=== PATIENT | male | born 1940 | race Caucasian/White ===

== ENCOUNTER 2016-10-13 09:36 | Day surgery (SDC) | payer MEDICARE ==
[2016-10-12 10:11] VITALS: BMI 30.7
[~2016-10-13 09:36] MED LIST: LACTATED RINGERS 1,000 ML IV SCH
[2016-10-13 10:41] LABS: Glucose,Whole Blood 226 mg/dL (75-99)
[2016-10-13] MEDS ORDERED: LIDOCAINE 1% 20 ML VIAL (10MG/ML) FOR IV START INTRADERMA ONE (10:50)
[2016-10-13] MEDS ORDERED: PROPOFOL 10 MG/ML 20 ML VIAL IV ONE (10:55)
[2016-10-13] MEDS ORDERED: LIDOCAINE 1% INJ 10MG/ML (20 ML MDV) ONE (10:55)
[2016-10-13 10:56] VITALS: TEMP 97.1
--- NOTE | 2016-10-13 11:10 | P.PCN ---
Date of Procedure: 10/13/16 Procedure(s) Performed: BRIEF HISTORY: Patient is a 76-year-old, pleasant, white male, scheduled for an upper endoscopy as a part of evaluation of iron deficiency anemia. His last colonoscopy was in November [address] Jacobs which showed some diverticulosis. He does complain of intermittent dark colored stools. He recently received a blood transfusion and is scheduled to receive IV infusions next week.. PROCEDURE PERFORMED: Esophagogastroduodenoscopy with cautery. PREOPERATIVE DIAGNOSIS: Iron Deficiency anemia. IV sedation per anesthesia. PROCEDURE: After informed consent was obtained, the patient was brought into the endoscopy unit. IV conscious sedation was administered by Anesthesia under continuous monitoring. Initially the Olympus GIF-140 video endoscope was inserted into the mouth. Esophagus intubated without any difficulty. It was gradually advanced into the stomach and duodenum and carefully examined. The bulb and the second part of the duodenum appeared normal. A few scattered angiectasia noted in the second and third part of the duodenum which we cauterized using a gold probe. The scope at this time was withdrawn to the stomach, adequately insufflated with air, and upon careful examination, mucosa of the antrum, body, cardia and the fundus appeared normal. The scope was then withdrawn into the esophagus. Small hiatal hernia noted. The GE junction was located at 39 cm from the incisors. The esophagus appeared normal. There were no erosions or ulcerations seen and the patient tolerated the procedure well. IMPRESSION: 1. Scattered angiectasia in the second and third part of the duodenum with no active bleeding status post cautery as described above. 2. Small hiatal hernia. RECOMMENDATIONS: The findings of this examination were discussed with the patient as well as his family. He was advised to follow with as scheduled. If he has persistent iron deficiency anemia may be a candidate for a small bowel capsule endoscopy.
[2016-10-13 11:31] LABS: Glucose,Whole Blood 197 mg/dL (75-99)
[2016-10-13 11:38] VITALS: BP 141/80; PULSE 67; RESP 18
== END 2016-10-13 12:08 | disposition home or self-care (01) ==
LOC: ORWHC2ENDO 09:36
PROVIDERS: ATTEND Internal Medicine Gastroenterology
DX: I99.8 Other disorder of circulatory system (principal); K44.9 Diaphragmatic hernia without obstruction or gangrene; Z79.84 Long term (current) use of oral hypoglycemic drugs; I10 Essential (primary) hypertension; J44.9 Chronic obstructive pulmonary disease, unspecified; J45.909 Unspecified asthma, uncomplicated; K21.9 Gastro-esophageal reflux disease without esophagitis; E11.9 Type 2 diabetes mellitus without complications; Z79.4 Long term (current) use of insulin; Z79.82 Long term (current) use of aspirin; Z79.899 Other long term (current) drug therapy; Z88.5 Allergy status to narcotic agent; Z88.0 Allergy status to penicillin; Z88.8 Allergy status to other drugs, medicaments and biological substances
CPT/HCPCS: 43270; J2001; J2704

== ENCOUNTER → 2016-12-08 | Outpatient (CLI) | payer MEDICARE ==
[2016-12-08 14:50] LABS: Blood Urea Nitrogen 16 mg/dL (9-20); Non-African American GFR(MDRD) >60 (>60 ml/min/1.73 sqM)
--- NOTE | 2016-12-08 16:16 | CT ---
EXAMINATION TYPE: CT angio abd aorta wo/w con DATE OF EXAM: 12/08/2016 3:34 PM COMPARISON: NONE INDICATION: Patient complains of low RBC count and need for blood and Iron infusions. DLP: 1084.7 mGycm, Automated exposure control for dose reduction was used. CONTRAST: 100 mL of Omnipaque 350. Study performed without Oral Contrast TECHNIQUE: Axial images were obtained from above the diaphragm to the pubic rami in the axial plane a t 5 mm thick sections. Reconstructed images are reviewed on the computer in the coronal plane. FINDINGS: Limited CT sections are obtained the lung bases. The lung bases are clear. CT ABDOMEN: Liver: There is mild diminished density relation spleen compatible with mild fatty infiltration liver . Spleen: Normal Pancreas: Normal Adrenal glands: The adrenal glands are normal. Gallbladder: Not identified. Kidneys: No masses are evident. No hydronephrosis is present. There is a cyst at the superior pole of the right kidney measuring 4.9 cm and 5 Hounsfield units. There is a lateral superior pole left re nal cyst measuring 2.3 cm and 22 Hounsfield units. Delayed images were obtained through the kidneys, which remain unremarkable. Aorta: Vascular calcification is within the aorta. There is some prominence of the common iliac michelle al measuring 2.2 cm transverse on the right and 1.9 cm transverse on the left. Some fusiform promin ence of the distal abdominal aorta has a greatest AP dimension and 3.8 cm. Reconstructed images in th e coronal and sagittal plane are reviewed on the computer Three-D reconstructed images performed sepa rately by the technologist on the [employer] computer are presented. Inferior vena cava: Normal. Loops of bowel within the abdomen and visualized pelvis are normal. Appendix: Not identified IMPRESSIONS: 1. 3.8 cm AP dimension abdominal aortic aneurysm with extension into the common iliac arteries measu ring 2.2 cm on the right and 1.9 cm on the left. 2. Bilateral renal cysts.
== END | disposition home or self-care (01) ==
LOC: RADCTMAIN 13:59
PROVIDERS: ATTEND Internal Medicine Cardiovascular Disease
DX: I71.4 Abdominal aortic aneurysm, without rupture (principal); N28.1 Cyst of kidney, acquired
CPT/HCPCS: 82565; 84520; 75635; 36415; Q9967

== ENCOUNTER 2017-12-06 19:31 | Observation (INO) | payer MEDICARE ==
[2017-12-06] MEDS ORDERED: MORPHINE SULFATE 4 MG/ML SYRINGE IV STA (19:54)
[2017-12-06] MEDS ORDERED: ASPIRIN 81 MG PO STA (19:54)
[2017-12-06] MEDS ORDERED: NITROGLYCERIN OINT 1 INCH/GM PACKET TOPICAL STA (19:54)
[2017-12-06] MEDS ORDERED: ONDANSETRON 4 MG/2 ML VIAL IVP STA (19:54)
[2017-12-06 20:12] LABS: Basophils # (A) 0.1 k/uL (0-0.2); Basophils % (A) 1 %; Eosinophils # (A) 0.3 k/uL (0-0.7); Eosinophils % (A) 4 %; HCT 33.6 % (39.0-53.0); HGB 11.4 gm/dL (13.0-17.5); Lymphocytes # (A) 1.2 k/uL (1.0-4.8); Lymphocytes % (A) 14 %; MCH 34.4 pg (25.0-35.0); MCV 101.3 fL (80.0-100.0); Macrocytosis Slight; Mean Platelet Volume 7.8; Monocytes # (A) 0.6 k/uL (0-1.0); Monocytes % (A) 7 %; Neutrophils % (A) 72 %; Platelet Count 328 k/uL (150-450); RBC 3.32 m/uL (4.30-5.90); RDW 14.4 % (11.5-15.5); WBC 8.3 k/uL (3.8-10.6)
[2017-12-06 20:21] LABS: Partial Thromboplastin Time 22.3 sec (22.0-30.0); Prothrombin Time 9.5 sec (9.0-12.0)
[2017-12-06 20:28] LABS: ALT 21 U/L (21-72); AST 16 U/L (17-59); Albumin 3.8 g/dL (3.5-5.0); Alkaline Phosphatase 56 U/L (38-126); Anion Gap 11 mmol/L; Blood Urea Nitrogen 25 mg/dL (9-20); Calcium 9.7 mg/dL (8.4-10.2); Carbon Dioxide 22 mmol/L (22-30); Chloride 106 mmol/L (98-107); Glucose 90 mg/dL (74-99); Potassium 4.3 mmol/L (3.5-5.1); Sodium 139 mmol/L (137-145); Total Bilirubin 0.3 mg/dL (0.2-1.3); Total Protein 6.2 g/dL (6.3-8.2)
[2017-12-06 21:14] LABS: Creatine Kinase 68 U/L (55-170)
[2017-12-06 21:27] LABS: Creatine Kinase MB 1.2 ng/mL (0.0-2.4); Troponin I <0.012 ng/mL (0.000-0.034)
--- NOTE | 2017-12-06 21:30 | ED ---
Chest Pain HPI - General Chief Complaint: Chest Pain Stated Complaint: Chest pain/heaviness on chest Time Seen by Provider: 12/06/17 19:36 Source: patient Mode of arrival: ambulatory Limitations: no limitations - History of Present Illness Initial Comments: 27 years old gentleman presented with the chest pain ongoing more than 24 hours ago has a history of ischemic heart disease he has a dentist in place and was 2 years ago is also complaining about short-winded he denies any worsening of the chest pain with deep breaths chest pain right now is 2/10 he denies any headaches no neck stiffness does have a chest pain and he's short-winded no abdominal pain no frequency urgency dysuria no weakness of upper or lower extremities - Related Data Home Medications Medication Instructions Recorded Confirmed Aspirin 81 mg PO DAILY 04/02/15 12/06/17 Ferrous Sulfate [Feosol] 650 mg PO DAILY 04/02/15 12/06/17 Insulin Glargine,Hum.rec.anlog 32 unit SQ HS 04/02/15 12/06/17 [Lantus Solostar] Multivitamin [Men's Multi-Vitamin] 1 tab PO DAILY 04/02/15 12/06/17 Omeprazole [PriLOSEC] 20 mg PO AC-BRKFST 04/02/15 12/06/17 amLODIPine BESYLATE [Norvasc] 5 mg PO DAILY 04/02/15 12/06/17 metFORMIN HCL [Glucophage] 1,000 mg PO BID 04/02/15 12/06/17 glipiZIDE XL [Glucotrol XL] 10 mg PO DAILY 04/03/15 12/06/17 Albuterol Inhaler [Ventolin Hfa 2 puff INHALATION RT-Q4H PRN 10/12/16 12/06/17 Inhaler] Atorvastatin [Lipitor] 40 mg PO DAILY 12/06/17 12/06/17 Baclofen [Lioresal] 10 mg PO TID PRN 12/06/17 12/06/17 FLUoxetine HCL [PROzac] 20 mg PO DAILY 12/06/17 12/06/17 Pramipexole [Mirapex] 0.125 mg PO DAILY 12/06/17 12/06/17 traMADol HCL [Ultram] 50 mg PO DAILY PRN 03/01/18 03/01/18 Allergies Allergy/AdvReac Type Severity Reaction Status Date / Time benazepril HCl Allergy Cough Verified 12/06/17 20:07 [From Lotensin] gabapentin [From Neurontin] Allergy Unknown Verified 12/06/17 20:07 hydrocodone bitartrate Allergy Unknown Verified 12/06/17 20:07 [From Lortab] Penicillins Allergy Unknown Verified 12/06/17 20:07 prednisone Allergy UNABLE TO Verified 12/06/17 20:07 URINATE varenicline tartrate Allergy Nausea Verified 12/06/17 20:07 [From Chantix] Review of Systems ROS Statement: Those systems with pertinent positive or pertinent negative responses have been documented in the HPI. ROS Other: All systems not noted in ROS Statement are negative. EKG Findings - EKG Comments: EKG Findings:: EKG is normal sinus rhythm ventricular rate is 87 HI interval is 166 QRS duration is 92 QT/QTc is 382/459 review of this EKG reveal slight ST segment depression in lead V6 and some T-wave flattening in aVL no ST elevation noticed Past Medical History Past Medical History: Chest Pain / Angina, COPD, Diabetes Mellitus, GERD/Reflux , Hyperlipidemia, Hypertension, Osteoarthritis (OA) Additional Past Medical History / Comment(s): aortic aneurysm, anemia, diverticulitis, back pain, colon polyps, restless leg., STATES HE RECEIVED BLOOD TRANSFUSION AT [facility] YESTERDAY.(10/11/2016), STATES HE HAS BEEN FEELING VERY WEAK., STATES HX OF IRON AND BLOOD TRANSFUSION IN THE PAST ALSO. History of Any Multi-Drug Resistant Organisms: None Reported Past Surgical History: Heart Catheterization With Stent, Hernia Repair, Orthopedic Surgery Additional Past Surgical History / Comment(s): angioplasty, hemorroidectomy, bilateral cataracts, left ankle, breast tumors removed, right knee arthroscopy, bilateral shoulders, back surgery with cage implant ., right trigger finger. Past Anesthesia/Blood Transfusion Reactions: No Reported Reaction Additional Past Anesthesia/Blood Transfusion Reaction / Comment(s): PT STATES BLOOD TRANSFUSION 10/11/16 AT [facility], STATES DIARRHEA AFTERWARDS. Date of Last Stent Placement:: 04/03/2015 Past Psychological History: Anxiety, Depression Smoking Status: Current every day smoker Past Alcohol Use History: None Reported, Occasional Past Drug Use History: None Reported - Past Family History Mother Family Medical History: Cancer General Exam - General Exam Comments Initial Comments: General: The patient is awake and alert, looks pale and tired Skin: Skin is warm and dry and no rashes or lesions are noted. Eye: Pupils are equal, round and reactive to light, extra-ocular movements are intact; there is normal conjunctiva bilaterally. Ears, nose, mouth and throat: There are moist mucous membranes and no oral lesions. Neck: The neck is supple, there is no tenderness Cardiovascular: There is a regular rate and rhythm. No murmur, rub or gallop is appreciated. Respiratory: To auscultation bilateral, no wheezing no rhonchi no distress respiratory hudson noticed Gastrointestinal: Soft, non-distended, non-tender abdomen without masses or organomegaly noted. There is no rebound or guarding present. Bowel sounds are unremarkable. Back: There is no tenderness to palpation in the midline. There is no obvious deformity. Musculoskeletal: Normal ROM, no tenderness, There is no pedal edema. There is no calf tenderness or swelling. No cords were appreciated. Neurological: CN II-XII intact, Cranial nerves III through XII are intact. There are no obvious motor or sensory deficits. Coordination appears grossly intact. Speech is normal. Psychiatric: Cooperative, appropriate mood & affect, normal judgment. Limitations: no limitations Course Vital Signs 12/06/17 12/06/17 12/06/17 19:39 20:08 21:08 Temperature 98.6 F 98.3 F Pulse Rate 87 76 70 Respiratory 18 18 18 Rate Blood Pressure 188/87 142/91 139/67 O2 Sat by Pulse 99 99 98 Oximetry - Reevaluation(s) Reevaluation #1: Is reassessed at term at 10 PM, CBC, INR, compressive metabolic panel, troponin , chest x-ray are unremarkable, that patient added that pain has gone but he still has a chest pressure considering is a diabetic considering diabetes, physes symptoms I decided to put him in the hospital for observation with the 3 sets of cardiac markers and cardiology consult and admission to Dr. Conrad's service 12/06/17 22:05 Disposition Clinical Impression: Chest pain, Chest pressure Disposition: ADMITTED IP TO THIS HOSP Condition: Good Referrals: Marilia Randall DO [Primary Care Provider] - 1-2 days
--- NOTE | 2017-12-06 21:49 | XR ---
EXAMINATION TYPE: XR chest 2V DATE OF EXAM: 12/06/2017 COMPARISON: 04/02/2015 HISTORY: Chest pain TECHNIQUE: Frontal and lateral views of the chest are obtained. FINDINGS: There is no heart failure nor confluent pneumonic infiltrate. Thoracic aorta is atheromato us. There are chest leads. Costophrenic angles are clear. Bony thorax is intact. IMPRESSION: No active cardiopulmonary disease. There is improved aeration of the lung bases compared to old exam.
[2017-12-06] MEDS ORDERED: MORPHINE SULFATE 4 MG/ML SYRINGE IV PRN (22:06)
[2017-12-06] MEDS ORDERED: ACETAMINOPHEN TAB 325 MG TAB PO PRN (22:06)
[2017-12-06] MEDS ORDERED: HEPARIN SODIUM,PORCINE 5,000 UNIT/ML 1 ML VIAL IV ONE (22:06)
[2017-12-06] MEDS ORDERED: NITROGLYCERIN SL TABS 0.4 MG TAB SUBLINGUAL PRN (22:06)
[2017-12-06] MEDS ORDERED: ALBUTEROL NEBULIZED 2.5 MG/3 ML INHALATION PRN (22:12)
[2017-12-06] MEDS ORDERED: traMADol 50 MG TAB PO PRN (22:12)
[2017-12-06] MEDS ORDERED: BACLOFEN 10 MG TAB PO PRN (22:12)
[2017-12-06] MEDS ORDERED: HEPARIN SOD,PORK IN 0.45% NACL 25,000 UNIT in 0.45% NACL 1 500ML.BAG IV SCH (22:15)
[2017-12-06 23:12] VITALS: BMI 32.1
[2017-12-06] MEDS ORDERED: INSULIN DETEMIR 100 UNIT/ML 10 ML VIAL SQ SCH (23:38)
[2017-12-06 23:57] VITALS: RESP 18
[2017-12-07 02:09] LABS: Cholesterol 103 mg/dL (<200); HDL Cholesterol 35 mg/dL (40-60); LDL Cholesterol,Calculated 23 mg/dL (0-99); Triglycerides 225 mg/dL (<150)
[2017-12-07 02:12] LABS: Creatine Kinase 47 U/L (55-170)
[2017-12-07 02:26] LABS: Creatine Kinase MB 1.2 ng/mL (0.0-2.4); Troponin I <0.012 ng/mL (0.000-0.034)
[2017-12-07] MEDS ORDERED: INSULIN DETEMIR 100 UNIT/ML 10 ML VIAL SQ SCH ×2 (06:33→21:00)
[2017-12-07] MEDS ORDERED: PANTOPRAZOLE 40 MG TABLET PO SCH (07:30)
[2017-12-07] MEDS ORDERED: PRAMIPEXOLE 0.125 MG TAB PO SCH (09:00)
[2017-12-07] MEDS ORDERED: ASPIRIN 81 MG PO SCH (09:00)
[2017-12-07] MEDS ORDERED: MULTIVITAMINS, THERA 1 EACH TAB PO SCH (09:00)
[2017-12-07] MEDS ORDERED: amLODIPine 5 MG TAB PO SCH (09:00)
[2017-12-07] MEDS ORDERED: ATORVASTATIN 40 MG TAB PO SCH (09:00)
[2017-12-07] MEDS ORDERED: FERROUS SULFATE 325 MG TAB PO SCH (09:00)
[2017-12-07] MEDS ORDERED: FLUoxetine HCL 20 MG CAP PO SCH (09:00)
[2017-12-07] MEDS ORDERED: metFORMIN 500 MG TAB PO SCH (09:00)
[2017-12-07] MEDS ORDERED: glipiZIDE 10 MG TAB PO SCH (09:00)
[2017-12-07 09:38] LABS: Creatine Kinase 48 U/L (55-170)
[2017-12-07 09:52] LABS: Creatine Kinase MB 1.3 ng/mL (0.0-2.4); Troponin I <0.012 ng/mL (0.000-0.034)
[2017-12-07] MEDS ORDERED: DOBUTamine DRIP for NUC MED 250 MG in DEXTROSE/WATER 1 250ML.BAG IV ONE (10:00)
--- NOTE | 2017-12-07 11:49 | ECHOF ---
Referral Reason:chest pain MEASUREMENTS -------- HEIGHT: 182.9 cm WEIGHT: 103.9 kg BP: 145/79 RVIDd: 3.7 cm (< 3.3) IVSd: 1.4 cm (0.6 - 1.1) LVIDd: 4.6 cm (3.9 - 5.3) LVPWd: 1.6 cm (0.6 - 1.1) IVSs: 2.5 cm LVIDs: 2.1 cm LVPWs: 2.5 cm LAESV Index (A-L): 29.59 ml/m Ao Diam: 3.6 cm (2.0 - 3.7) AV Cusp: 1.9 cm (1.5 - 2.6) LA Diam: 3.8 cm (2.7 - 3.8) MV EXCURSION: 11.800 mm (> 18.000) MV EF SLOPE: 60 mm/s (70 - 150) EPSS: 0.9 cm MV E Abhijit: 0.58 m/s MV DecT: 365 ms MV A Abhijit: 0.94 m/s MV E/A Ratio: 0.61 RAP: 5.00 mmHg RVSP: 8.99 mmHg FINDINGS -------- Sinus rhythm. This was a technically difficult study with suboptimal views. The left ventricular size is normal. There is moderate concentric left ventricular hypertrophy. O verall left ventricular systolic function is mildly impaired with, an EF between 45 - 50 %. Basal i nferoseptal LV wall motion is hypokinetic. Mid inferoseptal LV wall motion is hypokinetic. The right ventricle is mildly enlarged. LA is midly dilated 29-33ml/m2. The right atrium is normal in size. 1.5mg of Definity was utilized for enhancement of images The aortic valve is trileaflet, and appears structurally normal. No aortic stenosis or regurgitation. The mitral valve leaflets are mildly thickened. There is trace mitral regurgitation. Mild tricuspid regurgitation present. The right ventricular systolic pressure, as measured by Doppl er, is 8.99mmHg. Pulmonic valve appears structurally normal. The aortic root size is normal. The pericardium is normal. CONCLUSIONS -------- 1. Sinus rhythm. 2. This was a technically difficult study with suboptimal views. 3. The left ventricular size is normal. 4. There is moderate concentric left ventricular hypertrophy. 5. Overall left ventricular systolic function is mildly impaired with, an EF between 45 - 50 %. 6. Basal inferoseptal LV wall motion is hypokinetic. 7. Mid inferoseptal LV wall motion is hypokinetic. 8. The right ventricle is mildly enlarged. 9. LA is midly dilated 29-33ml/m2. 10. The right atrium is normal in size. 11. Lumason used 12. The aortic valve is trileaflet, and appears structurally normal. No aortic stenosis or regurgitat ion. 13. The mitral valve leaflets are mildly thickened. 14. There is trace mitral regurgitation. 15. Mild tricuspid regurgitation present. 16. The right ventricular systolic pressure, as measured by Doppler, is 8.99mmHg. 17. Pulmonic valve appears structurally normal. 18. The aortic root size is normal. 19. The pericardium is normal. LOADING UNIT OPERATOR POWDER CHARGING: Alma Marrero RDCS
[2017-12-07 12:03] VITALS: BP 138/69; PULSE 87; TEMP 98.5
[2017-12-07 12:08] LABS: Glucose,Whole Blood 256 mg/dL (75-99)
--- NOTE | 2017-12-07 12:26 | ECHOS ---
STRESS ECHOCARDIOGRAM INDICATIONS: Chest pain. BASELINE HEART RATE: 73 BASELINE BLOOD PRESSURE: 153/53 MAXIMUM HEART RATE: 133 MAXIMUM BLOOD PRESSURE: 110/47 85% MPHR: 123 100% MPHR: 145 MAXIMUM STAGE REACHED: 3 TOTAL EXERCISE TIME: 8:00 CLINICAL INFORMATION: A dobutamine stress echocardiographic study was performed. Patient was given dobutamine infusion according to the standard protocol. Peak heart rate of 133 was achieved. Maximum blood pressure 110/47 mmHg was noted. Resting EKG shows normal sinus rhythm with normal NH interval and QRS duration and normal ST-T waves. No ST-segment depression suggestive of ischemia is noted. The baseline echocardiographic images reveal inferior basilar hypokinesia at the peak dose of dobutamine infusion. Normal increase in the wall thickness and contractility was noted. Inferobasal hypokinesia persists. FINAL IMPRESSION: 1. There is evidence of persistent inferior basal hypokinesis suggestive of prior myocardial infarction. The rest of the myocardial segments with normal increase in the wall thickness and contractility and there is no evidence of stress-induced ischemia. 2. EKG portion of the stress test is not suggestive of ischemia. MMODL / IJN: [id number] /
[2017-12-07] MEDS ORDERED: MORPHINE ORAL SOLN 10 MG/5 ML CUP PO PRN (14:35)
--- NOTE | 2017-12-07 14:45 | P.CRDCN ---
History of Present Illness Consult date: 12/07/17 Consult reason: chest pain, shortness of breath History of present illness: Mr. Fernández is a pleasant 77-year-old male past medical history significant for hypertension, COPD, dyslipidemia, diabetes, coronary artery disease, abdominal aortic aneurysm and anemia. He follows with Dr. Mack in the office. We have been asked to see him in consultation for complaints of chest pain. He states for the last 1-2 days he has had a tight sensation in the mid-sternal region associated with shortness of breath. The pain started at rest and remained localized to the chest, no radiation to the back, arm, neck or jaw. There are no specific alleviating factors but smoking a cigarette made it worse. The symptoms lasted approximately 4-5 minutes at a time and went away on their own. He denies associated palpitations, dizziness, nausea, vomiting or diaphroesis. He also denies PND, orthopnea, cough, fever or chills. EKG on arrival reveals sinus mechanism with no acute ST or T-wave abnormalities. Chest x-ray is negative for an acute cardiopulmonary process. Laboratory data reviewed, hemoglobin 11.4, platelets 328, d-dimer 0.53, potassium 4.3, magnesium 1.6, creatinine 0.95, cardiac enzymes negative 3, LDL 23, HDL 35, triglycerides 225, total cholesterol 103. Current cardiac medications include amlodipine 5 mg daily, atorvastatin 40 mg daily and aspirin 81 mg daily. Most recent echocardiogram was performed November 2016 reveals mildly decreased systolic function with ejection fraction 45%, hypokinesia of the inferior and septal wall at the base, mild mitral regurgitation, mild tricuspid regurgitation and normal PA pressure. Most recent Lexiscan stress test was performed November 2016 revealed fixed perfusion defect with mild reversibility noted in the basal portion of the lateral wall suggestive of prior myocardial infarction with ejection fraction 49 %. Most recent cardiac catheterization was performed in March 2015 with a right radial approach revealed patent stents in the RCA as well as the obtuse marginal , intermediate disease involving the first obtuse prior anginal branch left circumflex, severe disease involving the distal left circumflex coronary artery and severe disease involving the PLV branch of the RCA. Stent was placed in the distal portion of the circumflex artery. Review of Systems At the time of my exam: CONSTITUTIONAL: Denies fever. Denies chills. EYES: Denies blurred vision. Denies vision changes. Denies eye pain. EARS, NOSE, MOUTH & THROAT: Denies headache. Denies sore throat. Denies ear pain. CARDIOVASCULAR: Denies chest pain. Denies shortness of breath. Denies orthopnea. Denies PND. Denies palpitations. RESPIRATORY: Denies cough. GASTROINTESTINAL: Denies abdominal pain. Denies diarrhea. Denies constipation. Denies nausea. Denies vomiting. MUSCULOSKELETAL: Denies myalgias. INTEGUMENTARY: Denies pruitis. Denies rash. NEUROLOGIC: Denies numbness. Denies tingling. Denies weakness. PSYCHIATRIC: Denies anxiety. Denies depression. ENDOCRINE: Denies fatigue. Denies weight change. Denies polydipsia. Denies polyurina. GENITOURINARY: Denies burning, hematuria or urgency with micturation. HEMATOLOGIC: Denies history of anemia. Denies bleeding. Past Medical History Past Medical History: Chest Pain / Angina, COPD, Diabetes Mellitus, GERD/Reflux , Hyperlipidemia, Hypertension, Osteoarthritis (OA) Additional Past Medical History / Comment(s): aortic aneurysm, anemia, diverticulitis, back pain, colon polyps, restless leg., STATES HE RECEIVED BLOOD TRANSFUSION AT [facility] YESTERDAY.(10/11/2016), STATES HE HAS BEEN FEELING VERY WEAK., STATES HX OF IRON AND BLOOD TRANSFUSION IN THE PAST ALSO. History of Any Multi-Drug Resistant Organisms: None Reported Past Surgical History: Back Surgery, Heart Catheterization With Stent, Hernia Repair, Orthopedic Surgery Additional Past Surgical History / Comment(s): angioplasty, hemorroidectomy, bilateral cataracts, left ankle, breast tumors removed, right knee arthroscopy, bilateral shoulders, back surgery with cage implant ., right trigger finger. 2 stents and a balloon Past Anesthesia/Blood Transfusion Reactions: No Reported Reaction Additional Past Anesthesia/Blood Transfusion Reaction / Comment(s): PT STATES BLOOD TRANSFUSION 10/11/16 AT [facility], STATES DIARRHEA AFTERWARDS. Date of Last Stent Placement:: 04/03/2015 Smoking Status: Current every day smoker - Past Family History Mother Family Medical History: Cancer Father History Unknown: Yes Medications and Allergies Home Medications Medication Instructions Recorded Confirmed Type Aspirin 81 mg PO DAILY 04/02/15 12/06/17 History Ferrous Sulfate [Feosol] 650 mg PO DAILY 04/02/15 12/06/17 History Insulin Glargine,Hum.rec.anlog 32 unit SQ HS 04/02/15 12/06/17 History [Lantus Solostar] Multivitamin [Men's Multi-Vitamin] 1 tab PO DAILY 04/02/15 12/06/17 History Omeprazole [PriLOSEC] 20 mg PO AC-BRKFST 04/02/15 12/06/17 History amLODIPine BESYLATE [Norvasc] 5 mg PO DAILY 04/02/15 12/06/17 History metFORMIN HCL [Glucophage] 1,000 mg PO BID 04/02/15 12/06/17 History glipiZIDE XL [Glucotrol XL] 10 mg PO DAILY 04/03/15 12/06/17 History Albuterol Inhaler [Ventolin Hfa 2 puff INHALATION RT-Q4H PRN 10/12/16 12/06/17 History Inhaler] Atorvastatin [Lipitor] 40 mg PO DAILY 12/06/17 12/06/17 History Baclofen [Lioresal] 10 mg PO TID PRN 12/06/17 12/06/17 History FLUoxetine HCL [PROzac] 20 mg PO DAILY 12/06/17 12/06/17 History Pramipexole [Mirapex] 0.125 mg PO DAILY 12/06/17 12/06/17 History traMADol HCL [Ultram] 50 mg PO DAILY PRN 12/06/17 12/06/17 History Allergies Allergy/AdvReac Type Severity Reaction Status Date / Time benazepril HCl Allergy Cough Verified 12/06/17 22:50 [From Lotensin] gabapentin [From Neurontin] Allergy Unknown Verified 12/06/17 22:50 hydrocodone bitartrate Allergy Unknown Verified 12/06/17 22:50 [From Lortab] Penicillins Allergy Unknown Verified 12/06/17 22:50 prednisone Allergy UNABLE TO Verified 12/06/17 22:50 URINATE varenicline tartrate Allergy Nausea Verified 12/06/17 22:50 [From Chantix] Physical Exam Vitals: Vital Signs Temp Pulse Pulse Pulse Resp BP BP 12/07/17 08:00 97.2 F L 73 18 145/79 12/07/17 04:00 98 F 70 18 140/63 12/06/17 23:54 68 18 12/06/17 23:04 97.8 F 72 16 150/77 12/06/17 22:20 70 18 150/79 12/06/17 21:08 98.3 F 70 18 139/67 12/06/17 20:08 76 18 142/91 12/06/17 19:39 98.6 F 87 18 188/87 Pulse Ox 12/07/17 08:00 96 12/07/17 04:00 96 12/06/17 23:54 12/06/17 23:04 98 12/06/17 22:20 97 12/06/17 21:08 98 12/06/17 20:08 99 12/06/17 19:39 99 Intake and Output 12/06/17 12/07/17 12/07/17 22:59 06:59 14:59 Intake Total 460 Balance 460 Intake: Intake, IV Titration 160 Amount Heparin Sod,Pork in 0.45% 160 NaCl 25,000 unit In 0.45 % NaCl 1 500ml.bag @ 9. 586 UNITS/KG/HR 20 mls/hr IV .Q24H COUNTS INCLUDE 234 BEDS AT THE [facility] Rx#: [id number] Oral 300 Other: Voiding Method Toilet # Voids 2 Weight 104.326 kg 104.3 kg Blood pressure 145/79 heart rate 73 afebrile GENERAL: This is a 77-year-old male in no apparent distress at the time of my examination. HEENT: Head is atraumatic, normocephalic. Pupils are equal, round. Sclerae anicteric. Conjunctivae are clear. Mucous membranes of the mouth are moist. Neck is supple. There is no jugular venous distention. No carotid bruit is heard. LUNGS: Clear to auscultation no wheezes, rales or rhonchi. No chest wall tenderness is noted on palpation or with deep breathing. Diminished. HEART: Regular rate and rhythm without murmurs, rubs or gallops. S1 and S2 heard. ABDOMEN: Soft, nontender. Bowel sounds are heard. No organomegaly noted. EXTREMITIES: No evidence of peripheral edema and no calf tenderness noted. VASCULAR: Radial and dorsalis pedis pulses palpated, no evidence of clubbing. NEUROLOGIC: Patient is awake, alert and oriented x3. Results 12/06/17 19:55 12/06/17 19:55 Cardiac Enzymes 12/06/17 12/06/17 12/07/17 Range/Units 19:55 19:55 01:30 AST 16 L (17-59) U/L CK-MB (CK-2) 1.2 1.2 (0.0-2.4) ng/mL Troponin I <0.012 <0.012 (0.000-0.034) ng/mL Coagulation 12/06/17 Range/Units 19:55 PT 9.5 (9.0-12.0) sec APTT 22.3 (22.0-30.0) sec Lipids 12/07/17 Range/Units 01:30 Triglycerides 225 H (<150) mg/dL Cholesterol 103 (<200) mg/dL HDL Cholesterol 35 L (40-60) mg/dL CBC 12/06/17 Range/Units 19:55 WBC 8.3 (3.8-10.6) k/uL RBC 3.32 L (4.30-5.90) m/uL Hgb 11.4 L (13.0-17.5) gm/dL Hct 33.6 L (39.0-53.0) % Plt Count 328 (150-450) k/uL Comprehensive Metabolic Panel 12/06/17 Range/Units 19:55 Sodium 139 (137-145) mmol/L Potassium 4.3 (3.5-5.1) mmol/L Chloride 106 (98-107) mmol/L Carbon Dioxide 22 (22-30) mmol/L BUN 25 H (9-20) mg/dL Creatinine 0.95 (0.66-1.25) mg/dL Glucose 90 (74-99) mg/dL Calcium 9.7 (8.4-10.2) mg/dL AST 16 L (17-59) U/L ALT 21 (21-72) U/L Alkaline Phosphatase 56 (38-126) U/L Total Protein 6.2 L (6.3-8.2) g/dL Albumin 3.8 (3.5-5.0) g/dL Current Medications Generic Name Dose Route Start Last Admin Trade Name Freq PRN Reason Stop Dose Admin Acetaminophen 650 mg 12/06/17 22:06 Tylenol Tab PO Q4HR PRN Pain Albuterol Sulfate 2.5 mg 12/06/17 22:12 Ventolin Nebulized INHALATION RT-Q4H PRN Shortness Of Breath Amlodipine Besylate 5 mg 12/07/17 09:00 Norvasc PO DAILY COUNTS INCLUDE 234 BEDS AT THE [facility] Aspirin 81 mg 12/07/17 09:00 Aspirin PO DAILY COUNTS INCLUDE 234 BEDS AT THE [facility] Atorvastatin Calcium 40 mg 12/07/17 09:00 Lipitor PO DAILY COUNTS INCLUDE 234 BEDS AT THE [facility] Baclofen 10 mg 12/06/17 22:12 Lioresal PO TID PRN Muscle Pain Ferrous Sulfate 650 mg 12/07/17 09:00 Feosol PO DAILY COUNTS INCLUDE 234 BEDS AT THE [facility] Fluoxetine HCl 20 mg 12/07/17 09:00 Prozac PO DAILY COUNTS INCLUDE 234 BEDS AT THE [facility] Glipizide 10 mg 12/07/17 09:00 Glucotrol PO DAILY COUNTS INCLUDE 234 BEDS AT THE [facility] Heparin Sodium/Sodium Chloride 500 mls @ 20 mls/hr 12/06/17 22:15 12/06/17 22 :35 25,000 unit/ Sodium Chloride IV 9.586 units/kg/hr .Q24H CATE 20 mls/hr Protocol Administration 9.586 UNITS/KG/HR Insulin Detemir 32 unit 12/07/17 06:33 Levemir SQ HS COUNTS INCLUDE 234 BEDS AT THE [facility] Metformin HCl 1,000 mg 12/07/17 09:00 Glucophage PO BID COUNTS INCLUDE 234 BEDS AT THE [facility] Morphine Sulfate 4 mg 12/06/17 22:06 Morphine Sulfate (Inj) IV Q5M PRN Chest Pain Multivitamins 1 each 12/07/17 09:00 Theragran PO DAILY COUNTS INCLUDE 234 BEDS AT THE [facility] Nitroglycerin 0.4 mg 12/06/17 22:06 Nitrostat SUBLINGUAL Q5M PRN Chest Pain Pantoprazole Sodium 40 mg 12/07/17 07:30 Protonix PO AC-BRKFST COUNTS INCLUDE 234 BEDS AT THE [facility] Pramipexole Dihydrochloride 0.125 mg 12/07/17 09:00 Mirapex PO DAILY COUNTS INCLUDE 234 BEDS AT THE [facility] Tramadol HCl 50 mg 12/06/17 22:12 Ultram PO DAILY PRN Pain Intake and Output 12/06/17 12/07/17 12/07/17 22:59 06:59 14:59 Intake Total 460 Balance 460 Intake: Intake, IV Titration 160 Amount Heparin Sod,Pork in 0.45% 160 NaCl 25,000 unit In 0.45 % NaCl 1 500ml.bag @ 9. 586 UNITS/KG/HR 20 mls/hr IV .Q24H COUNTS INCLUDE 234 BEDS AT THE [facility] Rx#: [id number] Oral 300 Other: Voiding Method Toilet # Voids 2 Weight 104.326 kg 104.3 kg 12/06/17 19:55 03/01/18 19:55 Assessment and Plan Assessment: ASSESSMENT 1. Chest pain, atypical. Acute coronary event has been ruled out with no EKG evidence of ischemia and negative cardiac enzymes. 2. History of coronary artery disease 3. Hypertension 4. Dyslipidemia 5. Diabetes mellitus 6. COPD PLAN Obtain 2-D echocardiogram and Doppler study to assess cardiac structure and function. Perform dobutamine stress echo to evaluate for any evidence of stress induced cardiac ischemia. The above diagnostic testing is normal he is stable from a cardiac perspective. Follow up with Dr. Mack in 2-3 weeks. Thank you kindly for this consultation. Nurse Practitioner note has been reviewed, I agree with a documented findings and plan of care. Patient was seen and examined.
--- NOTE | 2017-12-07 15:05 | HP ---
HISTORY AND PHYSICAL DATE OF ADMISSION: December 06, 2017. PRESENTING COMPLAINT: Chest pain. HISTORY OF PRESENTING COMPLAINT: This is a pleasant 77-year-old patient of Dr. Marilia Randall. Chronic stable medical conditions include COPD, diabetes, GERD, hyperlipidemia, hypertension, osteoarthritis, chronic back pain, restless leg syndrome. The patient has known coronary artery disease with stent placed about 3 years ago. The patient has had some left precordial pain and feels like a knot on and off for about 2 days. Did on 1 time go up to his throat. There was no lightheadedness, no dizziness, felt a little perspiration or shortness of breath. Given history of coronary artery disease, patient decided to come in. REVIEW OF SYSTEMS: CONSTITUTIONAL: None. HEENT none. Respiratory none. Cardiovascular as above. Gastrointestinal none. Genitourinary: None. Musculoskeletal arthritic pain in the joints. Dermatological and hematologic, lymphatic none. Psychiatry none. Neurological none. PAST MEDICAL HISTORY: COPD, diabetes mellitus type 2, GERD, hypertension, hyperlipidemia, osteoarthritis, aortic aneurysm, anemia, back pain, restless legs syndrome, blood transfusion. PAST SURGICAL HISTORY: Coronary artery disease with stent about 3 years ago, hernia repair and hemorrhoidectomy, bilateral cataract, left ankle surgery, breast tumor removed, right knee arthroscopy, bilateral shoulder surgery, back surgery with cage implant, 2 stents with a balloon in March of 2015. SOCIAL HISTORY: The patient smoked about 2 packs a day for 58 years. Stopped in 2015. Lives with his daughter. Alcohol occasionally. FAMILY HISTORY: Of cancer type unknown. HOME MEDICATIONS: 1. Ultram 50 mg daily p.r.n. 2. Glucophage 1000 mg p.o. b.i.d. 3. Glucotrol XL 10 mg p.o. daily. 4. Norvasc 5 mg p.o. daily. 5. Mirapex 0.125 mg p.o. daily. 6. Prilosec 20 mg p.o. with breakfast. 7. Men's multivitamin 1 tab p.o. daily. 8. Insulin Lantus 32 units subcu q.h.s. 9. Iron 650 mg p.o. daily. 10.Prozac 20 mg p.o. daily. 11.Baclofen 10 mg p.o. daily p.r.n. 12.Lipitor 40 mg p.o. daily. 13.Aspirin 81 mg p.o. daily. 14.Ventolin 2 puffs q.4h p.r.n. ALLERGIES: TO LOTENSIN, GABAPENTIN, LORTAB, PENICILLIN, PREDNISONE, CHANTIX. PHYSICAL EXAMINATION: Vital signs on presentation: Temperature 98.6, pulse 87, respiratory 18, blood pressure 142/91, pulse ox 99% on 2 L. GENERAL APPEARANCE: Well built, BMI 32.1, sitting up not in distress. Eyes pupils equal. Conjunctivae normal. HEENT: External appearance of nose and ears normal. Oral cavity normal. Neck JVD not raised. Mass not palpable. Respiratory effort normal. Lungs slightly decreased breath sounds. Cardiovascular: 1st and second sounds normal. No edema. ABDOMEN: Soft, nontender. Liver and spleen not palpable. Lymphatics: No lymph nodes palpable in the neck and axilla. PSYCHIATRY: Alert and oriented x3. Mood and affect normal. Neurological: Pupils equal. Cranial nerves grossly intact. Power and sensation grossly intact. Musculoskeletal: Evidence of osteoarthritis especially in the hands. INVESTIGATIONS: White count 9.3, hemoglobin 11.4, potassium 4.3. Troponin negative. EKG normal sinus rhythm. ASSESSMENT: 1. Left anterior chest wall pain in a patient with known coronary artery disease, could be possible unstable angina. 2. Chronic obstructive pulmonary disease in an ex-smoker. 3. Diabetes mellitus type 2, chronically on insulin. 4. Gastroesophageal reflux disease. 5. Hyperlipidemia. 6. Essential hypertension. 7. Primary osteoarthritis multiple joints. 8. Restless legs syndrome. 9. Coronary artery prior history of stent in 2014. PLAN: Home medications are resumed. The patient is put on IV heparin. Cardiology was consulted who ordered a stress test. Serial cardiac enzymes were negative. Care was discussed the patient. Copy to Dr. Randall. MMODL / IJN: [id number] /
--- NOTE | 2017-12-07 15:25 | DS ---
DISCHARGE SUMMARY DATE OF ADMISSION: December 06, 2017. DATE OF DISCHARGE: December 07, 2017. FINAL DIAGNOSES: 1. Left anterior chest wall pain could be musculoskeletal. 2. Coronary artery disease, prior history of stent. 3. Chronic obstructive pulmonary disease in an ex-smoker. 4. Diabetes mellitus type 2, chronically on insulin. 5. Gastroesophageal reflux disease. 6. Hyperlipidemia. 7. Essential hypertension. 8. Primary osteoarthritis. 9. Restless legs syndrome. HOSPITAL COURSE: This patient presented with chest pain and known coronary artery disease. Troponins were negative. Dobutamine stress echocardiogram was negative for ischemia. Seen by Cardiology. Okay to be discharged. EXAM: Lungs are clear. Cardiovascular 1st and second sounds normal. CONSULTATION: [facility]. DISCHARGE MEDICATIONS: 1. Aspirin 81 mg a day. 2. Iron 650 mg p.o. daily. 3. Lantus 32 units subcu q.h.s. 4. Men's multivitamin 1 tab p.o. daily. 5. Prilosec 20 mg p.o. with breakfast. 6. Norvasc 5 mg p.o. daily. 7. Glucophage 1000 mg p.o. b.i.d. 8. Glucotrol XL 10 mg p.o. daily. 9. Ventolin HFA 2 puffs q.4h p.r.n. 10.Lipitor 40 mg p.o. daily. 11.Baclofen 10 mg p.o. t.i.d. p.r.n. 12.Prozac 20 mg p.o. daily. 13.Mirapex 0.125 mg p.o. daily. 14.Ultram is 850 mg p.o. daily p.r.n. 15.Nitrostat 0.4 sublingual q.5 p.r.n. FOLLOW UP: With Dr. Marilia Randall in 3 days. Follow up with her own dials inspector in a week EXAMINATION: Lungs are clear. Cardiovascular: 1st and second sounds normal. Copy to Dr. Randall. MMODL / IJN: [id number] /
== END 2017-12-07 14:38 | disposition home or self-care (01) ==
LOC: EC 19:31 → 3OBS 22:07
PROVIDERS: ADMIT Hospitalist; ATTEND Hospitalist
DX: R07.89 Other chest pain (principal); R07.2 Precordial pain; R06.02 Shortness of breath; I25.10 Atherosclerotic heart disease of native coronary artery without angina pectoris; Z95.5 Presence of coronary angioplasty implant and graft; J44.9 Chronic obstructive pulmonary disease, unspecified; E11.9 Type 2 diabetes mellitus without complications; Z79.4 Long term (current) use of insulin; K21.9 Gastro-esophageal reflux disease without esophagitis; E78.5 Hyperlipidemia, unspecified; I10 Essential (primary) hypertension; M19.91 Primary osteoarthritis, unspecified site; G25.81 Restless legs syndrome; D64.9 Anemia, unspecified; G89.29 Other chronic pain; M54.9 Dorsalgia, unspecified; F41.9 Anxiety disorder, unspecified; F32.9 Major depressive disorder, single episode, unspecified; Z87.891 Personal history of nicotine dependence; I71.4 Abdominal aortic aneurysm, without rupture; K57.92 Diverticulitis of intestine, part unspecified, without perforation or abscess without bleeding; Z79.82 Long term (current) use of aspirin; Z79.899 Other long term (current) drug therapy; Z79.84 Long term (current) use of oral hypoglycemic drugs; Z88.5 Allergy status to narcotic agent; Z88.0 Allergy status to penicillin; Z88.8 Allergy status to other drugs, medicaments and biological substances; Z86.010 Personal history of colon polyps; Z80.9 Family history of malignant neoplasm, unspecified
CPT/HCPCS: 99285; 96375 ×3; 96376 ×2; 96365 ×2; 96366 ×2; 36415; 93005; 93017; 93350; 85379; 80061; 80053; 82550 ×2; 82553 ×2; 83735; 84484 ×2; 85025; 85610; 85730 ×2; 71046; G0378 ×2; C8929; J2270; J1644 ×2; J2405; Q9950; J1250; 93306

== ENCOUNTER → 2018-04-30 | Outpatient (CLI) | payer MEDICARE ==
[2018-04-30 14:59] LABS: Blood Urea Nitrogen 21 mg/dL (9-20)
--- NOTE | 2018-04-30 16:29 | CT ---
EXAMINATION TYPE: CT abdomen pelvis w con DATE OF EXAM: 04/30/2018 COMPARISON: 12/08/2016 HISTORY: Abdominal pain with hematuria x2 months CT DLP: 1720.5 mGycm CONTRAST: CT scan of the abdomen and pelvis is performed with Oral Contrast and with IV Contrast, patient injec geneva with 100 mL of Isovue 300. FINDINGS: LUNG BASES-: No visible nodule. No infiltrate. LIVER/GB: No calcified gallstones. No space occupying hepatic lesion. Biliary tree is of normal ca liber. PANCREAS: No inflammation. No distinct mass. SPLEEN: No splenic enlargement. No lesion seen. ADRENALS: No nodule. No thickening. KIDNEYS/BLADDER: No hydronephrosis. No nephrolithiasis. Simple appearing cysts noted. Pole right ki dney simple cyst measures 5.6 cm in greatest dimension while the upper pole left kidney measuring 2.7 cm. Small exophytic simple cyst midpole left kidney measures 1.3 cm. Hounsfield units are all less t tineo 20. No solid renal lesions identified. No hydronephrosis or nephrolithiasis. Urinary bladder is p oorly distended. There may be mild right-sided wall thickening. Correlate clinically. BOWEL: Normal appendix. Normal bowel caliber. No inflammation. GENITAL ORGANS: No gross abnormality. LYMPH NODES: No greater than 1cm abdominal or pelvic lymph nodes are appreciated. AORTA: Infrarenal abdominal aortic aneurysm measuring 3.7 cm AP dimension. Right common iliac artery measures 2 cm while the left common iliac artery measures 1.8 cm. OSSEOUS STRUCTURES: No significant abnormality is seen. OTHER: No significant additional abnormality is seen. IMPRESSION: 1. Urinary bladder is poorly distended. There may be mild right-sided wall thickening. Correlate clin ically. 2. Simple renal cysts noted bilaterally. 3. Abdominal aortic aneurysm infrarenal in location measuring 3.7 cm AP dimension.
== END | disposition home or self-care (01) ==
LOC: RADCTMAIN 14:14
PROVIDERS: ATTEND Urology
DX: N28.1 Cyst of kidney, acquired (principal); N32.89 Other specified disorders of bladder; I71.4 Abdominal aortic aneurysm, without rupture; Z88.0 Allergy status to penicillin; Z88.8 Allergy status to other drugs, medicaments and biological substances
CPT/HCPCS: 82565; 84520; 74177; 36415; Q9967

== ENCOUNTER → 2018-06-20 | Outpatient (CLI) | payer MEDICARE ==
[2018-06-20 12:53] LABS: Basophils % (A) 1 %; Eosinophils # (A) 0.2 k/uL (0-0.7); Eosinophils % (A) 4 %; HCT 32.5 % (39.0-53.0); HGB 9.8 gm/dL (13.0-17.5); Hypochromasia Moderate; Lymphocytes # (A) 0.5 k/uL (1.0-4.8); Lymphocytes % (A) 10 %; MCH 32.4 pg (25.0-35.0); MCHC 30.3 g/dL (31.0-37.0); MCV 107.2 fL (80.0-100.0); Macrocytosis Moderate; Monocytes # (A) 0.4 k/uL (0-1.0); Monocytes % (A) 7 %; Neutrophils # (A) 4.2 k/uL (1.3-7.7); Neutrophils % (A) 76 %; Platelet Count 318 k/uL (150-450); RBC 3.03 m/uL (4.30-5.90); RDW 13.8 % (11.5-15.5); WBC 5.5 k/uL (3.8-10.6)
[2018-06-20 13:04] LABS: Calcium 9.2 mg/dL (8.4-10.2)
== END ==
LOC: LABPAT 12:05
PROVIDERS: ATTEND Urology
DX: Z01.812 Encounter for preprocedural laboratory examination (principal); D41.4 Neoplasm of uncertain behavior of bladder; R35.0 Frequency of micturition; R31.29 Other microscopic hematuria; E11.9 Type 2 diabetes mellitus without complications
CPT/HCPCS: 36415; 80048; 85025; 87086

== ENCOUNTER 2018-06-27 11:02 | Day surgery (SDC) | payer MEDICARE ==
[2018-06-19 16:28] VITALS: BMI 29.7
--- NOTE | 2018-06-24 10:45 | P.GSHP ---
History of Present Illness H&P Date: 06/24/18 Chief Complaint: Microhematuria The patient is a 78-year-old white male recently found to have microhematuria. A computed tomography scan showed renal cysts, as well as right bladder wall thickening. Cystoscopy showed a large right posterolateral bladder wall tumor, sessile in appearance. He now comes for resection. - Constitutional Constitutional: Reports fatigue, Reports weakness - Cardiovascular Cardiovascular: Denies chest pain - Gastrointestinal Gastrointestinal: Reports diarrhea - Genitourinary (Male) Genitourinary: Reports urinary frequency Past Medical History Past Medical History: Coronary Artery Disease (CAD), COPD, Diabetes Mellitus, GERD/Reflux, Hyperlipidemia, Hypertension, Osteoarthritis (OA) Additional Past Medical History / Comment(s): aortic aneurysm, anemia, diverticulitis, back pain, colon polyps, restless leg,HAS HAD 2 BLOOD TRANSFUSIONS AND 2 IRON TRANSFUSIONS, RECENT ORAL SX AWAITING DENTURES History of Any Multi-Drug Resistant Organisms: None Reported Past Surgical History: Back Surgery, Heart Catheterization With Stent, Hernia Repair, Orthopedic Surgery Additional Past Surgical History / Comment(s): angioplasty, hemorroidectomy, bilateral cataracts, left ankle, breast tumors removed, right knee arthroscopy, bilateral shoulders, back surgery with cage implant, right trigger finger. 2 stents and a balloon Past Anesthesia/Blood Transfusion Reactions: No Reported Reaction Additional Past Anesthesia/Blood Transfusion Reaction / Comment(s): 2 BLOOD TRANSFUSIONS, TOLERATED Date of Last Stent Placement:: 04/03/2015 Smoking Status: Former smoker - Past Family History Mother Family Medical History: Cancer Father History Unknown: Yes Medications and Allergies Home Medications Medication Instructions Recorded Confirmed Type Aspirin 81 mg PO DAILY 04/02/15 06/19/18 History Ferrous Sulfate [Feosol] 650 mg PO DAILY 04/02/15 06/19/18 History Insulin Glargine,Hum.rec.anlog 32 unit SQ HS 04/02/15 06/19/18 History [Lantus Solostar] Multivitamin [Men's Multi-Vitamin] 1 tab PO DAILY 04/02/15 06/19/18 History Omeprazole [PriLOSEC] 20 mg PO AC-BRKFST 04/02/15 06/19/18 History amLODIPine BESYLATE [Norvasc] 5 mg PO QAM 04/02/15 06/19/18 History metFORMIN HCL [Glucophage] 1,000 mg PO BID 04/02/15 06/19/18 History glipiZIDE XL [Glucotrol XL] 10 mg PO DAILY 04/03/15 06/19/18 History Albuterol Inhaler [Ventolin Hfa 2 puff INHALATION RT-Q4H PRN 10/12/16 06/19/18 History Inhaler] Atorvastatin [Lipitor] 40 mg PO DAILY 12/06/17 06/19/18 History Baclofen [Lioresal] 10 mg PO TID PRN 12/06/17 06/19/18 History FLUoxetine HCL [PROzac] 20 mg PO QAM 12/06/17 06/19/18 History Pramipexole [Mirapex] 0.125 mg PO DAILY 12/06/17 06/19/18 History Allergies Allergy/AdvReac Type Severity Reaction Status Date / Time benazepril HCl Allergy Cough Verified 06/19/18 16:18 [From Lotensin] gabapentin [From Neurontin] Allergy Unknown Verified 06/19/18 16:18 hydrocodone bitartrate Allergy CONSTIPATIO Verified 06/19/18 16:18 [From Lortab] N Penicillins Allergy Unknown Verified 06/19/18 16:18 Childhood prednisone Allergy UNABLE TO Verified 06/19/18 16:18 URINATE varenicline tartrate Allergy Nausea Verified 06/19/18 16:18 [From Chantix] Surgical - Exam - General well developed, well nourished, no distress - Neck no masses - Respiratory normal expansion, normal respiratory effort, clear to auscultation - Cardiovascular Rhythm: regular Abnormal Heart Sounds: no systolic murmur, no diastolic murmur, no rub, no S3 Gallop, no S4 Gallop, no click, no other - Abdomen Abdomen: soft, non tender, no guarding, no rigid, no rebound - Genitourinary normal penis with no external lesions, testicles non-tender - Psychiatric oriented to time, oriented to person, oriented to place, speech is normal, memory intact Results - Imaging CT scan - abdomen: report reviewed, image reviewed CT scan - pelvis: report reviewed, image reviewed Assessment and Plan (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 The procedure was reviewed in detail with the patient. The rationale for the procedure was discussed, as well as potential risks. These include anesthesia, bleeding, infection, and bladder perforation. He has been cleared by cardiology. The need for smoking cessation was also stressed.
[~2018-06-27 11:02] MED LIST changes: +DEXAMETHASONE SOD PHOSPHATE 10 MG/ML 1 ML VIAL IV ONE; +LEVOFLOXACIN 500MG-D5W PMX 500 MG in DEXTROSE/WATER 1 100ML.BAG IVPB ONE; +LIDOCAINE 1% 20 ML VIAL (10MG/ML) FOR IV START INTRADERMA PRN; +MIDAZOLAM 2 MG/2 ML VIAL IV PRN; +ONDANSETRON 4 MG/2 ML VIAL IVP ONE; +fentaNYL (PF) 50 MCG/ML 2 ML AMP IV PRN
[2018-06-27 12:05] VITALS: RESP 16
[2018-06-27] MEDS ORDERED: MIDAZOLAM 2 MG/2 ML VIAL ONE (12:23)
[2018-06-27] MEDS ORDERED: fentaNYL (PF) 50 MCG/ML 2 ML AMP ONE (12:23)
[2018-06-27] MEDS ORDERED: PROPOFOL 10 MG/ML 20 ML VIAL IV ONE (12:23)
[2018-06-27] MEDS ORDERED: SUCCINYLCHOLINE CHLORIDE 100 MG/5 ML SYR IV ONE (12:23)
[2018-06-27] MEDS ORDERED: ROCURONIUM BROMIDE 10 MG/ML 10 ML VIAL IV ONE (12:23)
[2018-06-27] MEDS ORDERED: LIDOCAINE 1% INJ 10MG/ML (20 ML MDV) ONE (12:23)
[2018-06-27 12:31] LABS: Glucose,Whole Blood 125 mg/dL (75-99)
[2018-06-27] MEDS ORDERED: LACTATED RINGERS 1,000 ML IV ONE (13:07)
--- NOTE | 2018-06-27 13:23 | P.OP ---
Date of Procedure: 06/27/18 Preoperative Diagnosis: Bladder Tumor Postoperative Diagnosis: Same Procedure(s) Performed: Cystoscopy, Transurethral Resection of Bladder Tumor (Large) Anesthesia: RORYA Surgeon: Elio Terrazas Estimated Blood Loss (ml): 10 IV fluids (ml): 600 Condition: stable Disposition: PACU Indications for Procedure: The patient is a 78-year-old white male recently found to have microhematuria. A computed tomography scan showed renal cysts, as well as right bladder wall thickening. Cystoscopy showed a large right posterolateral bladder wall tumor, sessile in appearance. He now comes for resection. Operative Findings: Sessile tumor involving the right trigone and right vesical neck. Description of Procedure: The patient was taken in the operating room and placed in the dorsal lithotomy position, with his legs supported in Yayo stirrups. The external genitalia was prepped and draped sterilely. The 25-Danish ACMI resectoscope sheath was introduced into the bladder. The bladder was inspected. Both ureteral orifices were of normal anatomic location and configuration, and clear urine effluxed from both. The entire bladder was examined, revealing a sessile tumor just distal to the right ureteral orifice, extending to the vesical neck.. The prostate was obstructed with a bilobar configuration. Using the cutting loop, the tumor was resected down to the muscle. The right ureteral orifice was resected, as tumor surrounded. Excellent hemostasis was attained. The resected tissue was saved and sent for pathologic examination. An 18-Danish Gamez catheter was inserted. The return was essentially clear. The patient tolerated the procedure well. He was taken to the recovery room in stable condition.
[2018-06-27 13:35] VITALS: TEMP 97.2
[2018-06-27 13:40] LABS: Glucose,Whole Blood 128 mg/dL (75-99)
[2018-06-27] MEDS: HYDROmorphone 1 MG/ML 1 ML SYRINGE IVP ONE ×4 (13:53→14:33)
[2018-06-27 14:56] VITALS: PULSE 65
[2018-06-27 15:28] VITALS: BP 146/75
== END 2018-06-27 16:05 | disposition home or self-care (01) ==
LOC: OR 11:02
PROVIDERS: ATTEND Urology
DX: C67.8 Malignant neoplasm of overlapping sites of bladder (principal); I25.10 Atherosclerotic heart disease of native coronary artery without angina pectoris; I10 Essential (primary) hypertension; Z87.891 Personal history of nicotine dependence; J44.9 Chronic obstructive pulmonary disease, unspecified; E11.9 Type 2 diabetes mellitus without complications; Z79.82 Long term (current) use of aspirin; Z79.4 Long term (current) use of insulin; Z79.899 Other long term (current) drug therapy; E78.5 Hyperlipidemia, unspecified; M19.90 Unspecified osteoarthritis, unspecified site; K21.9 Gastro-esophageal reflux disease without esophagitis; I71.4 Abdominal aortic aneurysm, without rupture; Z88.5 Allergy status to narcotic agent; Z88.0 Allergy status to penicillin; Z88.8 Allergy status to other drugs, medicaments and biological substances
CPT/HCPCS: 88305; 88342; 88307; 88341; 52240; J2250; J2405; J1956; J2001; J3010; J1170; J0330; J2704

== ENCOUNTER → 2018-07-03 | Outpatient (CLI) | payer MEDICARE ==
--- NOTE | 2018-07-03 09:14 | XR ---
EXAMINATION TYPE: XR chest 2V DATE OF EXAM: 07/03/2018 COMPARISON: Prior chest x-ray 12/06/2017 HISTORY: Follow-up staging bladder carcinoma TECHNIQUE: Frontal and lateral views of the chest are obtained. FINDINGS: There is no focal air space opacity, pleural effusion, or pneumothorax seen. The cardiac silhouette size is within normal limits. Thoracic spondylosis noted. The osseous structures are inta ct. IMPRESSION: No acute cardiopulmonary process.
== END ==
LOC: RADXRMAIN 08:40
PROVIDERS: ATTEND Urology
DX: D49.4 Neoplasm of unspecified behavior of bladder (principal)
CPT/HCPCS: 71046

== ENCOUNTER 2020-09-24 15:51 | Inpatient (IN) | payer MEDICARE ==
--- NOTE | 2020-09-24 16:44 | ED ---
General Adult HPI - General Chief complaint: Shortness of Breath Stated complaint: nephrology Time Seen by Provider: 09/24/20 15:56 Source: patient Mode of arrival: EMS Limitations: no limitations - History of Present Illness Initial comments: Dictation was produced using [employer] dictation software. please excuse any grammatical, word or spelling errors. This patient was cared for during a federal and state declared state of emergency secondary to Covid 19 Chief Complaint: 80-year-old male transferred from [facility] for dif ficulty in breathing, coronavirus and acute kidney injury. History of Present Illness: 80-year-old male transferred from [facility] for shortness of breath, coronavirus and acute kidney injury. Patient tested positive for coronavirus 1 week ago. Patient currently is a resident at a assisted living facility in [place]. He was evaluated there and was found to have mild hypoxia, acute kidney injury. He's been having symptoms of coronavirus according constitutional symptoms, abdominal pain and diarrhea. He does feel short of breath. Patient states he also fell last night. He did have a laceration on his left elbow that wasn't repaired at [facility]. The ROS documented in this emergency department record has been reviewed and confirmed by me. Those systems with pertinent positive or negative responses have been documented in the HPI. All other systems are other negative and/or noncontributory. PHYSICAL EXAM: General Impression: Alert and oriented x3, not in acute distress HEENT: Normocephalic atraumatic, extra-ocular movements intact, pupils equal and reactive to light bilaterally, mucous membranes moist. Cardiovascular: Heart regular rate and rhythm Chest: Able to complete full sentences, no retractions, no tachypnea Abdomen: abdomen soft, non-tender, non-distended, no organomegaly Musculoskeletal: Pulses present and equal in all extremities, no peripheral edema Motor: no focal deficits noted Neurological: CN II-XII grossly intact, no focal motor or sensory deficits noted Skin: Laceration noted to the left elbow measuring 4 cm with a flap Psych: Normal affect and mood ED course: 80-year-old male presents via transfer from [facility]. Reason for transfer was acute kidney injury, hypoxic respiratory failure, coronavirus vital signs upon arrival shows respiratory 28, SpO2 of 90, rest of vital signs within acceptable limits. Chest her documentation was reviewed. She noted a BNP of 4130 troponin of 0.086, d-dimer of 0.88, phosphorus of 6.3.. CBC was within acceptable limits. Creatinine is 5.0. BUN 66, sodium 135. Pro calcitonin is 0.28. Patient physical examination benign. Discussed patient that laceration would provide the best cosmesis for his laceration to his left elbow. Patient refused. He however does agree to bandage. EKG interpretation: Ventricular rate 60, paced rhythm, TN interval 1:30, QRS 146, QTC 502. No TN prolongation, no QTC prolongation, no ST or T-wave changes noted. Overall, this EKG is unremarkable - Related Data Home Medications Medication Instructions Recorded Confirmed Aspirin 81 mg PO DAILY 04/02/15 10/25/18 Ferrous Sulfate [Feosol] 650 mg PO DAILY 04/02/15 10/25/18 Insulin Glargine,Hum.rec.anlog 30 unit SQ HS 04/02/15 10/25/18 [Lantus Solostar] Multivitamin [Men's Multi-Vitamin] 1 tab PO DAILY 04/02/15 10/25/18 Omeprazole [PriLOSEC] 20 mg PO AC-BRKFST 04/02/15 10/25/18 amLODIPine BESYLATE [Norvasc] 5 mg PO QAM 04/02/15 10/25/18 metFORMIN HCL [Glucophage] 1,000 mg PO BID 04/02/15 10/25/18 glipiZIDE XL [Glucotrol XL] 10 mg PO DAILY 04/03/15 10/25/18 Albuterol Inhaler (Mhu) [Ventolin 2 puff INHALATION RT-Q4H PRN 10/12/16 10/25/18 Hfa Inhaler (Mhu)] Atorvastatin [Lipitor] 40 mg PO DAILY 12/06/17 10/25/18 Baclofen [Lioresal] 10 mg PO TID PRN 12/06/17 10/25/18 FLUoxetine HCL [PROzac] 20 mg PO QAM 12/06/17 10/25/18 Pramipexole [Mirapex] 0.125 mg PO DAILY 12/06/17 10/25/18 Allergies Allergy/AdvReac Type Severity Reaction Status Date / Time benazepril HCl Allergy Cough Verified 09/24/20 16:09 [From Lotensin] gabapentin [From Neurontin] Allergy Unknown Verified 09/24/20 16:09 hydrocodone bitartrate Allergy CONSTIPATIO Verified 09/24/20 16:09 [From Lortab] N Penicillins Allergy Unknown Verified 09/24/20 16:09 Childhood prednisone Allergy UNABLE TO Verified 09/24/20 16:09 URINATE varenicline tartrate Allergy Nausea Verified 09/24/20 16:09 [From Chantix] Review of Systems ROS Statement: Those systems with pertinent positive or pertinent negative responses have been documented in the HPI. ROS Other: All systems not noted in ROS Statement are negative. Past Medical History Past Medical History: Blood Disorder, Coronary Artery Disease (CAD), Cancer, COPD, Diabetes Mellitus, GERD/Reflux, Hyperlipidemia, Hypertension, Osteoarthritis (OA), Renal Disease Additional Past Medical History / Comment(s): aortic aneurysm, anemia, diverticulitis, back pain, colon polyps, restless.BLOOD TRANSFUSIONS. BLADDER CANCER. BLOOD INFECTION- E.COLI. History of Any Multi-Drug Resistant Organisms: None Reported Past Surgical History: Back Surgery, Bladder Surgery, Heart Catheterization With Stent, Hernia Repair, Orthopedic Surgery Additional Past Surgical History / Comment(s): angioplasty, hemorroidectomy, bilateral cataracts, left ankle, breast tumors removed, right knee arthroscopy, bilateral shoulders, back surgery with cage implant, right trigger finger. 2 stents and a balloon. BLADDER REMOVED- ILEOSTOMY. Past Anesthesia/Blood Transfusion Reactions: No Reported Reaction Additional Past Anesthesia/Blood Transfusion Reaction / Comment(s): 2 BLOOD TRANSFUSIONS, TOLERATED Date of Last Stent Placement:: 04/03/2015 Past Psychological History: Anxiety, Depression Smoking Status: Former smoker Past Alcohol Use History: Rare Past Drug Use History: None Reported - Past Family History Mother Family Medical History: Cancer Father History Unknown: Yes General Exam Limitations: no limitations Course Vital Signs 09/24/20 16:04 Temperature 98.4 F Pulse Rate 63 Respiratory 28 H Rate Blood Pressure 110/50 O2 Sat by Pulse 90 L Oximetry Medical Decision Making - Medical Decision Making Urinalysis was obtained showing positive nitrites, 18 white blood cells. Clinical presentation consistent with gram-negative urinary tract infection. Patient given ceftriaxone. Pending urine cultures. Patient will be admitted and case was discussed with Dr. Saunders who is willing to accept patients care. Nephrology and pulmonology will be consulted. - Lab Data Lab Results 12/18/20 Range/Units 16:34 Urine Color Yellow Urine Appearance Clear (Clear) Urine pH 6.0 (5.0-8.0) Ur Specific [place] 1.010 (1.001-1.035) Urine Protein 1+ H (Negative) Urine Glucose (UA) Negative (Negative) Urine Ketones Negative (Negative) Urine Blood Small H (Negative) Urine Nitrite Positive (Negative) Urine Bilirubin Negative (Negative) Urine Urobilinogen <2.0 (<2.0) mg/dL Ur Leukocyte Esterase Large H (Negative) Urine RBC 4 (0-5) /hpf Urine WBC 18 H (0-5) /hpf Urine Bacteria Moderate H (None) /hpf Hyaline Casts 4 H (0-2) /lpf Urine Mucus Rare H (None) /hpf Urine Yeast (Budding) Few H (None) /hpf Disposition Clinical Impression: COVID-19, Kidney failure Disposition: ADMITTED IP TO THIS [facility] Condition: Fair Referrals: None,Stated [Primary Care Provider] - 1-2 days Decision Time: 17:08
[2020-09-24 16:51] LABS: Appearance,Urine Clear (Clear); Bacteria,Urine Moderate /hpf; Bilirubin,Urine Negative (Negative); Blood,Urine Small (Negative); Budding Yeast,Urine Few /hpf; Color,Urine Yellow; Glucose,Urine (UA) Negative (Negative); Hyaline Casts,Urine 4 /lpf (0-2); Ketones,Urine Negative (Negative); Leukocyte Esterase,Urine Large (Negative); Mucus,Urine Rare /hpf; Nitrite,Urine Positive (Negative); Protein,Urine 1+ (Negative); RBC,Urine 4 /hpf (0-5); Urobilinogen,Urine <2.0 mg/dL (<2.0); WBC,Urine 18 /hpf (0-5)
[2020-09-24] MEDS ORDERED: NALOXONE 0.4 MG/ML 1 ML VIAL IV PRN (17:09)
[2020-09-24] MEDS ORDERED: cefTRIAXone IN SWFI 1,000 MG/10 ML SYRINGE IVP SCH (17:15)
[2020-09-24] MEDS ORDERED: cefTRIAXone IN SWFI 1,000 MG/10 ML SYRINGE IVP ONE (17:15)
[2020-09-24] MEDS: SODIUM CHLORIDE 0.9% 1,000 ML IV SCH (17:29)
[2020-09-24] MEDS ORDERED: NON FORMULARY DRUG (Zinc Gluconate 50 MG Tab) PO SCH (21:00)
[2020-09-24] MEDS ORDERED: guaiFENesin-DM 100-10MG/5ML 10 ML CUP PO PRN (22:14)
[2020-09-24] MEDS ORDERED: MAG HYDROX/AL HYDROX/SIMETH 30 ML CUP PO PRN (22:14)
[2020-09-24] MEDS ORDERED: bisacodyL 10 MG SUPP RECTAL PRN (22:14)
[2020-09-24] MEDS ORDERED: ACETAMINOPHEN TAB 500 MG TAB PO PRN (22:14)
[2020-09-24] MEDS ORDERED: LOPERAMIDE 2 MG CAP PO PRN (22:14)
[2020-09-24] MEDS ORDERED: MAGNESIUM HYDROXIDE 2,400 MG/10 ML CUP PO PRN (22:14)
[2020-09-24] MEDS ORDERED: MICONAZOLE NITRATE 71 GM TOPICAL PRN (22:14)
[2020-09-24] MEDS ORDERED: NON FORMULARY DRUG (Menthol [Biofreeze] 89 ML Gel..Ml.) TOPICAL PRN (22:14)
[2020-09-24] MEDS ORDERED: polyethylene glycoL 3350 17 GM POWD.PACK PO PRN (22:14)
[2020-09-24] MEDS ORDERED: CALCIUM CARBONATE 500 MG CHEWABLE PO PRN (22:14)
[2020-09-24] MEDS ORDERED: HYDROcodone/APAP 5-325MG 1 EACH TAB PO PRN (22:14)
[2020-09-24] MEDS ORDERED: ONDANSETRON 4 MG TAB PO PRN (22:14)
[2020-09-24 23:31] LABS: Basophils % (A) 1 %; Eosinophils % (A) 1 %; HCT 32.4 % (39.0-53.0); Lymphocytes # (A) 0.2 k/uL (1.0-4.8); Lymphocytes % (A) 5 %; MCH 34.2 pg (25.0-35.0); MCHC 34.1 g/dL (31.0-37.0); MCV 100.5 fL (80.0-100.0); Macrocytosis Slight; Mean Platelet Volume 8.1; Monocytes # (A) 0.2 k/uL (0-1.0); Monocytes % (A) 4 %; Neutrophils % (A) 88 %; Platelet Count 140 k/uL (150-450); RBC 3.22 m/uL (4.30-5.90); RDW 14.1 % (11.5-15.5); WBC 4.6 k/uL (3.8-10.6)
[2020-09-25 00:07] LABS: ALT 57 U/L (4-49); AST 68 U/L (17-59); African American GFR (CKD) 12 (>60 ml/min/1.73 sqM); Albumin 3.4 g/dL (3.5-5.0); Albumin/Globulin Ratio 1.2; Alkaline Phosphatase 58 U/L (38-126); Anion Gap 9 mmol/L; Blood Urea Nitrogen 71 mg/dL (9-20); Calcium 7.8 mg/dL (8.4-10.2); Carbon Dioxide 16 mmol/L (22-30); Chloride 110 mmol/L (98-107); Globulin 2.8 g/dL; Glucose 104 mg/dL (74-99); Non-African American GFR(CKD) 10 (>60 ml/min/1.73 sqM); Sodium 135 mmol/L (137-145); Total Bilirubin 0.3 mg/dL (0.2-1.3); Total Protein 6.2 g/dL (6.3-8.2)
[2020-09-25 00:10] LABS: Glucose,Whole Blood 103 mg/dL (75-99)
[2020-09-25] MEDS: MELATONIN 5 MG TABLET PO SCH ×2 (00:46→21:06)
[2020-09-25] MEDS: PRAMIPEXOLE 0.125 MG TAB PO SCH ×2 (00:46→21:07)
[2020-09-25] MEDS: hydrALAZINE HCL 25 MG TAB PO SCH ×3 (00:46→14:19)
[2020-09-25] MEDS: ASCORBIC ACID 500 MG TAB PO SCH ×3 (00:46→17:13)
[2020-09-25] MEDS: INSULIN DETEMIR (LEVEMIR) 100 UNIT/ML SYR SQ SCH ×2 (00:48→21:06)
[2020-09-25] MEDS: ENOXAPARIN 40 MG/0.4 ML SYRINGE SQ SCH ×2 (00:48→09:33)
[2020-09-25] MEDS: carvediloL 12.5 MG TAB PO SCH ×2 (00:49→07:59)
[2020-09-25] MEDS: LORATADINE 10 MG TAB PO SCH ×2 (01:26→22:34)
[2020-09-25] MEDS: traMADol 50 MG TAB PO SCH ×3 (01:27→22:35)
[2020-09-25] MEDS: SODIUM CHLORIDE 0.9% 1,000 ML IV SCH ×2 (05:25→17:07)
[2020-09-25 07:26] LABS: Glucose,Whole Blood 68 mg/dL (75-99)
[2020-09-25] MEDS: INSULIN ASPART (NovoLOG) 100 UNIT/ML VIAL SQ SCH ×4 (07:29→21:05)
[2020-09-25 07:55] LABS: Glucose,Whole Blood 97 mg/dL (75-99)
[2020-09-25] MEDS: PANTOPRAZOLE 40 MG TABLET PO SCH (07:59)
[2020-09-25] MEDS ORDERED: FLUTICASONE INHALATION SCH (08:00)
[2020-09-25] MEDS ORDERED: SALMETEROL INHALATION SCH (08:00)
--- NOTE | 2020-09-25 08:34 | XR ---
EXAMINATION TYPE: XR chest 1V portable DATE OF EXAM: 09/25/2020 COMPARISON: 09/24/2020 HISTORY: Cough TECHNIQUE: Single frontal view of the chest is obtained. FINDINGS: Heart size is prominent Cardiac device and postoperative change. Hyperinflation suggests COPD. Subsegmental changes at both b ases. IMPRESSION: 1. COPD, cardiomegaly and basilar atelectasis favored over early infiltrate.
[2020-09-25] MEDS ORDERED: TORSEMIDE 20 MG TAB PO SCH (09:00)
[2020-09-25] MEDS ORDERED: ISOSORBIDE MONONITRATE ER 30 MG TAB.ER.24H PO SCH (09:00)
[2020-09-25] MEDS: ASPIRIN 81 MG PO SCH (09:31)
[2020-09-25] MEDS: buPROPion XL 150 MG TAB.ER.24H PO SCH (09:31)
[2020-09-25] MEDS: AMIODARONE 200 MG TAB PO SCH (09:31)
[2020-09-25] MEDS: CHOLECALCIFEROL 1,000 UNIT TAB PO SCH (09:32)
[2020-09-25] MEDS: dexAMETHasone 2 MG TAB PO SCH (09:32)
[2020-09-25] MEDS: MULTIVITAMINS, THERA 1 EACH TAB PO SCH (09:33)
[2020-09-25] MEDS: MICATIN TOPICAL SCH ×2 (10:57→22:34)
[2020-09-25] MEDS ORDERED: REMDESIVIR 200 MG in SODIUM CHLORIDE 0.9% 250 ML IVPB ONE (11:27)
[2020-09-25 11:39] LABS: Glucose,Whole Blood 100 mg/dL (75-99)
[2020-09-25] MEDS: ALBUTEROL HFA INHALER INHALATION PRN (12:20)
--- NOTE | 2020-09-25 12:42 | P.CNPUL ---
History of Present Illness Consult date: 09/25/20 Requesting physician: Jerad Saunders Reason for consult: dyspnea Chief complaint: Shortness of breath, cough, congestion History of present illness: This is a pleasant 80-year-old gentleman who resides in a assisted living facility. He has a history of coronary artery disease with previous stent placement, chronic obstructive pulmonary disease, former smoker, diabetes mellitus type 2, gastroesophageal reflux disease, hyperlipidemia, hypertension, osteoarthritis, bladder cancer status post ileostomy. He presented to [facility] with complaints of increasing shortness of breath, cough congestion, low back pain, diarrhea, weakness. He had also fallen and sustained injury to his left elbow. He is found to be in acute renal failure and hypoxemic and transferred here yesterday for further treatment. His randolph virus test was 8 days ago. Chest x-ray shows evidence of COPD, cardiomegaly and basilar atelectasis. White count 4.6. Hemoglobin 11.0. Platelet count 140,000. So dium 135. Potassium 4.0. Creatinine 4.94. Urinalysis with moderate bacteria, large leukocyte esterase. He is seen today in consultation on the regular medical floor. He is currently sitting up in bed. Awake and alert in no acute distress. 18 and O2 saturations in the 90s on 4 L/m per nasal cannula. He's been afebrile. Hemodynamically stable. Initiated on ceftriaxone. Review of Systems REVIEW OF SYSTEMS: CONSTITUTIONAL: Fatigue, weakness. Denies any recent significant weight loss or weight gain. EYES: Denies change in vision. EARS, NOSE, MOUTH, THROAT: Denies headaches, denies sore throat. CARDIOVASCULAR: Denies chest pain, palpitations or syncopal episodes. RESPIRATORY: Positive for shortness of breath, cough, congestion no hemoptysis. GASTROINTESTINAL: Positive for diarrhea GENITOURINARY: Denies hematuria, denies infections. MUSKULOSKELETAL: Denies pain, denies swelling. INTEGUMENTARY: Wound to the left elbow status post fall. Denies rash, denies eczema. NEUROLOGICAL: Denies recent memory loss, no recent seizure activity. PSYCHIATRIC: Denies anxiety, denies depression. HEMATOLOGIC/LYMPHATIC: Denies anemia, denies enlarged lymph nodes. Past Medical History Past Medical History: Blood Disorder, Coronary Artery Disease (CAD), Cancer, COPD, Diabetes Mellitus, GERD/Reflux, Hyperlipidemia, Hypertension, Osteoarthritis (OA), Renal Disease Additional Past Medical History / Comment(s): aortic aneurysm, anemia, diverticulitis, back pain, colon polyps, restless.BLOOD TRANSFUSIONS. BLADDER CANCER. BLOOD INFECTION- E.COLI. History of Any Multi-Drug Resistant Organisms: None Reported Past Surgical History: Back Surgery, Bladder Surgery, Heart Catheterization With Stent, Hernia Repair, Orthopedic Surgery Additional Past Surgical History / Comment(s): angioplasty, hemorroidectomy, bilateral cataracts, left ankle, breast tumors removed, right knee arthroscopy, bilateral shoulders, back surgery with cage implant, right trigger finger. 2 stents and a balloon. BLADDER REMOVED- ILEOSTOMY. Past Anesthesia/Blood Transfusion Reactions: No Reported Reaction Additional Past Anesthesia/Blood Transfusion Reaction / Comment(s): 2 BLOOD TRANSFUSIONS, TOLERATED Date of Last Stent Placement:: 04/03/2015 Past Psychological History: Anxiety, Depression Smoking Status: Never smoker Past Alcohol Use History: Rare Additional Past Alcohol Use History / Comment(s): Quit smoking APRIL 2018, SMOKED 2PPD FROM AGE 16 Past Drug Use History: None Reported - Past Family History Mother Family Medical History: Cancer Father History Unknown: Yes Medications and Allergies Home Medications Medication Instructions Recorded Confirmed Type Ferrous Sulfate [Feosol] 325 mg PO HS@1800 04/02/15 09/24/20 History Insulin Glargine,Hum.rec.anlog 50 unit SQ HS 04/02/15 09/24/20 History [Lantus Solostar] Multivitamin [Men's Multi-Vitamin] 1 tab PO DAILY 04/02/15 09/24/20 History Omeprazole [PriLOSEC] 20 mg PO DAILY 04/02/15 09/24/20 History Baclofen [Lioresal] 10 mg PO TID PRN 12/06/17 09/24/20 History Pramipexole [Mirapex] 0.125 mg PO HS 12/06/17 09/24/20 History Acetaminophen Suppository [Tylenol 650 mg RECTAL Q4H PRN 09/24/20 09/24/20 History Suppository] Acetaminophen Tab [Tylenol Tab] 1,000 mg PO Q4H PRN 09/24/20 09/24/20 History Acetaminophen Tab [Tylenol] 650 mg PO Q4H PRN 09/24/20 09/24/20 History Acetaminophen [Tylenol Arthritis] 1,300 mg PO Q12H 09/24/20 09/24/20 History Albuterol Sulfate [Ventolin HFA] 2 puff INHALATION RT-Q4H PRN 09/24/20 09/24/20 History Amiodarone [Cordarone] 200 mg PO DAILY 09/24/20 09/24/20 History Ascorbic Acid [Vitamin C] 250 mg PO BID@0800,1700 09/24/20 09/24/20 History Aspirin EC [Ecotrin Low Dose] 81 mg PO DAILY 09/24/20 09/24/20 History Calazime Skin Protectant Paste 1 applic TOPICAL BID 09/24/20 09/24/20 History Calazime Skin Protectant Paste 1 applic TOPICAL DAILY PRN 09/24/20 09/24/20 History Calcium Carbonate [Tums] 1,000 mg PO Q2H PRN 09/24/20 09/24/20 History Carvedilol [Coreg] 12.5 mg PO BID@0800,1800 09/24/20 09/24/20 History Cetirizine HCl 10 mg PO HS 09/24/20 09/24/20 History Cholecalciferol [Vitamin D3 (25 2,000 unit PO DAILY 09/24/20 09/24/20 History Mcg = 1000 Iu)] Cranberry Fruit Extract [Cranberry] 500 mg PO DAILY 09/24/20 09/24/20 History Darbepoetin Gurdeep [Aranesp] 200 mcg SQ FR 09/24/20 09/24/20 History Fluticasone/Salmeterol [Airduo 1 puff INHALATION RT-BID 09/24/20 09/24/20 History Respiclick 232-14 Mcg] HYDROcodone/APAP 5-325MG [[place] 5] 1 tab PO Q8H PRN 09/24/20 09/24/20 History Insta Glucose Gel 77.4% 15 gm PO DAILY PRN 09/24/20 09/24/20 History Insulin Regular [humuLIN R] See Protocol SQ AC-TID 09/24/20 09/24/20 History Isosorbide Mononitrate ER [Imdur] 30 mg PO DAILY 09/24/20 09/24/20 History Loperamide HCl [Imodium A-D] 2 - 4 mg PO QID PRN 09/24/20 09/24/20 History Mag Hydrox/Al Hydrox/Simeth 15 ml PO Q2H PRN 09/24/20 09/24/20 History [Maalox] Magnesium Hydroxide [Milk of 2,400 mg PO DAILY PRN 09/24/20 09/24/20 History Magnesia] Meagher Liquis Skin Protectant 1 applic TOPICAL DIRECTED PRN 09/24/20 09/24/20 History Melatonin 10 mg PO HS 09/24/20 09/24/20 History Menthol [Biofreeze] 1 applic TOPICAL TID PRN 09/24/20 09/24/20 History Micatin Cream 1 applic TOPICAL BID 09/24/20 09/24/20 History Micatin Cream 1 applic TOPICAL DAILY PRN 09/24/20 09/24/20 History Miconazole Nitrate [Zeasorb AF] 1 applic TOPICAL BID PRN 09/24/20 09/24/20 History Na Phos,M-B/Na Phos,Di-Ba [Fleet 133 ml RECTAL DAILY PRN 09/24/20 09/24/20 History Adult] Ondansetron HCl [Zofran] 4 mg PO Q8H PRN 09/24/20 09/24/20 History Torsemide [Demadex] 40 mg PO DAILY 09/24/20 09/24/20 History Ubidecarenone [Co Q-10] 100 mg PO AC-SUPPER 09/24/20 09/24/20 History Zinc Gluconate [Zinc] 50 mg PO HS 09/24/20 09/24/20 History bisacodyL [Bisacodyl] 10 mg RECTAL DAILY PRN 09/24/20 09/24/20 History buPROPion XL [Wellbutrin Xl] 150 mg PO DAILY 09/24/20 09/24/20 History guaiFENesin-DM 100-10MG/5ML 5 ml PO Q4H PRN 09/24/20 09/24/20 History [Robitussin DM] hydrALAZINE HCL [Apresoline] 25 mg PO TID@0800,1400,2000 09/24/20 09/24/20 History polyethylene glycoL 3350 [Miralax] 17 gm PO DAILY PRN 09/24/20 09/24/20 History traMADol HCL 50 mg PO BID 09/24/20 09/24/20 History Allergies Allergy/AdvReac Type Severity Reaction Status Date / Time benazepril HCl Allergy Cough Verified 09/24/20 19:00 [From Lotensin] gabapentin [From Neurontin] Allergy Unknown Verified 09/24/20 19:00 hydrocodone bitartrate Allergy CONSTIPATIO Verified 09/24/20 19:00 [From Lortab] N Penicillins Allergy Unknown Verified 09/24/20 19:00 Childhood prednisone Allergy UNABLE TO Verified 09/24/20 19:00 URINATE varenicline tartrate Allergy Nausea Verified 09/24/20 19:00 [From Chantix] Physical Exam Vitals: Vital Signs Temp Pulse Pulse Resp BP BP Pulse Ox 09/25/20 04:58 97.5 F L 65 18 143/68 94 L 09/24/20 21:40 99.4 F 72 20 136/68 92 L 09/24/20 20:00 72 09/24/20 18:41 98.0 F 69 22 160/70 92 L 09/24/20 18:00 97.8 F 87 18 136/68 98 09/24/20 17:00 65 25 H 113/52 95 09/24/20 16:04 98.4 F 63 28 H 110/50 90 L 09/24/20 16:03 65 25 H 94 L Intake and Output 09/24/20 09/25/20 09/25/20 22:59 06:59 14:59 Intake Total 275 750 Output Total 350 800 Balance -75 -50 Intake: IV 550 Sodium Chloride 0.9% 1, 550 000 ml @ 110 mls/hr IV . Q9H6M [facility] Rx#:[id number] Oral 275 200 Output: Urine 350 800 Other: Voiding Method Ileal Conduit (Right) Ileal Conduit (Right) # Bowel Movements 1 Weight 108.862 kg GENERAL EXAM: Alert, pleasant 72-year-old gentleman, on 4 L nasal cannula,, comfortable in no apparent distress. HEAD: Normocephalic. EYES: Normal reaction of pupils, equal size. NOSE: Clear with pink turbinates. THROAT: No erythema or exudates. NECK: No masses, no JVD. CHEST: No chest wall deformity. LUNGS: Equal air entry with bilateral scattered rhonchi, crackles in posterior bases. CVS: S1 and S2 normal with no audible murmur, regular rhythm. ABDOMEN: No hepatosplenomegaly, normal bowel sounds, no guarding or rigidity. SPINE: No scoliosis or deformity SKIN: Wound to the left elbow, dressing intact CENTRAL NERVOUS SYSTEM: No focal deficits, tone is normal in all 4 extremities. EXTREMITIES: There is no peripheral edema. No clubbing, no cyanosis. Peripheral pulses are intact. Results - Laboratory Findings CBC and BMP: 09/24/20 23:11 09/24/20 23:11 Abnormal lab findings: Abnormal Labs 09/24/20 09/24/20 09/24/20 16:34 23:11 23:11 RBC 3.22 L Hgb 11.0 L Hct 32.4 L MCV 100.5 H Plt Count 140 L Lymphocytes # 0.2 L Sodium 135 L Chloride 110 H Carbon Dioxide 16 L BUN 71 H Creatinine 4.94 H Glucose 104 H POC Glucose (mg/dL) Calcium 7.8 L AST 68 H ALT 57 H Total Protein 6.2 L Albumin 3.4 L Urine Protein 1+ H Urine Blood Small H Ur Leukocyte Esterase Large H Urine WBC 18 H Urine Bacteria Moderate H Hyaline Casts 4 H Urine Mucus Rare H Urine Yeast (Budding) Few H 09/25/20 09/25/20 09/25/20 00:01 07:25 11:38 RBC Hgb Hct MCV Plt Count Lymphocytes # Sodium Chloride Carbon Dioxide BUN Creatinine Glucose POC Glucose (mg/dL) 103 H 68 L 100 H Calcium AST ALT Total Protein Albumin Urine Protein Urine Blood Ur Leukocyte Esterase Urine WBC Urine Bacteria Hyaline Casts Urine Mucus Urine Yeast (Budding) - Diagnostic Findings Chest x-ray: image reviewed Assessment and Plan Assessment: 1 Acute hypoxic respiratory failure secondary to acute CoVID 19 pneumonitis. Outside the window for Remdesivir, GFR 10 2 Acute renal failure of unclear etiology. Possible dehydration. Current creatinine 4.94. GFR 10. Creatinine in October 2018 1.4. 3 History of bladder cancer status post ileostomy 4 Diarrhea secondary to CoVID 19 infection 5 Diabetes mellitus, type II 6 Coronary disease with previous stent placement 7 Hypertension 8 Hyperlipidemia 9 Gastroesophageal reflux disease 10 Former smoker Plan: The patient was seen and evaluated by Dr. Aponte Chest x-ray labs reviewed Outside the window for Remdesivir, low GFR Give convalescent plasma Initiate Lovenox, Decadron, vitamin supplements Symbicort, albuterol Titrate the FiO2 as tolerated We will continue to follow and make further recommendations based on his clinica l status I, the cosigning physician, performed a history & physical examination of the patient. Lungs sounds bilateral scattered rhonchi, crackles in the posterior bases Maintaining good O2 saturations in the 90s on 4 L/m per nasal cannula. I discussed the assessment and plan of care with my nurse practitioner, Maria Luz Daniels. I attest to the above infiltration as dictated by her. Time with Patient: Greater than 30
[2020-09-25 13:09] VITALS: BMI 33.5
--- NOTE | 2020-09-25 15:02 | P.NPCON ---
History of Present Illness - Reason for Consult Consult date: 09/25/20 acute renal failure - Chief Complaint Shortness of breath. - History of Present Illness Coming to the hospital with shortness of breath. Recently diagnosed with Covid 19. 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 He was due to start dialysis early next year. No permanent access yet. She has bladder scans of status post cystectomy currently has a urostomy bag. Admits making good amount of urine. He has no nausea but he had diarrhea. Low normal blood pressures. No recent NSAID use or contrast studies. Chest x-ray bilateral infiltrates the bases. Urine analysis active with pyuria. He does have history of recurrent urinary tract infections. Review of Systems Constitutional: Reports as per HPI Past Medical History Past Medical History: Blood Disorder, Coronary Artery Disease (CAD), Cancer, COPD, Diabetes Mellitus, GERD/Reflux, Hyperlipidemia, Hypertension, Osteoarthritis (OA), Renal Disease Additional Past Medical History / Comment(s): aortic aneurysm, anemia, diverticulitis, back pain, colon polyps, restless.BLOOD TRANSFUSIONS. BLADDER CANCER. BLOOD INFECTION- E.COLI. History of Any Multi-Drug Resistant Organisms: None Reported Past Surgical History: Back Surgery, Bladder Surgery, Heart Catheterization With Stent, Hernia Repair, Orthopedic Surgery Additional Past Surgical History / Comment(s): angioplasty, hemorroidectomy, bilateral cataracts, left ankle, breast tumors removed, right knee arthroscopy, bilateral shoulders, back surgery with cage implant, right trigger finger. 2 stents and a balloon. BLADDER REMOVED- ILEOSTOMY. Past Anesthesia/Blood Transfusion Reactions: No Reported Reaction Additional Past Anesthesia/Blood Transfusion Reaction / Comment(s): 2 BLOOD TRANSFUSIONS, TOLERATED Date of Last Stent Placement:: 04/03/2015 Past Psychological History: Anxiety, Depression Smoking Status: Never smoker Past Alcohol Use History: Rare Additional Past Alcohol Use History / Comment(s): Quit smoking APRIL 2018, SMOKED 2PPD FROM AGE 16 Past Drug Use History: None Reported - Past Family History Mother Family Medical History: Cancer Father History Unknown: Yes Medications and Allergies Home Medications Medication Instructions Recorded Confirmed Type Ferrous Sulfate [Feosol] 325 mg PO HS@1800 04/02/15 09/24/20 History Insulin Glargine,Hum.rec.anlog 50 unit SQ HS 04/02/15 09/24/20 History [Lantus Solostar] Multivitamin [Men's Multi-Vitamin] 1 tab PO DAILY 04/02/15 09/24/20 History Omeprazole [PriLOSEC] 20 mg PO DAILY 04/02/15 09/24/20 History Baclofen [Lioresal] 10 mg PO TID PRN 12/06/17 09/24/20 History Pramipexole [Mirapex] 0.125 mg PO HS 12/06/17 09/24/20 History Acetaminophen Suppository [Tylenol 650 mg RECTAL Q4H PRN 09/24/20 09/24/20 History Suppository] Acetaminophen Tab [Tylenol Tab] 1,000 mg PO Q4H PRN 09/24/20 09/24/20 History Acetaminophen Tab [Tylenol] 650 mg PO Q4H PRN 09/24/20 09/24/20 History Acetaminophen [Tylenol Arthritis] 1,300 mg PO Q12H 09/24/20 09/24/20 History Albuterol Sulfate [Ventolin HFA] 2 puff INHALATION RT-Q4H PRN 09/24/20 09/24/20 History Amiodarone [Cordarone] 200 mg PO DAILY 09/24/20 09/24/20 History Ascorbic Acid [Vitamin C] 250 mg PO BID@0800,1700 09/24/20 09/24/20 History Aspirin EC [Ecotrin Low Dose] 81 mg PO DAILY 09/24/20 09/24/20 History Calazime Skin Protectant Paste 1 applic TOPICAL BID 09/24/20 09/24/20 History Calazime Skin Protectant Paste 1 applic TOPICAL DAILY PRN 09/24/20 09/24/20 History Calcium Carbonate [Tums] 1,000 mg PO Q2H PRN 09/24/20 09/24/20 History Carvedilol [Coreg] 12.5 mg PO BID@0800,1800 09/24/20 09/24/20 History Cetirizine HCl 10 mg PO HS 09/24/20 09/24/20 History Cholecalciferol [Vitamin D3 (25 2,000 unit PO DAILY 09/24/20 09/24/20 History Mcg = 1000 Iu)] Cranberry Fruit Extract [Cranberry] 500 mg PO DAILY 09/24/20 09/24/20 History Darbepoetin Gurdeep [Aranesp] 200 mcg SQ FR 09/24/20 09/24/20 History Fluticasone/Salmeterol [Airduo 1 puff INHALATION RT-BID 09/24/20 09/24/20 History Respiclick 232-14 Mcg] HYDROcodone/APAP 5-325MG [[place] 5] 1 tab PO Q8H PRN 09/24/20 09/24/20 History Insta Glucose Gel 77.4% 15 gm PO DAILY PRN 09/24/20 09/24/20 History Insulin Regular [humuLIN R] See Protocol SQ AC-TID 09/24/20 09/24/20 History Isosorbide Mononitrate ER [Imdur] 30 mg PO DAILY 09/24/20 09/24/20 History Loperamide HCl [Imodium A-D] 2 - 4 mg PO QID PRN 09/24/20 09/24/20 History Mag Hydrox/Al Hydrox/Simeth 15 ml PO Q2H PRN 09/24/20 09/24/20 History [Maalox] Magnesium Hydroxide [Milk of 2,400 mg PO DAILY PRN 09/24/20 09/24/20 History Magnesia] [place] [employer] Skin Protectant 1 applic TOPICAL DIRECTED PRN 09/24/20 09/24/20 History Melatonin 10 mg PO HS 09/24/20 09/24/20 History Menthol [Biofreeze] 1 applic TOPICAL TID PRN 09/24/20 09/24/20 History Micatin Cream 1 applic TOPICAL BID 09/24/20 09/24/20 History Micatin Cream 1 applic TOPICAL DAILY PRN 09/24/20 09/24/20 History Miconazole Nitrate [Zeasorb AF] 1 applic TOPICAL BID PRN 09/24/20 09/24/20 History Na Phos,M-B/Na Phos,Di-Ba [Fleet 133 ml RECTAL DAILY PRN 09/24/20 09/24/20 History Adult] Ondansetron HCl [Zofran] 4 mg PO Q8H PRN 09/24/20 09/24/20 History Torsemide [Demadex] 40 mg PO DAILY 09/24/20 09/24/20 History Ubidecarenone [Co Q-10] 100 mg PO AC-SUPPER 09/24/20 09/24/20 History Zinc Gluconate [Zinc] 50 mg PO HS 09/24/20 09/24/20 History bisacodyL [Bisacodyl] 10 mg RECTAL DAILY PRN 09/24/20 09/24/20 History buPROPion XL [Wellbutrin Xl] 150 mg PO DAILY 09/24/20 09/24/20 History guaiFENesin-DM 100-10MG/5ML 5 ml PO Q4H PRN 09/24/20 09/24/20 History [Robitussin DM] hydrALAZINE HCL [Apresoline] 25 mg PO TID@0800,1400,2000 09/24/20 09/24/20 History polyethylene glycoL 3350 [Miralax] 17 gm PO DAILY PRN 09/24/20 09/24/20 History traMADol HCL 50 mg PO BID 09/24/20 09/24/20 History Allergies Allergy/AdvReac Type Severity Reaction Status Date / Time benazepril HCl Allergy Cough Verified 09/24/20 19:00 [From Lotensin] gabapentin [From Neurontin] Allergy Unknown Verified 09/24/20 19:00 hydrocodone bitartrate Allergy CONSTIPATIO Verified 09/24/20 19:00 [From Lortab] N Penicillins Allergy Unknown Verified 09/24/20 19:00 Childhood prednisone Allergy UNABLE TO Verified 09/24/20 19:00 URINATE varenicline tartrate Allergy Nausea Verified 09/24/20 19:00 [From Chantix] Physical Exam Vitals: Vital Signs Temp Pulse Pulse Pulse Resp BP BP 09/25/20 14:00 116/58 09/25/20 11:00 97.7 F 60 20 89/54 09/25/20 04:58 97.5 F L 65 18 09/24/20 21:40 99.4 F 72 20 09/24/20 20:00 72 09/24/20 18:41 98.0 F 69 22 09/24/20 18:00 97.8 F 87 18 136/68 09/24/20 17:00 65 25 H 113/52 09/24/20 16:04 98.4 F 63 28 H 110/50 09/24/20 16:03 65 25 H BP Pulse Ox 09/25/20 14:00 09/25/20 11:00 94 L 09/25/20 04:58 143/68 94 L 09/24/20 21:40 136/68 92 L 09/24/20 20:00 09/24/20 18:41 160/70 92 L 09/24/20 18:00 98 09/24/20 17:00 95 09/24/20 16:04 90 L 09/24/20 16:03 94 L Intake and Output 09/24/20 09/25/20 09/25/20 22:59 06:59 14:59 Intake Total 275 750 Output Total 350 800 Balance -75 -50 Intake: IV 550 Sodium Chloride 0.9% 1, 550 000 ml @ 110 mls/hr IV . Q9H6M [facility] Rx#:[id number] Oral 275 200 Output: Urine 350 800 Other: Voiding Method Ileal Conduit (Right) Ileal Conduit (Right) # Bowel Movements 1 Weight 108.862 kg 108.862 kg Referred to primary team exam. Results - Lab Results Most recent lab results Calcium 7.8 mg/dL (8.4-10.2) L 09/24/20 23:11 09/24/20 23:11 09/24/20 23:11 Assessment and Plan Assessment: #1 acute kidney injury/progressive chronic kidney disease. Suspect septic ATN from UTI #2 bladder/prostate cancer status post cystectomy with a urostomy. #3 Covid 19 #4 metabolic acidosis secondary to acute kidney injury #5 anemia with chronic kidney disease. #6 low normal blood pressures. Plan: #1 stop IV fluids. #2 add Lasix 40 mg IV twice a day. #3 check renal ultrasound for size, rule out obstruction #4 adjust antihypertensive medications for blood pressure. #5 avoid nephrotoxic agents and hypotensive episodes.
--- NOTE | 2020-09-25 15:42 | P.HPIM ---
History of Present Illness patient is a pleasant pleasant 82-year-old male came in with complains of shortness of breath does have history of COPD patient was diagnosed with Covid 19 6 days ago. Patient is comparing of shortness of breath cough congestion floyd rrhea for couple days. Patient is found to have renal failure, actually patient appears to have chronic kidney disease I do not know his baseline creatinine baseline creatinine around the about any year ago was 1.4 but apparently patient is supposed to be started on hemodialysis. Patient denied any UTI symptoms with the patient urine is abnormal, nephrology believes her UTI is responsible for ac [place] renal failure and acute tubular necrosis in the recommending antibiotics and patient was started on Rocephin which is being continued at this time. Nephrology is recommending Lasix and discontinue IV fluids. Review of Systems REVIEW OF SYSTEMS: CONSTITUTIONAL: No fever, no malaise, no fatigue. HEENT: No recent visual problems or hearing problems. Denied any sore throat. CARDIOVASCULAR: No chest pain, orthopnea, PND, no palpitations, no syncope. PULMONARY: No shortness of breath, no cough, no hemoptysis. GASTROINTESTINAL: No diarrhea, no nausea, no vomiting, no abdominal pain. NEUROLOGICAL: No headaches, no weakness, no numbness. HEMATOLOGICAL: Denies any bleeding or petechiae. GENITOURINARY: Denies any burning micturition, frequency, or urgency. MUSCULOSKELETAL/RHEUMATOLOGICAL: Denies any joint pain, swelling, or any muscle pain. ENDOCRINE: Denies any polyuria or polydipsia. The rest of the 14-point review of systems is negative. Past Medical History Past Medical History: Blood Disorder, Coronary Artery Disease (CAD), Cancer, COPD, Diabetes Mellitus, GERD/Reflux, Hyperlipidemia, Hypertension, O steoarthritis (OA), Renal Disease Additional Past Medical History / Comment(s): aortic aneurysm, anemia, diverticulitis, back pain, colon polyps, restless.BLOOD TRANSFUSIONS. BLADDER CANCER. BLOOD INFECTION- E.COLI. History of Any Multi-Drug Resistant Organisms: None Reported Past Surgical History: Back Surgery, Bladder Surgery, Heart Catheterization With Stent, Hernia Repair, Orthopedic Surgery Additional Past Surgical History / Comment(s): angioplasty, hemorroidectomy, bilateral cataracts, left ankle, breast tumors removed, right knee arthroscopy, bilateral shoulders, back surgery with cage implant, right trigger finger. 2 stents and a balloon. BLADDER REMOVED- ILEOSTOMY. Past Anesthesia/Blood Transfusion Reactions: No Reported Reaction Additional Past Anesthesia/Blood Transfusion Reaction / Comment(s): 2 BLOOD TRANSFUSIONS, TOLERATED Date of Last Stent Placement:: 04/03/2015 Past Psychological History: Anxiety, Depression Smoking Status: Never smoker Past Alcohol Use History: Rare Additional Past Alcohol Use History / Comment(s): Quit smoking APRIL 2018, SMOKED 2PPD FROM AGE 16 Past Drug Use History: None Reported - Past Family History Mother Family Medical History: Cancer Father History Unknown: Yes Medications and Allergies Home Medications Medication Instructions Recorded Confirmed Type Ferrous Sulfate [Feosol] 325 mg PO HS@1800 04/02/15 09/24/20 History Insulin Glargine,Hum.rec.anlog 50 unit SQ HS 04/02/15 09/24/20 History [Lantus Solostar] Multivitamin [Men's Multi-Vitamin] 1 tab PO DAILY 04/02/15 09/24/20 History Omeprazole [PriLOSEC] 20 mg PO DAILY 04/02/15 09/24/20 History Baclofen [Lioresal] 10 mg PO TID PRN 12/06/17 09/24/20 History Pramipexole [Mirapex] 0.125 mg PO HS 12/06/17 09/24/20 History Acetaminophen Suppository [Tylenol 650 mg RECTAL Q4H PRN 09/24/20 09/24/20 History Suppository] Acetaminophen Tab [Tylenol Tab] 1,000 mg PO Q4H PRN 09/24/20 09/24/20 History Acetaminophen Tab [Tylenol] 650 mg PO Q4H PRN 09/24/20 09/24/20 History Acetaminophen [Tylenol Arthritis] 1,300 mg PO Q12H 09/24/20 09/24/20 History Albuterol Sulfate [Ventolin HFA] 2 puff INHALATION RT-Q4H PRN 09/24/20 09/24/20 History Amiodarone [Cordarone] 200 mg PO DAILY 09/24/20 09/24/20 History Ascorbic Acid [Vitamin C] 250 mg PO BID@0800,1700 09/24/20 09/24/20 History Aspirin EC [Ecotrin Low Dose] 81 mg PO DAILY 09/24/20 09/24/20 History Calazime Skin Protectant Paste 1 applic TOPICAL BID 09/24/20 09/24/20 History Calazime Skin Protectant Paste 1 applic TOPICAL DAILY PRN 09/24/20 09/24/20 History Calcium Carbonate [Tums] 1,000 mg PO Q2H PRN 09/24/20 09/24/20 History Carvedilol [Coreg] 12.5 mg PO BID@0800,1800 09/24/20 09/24/20 History Cetirizine HCl 10 mg PO HS 09/24/20 09/24/20 History Cholecalciferol [Vitamin D3 (25 2,000 unit PO DAILY 09/24/20 09/24/20 History Mcg = 1000 Iu)] Cranberry Fruit Extract [Cranberry] 500 mg PO DAILY 09/24/20 09/24/20 History Darbepoetin Gurdeep [Aranesp] 200 mcg SQ FR 09/24/20 09/24/20 History Fluticasone/Salmeterol [Airduo 1 puff INHALATION RT-BID 09/24/20 09/24/20 History Respiclick 232-14 Mcg] HYDROcodone/APAP 5-325MG [[place] 5] 1 tab PO Q8H PRN 09/24/20 09/24/20 History Insta Glucose Gel 77.4% 15 gm PO DAILY PRN 09/24/20 09/24/20 History Insulin Regular [humuLIN R] See Protocol SQ AC-TID 09/24/20 09/24/20 History Isosorbide Mononitrate ER [Imdur] 30 mg PO DAILY 09/24/20 09/24/20 History Loperamide HCl [Imodium A-D] 2 - 4 mg PO QID PRN 09/24/20 09/24/20 History Mag Hydrox/Al Hydrox/Simeth 15 ml PO Q2H PRN 09/24/20 09/24/20 History [Maalox] Magnesium Hydroxide [Milk of 2,400 mg PO DAILY PRN 09/24/20 09/24/20 History Magnesia] [place] Liquis Skin Protectant 1 applic TOPICAL DIRECTED PRN 09/24/20 09/24/20 History Melatonin 10 mg PO HS 09/24/20 09/24/20 History Menthol [Biofreeze] 1 applic TOPICAL TID PRN 09/24/20 09/24/20 History Micatin Cream 1 applic TOPICAL BID 09/24/20 09/24/20 History Micatin Cream 1 applic TOPICAL DAILY PRN 09/24/20 09/24/20 History Miconazole Nitrate [Zeasorb AF] 1 applic TOPICAL BID PRN 09/24/20 09/24/20 History Na Phos,M-B/Na Phos,Di-Ba [Fleet 133 ml RECTAL DAILY PRN 09/24/20 09/24/20 History Adult] Ondansetron HCl [Zofran] 4 mg PO Q8H PRN 09/24/20 09/24/20 History Torsemide [Demadex] 40 mg PO DAILY 09/24/20 09/24/20 History Ubidecarenone [Co Q-10] 100 mg PO AC-SUPPER 09/24/20 09/24/20 History Zinc Gluconate [Zinc] 50 mg PO HS 09/24/20 09/24/20 History bisacodyL [Bisacodyl] 10 mg RECTAL DAILY PRN 09/24/20 09/24/20 History buPROPion XL [Wellbutrin Xl] 150 mg PO DAILY 09/24/20 09/24/20 History guaiFENesin-DM 100-10MG/5ML 5 ml PO Q4H PRN 09/24/20 09/24/20 History [Robitussin DM] hydrALAZINE HCL [Apresoline] 25 mg PO TID@0800,1400,2000 09/24/20 09/24/20 History polyethylene glycoL 3350 [Miralax] 17 gm PO DAILY PRN 09/24/20 09/24/20 History traMADol HCL 50 mg PO BID 09/24/20 09/24/20 History Allergies Allergy/AdvReac Type Severity Reaction Status Date / Time benazepril HCl Allergy Cough Verified 09/24/20 19:00 [From Lotensin] gabapentin [From Neurontin] Allergy Unknown Verified 09/24/20 19:00 hydrocodone bitartrate Allergy CONSTIPATIO Verified 09/24/20 19:00 [From Lortab] N Penicillins Allergy Unknown Verified 09/24/20 19:00 Childhood prednisone Allergy UNABLE TO Verified 09/24/20 19:00 URINATE varenicline tartrate Allergy Nausea Verified 09/24/20 19:00 [From Chantix] Physical Exam Vitals: Vital Signs Temp Pulse Pulse Pulse Resp BP BP 09/25/20 15:16 97.5 F L 62 20 129/72 09/25/20 15:06 98.1 F 79 20 133/40 09/25/20 14:00 116/58 09/25/20 11:00 97.7 F 60 20 89/54 09/25/20 04:58 97.5 F L 65 18 09/24/20 21:40 99.4 F 72 20 09/24/20 20:00 72 09/24/20 18:41 98.0 F 69 22 09/24/20 18:00 97.8 F 87 18 136/68 09/24/20 17:00 65 25 H 113/52 09/24/20 16:04 98.4 F 63 28 H 110/50 09/24/20 16:03 65 25 H BP Pulse Ox 09/25/20 15:16 94 L 09/25/20 15:06 95 09/25/20 14:00 09/25/20 11:00 94 L 09/25/20 04:58 143/68 94 L 09/24/20 21:40 136/68 92 L 09/24/20 20:00 09/24/20 18:41 160/70 92 L 09/24/20 18:00 98 09/24/20 17:00 95 09/24/20 16:04 90 L 09/24/20 16:03 94 L Intake and Output 09/25/20 09/25/20 09/25/20 06:59 14:59 22:59 Intake Total 750 0 Output Total 800 300 Balance -50 -300 Intake: IV 550 Sodium Chloride 0.9% 1, 550 000 ml @ 110 mls/hr IV . Q9H6M [facility] Rx#:[id number] Oral 200 Blood Product 0 Ffp Pher Conval Covid19 0 Acda 1 Unit [id number] Output: Urine 800 300 Other: Voiding Method Ileal Conduit (Right) # Bowel Movements 1 Weight 108.862 kg PHYSICAL EXAMINATION: GENERAL: The patient is alert and oriented x3, not in any acute distress. Well developed, well nourished. HEENT: Pupils are round and equally reacting to light. EOMI. No scleral icterus. No conjunctival pallor. Normocephalic, atraumatic. No pharyngeal erythema. No thyromegaly. CARDIOVASCULAR: S1 and S2 present. No murmurs, rubs, or gallops. PULMONARY: Chest is clear to auscultation, no wheezing or crackles. ABDOMEN: Soft, nontender, nondistended, normoactive bowel sounds. No palpable organomegaly. MUSCULOSKELETAL: No joint swelling or deformity. EXTREMITIES: No cyanosis, clubbing, or pedal edema. NEUROLOGICAL: Gross neurological examination did not reveal any focal deficits. SKIN: No rashes. Note: Because of COVID 19 isolation, some of the history and physical exam findings are indirect and obtained from nursing staff, and other physician exami nations to avoid unnecessary contact with the patient. Results CBC & Chem 7: 09/24/20 23:11 09/24/20 23:11 Labs: Abnormal Lab Results - Last 24 Hours (Table) 09/24/20 09/24/20 09/24/20 Range/Units 16:34 23:11 23:11 RBC 3.22 L (4.30-5.90) m/uL Hgb 11.0 L (13.0-17.5) gm/dL Hct 32.4 L (39.0-53.0) % MCV 100.5 H (80.0-100.0) fL Plt Count 140 L (150-450) k/uL Lymphocytes # 0.2 L (1.0-4.8) k/uL D-Dimer (<0.60) mg/L FEU Sodium 135 L (137-145) mmol/L Chloride 110 H (98-107) mmol/L Carbon Dioxide 16 L (22-30) mmol/L BUN 71 H (9-20) mg/dL Creatinine 4.94 H (0.66-1.25) mg/dL Glucose 104 H (74-99) mg/dL POC Glucose (mg/dL) (75-99) mg/dL Calcium 7.8 L (8.4-10.2) mg/dL AST 68 H (17-59) U/L ALT 57 H (4-49) U/L Total Protein 6.2 L (6.3-8.2) g/dL Albumin 3.4 L (3.5-5.0) g/dL Urine Protein 1+ H (Negative) Urine Blood Small H (Negative) Ur Leukocyte Esterase Large H (Negative) Urine WBC 18 H (0-5) /hpf Urine Bacteria Moderate H (None) /hpf Hyaline Casts 4 H (0-2) /lpf Urine Mucus Rare H (None) /hpf Urine Yeast (Budding) Few H (None) /hpf 09/25/20 09/25/20 09/25/20 Range/Units 00:01 07:25 11:38 RBC (4.30-5.90) m/uL Hgb (13.0-17.5) gm/dL Hct (39.0-53.0) % MCV (80.0-100.0) fL Plt Count (150-450) k/uL Lymphocytes # (1.0-4.8) k/uL D-Dimer (<0.60) mg/L FEU Sodium (137-145) mmol/L Chloride (98-107) mmol/L Carbon Dioxide (22-30) mmol/L BUN (9-20) mg/dL Creatinine (0.66-1.25) mg/dL Glucose (74-99) mg/dL POC Glucose (mg/dL) 103 H 68 L 100 H (75-99) mg/dL Calcium (8.4-10.2) mg/dL AST (17-59) U/L ALT (4-49) U/L Total Protein (6.3-8.2) g/dL Albumin (3.5-5.0) g/dL Urine Protein (Negative) Urine Blood (Negative) Ur Leukocyte Esterase (Negative) Urine WBC (0-5) /hpf Urine Bacteria (None) /hpf Hyaline Casts (0-2) /lpf Urine Mucus (None) /hpf Urine Yeast (Budding) (None) /hpf 09/25/20 Range/Units 11:46 RBC (4.30-5.90) m/uL Hgb (13.0-17.5) gm/dL Hct (39.0-53.0) % MCV (80.0-100.0) fL Plt Count (150-450) k/uL Lymphocytes # (1.0-4.8) k/uL D-Dimer 0.65 H (<0.60) mg/L FEU Sodium (137-145) mmol/L Chloride (98-107) mmol/L Carbon Dioxide (22-30) mmol/L BUN (9-20) mg/dL Creatinine (0.66-1.25) mg/dL Glucose (74-99) mg/dL POC Glucose (mg/dL) (75-99) mg/dL Calcium (8.4-10.2) mg/dL AST (17-59) U/L ALT (4-49) U/L Total Protein (6.3-8.2) g/dL Albumin (3.5-5.0) g/dL Urine Protein (Negative) Urine Blood (Negative) Ur Leukocyte Esterase (Negative) Urine WBC (0-5) /hpf Urine Bacteria (None) /hpf Hyaline Casts (0-2) /lpf Urine Mucus (None) /hpf Urine Yeast (Budding) (None) /hpf Thrombosis Risk Factor Assmnt - Choose All That Apply Any of the Below Risk Factors Present?: Yes Each Factor Represents 1 point: Obesity (BMI >25) Other Risk Factors: Yes Each Risk Factor Represents 2 Points: Patient confined to bed Each Risk Factor Represents 3 Points: Age 75 years or older Thrombosis Risk Factor Assessment Total Risk Factor Score: 6 Thrombosis Risk Factor Assessment Level: High Risk Assessment and Plan Plan: -Acute hypoxic respiratory failure secondary to acute CoVID 19 pneumonitis. Outside the window for Remdesivir, GFR 10. Patient is a presently on Decadron and the vitamin supplementation. Because of renal dysfunction will discontinue Lovenox will start him on heparin for DVT prophylaxis -Chronic kidney disease stage V supposed to be initiated on hemodialysis. Patient may have some acute tubular necrosis from hypotension leading to acute renal failure nephrology is following the patient further management as per the [place]-history of bladder cancer with ileostomy -Diarrhea secondary to Covid 19 -Type 2 diabetes mellitus -Coronary artery disease with previous stents Hypertension Hyperlipidemia -Gastroesophageal reflux disease -COPD without any significant exacerbation.
--- NOTE | 2020-09-25 16:21 | US ---
EXAMINATION TYPE: US kidneys/renal and bladder DATE OF EXAM: 09/25/2020 COMPARISON: CT 2018 CLINICAL HISTORY: hydronephrosis. History of bladder cancer. EXAM MEASUREMENTS: Right Kidney: 11.1 x 4.9 x 4.6 cm Left Kidney: 11.3 x 5.7 x 5.7 cm Kidneys are difficult to visualize with thinned cortex. Right Kidney: Upper pole cyst measures 5.4 x 4.2 x 3.9 cm. moderate hydronephrosis. Left Kidney: Exophytic cyst measures 1.9 x 1.9 x 1.9 cm. Bladder: surgically absent. IMPRESSION: There is right and left renal atrophy. Atrophy more noticeable on the right side. No evidence of a so lid renal mass. There is right-sided hydronephrosis. Hydronephrosis appears new compared to the CT sc an of 04/30/2018. Right renal atrophy is a change compared to old exam.
[2020-09-25] MEDS: HEPARIN SODIUM,PORCINE 5,000 UNIT/ML 1 ML VIAL SQ SCH (17:13)
[2020-09-25] MEDS: FUROSEMIDE 10 MG/ML 4 ML VIAL IV SCH (17:13)
[2020-09-25] MEDS ORDERED: NON FORMULARY DRUG (Ubidecarenone [Co Q-10] 100 MG Capsule) PO SCH (17:30)
[2020-09-25 17:45] LABS: Glucose,Whole Blood 370 mg/dL (75-99)
[2020-09-25] MEDS: FERROUS SULFATE 325 MG TAB PO SCH (18:12)
[2020-09-25] MEDS: carvediloL 3.125 MG TAB PO SCH (18:13)
[2020-09-25 20:30] LABS: Glucose,Whole Blood 361 mg/dL (75-99)
[2020-09-25] MEDS: SYMBICORT 160-4.5 MCG INHALER INHALATION SCH (20:36)
[2020-09-26] MEDS: HEPARIN SODIUM,PORCINE 5,000 UNIT/ML 1 ML VIAL SQ SCH ×4 (01:41→21:36)
[2020-09-26] MEDS: FUROSEMIDE 10 MG/ML 4 ML VIAL IV SCH ×2 (05:40→18:06)
[2020-09-26] MEDS: ALBUTEROL HFA INHALER INHALATION PRN ×4 (06:02→20:30)
[2020-09-26] MEDS: SYMBICORT 160-4.5 MCG INHALER INHALATION SCH ×2 (06:03→20:30)
[2020-09-26 07:11] LABS: Glucose,Whole Blood 113 mg/dL (75-99)
[2020-09-26] MEDS: INSULIN ASPART (NovoLOG) 100 UNIT/ML VIAL SQ SCH ×4 (07:14→21:35)
[2020-09-26] MEDS: PANTOPRAZOLE 40 MG TABLET PO SCH (09:07)
[2020-09-26] MEDS: ASCORBIC ACID 500 MG TAB PO SCH ×2 (09:07→15:53)
[2020-09-26] MEDS: buPROPion XL 150 MG TAB.ER.24H PO SCH (09:09)
[2020-09-26] MEDS: MULTIVITAMINS, THERA 1 EACH TAB PO SCH (09:09)
[2020-09-26] MEDS: ASPIRIN 81 MG PO SCH (09:09)
[2020-09-26] MEDS: dexAMETHasone 2 MG TAB PO SCH (09:09)
[2020-09-26] MEDS: AMIODARONE 200 MG TAB PO SCH (09:09)
[2020-09-26] MEDS: carvediloL 3.125 MG TAB PO SCH ×2 (09:10→18:06)
[2020-09-26] MEDS: CHOLECALCIFEROL 1,000 UNIT TAB PO SCH (09:10)
[2020-09-26] MEDS: traMADol 50 MG TAB PO SCH ×2 (09:11→21:36)
[2020-09-26 09:18] LABS: HCT 33.2 % (39.0-53.0); MCHC 33.1 g/dL (31.0-37.0); MCV 99.8 fL (80.0-100.0); Macrocytosis Slight; Mean Platelet Volume 8.2; Platelet Count 174 k/uL (150-450); RBC 3.33 m/uL (4.30-5.90); RDW 14.5 % (11.5-15.5); WBC 5.1 k/uL (3.8-10.6)
[2020-09-26] MEDS: MICATIN TOPICAL SCH (09:24)
[2020-09-26 11:11] LABS: Glucose,Whole Blood 130 mg/dL (75-99)
[2020-09-26] MEDS ORDERED: REMDESIVIR 100 MG in SODIUM CHLORIDE 0.9% 250 ML IVPB SCH (11:27)
[2020-09-26 12:15] LABS: African American GFR (CKD) 13.1 (60.0-200.0); Anion Gap 15.3 mmol/L (4.00-12.00); BUN/Creat Ratio 17.17 Ratio (12.00-20.00); Calcium 8.2 mg/dL (8.7-10.3); Carbon Dioxide 16.7 mmol/L (21.6-31.8); Non-African American GFR(CKD) 11.3 (60.0-200.0); Potassium 3.6 mmol/L (3.5-5.5)
--- NOTE | 2020-09-26 12:19 | P.PN ---
Subjective patient is a pleasant pleasant 82-year-old male came in with complains of shortness of breath does have history of COPD patient was diagnosed with Covid 19 6 days ago. Patient is comparing of shortness of breath cough congestion diarrhea for couple days. Patient is found to have renal failure, actually patient appears to have chronic kidney disease I do not know his baseline creatinine baseline creatinine around the about any year ago was 1.4 but apparently patient is supposed to be started on hemodialysis. Patient denied any UTI symptoms with the patient urine is abnormal, nephrology believes her UTI is responsible for acute renal failure and acute tubular necrosis in the recommending antibiotics and patient was started on Rocephin which is being continued at this time. Nephrology is recommending Lasix and discontinue IV fluids. 10/04/2020 Patient was pretty status is bit worse today patient is according 7 L patient is not feeling well. Patient creatinine although marginally improved patient is presently on Lasix.patient is having fairly good urine output. Patient may need a repeat chest x-ray leave the decision to cardiology. Constitutional: as mentioned in HPI Cardio vascular: denied any chest pain, palpitations Gastrointestinal denied any nausea vomiting Pulmonary: as mentioned in HPI Neurologic denied any new focal deficits All inpatient medications were reviewed and appropriate changes in these medications as dictated in the interval history and assessment and plan. Objective - Vital Signs Vital signs: Vital Signs Temp 97.7 F 09/26/20 11:00 Pulse 46 L 09/26/20 11:00 Resp 17 09/26/20 11:00 BP 112/56 09/26/20 11:00 Pulse Ox 90 L 09/26/20 11:00 Intake & Output 09/25/20 09/26/20 09/26/20 18:59 06:59 18:59 Intake Total 207 425 Output Total 650 400 Balance -443 25 Weight 108.862 kg Intake: IV 100 Sodium Chloride 0.9% 1, 100 000 ml @ 110 mls/hr IV . Q9H6M [facility] Rx#:[id number] Oral 325 Blood Product 207 Ffp Pher Conval Covid19 207 Acda 1 Unit [id number] Output: Urine 650 400 Other: Voiding Method Ileal Conduit (Right) Ileal Conduit (Right) Ileal Conduit (Right) # Bowel Movements 1 1 - Exam PHYSICAL EXAMINATION: GENERAL: The patient is alert and oriented x3, not in any acute distress. Well developed, well nourished. HEENT: Pupils are round and equally reacting to light. EOMI. No scleral icterus. No conjunctival pallor. Normocephalic, atraumatic. No pharyngeal erythema. No thyromegaly. CARDIOVASCULAR: S1 and S2 present. No murmurs, rubs, or gallops. PULMONARY: Chest is clear to auscultation, no wheezing or crackles. ABDOMEN: Soft, nontender, nondistended, normoactive bowel sounds. No palpable organomegaly. MUSCULOSKELETAL: No joint swelling or deformity. EXTREMITIES: No cyanosis, clubbing, or pedal edema. NEUROLOGICAL: Gross neurological examination did not reveal any focal deficits. SKIN: No rashes. Note: Because of [facility] 19 isolation, some of the history and physical exam findings are indirect and obtained from nursing staff, and other physician examinations to avoid unnecessary contact with the patient. - Labs CBC & Chem 7: 09/26/20 08:37 09/26/20 08:37 Labs: Abnormal Lab Results - Last 24 Hours (Table) 09/24/20 09/25/20 09/25/20 Range/Units 23:11 11:46 11:46 RBC (4.30-5.90) m/uL Hgb (13.0-17.5) gm/dL Hct (39.0-53.0) % D-Dimer 0.65 H (<0.60) mg/L FEU Carbon Dioxide (21.6-31.8) mmol/L Anion Gap (4.00-12.00) mmol/L BUN (9.0-27.0) mg/dL Creatinine (0.6-1.5) mg/dL Est GFR (CKD-EPI)AfAm (60.0-200.0) Est GFR (CKD-EPI)NonAf (60.0-200.0) POC Glucose (mg/dL) (75-99) mg/dL Hemoglobin A1c 7.0 H (4.0-6.0) % Calcium (8.7-10.3) mg/dL Procalcitonin 0.26 H (0.02-0.09) ng/mL 09/25/20 09/25/20 09/26/20 Range/Units 17:44 20:28 07:10 RBC (4.30-5.90) m/uL Hgb (13.0-17.5) gm/dL Hct (39.0-53.0) % D-Dimer (<0.60) mg/L FEU Carbon Dioxide (21.6-31.8) mmol/L Anion Gap (4.00-12.00) mmol/L BUN (9.0-27.0) mg/dL Creatinine (0.6-1.5) mg/dL Est GFR (CKD-EPI)AfAm (60.0-200.0) Est GFR (CKD-EPI)NonAf (60.0-200.0) POC Glucose (mg/dL) 370 H 361 H 113 H (75-99) mg/dL Hemoglobin A1c (4.0-6.0) % Calcium (8.7-10.3) mg/dL Procalcitonin (0.02-0.09) ng/mL 09/26/20 09/26/20 09/26/20 Range/Units 08:37 08:37 11:10 RBC 3.33 L (4.30-5.90) m/uL Hgb 11.0 L (13.0-17.5) gm/dL Hct 33.2 L (39.0-53.0) % D-Dimer (<0.60) mg/L FEU Carbon Dioxide 16.7 L (21.6-31.8) mmol/L Anion Gap 15.30 H (4.00-12.00) mmol/L BUN 79.0 H (9.0-27.0) mg/dL Creatinine 4.6 H (0.6-1.5) mg/dL Est GFR (CKD-EPI)AfAm 13.1 L (60.0-200.0) Est GFR (CKD-EPI)NonAf 11.3 L (60.0-200.0) POC Glucose (mg/dL) 130 H (75-99) mg/dL Hemoglobin A1c (4.0-6.0) % Calcium 8.2 L (8.7-10.3) mg/dL Procalcitonin (0.02-0.09) ng/mL Assessment and Plan Plan: -Acute hypoxic respiratory failure secondary to acute CoVID 19 pneumonitis. Outside the window for Remdesivir, GFR 10. Patient is a presently on Decadron and the vitamin supplementation. Because of renal dysfunction will discontinue Lovenox and patient is onheparin for DVT prophylaxis -Chronic kidney disease stage V supposed to be initiated on hemodialysis. Patient may have some acute tubular necrosis from hypotension leading to acute renal failure nephrology is following the patient further management as per the -history of bladder cancer with ileostomy -Diarrhea secondary to Covid 19 -Type 2 diabetes mellitus -Coronary artery disease with previous stents Hypertension Hyperlipidemia -Gastroesophageal reflux disease -COPD without any significant exacerbation.
--- NOTE | 2020-09-26 14:14 | P.PN ---
Subjective Progress Note Date: 09/26/20 Principal diagnosis: Acute CoVID 19 pneumonitis This is a pleasant 80-year-old gentleman who resides in a assisted living facility. He has a history of coronary artery disease with previous stent placement, chronic obstructive pulmonary disease, former smoker, diabetes mellitus type 2, gastroesophageal reflux disease, hyperlipidemia, hypertension, osteoarthritis, bladder cancer status post ileostomy. He presented to [facility] with complaints of increasing shortness of breath, cough congestion, low back pain, diarrhea, weakness. He had also fallen and sustained injury to his left elbow. He is found to be in acute renal failure and hypoxemic and transferred here yesterday for further treatment. His randolph virus test was 8 days ago. Chest x-ray shows evidence of COPD, cardiomegaly and basilar atelectasis. White count 4.6. Hemoglobin 11.0. Platelet count 140,000. Sodium 135. Potassium 4.0. Creatinine 4.94. Urinalysis with moderate bacteria, large leukocyte esterase. He is seen today in consultation on the regular medical floor. He is currently sitting up in bed. Awake and alert in no acute distress. 18 and O2 saturations in the 90s on 4 L/m per nasal cannula. He's been afebrile. Hemodynamically stable. Initiated on ceftriaxone. The patient is seen today 09/26/2020 in follow-up on the regular medical floor. He is resting comfortably in bed. Awake and alert in no acute distress. Breathing a bit easier today compared to yesterday. Maintaining O2 saturation in the low 90s on 7 L high flow nasal cannula. He's been afebrile. Hem odynamically stable. White count 5.1. Hemoglobin 11.0. Sodium 138. Potassium 3.6. Creatinine 4.6. Objective - Vital Signs Vital signs: Vital Signs Temp 97.7 F 09/26/20 11:00 Pulse 46 L 09/26/20 11:00 Resp 17 09/26/20 11:00 BP 112/56 09/26/20 11:00 Pulse Ox 90 L 09/26/20 11:00 Intake & Output 09/25/20 09/26/20 09/26/20 18:59 06:59 18:59 Intake Total 207 425 Output Total 650 400 Balance -443 25 Weight 108.862 kg Intake: IV 100 Sodium Chloride 0.9% 1, 100 000 ml @ 110 mls/hr IV . Q9H6M [facility] Rx#:[id number] Oral 325 Blood Product 207 Ffp Pher Conval Covid19 207 Acda 1 Unit [id number] Output: Urine 650 400 Other: Voiding Method Ileal Conduit (Right) Ileal Conduit (Right) Ileal Conduit (Right) # Bowel Movements 1 1 - Exam GENERAL EXAM: Alert, pleasant 72-year-old gentleman, on 7 L nasal cannula,, comfortable in no apparent distress. HEAD: Normocephalic. EYES: Normal reaction of pupils, equal size. NOSE: Clear with pink turbinates. THROAT: No erythema or exudates. NECK: No masses, no JVD. CHEST: No chest wall deformity. LUNGS: Equal air entry with bilateral scattered rhonchi, crackles in posterior bases. CVS: S1 and S2 normal with no audible murmur, regular rhythm. ABDOMEN: No hepatosplenomegaly, normal bowel sounds, no guarding or rigidity. SPINE: No scoliosis or deformity SKIN: Wound to the left elbow, dressing intact CENTRAL NERVOUS SYSTEM: No focal deficits, tone is normal in all 4 extremities. EXTREMITIES: There is no peripheral edema. No clubbing, no cyanosis. Peripheral pulses are intact. - Labs CBC & Chem 7: 09/26/20 08:37 09/26/20 08:37 Labs: Abnormal Lab Results - Last 24 Hours (Table) 09/24/20 09/25/20 09/25/20 Range/Units 23:11 11:46 17:44 RBC (4.30-5.90) m/uL Hgb (13.0-17.5) gm/dL Hct (39.0-53.0) % Carbon Dioxide (21.6-31.8) mmol/L Anion Gap (4.00-12.00) mmol/L BUN (9.0-27.0) mg/dL Creatinine (0.6-1.5) mg/dL Est GFR (CKD-EPI)AfAm (60.0-200.0) Est GFR (CKD-EPI)NonAf (60.0-200.0) POC Glucose (mg/dL) 370 H (75-99) mg/dL Hemoglobin A1c 7.0 H (4.0-6.0) % Calcium (8.7-10.3) mg/dL Procalcitonin 0.26 H (0.02-0.09) ng/mL 09/25/20 09/26/20 09/26/20 Range/Units 20:28 07:10 08:37 RBC 3.33 L (4.30-5.90) m/uL Hgb 11.0 L (13.0-17.5) gm/dL Hct 33.2 L (39.0-53.0) % Carbon Dioxide (21.6-31.8) mmol/L Anion Gap (4.00-12.00) mmol/L BUN (9.0-27.0) mg/dL Creatinine (0.6-1.5) mg/dL Est GFR (CKD-EPI)AfAm (60.0-200.0) Est GFR (CKD-EPI)NonAf (60.0-200.0) POC Glucose (mg/dL) 361 H 113 H (75-99) mg/dL Hemoglobin A1c (4.0-6.0) % Calcium (8.7-10.3) mg/dL Procalcitonin (0.02-0.09) ng/mL 09/26/20 09/26/20 Range/Units 08:37 11:10 RBC (4.30-5.90) m/uL Hgb (13.0-17.5) gm/dL Hct (39.0-53.0) % Carbon Dioxide 16.7 L (21.6-31.8) mmol/L Anion Gap 15.30 H (4.00-12.00) mmol/L BUN 79.0 H (9.0-27.0) mg/dL Creatinine 4.6 H (0.6-1.5) mg/dL Est GFR (CKD-EPI)AfAm 13.1 L (60.0-200.0) Est GFR (CKD-EPI)NonAf 11.3 L (60.0-200.0) POC Glucose (mg/dL) 130 H (75-99) mg/dL Hemoglobin A1c (4.0-6.0) % Calcium 8.2 L (8.7-10.3) mg/dL Procalcitonin (0.02-0.09) ng/mL Assessment and Plan Assessment: 1 Acute hypoxic respiratory failure secondary to acute CoVID 19 pneumonitis. Outside the window for Remdesivir, GFR 10 2 Acute renal failure of unclear etiology. Possible dehydration. Current creatinine 4.6. GFR 11.3. Creatinine in October 2018 1.4. Renal ultrasound reveals atrophy of the bilateral kidneys right greater than left right-sided hydronephrosis 3 History of bladder cancer status post ileostomy 4 Diarrhea secondary to CoVID 19 infection 5 Diabetes mellitus, type II 6 Coronary disease with previous stent placement 7 Hypertension 8 Hyperlipidemia 9 Gastroesophageal reflux disease 10 Former smoker Plan: The patient was seen and evaluated by Dr. Aponte Labs reviewed Continue subcu heparin, Decadron, vitamin supplements Symbicort, albuterol Titrate the FiO2 as tolerated Repeat chest x-ray, inflammatory markers in a.m. We will continue to follow I, the cosigning physician, performed a history & physical examination of the patient. Lungs sounds bilateral scattered rhonchi, crackles in the posterior bases Maintaining good O2 saturations in the 90s on 7 L/m per nasal cannula. I discussed the assessment and plan of care with my nurse practitioner, Maria Luz Daniels. I attest to the above note as dictated by her.
--- NOTE | 2020-09-26 14:22 | P.PN ---
Subjective Progress Note Date: 09/26/20 Follow-up for acute kidney injury. Objective - Vital Signs Vital signs: Vital Signs Temp 97.7 F 09/26/20 11:00 Pulse 46 L 09/26/20 11:00 Resp 17 09/26/20 11:00 BP 112/56 09/26/20 11:00 Pulse Ox 90 L 09/26/20 11:00 Intake & Output 09/25/20 09/26/20 09/26/20 18:59 06:59 18:59 Intake Total 207 425 Output Total 650 400 Balance -443 25 Weight 108.862 kg Intake: IV 100 Sodium Chloride 0.9% 1, 100 000 ml @ 110 mls/hr IV . Q9H6M [facility] Rx#:[id number] Oral 325 Blood Product 207 Ffp Pher Conval Covid19 207 Acda 1 Unit [id number] Output: Urine 650 400 Other: Voiding Method Ileal Conduit (Right) Ileal Conduit (Right) Ileal Conduit (Right) # Bowel Movements 1 1 - Exam Report to primary team exam - Labs CBC & Chem 7: 09/26/20 08:37 09/26/20 08:37 Labs: Abnormal Lab Results - Last 24 Hours (Table) 09/24/20 09/25/20 09/25/20 Range/Units 23:11 11:46 17:44 RBC (4.30-5.90) m/uL Hgb (13.0-17.5) gm/dL Hct (39.0-53.0) % Carbon Dioxide (21.6-31.8) mmol/L Anion Gap (4.00-12.00) mmol/L BUN (9.0-27.0) mg/dL Creatinine (0.6-1.5) mg/dL Est GFR (CKD-EPI)AfAm (60.0-200.0) Est GFR (CKD-EPI)NonAf (60.0-200.0) POC Glucose (mg/dL) 370 H (75-99) mg/dL Hemoglobin A1c 7.0 H (4.0-6.0) % Calcium (8.7-10.3) mg/dL Procalcitonin 0.26 H (0.02-0.09) ng/mL 09/25/20 09/26/20 09/26/20 Range/Units 20:28 07:10 08:37 RBC 3.33 L (4.30-5.90) m/uL Hgb 11.0 L (13.0-17.5) gm/dL Hct 33.2 L (39.0-53.0) % Carbon Dioxide (21.6-31.8) mmol/L Anion Gap (4.00-12.00) mmol/L BUN (9.0-27.0) mg/dL Creatinine (0.6-1.5) mg/dL Est GFR (CKD-EPI)AfAm (60.0-200.0) Est GFR (CKD-EPI)NonAf (60.0-200.0) POC Glucose (mg/dL) 361 H 113 H (75-99) mg/dL Hemoglobin A1c (4.0-6.0) % Calcium (8.7-10.3) mg/dL Procalcitonin (0.02-0.09) ng/mL 09/26/20 09/26/20 Range/Units 08:37 11:10 RBC (4.30-5.90) m/uL Hgb (13.0-17.5) gm/dL Hct (39.0-53.0) % Carbon Dioxide 16.7 L (21.6-31.8) mmol/L Anion Gap 15.30 H (4.00-12.00) mmol/L BUN 79.0 H (9.0-27.0) mg/dL Creatinine 4.6 H (0.6-1.5) mg/dL Est GFR (CKD-EPI)AfAm 13.1 L (60.0-200.0) Est GFR (CKD-EPI)NonAf 11.3 L (60.0-200.0) POC Glucose (mg/dL) 130 H (75-99) mg/dL Hemoglobin A1c (4.0-6.0) % Calcium 8.2 L (8.7-10.3) mg/dL Procalcitonin (0.02-0.09) ng/mL Assessment and Plan Assessment: #1 acute kidney injury/progressive chronic kidney disease. Suspect septic ATN from UTI. Baseline creatinine 1.4 MG per DL in October 2018 #2 bladder/prostate cancer status post cystectomy with a urostomy. #3 Covid 19 #4 metabolic acidosis secondary to acute kidney injury #5 anemia with chronic kidney disease. #6 low normal blood pressures. Plan: #1 continue with Lasix 40 mg IV twice a day. #2 renal ultrasound consistent with right hydronephrosis. Urology evaluation. #3 avoid nephrotoxic agents and hypotensive episodes.
[2020-09-26 17:09] LABS: Glucose,Whole Blood 219 mg/dL (75-99)
[2020-09-26] MEDS: FERROUS SULFATE 325 MG TAB PO SCH (18:06)
[2020-09-26 20:28] LABS: Glucose,Whole Blood 311 mg/dL (75-99)
[2020-09-26] MEDS: INSULIN DETEMIR (LEVEMIR) 100 UNIT/ML SYR SQ SCH (21:36)
[2020-09-26] MEDS: MELATONIN 5 MG TABLET PO SCH (21:36)
[2020-09-26] MEDS: LORATADINE 10 MG TAB PO SCH (21:36)
[2020-09-27] MEDS: PRAMIPEXOLE 0.125 MG TAB PO SCH ×2 (00:33→21:38)
[2020-09-27] MEDS: MICATIN TOPICAL SCH ×3 (00:33→21:40)
[2020-09-27] MEDS: FUROSEMIDE 10 MG/ML 4 ML VIAL IV SCH (05:28)
[2020-09-27 07:09] LABS: Glucose,Whole Blood 122 mg/dL (75-99)
[2020-09-27] MEDS: INSULIN ASPART (NovoLOG) 100 UNIT/ML VIAL SQ SCH ×4 (07:24→21:38)
[2020-09-27] MEDS: PANTOPRAZOLE 40 MG TABLET PO SCH (07:54)
[2020-09-27] MEDS: carvediloL 3.125 MG TAB PO SCH ×2 (07:55→17:51)
[2020-09-27] MEDS: traMADol 50 MG TAB PO SCH ×2 (07:55→21:40)
[2020-09-27] MEDS: MULTIVITAMINS, THERA 1 EACH TAB PO SCH (07:55)
[2020-09-27] MEDS: ASCORBIC ACID 500 MG TAB PO SCH ×2 (07:55→17:51)
[2020-09-27] MEDS: ASPIRIN 81 MG PO SCH (07:55)
[2020-09-27] MEDS: AMIODARONE 200 MG TAB PO SCH (07:56)
[2020-09-27] MEDS: CHOLECALCIFEROL 1,000 UNIT TAB PO SCH (07:56)
[2020-09-27] MEDS: dexAMETHasone 2 MG TAB PO SCH (07:56)
[2020-09-27] MEDS: HEPARIN SODIUM,PORCINE 5,000 UNIT/ML 1 ML VIAL SQ SCH ×3 (07:56→23:16)
[2020-09-27] MEDS: buPROPion XL 150 MG TAB.ER.24H PO SCH (07:57)
--- NOTE | 2020-09-27 08:45 | XR ---
EXAMINATION TYPE: XR chest 1V DATE OF EXAM: 09/27/2020 COMPARISON: Prior chest x-ray 09/25/2020 HISTORY: Covid pneumonitis TECHNIQUE: frontal view of the chest is obtained on 2 images. FINDINGS: Patient is post median sternotomy. There is a generator in the left pectoral region, leads in the right atrium and ventricle, coronary sinus level. No evident pneumothorax or pleural effusion . Patchy basilar density present on the left as on prior exam. Heart size is stable. IMPRESSION: Possible scarring or basilar atelectasis, correlate for pneumonia
[2020-09-27] MEDS: SYMBICORT 160-4.5 MCG INHALER INHALATION SCH ×2 (09:18→20:27)
[2020-09-27] MEDS: ALBUTEROL HFA INHALER INHALATION PRN ×4 (09:18→20:27)
--- NOTE | 2020-09-27 10:37 | P.PN ---
Subjective Patient is seen in follow-up for acute kidney injury. Maintain on IV Lasix. States edema has improved. Nonoliguric. Urine output 1.3 L in the last 24 hours. Denies chest pain or shortness of breath. Oral intake good. Blood pressure stable. Vital signs are stable. General: The patient appeared well nourished and normally developed. HEENT: Head exam is unremarkable. Neck is without jugular venous distension. LUNGS: Breath sounds decreased. HEART: Rate and Rhythm are regular. ABDOMEN: Soft, nontender. EXTREMITITES: Trace edema. Objective - Vital Signs Vital signs: Vital Signs Temp 98.2 F 09/27/20 05:00 Pulse 67 09/27/20 05:00 Resp 28 H 09/27/20 05:00 BP 144/72 09/27/20 05:00 Pulse Ox 91 L 09/27/20 05:00 Intake & Output 09/26/20 09/27/20 09/27/20 18:59 06:59 18:59 Intake Total 150 Output Total 1300 600 Balance 150 -1300 -600 Intake: Oral 150 Output: Urine 1300 600 Other: Voiding Method Ileal Conduit (Right) Ileal Conduit (Right) Ileal Conduit (Right) - Labs CBC & Chem 7: 09/26/20 08:37 09/26/20 08:37 Labs: Abnormal Lab Results - Last 24 Hours (Table) 09/26/20 09/26/20 09/26/20 Range/Units 08:37 11:10 17:03 D-Dimer (<0.60) mg/L FEU Carbon Dioxide 16.7 L (21.6-31.8) mmol/L Anion Gap 15.30 H (4.00-12.00) mmol/L BUN 79.0 H (9.0-27.0) mg/dL Creatinine 4.6 H (0.6-1.5) mg/dL Est GFR (CKD-EPI)AfAm 13.1 L (60.0-200.0) Est GFR (CKD-EPI)NonAf 11.3 L (60.0-200.0) POC Glucose (mg/dL) 130 H 219 H (75-99) mg/dL Calcium 8.2 L (8.7-10.3) mg/dL 09/26/20 09/27/20 09/27/20 Range/Units 20:26 06:04 07:00 D-Dimer 0.63 H (<0.60) mg/L FEU Carbon Dioxide (21.6-31.8) mmol/L Anion Gap (4.00-12.00) mmol/L BUN (9.0-27.0) mg/dL Creatinine (0.6-1.5) mg/dL Est GFR (CKD-EPI)AfAm (60.0-200.0) Est GFR (CKD-EPI)NonAf (60.0-200.0) POC Glucose (mg/dL) 311 H 122 H (75-99) mg/dL Calcium (8.7-10.3) mg/dL Assessment and Plan Plan: Assessment: 1. Acute kidney injury secondary to ATN secondary to infection. Also concern for obstructive uropathy. Creatinine 4.9 on admission was 4.6 as of yesterday. 2. Chronic kidney disease stage III with baseline creatinine near 1.3-1.4. Etiology is diabetic kidney disease. 3. Right-sided hydronephrosis. Urology consulted. 4. Volume overload. Improved with diuresis. 5. Metabolic acidosis secondary to acute kidney injury. 6. Covid-19 pneumonia. Maintained on steroids. s/p remdesivir. 7. Anemia of chronic kidney disease. Maintained on Aranesp. 8. Diabetes mellitus. Plan: I will change Lasix to 40 mg orally twice daily. Avoid nephrotoxins. Follow-up morning labs. Urology recommendations pending. Continue to monitor renal function and urine output.
[2020-09-27 11:06] LABS: African American GFR (CKD) 13.9 (60.0-200.0); BUN/Creat Ratio 19.77 Ratio (12.00-20.00); C Reactive Protein 3.6 mg/dL (0.0-0.8); Calcium 8.2 mg/dL (8.7-10.3); Potassium 4.4 mmol/L (3.5-5.5)
--- NOTE | 2020-09-27 11:09 | P.PN ---
Subjective patient is a pleasant pleasant 82-year-old male came in with complains of shortness of breath does have history of COPD patient was diagnosed with Covid 19 6 days ago. Patient is comparing of shortness of breath cough congestion diarrhea for couple days. Patient is found to have renal failure, actually patient appears to have chronic kidney disease I do not know his baseline creatinine baseline creatinine around the about any year ago was 1.4 but apparently patient is supposed to be started on hemodialysis. Patient denied any UTI symptoms with the patient urine is abnormal, nephrology believes her UTI is responsible for acute renal failure and acute tubular necrosis in the recommending antibiotics and patient was started on Rocephin which is being continued at this time. Nephrology is recommending Lasix and discontinue IV fluids. 10/04/2020 Patient was pretty status is bit worse today patient is according 7 L patient is not feeling well. Patient creatinine although marginally improved patient is presently on Lasix.patient is having fairly good urine output. Patient may need a repeat chest x-ray leave the decision to cardiology. 09/26/2020 Patient is presently on 15 L of oxygen although feeling well. Patient also requirements keep on going up and I do not have any basic metabolic profile available from today. Patient does have a right-sided hydronephrosis because of which neurology was consulted. Patient is presently on oral Lasix 40 mg twice a day patient is being treated for volume overload because of poor renal function Constitutional: as mentioned in HPI Cardio vascular: denied any chest pain, palpitations Gastrointestinal denied any nausea vomiting Pulmonary: as mentioned in HPI Neurologic denied any new focal deficits All inpatient medications were reviewed and appropriate changes in these medications as dictated in the interval history and assessment and plan. Objective - Vital Signs Vital signs: Vital Signs Temp 97.7 F 09/27/20 10:22 Pulse 62 09/27/20 10:22 Resp 24 09/27/20 10:22 BP 126/63 09/27/20 10:22 Pulse Ox 91 L 09/27/20 10:22 Intake & Output 09/26/20 09/27/20 09/27/20 18:59 06:59 18:59 Intake Total 150 Output Total 1300 600 Balance 150 -1300 -600 Intake: Oral 150 Output: Urine 1300 600 Other: Voiding Method Ileal Conduit (Right) Ileal Conduit (Right) Ileal Conduit (Right) - Exam PHYSICAL EXAMINATION: GENERAL: The patient is alert and oriented x3, not in any acute distress. Well developed, well nourished. HEENT: Pupils are round and equally reacting to light. EOMI. No scleral icterus. No conjunctival pallor. Normocephalic, atraumatic. No pharyngeal erythema. No thyromegaly. CARDIOVASCULAR: S1 and S2 present. No murmurs, rubs, or gallops. PULMONARY: Chest is clear to auscultation, no wheezing or crackles. ABDOMEN: Soft, nontender, nondistended, normoactive bowel sounds. No palpable organomegaly. MUSCULOSKELETAL: No joint swelling or deformity. EXTREMITIES: No cyanosis, clubbing, or pedal edema. NEUROLOGICAL: Gross neurological examination did not reveal any focal deficits. SKIN: No rashes. Note: Because of COVID 19 isolation, some of the history and physical exam findings are indirect and obtained from nursing staff, and other physician examinations to avoid unnecessary contact with the patient. - Labs CBC & Chem 7: 09/26/20 08:37 09/26/20 08:37 Labs: Abnormal Lab Results - Last 24 Hours (Table) 09/26/20 09/26/20 09/26/20 Range/Units 08:37 11:10 17:03 D-Dimer (<0.60) mg/L FEU Carbon Dioxide 16.7 L (21.6-31.8) mmol/L Anion Gap 15.30 H (4.00-12.00) mmol/L BUN 79.0 H (9.0-27.0) mg/dL Creatinine 4.6 H (0.6-1.5) mg/dL Est GFR (CKD-EPI)AfAm 13.1 L (60.0-200.0) Est GFR (CKD-EPI)NonAf 11.3 L (60.0-200.0) POC Glucose (mg/dL) 130 H 219 H (75-99) mg/dL Calcium 8.2 L (8.7-10.3) mg/dL 09/26/20 09/27/20 09/27/20 Range/Units 20:26 06:04 07:00 D-Dimer 0.63 H (<0.60) mg/L FEU Carbon Dioxide (21.6-31.8) mmol/L Anion Gap (4.00-12.00) mmol/L BUN (9.0-27.0) mg/dL Creatinine (0.6-1.5) mg/dL Est GFR (CKD-EPI)AfAm (60.0-200.0) Est GFR (CKD-EPI)NonAf (60.0-200.0) POC Glucose (mg/dL) 311 H 122 H (75-99) mg/dL Calcium (8.7-10.3) mg/dL Assessment and Plan Plan: -Acute hypoxic respiratory failure secondary to acute CoVID 19 pneumonitis. Outside the window for Remdesivir, GFR 10. Patient is a presently on Decadron and the vitamin supplementation. Because of renal dysfunction shouldn't is not a candidate for Lovenox but we'll continue with heparin for DVT prophylaxis. Patient remains on antibiotics for possible secondary bacterial pneumonia I'll leave the decision of antibiotics to pulmonary. -Chronic kidney disease stage V supposed to be initiated on hemodialysis. Patient may have some acute tubular necrosis from hypotension leading to acute renal failure nephrology is following the patient, patient is also found to have hydronephrosis on the right side for because of which neurology was consulted. -Volume overload secondary to renal failure and patient is on Lasix is being continued. -history of bladder cancer with ileostomy -Diarrhea secondary to Covid 19 resolved at this time -Type 2 diabetes mellitus -Coronary artery disease with previous stents Hypertension Hyperlipidemia -Gastroesophageal reflux disease -COPD without any significant exacerbation.
[2020-09-27 11:35] LABS: Glucose,Whole Blood 207 mg/dL (75-99)
[2020-09-27] MEDS: BENZOCAINE/MENTHOL LOZENG 1 EACH LOZENGE MUCOUS MEM PRN (12:12)
[2020-09-27] MEDS: SODIUM BICARBONATE TAB 650 MG TAB PO SCH ×3 (12:59→22:32)
--- NOTE | 2020-09-27 12:59 | P.GSCN ---
History of Present Illness Consult date: 09/27/20 Reason for Consult: Right hydronephrosis History of present illness: Mr Fernández is a 80 yo male admitted to the hospital with shortness of breath since, of note he was recently diagnosed with Covid 19 6 days ago. He has history of muscle invasive bladder cancer, he underwent a cystoprostatectomy and ileal conduit back in 2018 for muscle invasive bladder cancer. On admission, Patient is found to have renal failure, baseline creatinine in 2019 was around1.4. but apparently patient is supposed to be started on hemodialysis yearly next year for CKD. On presentation he underwent a renal bladder ultrasound demonstrated right-sided hydronephrosis, with bilateral renal atrophy. having adequate UO, denies any flank pain Review of Systems - Constitutional Denies chills, Denies fever - EENT Ears, nose, mouth and throat: Denies dysphagia - Cardiovascular Denies chest pain, Denies shortness of breath - Respiratory Reports dyspnea - Gastrointestinal Reports diarrhea - Genitourinary Denies dysuria, Denies hematuria - Neurological Denies headaches, Denies syncope - Hematologic/Lymphatic Denies easy bleeding, Denies easy bruising Past Medical History Past Medical History: Blood Disorder, Coronary Artery Disease (CAD), Cancer, COPD, Diabetes Mellitus, GERD/Reflux, Hyperlipidemia, Hypertension, Osteoarthritis (OA), Renal Disease Additional Past Medical History / Comment(s): aortic aneurysm, anemia, diverticulitis, back pain, colon polyps, restless.BLOOD TRANSFUSIONS. BLADDER CANCER. BLOOD INFECTION- E.COLI. History of Any Multi-Drug Resistant Organisms: None Reported Past Surgical History: Back Surgery, Bladder Surgery, Heart Catheterization With Stent, Hernia Repair, Orthopedic Surgery Additional Past Surgical History / Comment(s): angioplasty, hemorroidectomy, bilateral cataracts, left ankle, breast tumors removed, right knee arthroscopy, bilateral shoulders, back surgery with cage implant, right trigger finger. 2 stents and a balloon. BLADDER REMOVED- ILEOSTOMY. Past Anesthesia/Blood Transfusion Reactions: No Reported Reaction Additional Past Anesthesia/Blood Transfusion Reaction / Comm: 2 BLOOD TRANSFUSIONS, TOLERATED Date of Last Stent Placement:: 04/03/2015 Past Psychological History: Anxiety, Depression Smoking Status: Never smoker Past Alcohol Use History: Rare Additional Past Alcohol Use History / Comment(s): Quit smoking APRIL 2018, SMOKED 2PPD FROM AGE 16 Past Drug Use History: None Reported - Past Family History Mother Family Medical History: Cancer Father History Unknown: Yes Medications and Allergies Home Medications Medication Instructions Recorded Confirmed Type Ferrous Sulfate [Feosol] 325 mg PO HS@1800 04/02/15 09/24/20 History Insulin Glargine,Hum.rec.anlog 50 unit SQ HS 04/02/15 09/24/20 History [Lantus Solostar] Multivitamin [Men's Multi-Vitamin] 1 tab PO DAILY 04/02/15 09/24/20 History Omeprazole [PriLOSEC] 20 mg PO DAILY 04/02/15 09/24/20 History Baclofen [Lioresal] 10 mg PO TID PRN 12/06/17 09/24/20 History Pramipexole [Mirapex] 0.125 mg PO HS 12/06/17 09/24/20 History Acetaminophen Suppository [Tylenol 650 mg RECTAL Q4H PRN 09/24/20 09/24/20 History Suppository] Acetaminophen Tab [Tylenol Tab] 1,000 mg PO Q4H PRN 09/24/20 09/24/20 History Acetaminophen Tab [Tylenol] 650 mg PO Q4H PRN 09/24/20 09/24/20 History Acetaminophen [Tylenol Arthritis] 1,300 mg PO Q12H 09/24/20 09/24/20 History Albuterol Sulfate [Ventolin HFA] 2 puff INHALATION RT-Q4H PRN 09/24/20 09/24/20 History Amiodarone [Cordarone] 200 mg PO DAILY 09/24/20 09/24/20 History Ascorbic Acid [Vitamin C] 250 mg PO BID@0800,1700 09/24/20 09/24/20 History Aspirin EC [Ecotrin Low Dose] 81 mg PO DAILY 09/24/20 09/24/20 History Calazime Skin Protectant Paste 1 applic TOPICAL BID 09/24/20 09/24/20 History Calazime Skin Protectant Paste 1 applic TOPICAL DAILY PRN 09/24/20 09/24/20 History Calcium Carbonate [Tums] 1,000 mg PO Q2H PRN 09/24/20 09/24/20 History Carvedilol [Coreg] 12.5 mg PO BID@0800,1800 09/24/20 09/24/20 History Cetirizine HCl 10 mg PO HS 09/24/20 09/24/20 History Cholecalciferol [Vitamin D3 (25 2,000 unit PO DAILY 09/24/20 09/24/20 History Mcg = 1000 Iu)] Cranberry Fruit Extract [Cranberry] 500 mg PO DAILY 09/24/20 09/24/20 History Darbepoetin Gurdeep [Aranesp] 200 mcg SQ FR 09/24/20 09/24/20 History Fluticasone/Salmeterol [Airduo 1 puff INHALATION RT-BID 09/24/20 09/24/20 History Respiclick 232-14 Mcg] HYDROcodone/APAP 5-325MG [[place] 5] 1 tab PO Q8H PRN 09/24/20 09/24/20 History Insta Glucose Gel 77.4% 15 gm PO DAILY PRN 09/24/20 09/24/20 History Insulin Regular [humuLIN R] See Protocol SQ AC-TID 09/24/20 09/24/20 History Isosorbide Mononitrate ER [Imdur] 30 mg PO DAILY 09/24/20 09/24/20 History Loperamide HCl [Imodium A-D] 2 - 4 mg PO QID PRN 09/24/20 09/24/20 History Mag Hydrox/Al Hydrox/Simeth 15 ml PO Q2H PRN 09/24/20 09/24/20 History [Maalox] Magnesium Hydroxide [Milk of 2,400 mg PO DAILY PRN 09/24/20 09/24/20 History Magnesia] Sunflower Liquis Skin Protectant 1 applic TOPICAL DIRECTED PRN 09/24/20 09/24/20 History Melatonin 10 mg PO HS 09/24/20 09/24/20 History Menthol [Biofreeze] 1 applic TOPICAL TID PRN 09/24/20 09/24/20 History Micatin Cream 1 applic TOPICAL BID 09/24/20 09/24/20 History Micatin Cream 1 applic TOPICAL DAILY PRN 09/24/20 09/24/20 History Miconazole Nitrate [Zeasorb AF] 1 applic TOPICAL BID PRN 09/24/20 09/24/20 Hist ory Na Phos,M-B/Na Phos,Di-Ba [Fleet 133 ml RECTAL DAILY PRN 09/24/20 09/24/20 History Adult] Ondansetron HCl [Zofran] 4 mg PO Q8H PRN 09/24/20 09/24/20 History Torsemide [Demadex] 40 mg PO DAILY 09/24/20 09/24/20 History Ubidecarenone [Co Q-10] 100 mg PO AC-SUPPER 09/24/20 09/24/20 History Zinc Gluconate [Zinc] 50 mg PO HS 09/24/20 09/24/20 History bisacodyL [Bisacodyl] 10 mg RECTAL DAILY PRN 09/24/20 09/24/20 History buPROPion XL [Wellbutrin Xl] 150 mg PO DAILY 09/24/20 09/24/20 History guaiFENesin-DM 100-10MG/5ML 5 ml PO Q4H PRN 09/24/20 09/24/20 History [Robitussin DM] hydrALAZINE HCL [Apresoline] 25 mg PO TID@0800,1400,2000 09/24/20 09/24/20 History polyethylene glycoL 3350 [Miralax] 17 gm PO DAILY PRN 09/24/20 09/24/20 History traMADol HCL 50 mg PO BID 09/24/20 09/24/20 History Allergies Allergy/AdvReac Type Severity Reaction Status Date / Time benazepril HCl Allergy Cough Verified 09/24/20 19:00 [From Lotensin] gabapentin [From Neurontin] Allergy Unknown Verified 09/24/20 19:00 hydrocodone bitartrate Allergy CONSTIPATIO Verified 09/24/20 19:00 [From Lortab] N Penicillins Allergy Unknown Verified 09/24/20 19:00 Childhood prednisone Allergy UNABLE TO Verified 09/24/20 19:00 URINATE varenicline tartrate Allergy Nausea Verified 09/24/20 19:00 [From Chantix] Surgical - Exam Vital Signs Pulse Resp Pulse Ox 65 25 H 94 L 09/24/20 16:03 09/24/20 16:03 09/24/20 16:03 - General well developed, well nourished, no distress, no pain - Eyes PERRL, normal ocular movement - ENT normal nares, normal mucosa - Respiratory normal expansion, normal respiratory effort - Abdomen Abdomen: soft, non tender - Psychiatric oriented to time, oriented to person, oriented to place Results - Labs 09/26/20 08:37 09/27/20 06:04 Abnormal Lab Results - Last 24 Hours (Table) 09/26/20 09/26/20 09/26/20 Range/Units 08:37 11:10 17:03 D-Dimer (<0.60) mg/L FEU Carbon Dioxide 16.7 L (21.6-31.8) mmol/L Anion Gap 15.30 H (4.00-12.00) mmol/L BUN 79.0 H (9.0-27.0) mg/dL Creatinine 4.6 H (0.6-1.5) mg/dL Est GFR (CKD-EPI)AfAm 13.1 L (60.0-200.0) Est GFR (CKD-EPI)NonAf 11.3 L (60.0-200.0) POC Glucose (mg/dL) 130 H 219 H (75-99) mg/dL Calcium 8.2 L (8.7-10.3) mg/dL 09/26/20 09/27/20 09/27/20 Range/Units 20:26 06:04 07:00 D-Dimer 0.63 H (<0.60) mg/L FEU Carbon Dioxide (21.6-31.8) mmol/L Anion Gap (4.00-12.00) mmol/L BUN (9.0-27.0) mg/dL Creatinine (0.6-1.5) mg/dL Est GFR (CKD-EPI)AfAm (60.0-200.0) Est GFR (CKD-EPI)NonAf (60.0-200.0) POC Glucose (mg/dL) 311 H 122 H (75-99) mg/dL Calcium (8.7-10.3) mg/dL Diabetes panel 09/26/20 Range/Units 08:37 Sodium 138 (135-145) mmol/L Potassium 3.6 (3.5-5.5) mmol/L Chloride 106 (96-109) mmol/L Carbon Dioxide 16.7 L (21.6-31.8) mmol/L BUN 79.0 H (9.0-27.0) mg/dL Creatinine 4.6 H (0.6-1.5) mg/dL Glucose 91 (70-110) mg/dL Calcium 8.2 L (8.7-10.3) mg/dL Calcium panel 09/26/20 Range/Units 08:37 Calcium 8.2 L (8.7-10.3) mg/dL Pituitary panel 09/26/20 Range/Units 08:37 Sodium 138 (135-145) mmol/L Potassium 3.6 (3.5-5.5) mmol/L Chloride 106 (96-109) mmol/L Carbon Dioxide 16.7 L (21.6-31.8) mmol/L BUN 79.0 H (9.0-27.0) mg/dL Creatinine 4.6 H (0.6-1.5) mg/dL Glucose 91 (70-110) mg/dL Calcium 8.2 L (8.7-10.3) mg/dL Adrenal panel 09/26/20 Range/Units 08:37 Sodium 138 (135-145) mmol/L Potassium 3.6 (3.5-5.5) mmol/L Chloride 106 (96-109) mmol/L Carbon Dioxide 16.7 L (21.6-31.8) mmol/L BUN 79.0 H (9.0-27.0) mg/dL Creatinine 4.6 H (0.6-1.5) mg/dL Glucose 91 (70-110) mg/dL Calcium 8.2 L (8.7-10.3) mg/dL Assessment and Plan Assessment: 80-year-old male with history of muscle invasive bladder cancer. Status post cystoprostatectomy and ileal conduit in 2018. Patient is admitted for shortness of breath, of note he was diagnosed with colon approximately 6 days ago. On presentation his creatinine is elevated at 4.9, creat was 1.4 in 10/2018. Of note he follows up with a gate watchman in [place], the plan was to start hemodialysis next year. Renal bladder ultrasound on presentation demonstrated right-sided hydronephrosis, with bilateral renal atrophy. Plan: - We'll obtain a CT abdomen and pelvis to better assess the [place], his hydrone phrosis could be secondary to obstruction, or possibly secondary to reflux given his history of ileal conduit -Continue to trend creatinine
--- NOTE | 2020-09-27 13:48 | P.PN ---
Subjective Progress Note Date: 09/27/20 Principal diagnosis: Acute hypoxic respiratory failure secondary to covid 19 pneumonitis. This is a pleasant 80-year-old gentleman who resides in a assisted living facility. He has a history of coronary artery disease with previous stent placement, chronic obstructive pulmonary disease, former smoker, diabetes mellitus type 2, gastroesophageal reflux disease, hyperlipidemia, hypertension, osteoarthritis, bladder cancer status post ileostomy. He presented to [facility] with complaints of increasing shortness of breath, cough congestion, low back pain, diarrhea, weakness. He had also fallen and sustained injury to his left elbow. He is found to be in acute renal failure and hypoxemic and transferred here yesterday for further treatment. His randolph virus test was 8 days ago. Chest x-ray shows evidence of COPD, cardiomegaly and basilar atelectasis. White count 4.6. Hemoglobin 11.0. Platelet count 140,000. Sodium 135. Potassium 4.0. Creatinine 4.94. Urinalysis with moderate bacteria, large leukocyte esterase. He is seen today in consultation on the regular medical floor. He is currently sitting up in bed. Awake and alert in no acute distress. 18 and O2 saturations in the 90s on 4 L/m per nasal cannula. He's been afebrile. Hemodynamically stable. Initiated on ceftriaxone. The patient is seen today 09/26/2020 in follow-up on the regular medical floor. He is resting comfortably in bed. Awake and alert in no acute distress. Breathing a bit easier today compared to yesterday. Maintaining O2 saturation in the low 90s on 7 L high flow nasal cannula. He's been afebrile. Hemodynamically stable. White count 5.1. Hemoglobin 11.0. Sodium 138. Potassium 3.6. Creatinine 4.6. Patient was reevaluated today on 09/27/20, surprisingly the patient is feeling better, breathing a lot easier, becoming more and more active in the room. Patient was seen for his hydronephrosis by nephrology and urology, patient is scheduled for CT of abdomen and pelvis to better assess his hydronephrosis, and the urologist is concern about the possibility of obstruction or possibly reflux given his history of the conduit. In the meantime the patient is being followed by nephrology and addressing his acute on chronic kidney injury. Pulmonary-wi se, the patient is feeling better, remains on 15 L high flow nasal cannula, and his O2 saturation is 91%. CBC today is relatively normal. Basic metabolic profile is normal. However his bicarb is low at 14, BUN is 87 creatinine is 4.4. Objective - Vital Signs Vital signs: Vital Signs Temp 97.7 F 09/27/20 10:22 Pulse 62 09/27/20 10:22 Resp 24 09/27/20 10:22 BP 126/63 09/27/20 10:22 Pulse Ox 91 L 09/27/20 10:22 Intake & Output 09/26/20 09/27/20 09/27/20 18:59 06:59 18:59 Intake Total 150 Output Total 1300 600 Balance 150 -1300 -600 Intake: Oral 150 Output: Urine 1300 600 Other: Voiding Method Ileal Conduit (Right) Ileal Conduit (Right) Ileal Conduit (Right) - Exam GENERAL EXAM: Alert, pleasant 72-year-old gentleman, on 15 L nasal cannula. HEAD: Normocephalic. Atraumatic. ENT: PERRLA, EOMI, neck to his, neck masses, no JVD, no stridor. CHEST: No chest wall deformity. LUNGS: Symmetrical expansion, crackles at the bases bilaterally noted. CVS: S1 and S2 normal with no audible murmur, regular rhythm. ABDOMEN: No hepatosplenomegaly, normal bowel sounds, no guarding or rigidity. SPINE: No scoliosis or deformity SKIN: Wound to the left elbow, dressing intact CENTRAL NERVOUS SYSTEM: No focal deficits, tone is normal in all 4 extremities. EXTREMITIES: There is no peripheral edema. No clubbing, no cyanosis. Periph eral pulses are intact. - Labs CBC & Chem 7: 09/26/20 08:37 09/27/20 06:04 Labs: Abnormal Lab Results - Last 24 Hours (Table) 09/26/20 09/26/20 09/27/20 Range/Units 17:03 20:26 06:04 D-Dimer (<0.60) mg/L FEU Carbon Dioxide 16.0 L (21.6-31.8) mmol/L Anion Gap 14.00 H (4.00-12.00) mmol/L BUN 87.0 H (9.0-27.0) mg/dL Creatinine 4.4 H (0.6-1.5) mg/dL Est GFR (CKD-EPI)AfAm 13.9 L (60.0-200.0) Est GFR (CKD-EPI)NonAf 12.0 L (60.0-200.0) Glucose 114 H (70-110) mg/dL POC Glucose (mg/dL) 219 H 311 H (75-99) mg/dL Calcium 8.2 L (8.7-10.3) mg/dL Lactate Dehydrogenase 540 H (120-246) U/L C-Reactive Protein 3.6 H (0.0-0.8) mg/dL 09/27/20 09/27/20 09/27/20 Range/Units 06:04 07:00 11:22 D-Dimer 0.63 H (<0.60) mg/L FEU Carbon Dioxide (21.6-31.8) mmol/L Anion Gap (4.00-12.00) mmol/L BUN (9.0-27.0) mg/dL Creatinine (0.6-1.5) mg/dL Est GFR (CKD-EPI)AfAm (60.0-200.0) Est GFR (CKD-EPI)NonAf (60.0-200.0) Glucose (70-110) mg/dL POC Glucose (mg/dL) 122 H 207 H (75-99) mg/dL Calcium (8.7-10.3) mg/dL Lactate Dehydrogenase (120-246) U/L C-Reactive Protein (0.0-0.8) mg/dL Assessment and Plan Assessment: Impression: Acute hypoxic restriction failure secondary to Covid 19 pneumonitis. Patient did not receive remdesivir, out of window, and GFR is 10. Chronic kidney disease, possible obstructive uropathy, that is being addressed by nephrology and urology on the case. History of bladder cancer and history of ileal conduit. Gastroenteritis secondary to Covid 19 infection History of coronary artery disease and previous stents. Benign essential hypertension. Dyslipidemia. History of COPD relatively inactive at this point. History of GERD without esophagitis. Former smoker. Type 2 diabetes. Recommendation: Continue the Covid 19 cocktail. Continue bronchodilators. Titrate FiO2 down as tolerated and maintain O2 saturation above 90%. Not quite ready for discharge planning. Patient did not receive remdesivir, but he received 1 unit of convalescent plasma. We'll continue to follow. Prognosis remains relatively guarded, patient is not ready for discharge planning at Time with Patient: Less than 30
--- NOTE | 2020-09-27 15:01 | CT ---
EXAMINATION TYPE: CT abdomen pelvis wo con DATE OF EXAM: 09/27/2020 COMPARISON: 04/30/2018 and ultrasound 09/25/2020 HISTORY: 80-year-old male Right hydronephrosis. CT DLP: 1253.4 mGycm. Automated exposure control for dose reduction was used. TECHNIQUE: Contiguous axial scanning of the abdomen and pelvis without IV contrast. Coronal and sagit domenica reconstructions performed. FINDINGS: Median sternotomy wires. Pacer leads. Heart upper limits of normal in size without pericardial effusi on. Mosaic attenuation in the visualized lower lungs. Moderate atherosclerotic calcifications throughout the abdominal aorta and iliac arteries. Infrarenal AAA measures 4.4 cm versus 4.0 cm on 04/30/2018. Noncontrast appearance of the liver, right adrenal gland, spleen, and pancreas show no gross abnormal ity. Nodular thickening of the left adrenal gland is unchanged measuring up to 1.2 cm. 5.4 cm cyst upper pole right kidney and a couple vertical cysts in the left kidney redemonstrated tomasa suring up to 2.0 cm. There is mild to moderate right-sided hydronephrosis with some renal atrophy as compared to 04/30/2018 . Mild right-sided hydroureter as well. There has been interval placement of a urostomy with ileal conduit. No dilated small bowel, free fluid, or free air. No mesenteric or retroperitoneal lymphadenopathy. Mild stool burden. Generalized colonic diverticulosis. No pericolic inflammatory change. Interval bladder resection. No abnormal fluid collection in the pelvis or pelvic lymphadenopathy. Bones: Moderate degenerative change of both hips. Osteopenia. Bony defect along the lateral cortex of the posterior left iliac bone likely postsurgical given the patient's previous L2-S1 posterior fusio n. Moderate degenerative change throughout the lumbar spine. IMPRESSION: 1. As compared to 2018, there has been interval urostomy with a right mid abdominal ileal conduit. 2. Mild to moderate right hydronephrosis. There has been some right renal atrophy as compared to 201 8 as well. Given mild hydroureter, consider the possibility of an anastomotic stricture. 3. Moderate atherosclerotic calcifications throughout with infrarenal AAA measuring 4.4 cm versus 4 .0 cm in 2018. 4. Interval bladder resection.
[2020-09-27] MEDS: FUROSEMIDE 40 MG TAB PO SCH (15:13)
[2020-09-27 17:08] LABS: Glucose,Whole Blood 312 mg/dL (75-99)
[2020-09-27] MEDS: FERROUS SULFATE 325 MG TAB PO SCH (17:51)
[2020-09-27 20:09] LABS: Glucose,Whole Blood 312 mg/dL (75-99)
[2020-09-27] MEDS: MELATONIN 5 MG TABLET PO SCH (21:37)
[2020-09-27] MEDS: INSULIN DETEMIR (LEVEMIR) 100 UNIT/ML SYR SQ SCH (21:38)
[2020-09-27] MEDS: LORATADINE 10 MG TAB PO SCH (21:38)
[2020-09-28 04:29] LABS: Glucose,Whole Blood 211 mg/dL (75-99)
[2020-09-28] MEDS: MICATIN TOPICAL SCH ×2 (06:33→21:36)
[2020-09-28 07:05] LABS: Glucose,Whole Blood 266 mg/dL (75-99)
[2020-09-28] MEDS: ASPIRIN 81 MG PO SCH (07:41)
[2020-09-28] MEDS: AMIODARONE 200 MG TAB PO SCH (07:41)
[2020-09-28] MEDS: FUROSEMIDE 40 MG TAB PO SCH (07:42)
[2020-09-28] MEDS: traMADol 50 MG TAB PO SCH ×2 (07:42→21:30)
[2020-09-28] MEDS: HEPARIN SODIUM,PORCINE 5,000 UNIT/ML 1 ML VIAL SQ SCH ×2 (07:42→17:10)
[2020-09-28] MEDS: CHOLECALCIFEROL 1,000 UNIT TAB PO SCH (07:42)
[2020-09-28] MEDS: MULTIVITAMINS, THERA 1 EACH TAB PO SCH (07:42)
[2020-09-28] MEDS: carvediloL 3.125 MG TAB PO SCH ×2 (07:42→17:10)
[2020-09-28] MEDS: SODIUM BICARBONATE TAB 650 MG TAB PO SCH ×4 (07:42→21:29)
[2020-09-28] MEDS: PANTOPRAZOLE 40 MG TABLET PO SCH (07:42)
[2020-09-28] MEDS: dexAMETHasone 2 MG TAB PO SCH (07:42)
[2020-09-28] MEDS: buPROPion XL 150 MG TAB.ER.24H PO SCH (07:43)
[2020-09-28] MEDS: INSULIN ASPART (NovoLOG) 100 UNIT/ML VIAL SQ SCH ×4 (07:43→21:31)
[2020-09-28] MEDS: ASCORBIC ACID 500 MG TAB PO SCH ×2 (07:43→17:10)
[2020-09-28] MEDS: SYMBICORT 160-4.5 MCG INHALER INHALATION SCH ×2 (08:54→21:04)
[2020-09-28] MEDS: ALBUTEROL HFA INHALER INHALATION PRN ×4 (08:54→21:04)
[2020-09-28 10:22] LABS: African American GFR (CKD) 15.6 (60.0-200.0); Anion Gap 17.8 mmol/L (4.00-12.00); BUN/Creat Ratio 24.25 Ratio (12.00-20.00); Calcium 8.4 mg/dL (8.7-10.3); Carbon Dioxide 16.2 mmol/L (21.6-31.8); Non-African American GFR(CKD) 13.4 (60.0-200.0); Phosphorus 5.7 mg/dL (2.4-5.1); Potassium 4.4 mmol/L (3.5-5.5)
[2020-09-28] MEDS ORDERED: SODIUM BICARB 8.4% 50 ML SYR (1 MEQ/ML) IV STA (11:11)
--- NOTE | 2020-09-28 11:13 | P.PN ---
Subjective Patient is seen in follow-up for acute kidney injury. Maintain on oral Lasix. Nonoliguric. Still requiring quite a bit oxygen. He is on 15 L high flow as well as nonrebreather. Awake and alert. Vital signs are stable. General: The patient appeared well nourished and normally developed. HEENT: Head exam is unremarkable. Neck is without jugular venous distension. LUNGS: Breath sounds decreased. HEART: Rate and Rhythm are regular. ABDOMEN: Soft, nontender. EXTREMITITES: Trace edema. Objective - Vital Signs Vital signs: Vital Signs Temp 97.5 F L 09/28/20 10:41 Pulse 60 09/28/20 10:41 Resp 20 09/28/20 10:41 BP 131/70 09/28/20 10:41 Pulse Ox 99 09/28/20 10:41 Intake & Output 09/27/20 09/28/20 09/28/20 18:59 06:59 18:59 Intake Total 50 Output Total 1000 500 Balance -950 -500 Intake: Intake, IV Titration 50 Amount cefTRIAXone 1 gm In 50 Sodium Chloride 0.9% 50 ml @ 100 mls/hr IVPB Q24HR [facility] Rx#:[id number] Output: Urine 1000 500 Other: Voiding Method Ileal Conduit (Right) Ileal Conduit (Right) Ileal Conduit (Right) - Labs CBC & Chem 7: 09/26/20 08:37 09/28/20 06:37 Labs: Abnormal Lab Results - Last 24 Hours (Table) 09/27/20 09/27/20 09/27/20 Range/Units 06:04 11:22 16:54 Carbon Dioxide 16.0 L (21.6-31.8) mmol/L Anion Gap 14.00 H (4.00-12.00) mmol/L BUN 87.0 H (9.0-27.0) mg/dL Creatinine 4.4 H (0.6-1.5) mg/dL Est GFR (CKD-EPI)AfAm 13.9 L (60.0-200.0) Est GFR (CKD-EPI)NonAf 12.0 L (60.0-200.0) BUN/Creatinine Ratio (12.00-20.00) Ratio Glucose 114 H (70-110) mg/dL POC Glucose (mg/dL) 207 H 312 H (75-99) mg/dL Calcium 8.2 L (8.7-10.3) mg/dL Phosphorus (2.4-5.1) mg/dL Lactate Dehydrogenase 540 H (120-246) U/L C-Reactive Protein 3.6 H (0.0-0.8) mg/dL 09/27/20 09/28/20 09/28/20 Range/Units 20:01 04:28 06:37 Carbon Dioxide 16.2 L (21.6-31.8) mmol/L Anion Gap 17.80 H (4.00-12.00) mmol/L BUN 97.0 H (9.0-27.0) mg/dL Creatinine 4.0 H (0.6-1.5) mg/dL Est GFR (CKD-EPI)AfAm 15.6 L (60.0-200.0) Est GFR (CKD-EPI)NonAf 13.4 L (60.0-200.0) BUN/Creatinine Ratio 24.25 H (12.00-20.00) Ratio Glucose 229 H (70-110) mg/dL POC Glucose (mg/dL) 312 H 211 H (75-99) mg/dL Calcium 8.4 L (8.7-10.3) mg/dL Phosphorus 5.7 H (2.4-5.1) mg/dL Lactate Dehydrogenase (120-246) U/L C-Reactive Protein (0.0-0.8) mg/dL 09/28/20 Range/Units 06:59 Carbon Dioxide (21.6-31.8) mmol/L Anion Gap (4.00-12.00) mmol/L BUN (9.0-27.0) mg/dL Creatinine (0.6-1.5) mg/dL Est GFR (CKD-EPI)AfAm (60.0-200.0) Est GFR (CKD-EPI)NonAf (60.0-200.0) BUN/Creatinine Ratio (12.00-20.00) Ratio Glucose (70-110) mg/dL POC Glucose (mg/dL) 266 H (75-99) mg/dL Calcium (8.7-10.3) mg/dL Phosphorus (2.4-5.1) mg/dL Lactate Dehydrogenase (120-246) U/L C-Reactive Protein (0.0-0.8) mg/dL Assessment and Plan Plan: Assessment: 1. Acute kidney injury secondary to ATN secondary to infection. Also concern for obstructive uropathy. Creatinine 4.9 on admission - 4.0 today. 2. Chronic kidney disease stage III with baseline creatinine near 1.3-1.4. Etiology is diabetic kidney disease. 3. Right-sided hydronephrosis. Urology following. 4. Volume overload. Improved with diuresis. 5. Metabolic acidosis secondary to acute kidney injury. Maintained on oral bicarb. 6. Covid-19 pneumonia. Maintained on steroids. s/p remdesivir. 7. Anemia of chronic kidney disease. Maintained on Aranesp. 8. Diabetes mellitus. Plan: Decrease Lasix to 40 mg orally once daily. Avoid nephrotoxins. Continue to monitor renal function and urine output. 2 A of sodium bicarb IV push today. Wean FiO2.
[2020-09-28 11:14] LABS: Glucose,Whole Blood 244 mg/dL (75-99)
--- NOTE | 2020-09-28 12:22 | P.PN ---
Subjective Progress Note Date: 09/28/20 patient is a pleasant pleasant 82-year-old male came in with complains of shortness of breath does have history of COPD patient was diagnosed with Covid 19 6 days ago. Patient is comparing of shortness of breath cough congestion diarrhea for couple days. Patient is found to have renal failure, actually patient appears to have chronic kidney disease I do not know his baseline creatinine baseline creatinine around the about any year ago was 1.4 but apparently patient is supposed to be started on hemodialysis. Patient denied any UTI symptoms with the patient urine is abnormal, nephrology believes her UTI is responsible for acute renal failure and acute tubular necrosis in the recommending antibiotics and patient was started on Rocephin which is being continued at this time. Nephrology is recommending Lasix and discontinue IV fluids. 09/26/2020 Patient was pretty status is bit worse today patient is according 7 L patient is not feeling well. Patient creatinine although marginally improved patient is presently on Lasix.patient is having fairly good urine output. Patient may need a repeat chest x-ray leave the decision to cardiology. 09/27/2020 Patient is presently on 15 L of oxygen although feeling well. Patient also requirements keep on going up and I do not have any basic metabolic profile available from today. Patient does have a right-sided hydronephrosis because of which urology was consulted. Patient is presently on oral Lasix 40 mg twice a day patient is being treated for volume overload because of poor renal function 09/28/2020 Patient is seen and evaluated and follow-up currently remains on 15 L of oxygen via nasal cannula as well as nonrebreather high flow. Urology and nephrology following. Patient's creatinine slightly improved today and is 4.0. Patient is also maintained on Lasix oral which was transitioned to daily and will continue at this time. Patient underwent CT abdomen and pelvis showing mild to moderate right hydronephrosis with some right renal atrophy as compared to previous in 2018 with the possibility of Ware moderate stricture. Patient is maintained on IV ceftriaxone and will continue this time. What sugars remain elevated and will adjust long-acting to 65 units at night and will continue sliding scale. Constitutional: No reports of fatigue, fevers, or chills Cardio vascular: denied any chest pain, palpitations Gastrointestinal denied any nausea vomiting Pulmonary: Reports shortness of breath Neurologic denied any new focal deficits All inpatient medications were reviewed and appropriate changes in these medications as dictated in the interval history and assessment and plan. Objective - Vital Signs Vital signs: Vital Signs Temp 97.5 F L 09/28/20 10:41 Pulse 60 09/28/20 10:41 Resp 20 09/28/20 10:41 BP 131/70 09/28/20 10:41 Pulse Ox 99 09/28/20 10:41 Intake & Output 09/27/20 09/28/20 09/28/20 18:59 06:59 18:59 Intake Total 50 Output Total 1000 500 Balance -950 -500 Intake: Intake, IV Titration 50 Amount cefTRIAXone 1 gm In 50 Sodium Chloride 0.9% 50 ml @ 100 mls/hr IVPB Q24HR [facility] Rx#:[id number] Output: Urine 1000 500 Other: Voiding Method Ileal Conduit (Right) Ileal Conduit (Right) Ileal Conduit (Right) - Exam GENERAL: The patient is alert and oriented x3, not in any acute distress. Well developed, well nourished. HEENT: Pupils are round and equally reacting to light. EOMI. No scleral icterus. No conjunctival pallor. Normocephalic, atraumatic. No pharyngeal erythema. No thyromegaly. Non-rebreather mask and nasal cannula noted CARDIOVASCULAR: S1 and S2 present. No murmurs, rubs, or gallops. PULMONARY: Chest is clear to auscultation, no wheezing or crackles. ABDOMEN: Soft, nontender, nondistended, normoactive bowel sounds. No palpable organomegaly. MUSCULOSKELETAL: No joint swelling or deformity. EXTREMITIES: No cyanosis, clubbing, or pedal edema. NEUROLOGICAL: Gross neurological examination did not reveal any focal deficits. SKIN: No rashes. Note: Because of COVID 19 isolation, some of the history and physical exam findings are indirect and obtained from nursing staff, and other physician examinations to avoid unnecessary contact with the patient. - Labs CBC & Chem 7: 09/26/20 08:37 09/28/20 06:37 Labs: Abnormal Lab Results - Last 24 Hours (Table) 09/27/20 09/27/20 09/27/20 Range/Units 06:04 11:22 16:54 Carbon Dioxide 16.0 L (21.6-31.8) mmol/L Anion Gap 14.00 H (4.00-12.00) mmol/L BUN 87.0 H (9.0-27.0) mg/dL Creatinine 4.4 H (0.6-1.5) mg/dL Est GFR (CKD-EPI)AfAm 13.9 L (60.0-200.0) Est GFR (CKD-EPI)NonAf 12.0 L (60.0-200.0) BUN/Creatinine Ratio (12.00-20.00) Ratio Glucose 114 H (70-110) mg/dL POC Glucose (mg/dL) 207 H 312 H (75-99) mg/dL Calcium 8.2 L (8.7-10.3) mg/dL Phosphorus (2.4-5.1) mg/dL Lactate Dehydrogenase 540 H (120-246) U/L C-Reactive Protein 3.6 H (0.0-0.8) mg/dL 09/27/20 09/28/20 09/28/20 Range/Units 20:01 04:28 06:37 Carbon Dioxide 16.2 L (21.6-31.8) mmol/L Anion Gap 17.80 H (4.00-12.00) mmol/L BUN 97.0 H (9.0-27.0) mg/dL Creatinine 4.0 H (0.6-1.5) mg/dL Est GFR (CKD-EPI)AfAm 15.6 L (60.0-200.0) Est GFR (CKD-EPI)NonAf 13.4 L (60.0-200.0) BUN/Creatinine Ratio 24.25 H (12.00-20.00) Ratio Glucose 229 H (70-110) mg/dL POC Glucose (mg/dL) 312 H 211 H (75-99) mg/dL Calcium 8.4 L (8.7-10.3) mg/dL Phosphorus 5.7 H (2.4-5.1) mg/dL Lactate Dehydrogenase (120-246) U/L C-Reactive Protein (0.0-0.8) mg/dL 09/28/20 Range/Units 06:59 Carbon Dioxide (21.6-31.8) mmol/L Anion Gap (4.00-12.00) mmol/L BUN (9.0-27.0) mg/dL Creatinine (0.6-1.5) mg/dL Est GFR (CKD-EPI)AfAm (60.0-200.0) Est GFR (CKD-EPI)NonAf (60.0-200.0) BUN/Creatinine Ratio (12.00-20.00) Ratio Glucose (70-110) mg/dL POC Glucose (mg/dL) 266 H (75-99) mg/dL Calcium (8.7-10.3) mg/dL Phosphorus (2.4-5.1) mg/dL Lactate Dehydrogenase (120-246) U/L C-Reactive Protein (0.0-0.8) mg/dL Assessment and Plan Assessment: -Acute hypoxic respiratory failure secondary to acute CoVID 19 pneumonitis. Outside the window for Remdesivir, GFR 10. Patient is a presently on Decadron and the vitamin supplementation. Because of renal dysfunction patient is not a candidate for Lovenox but we'll continue with heparin for DVT prophylaxis. Patient remains on antibiotics for possible secondary bacterial pneumonia in the form of ceftriaxone and will continue this time. Pulmonary following. -Chronic kidney disease stage V supposed to be initiated on hemodialysis. Patient may have some acute tubular necrosis from hypotension leading to acute renal failure nephrology is following the patient, patient is also found to have hydronephrosis on the right side and urology following. CT abdomen and pelvis was also done as mentioned previously. Patient is also maintained on sodium bicarb tablets and nephrology following. -Volume overload secondary to renal failure and patient is on oral Lasix and will continue with 40 mg daily -history of bladder cancer with ileostomy -Diarrhea secondary to Covid 19 resolved at this time -Type 2 diabetes mellitus, uncontrolled with hyperglycemia most likely related to dexamethasone. Increase the long-acting to 65 units at bed and will continue sliding scale. -Coronary artery disease with previous stents -Hypertension -Hyperlipidemia -Gastroesophageal reflux disease -COPD without any significant exacerbation.
--- NOTE | 2020-09-28 14:02 | P.PN ---
Subjective Progress Note Date: 09/28/20 Principal diagnosis: Acute hypoxic respiratory failure secondary to covid 19 pneumonitis. This is a pleasant 80-year-old gentleman who resides in a assisted living facility. He has a history of coronary artery disease with previous stent placement, chronic obstructive pulmonary disease, former smoker, diabetes mellitus type 2, gastroesophageal reflux disease, hyperlipidemia, hypertension, osteoarthritis, bladder cancer status post ileostomy. He presented to [facility] with complaints of increasing shortness of breath, cough congestion, low back pain, diarrhea, weakness. He had also fallen and sustained injury to his left elbow. He is found to be in acute renal failure and hypoxemic and transferred here yesterday for further treatment. His randolph virus test was 8 days ago. Chest x-ray shows evidence of COPD, cardiomegaly and basilar atelectasis. White count 4.6. Hemoglobin 11.0. Platelet count 140,000. Sodium 135. Potassium 4.0. Creatinine 4.94. Urinalysis with moderate bacteria, large leukocyte esterase. He is seen today in consultation on the regular medical floor. He is currently sitting up in bed. Awake and alert in no acute distress. 18 and O2 saturations in the 90s on 4 L/m per nasal cannula. He's been afebrile. Hemodynamically stable. Initiated on ceftriaxone. The patient is seen today 09/26/2020 in follow-up on the regular medical floor. He is resting comfortably in bed. Awake and alert in no acute distress. Breathing a bit easier today compared to yesterday. Maintaining O2 saturation in the low 90s on 7 L high flow nasal cannula. He's been afebrile. Hemodynamically stable. White count 5.1. Hemoglobin 11.0. Sodium 138. Potassium 3.6. Creatinine 4.6. Patient was reevaluated today on 09/27/20, surprisingly the patient is feeling better, breathing a lot easier, becoming more and more active in the room. Patient was seen for his hydronephrosis by nephrology and urology, patient is scheduled for CT of abdomen and pelvis to better assess his hydronephrosis, and the urologist is concern about the possibility of obstruction or possibly reflux given his history of the conduit. In the meantime the patient is being followed by nephrology and addressing his acute on chronic kidney injury. Pulmonary-wi se, the patient is feeling better, remains on 15 L high flow nasal cannula, and his O2 saturation is 91%. CBC today is relatively normal. Basic metabolic profile is normal. However his bicarb is low at 14, BUN is 87 creatinine is 4.4. Reevaluated today on 09/28/20, patient is still requiring high flow FiO2, he is now on 15 L/m, clinically he is feeling better, breathing easier, sitting in bed eating, in no distress. Patient is being followed by nephrology and urology regarding his hydronephrosis, pulmonary-hudson basically he is about the same. Objective - Vital Signs Vital signs: Vital Signs Temp 97.5 F L 09/28/20 10:41 Pulse 60 09/28/20 10:41 Resp 20 09/28/20 10:41 BP 131/70 09/28/20 10:41 Pulse Ox 99 09/28/20 10:41 Intake & Output 09/27/20 09/28/20 09/28/20 18:59 06:59 18:59 Intake Total 50 Output Total 1000 500 Balance -950 -500 Intake: Intake, IV Titration 50 Amount cefTRIAXone 1 gm In 50 Sodium Chloride 0.9% 50 ml @ 100 mls/hr IVPB Q24HR [facility] Rx#:[id number] Output: Urine 1000 500 Other: Voiding Method Ileal Conduit (Right) Ileal Conduit (Right) Ileal Conduit (Right) - Exam GENERAL EXAM: Alert, pleasant 72-year-old gentleman, on 15 L nasal cannula. HEAD: Normocephalic. Atraumatic. ENT: PERRLA, EOMI, neck to his, neck masses, no JVD, no stridor. CHEST: No chest wall deformity. LUNGS: Symmetrical expansion, crackles at the bases bilaterally noted. CVS: S1 and S2 normal with no audible murmur, regular rhythm. ABDOMEN: No hepatosplenomegaly, normal bowel sounds, no guarding or rigidity. SPINE: No scoliosis or deformity SKIN: Wound to the left elbow, dressing intact CENTRAL NERVOUS SYSTEM: No focal deficits, tone is normal in all 4 extremities. EXTREMITIES: There is no peripheral edema. No clubbing, no cyanosis. Peripheral pulses are intact. - Labs CBC & Chem 7: 09/26/20 08:37 09/28/20 06:37 Labs: Abnormal Lab Results - Last 24 Hours (Table) 09/27/20 09/27/2009/28/20 Range/Units 16:54 20:01 04:28 Carbon Dioxide (21.6-31.8) mmol/L Anion Gap (4.00-12.00) mmol/L BUN (9.0-27.0) mg/dL Creatinine (0.6-1.5) mg/dL Est GFR (CKD-EPI)AfAm (60.0-200.0) Est GFR (CKD-EPI)NonAf (60.0-200.0) BUN/Creatinine Ratio (12.00-20.00) Ratio Glucose (70-110) mg/dL POC Glucose (mg/dL) 312 H 312 H 211 H (75-99) mg/dL Calcium (8.7-10.3) mg/dL Phosphorus (2.4-5.1) mg/dL Coronavirus (PCR) (Not Detectd) 09/28/20 09/28/20 09/28/20 Range/Units 06:37 06:59 10:15 Carbon Dioxide 16.2 L (21.6-31.8) mmol/L Anion Gap 17.80 H (4.00-12.00) mmol/L BUN 97.0 H (9.0-27.0) mg/dL Creatinine 4.0 H (0.6-1.5) mg/dL Est GFR (CKD-EPI)AfAm 15.6 L (60.0-200.0) Est GFR (CKD-EPI)NonAf 13.4 L (60.0-200.0) BUN/Creatinine Ratio 24.25 H (12.00-20.00) Ratio Glucose 229 H (70-110) mg/dL POC Glucose (mg/dL) 266 H (75-99) mg/dL Calcium 8.4 L (8.7-10.3) mg/dL Phosphorus 5.7 H (2.4-5.1) mg/dL Coronavirus (PCR) Detected A (Not Detectd) 09/28/20 Range/Units 11:08 Carbon Dioxide (21.6-31.8) mmol/L Anion Gap (4.00-12.00) mmol/L BUN (9.0-27.0) mg/dL Creatinine (0.6-1.5) mg/dL Est GFR (CKD-EPI)AfAm (60.0-200.0) Est GFR (CKD-EPI)NonAf (60.0-200.0) BUN/Creatinine Ratio (12.00-20.00) Ratio Glucose (70-110) mg/dL POC Glucose (mg/dL) 244 H (75-99) mg/dL Calcium (8.7-10.3) mg/dL Phosphorus (2.4-5.1) mg/dL Coronavirus (PCR) (Not Detectd) Assessment and Plan Assessment: Impression: Acute hypoxic restriction failure secondary to Covid 19 pneumonitis. Chronic kidney disease, possible obstructive uropathy, that is being addressed by nephrology and urology on the case. History of bladder cancer and history of ileal conduit. Gastroenteritis secondary to Covid 19 infection History of coronary artery disease and previous stents. Benign essential hypertension. Dyslipidemia. History of COPD relatively inactive at this point. History of GERD without esophagitis. Former smoker. Type 2 diabetes. Recommendation: Continue the Covid 19 cocktail. Patient did not qualify for remdwsivir Continue bronchodilators. Titrate FiO2 down as tolerated and maintain O2 saturation above 90%. Not quite ready for discharge planning. Patient did not receive remdesivir, but he received 1 unit of convalescent plasma. We'll continue to follow. Prognosis remains relatively guarded, patient is not ready for discharge Time with Patient: Less than 30
[2020-09-28 16:58] LABS: Glucose,Whole Blood 284 mg/dL (75-99)
[2020-09-28] MEDS: FERROUS SULFATE 325 MG TAB PO SCH (17:10)
[2020-09-28 20:19] LABS: Glucose,Whole Blood 280 mg/dL (75-99)
--- NOTE | 2020-09-28 21:22 | P.PN ---
Subjective Progress Note Date: 09/28/20 Patient is having worsening shortness of breath this am, denies any flank pain. CT from yesterday showed right sided hydronephrosis, but there is evidence of renal atrophy on the right. Objective - Vital Signs Vital signs: Vital Signs Temp 97.6 F 09/28/20 16:03 Pulse 65 09/28/20 19:35 Resp 20 09/28/20 19:35 BP 131/76 09/28/20 16:03 Pulse Ox 98 09/28/20 21:04 Intake & Output 09/28/20 09/28/20 09/29/20 06:59 18:59 06:59 Intake Total 50 Output Total 800 300 Balance -750 -300 Intake: Intake, IV Titration 50 Amount cefTRIAXone 1 gm In 50 Sodium Chloride 0.9% 50 ml @ 100 mls/hr IVPB Q24HR [facility] Rx#:[id number] Output: Urine 800 300 Other: Voiding Method Ileal Conduit (Right) Ileal Conduit (Right) Ileal Conduit (Right) - Constitutional General appearance: Present: mild distress - Respiratory Details: labored breathin - Psychiatric Psychiatric: Present: A&O x's 3 - Labs CBC & Chem 7: 09/26/20 08:37 09/28/20 06:37 Labs: Abnormal Lab Results - Last 24 Hours (Table) 09/28/20 09/28/20 09/28/20 Range/Units 04:28 06:37 06:59 Carbon Dioxide 16.2 L (21.6-31.8) mmol/L Anion Gap 17.80 H (4.00-12.00) mmol/L BUN 97.0 H (9.0-27.0) mg/dL Creatinine 4.0 H (0.6-1.5) mg/dL Est GFR (CKD-EPI)AfAm 15.6 L (60.0-200.0) Est GFR (CKD-EPI)NonAf 13.4 L (60.0-200.0) BUN/Creatinine Ratio 24.25 H (12.00-20.00) Ratio Glucose 229 H (70-110) mg/dL POC Glucose (mg/dL) 211 H 266 H (75-99) mg/dL Calcium 8.4 L (8.7-10.3) mg/dL Phosphorus 5.7 H (2.4-5.1) mg/dL Coronavirus (PCR) (Not Detectd) 09/28/20 09/28/20 09/28/20 Range/Units 10:15 11:08 16:52 Carbon Dioxide (21.6-31.8) mmol/L Anion Gap (4.00-12.00) mmol/L BUN (9.0-27.0) mg/dL Creatinine (0.6-1.5) mg/dL Est GFR (CKD-EPI)AfAm (60.0-200.0) Est GFR (CKD-EPI)NonAf (60.0-200.0) BUN/Creatinine Ratio (12.00-20.00) Ratio Glucose (70-110) mg/dL POC Glucose (mg/dL) 244 H 284 H (75-99) mg/dL Calcium (8.7-10.3) mg/dL Phosphorus (2.4-5.1) mg/dL Coronavirus (PCR) Detected A (Not Detectd) 09/28/20 Range/Units 20:18 Carbon Dioxide (21.6-31.8) mmol/L Anion Gap (4.00-12.00) mmol/L BUN (9.0-27.0) mg/dL Creatinine (0.6-1.5) mg/dL Est GFR (CKD-EPI)AfAm (60.0-200.0) Est GFR (CKD-EPI)NonAf (60.0-200.0) BUN/Creatinine Ratio (12.00-20.00) Ratio Glucose (70-110) mg/dL POC Glucose (mg/dL) 280 H (75-99) mg/dL Calcium (8.7-10.3) mg/dL Phosphorus (2.4-5.1) mg/dL Coronavirus (PCR) (Not Detectd) Assessment and Plan Assessment: 80-year-old male with history of muscle invasive bladder cancer. Status post cystoprostatectomy and ileal conduit in 2018. Patient is admitted for shortness of breath, of note he was diagnosed with colon approximately 6 days ago. On presentation his creatinine is elevated at 4.9, creat was 1.4 in 10/2018. Of note he follows up with a script writer in [place], the plan was to start hemodialysis next year. Renal bladder ultrasound on presentation demonstrated right-sided hydronephrosis, with bilateral renal atrophy. CT demonstrated mild hydronephrosis, on right but evidence of renal atrophy worse on the right. Creat down to 4.0 this am. Plan: - I had prolonged discussion with the patient this am discussed with him that we can consider right nephrostomy tube, but he is unlikely to have significant renal recovery from the PCN given the degree of renal atrophy. Discussed with him risk and benefit in details for PCN placement. He is hesitant about proceeding with PCN, and he is most likely will gain minimal benefit from nephrostomy tube. Additionally given his oxygen requirement and shortness breath he unlikely to tolerate prone position for nephrostomy tube placement. At this time will hold off on right nephrostomy tube placement and continue to trend his creat and UO.
[2020-09-28] MEDS: PRAMIPEXOLE 0.125 MG TAB PO SCH (21:30)
[2020-09-28] MEDS: MELATONIN 5 MG TABLET PO SCH (21:30)
[2020-09-28] MEDS: INSULIN DETEMIR (LEVEMIR) 100 UNIT/ML SYR SQ SCH (21:31)
[2020-09-28] MEDS: LORATADINE 10 MG TAB PO SCH (21:41)
[2020-09-29] MEDS: HEPARIN SODIUM,PORCINE 5,000 UNIT/ML 1 ML VIAL SQ SCH ×3 (00:42→16:46)
[2020-09-29 07:12] LABS: Glucose,Whole Blood 98 mg/dL (75-99)
[2020-09-29] MEDS: INSULIN ASPART (NovoLOG) 100 UNIT/ML VIAL SQ SCH ×4 (07:14→20:53)
[2020-09-29] MEDS: ASCORBIC ACID 500 MG TAB PO SCH ×2 (07:53→16:46)
[2020-09-29] MEDS: PANTOPRAZOLE 40 MG TABLET PO SCH (07:53)
[2020-09-29] MEDS: carvediloL 3.125 MG TAB PO SCH ×2 (07:53→16:51)
[2020-09-29] MEDS: AMIODARONE 200 MG TAB PO SCH (09:07)
[2020-09-29] MEDS: MULTIVITAMINS, THERA 1 EACH TAB PO SCH (09:07)
[2020-09-29] MEDS: CHOLECALCIFEROL 1,000 UNIT TAB PO SCH (09:07)
[2020-09-29] MEDS: ASPIRIN 81 MG PO SCH (09:07)
[2020-09-29] MEDS: FUROSEMIDE 40 MG TAB PO SCH (09:07)
[2020-09-29] MEDS: buPROPion XL 150 MG TAB.ER.24H PO SCH (09:08)
[2020-09-29] MEDS: dexAMETHasone 2 MG TAB PO SCH (09:08)
[2020-09-29] MEDS: SODIUM BICARBONATE TAB 650 MG TAB PO SCH ×4 (09:08→20:56)
[2020-09-29] MEDS: traMADol 50 MG TAB PO SCH ×2 (09:09→20:53)
[2020-09-29] MEDS: SYMBICORT 160-4.5 MCG INHALER INHALATION SCH ×2 (09:26→20:42)
[2020-09-29] MEDS: ALBUTEROL HFA INHALER INHALATION PRN ×3 (09:26→20:42)
[2020-09-29 10:28] LABS: African American GFR (CKD) 18.3 (60.0-200.0); Anion Gap 15.6 mmol/L (4.00-12.00); BUN/Creat Ratio 28.57 Ratio (12.00-20.00); Calcium 8.3 mg/dL (8.7-10.3); Carbon Dioxide 21.4 mmol/L (21.6-31.8); Magnesium 2.1 mg/dL (1.5-2.4); Non-African American GFR(CKD) 15.8 (60.0-200.0); Potassium 3.8 mmol/L (3.5-5.5)
[2020-09-29 11:01] LABS: Glucose,Whole Blood 173 mg/dL (75-99)
--- NOTE | 2020-09-29 11:05 | P.PN ---
Subjective Patient is seen in follow-up for acute kidney injury. Maintained on oral Lasix. Nonoliguric. Still requiring quite a bit oxygen. He is on 15 L high flow as well as nonrebreather. Awake and alert. No changes overnight. Vital signs are stable. General: The patient appeared well nourished and normally developed. HEENT: Head exam is unremarkable. Neck is without jugular venous distension. LUNGS: Breath sounds decreased. HEART: Rate and Rhythm are regular. ABDOMEN: Soft, nontender. EXTREMITITES: Trace edema. Objective - Vital Signs Vital signs: Vital Signs Temp 98.0 F 09/29/20 05:00 Pulse 66 09/29/20 05:00 Resp 20 09/29/20 05:00 BP 157/71 09/29/20 05:00 Pulse Ox 93 L 09/29/20 05:00 Intake & Output 09/28/20 09/29/20 09/29/20 18:59 06:59 18:59 Intake Total 50 590 Output Total 800 800 Balance -750 -210 Intake: Intake, IV Titration 50 Amount cefTRIAXone 1 gm In 50 Sodium Chloride 0.9% 50 ml @ 100 mls/hr IVPB Q24HR [facility] Rx#:[id number] Oral 590 Output: Urine 800 800 Other: Voiding Method Ileal Conduit (Right) Ileal Conduit (Right) Ileal Conduit (Right) - Labs CBC & Chem 7: 09/26/20 08:37 09/29/20 05:38 Labs: Abnormal Lab Results - Last 24 Hours (Table) 09/28/20 09/28/20 09/28/20 Range/Units 10:15 11:08 16:52 Carbon Dioxide (21.6-31.8) mmol/L Anion Gap (4.00-12.00) mmol/L BUN (9.0-27.0) mg/dL Creatinine (0.6-1.5) mg/dL Est GFR (CKD-EPI)AfAm (60.0-200.0) Est GFR (CKD-EPI)NonAf (60.0-200.0) BUN/Creatinine Ratio (12.00-20.00) Ratio POC Glucose (mg/dL) 244 H 284 H (75-99) mg/dL Calcium (8.7-10.3) mg/dL Coronavirus (PCR) Detected A (Not Detectd) 12/09/29/20 09/29/20 Range/Units 20:18 05:38 11:00 Carbon Dioxide 21.4 L (21.6-31.8) mmol/L Anion Gap 15.60 H (4.00-12.00) mmol/L BUN 100.0 H (9.0-27.0) mg/dL Creatinine 3.5 H (0.6-1.5) mg/dL Est GFR (CKD-EPI)AfAm 18.3 L (60.0-200.0) Est GFR (CKD-EPI)NonAf 15.8 L (60.0-200.0) BUN/Creatinine Ratio 28.57 H (12.00-20.00) Ratio POC Glucose (mg/dL) 280 H 173 H (75-99) mg/dL Calcium 8.3 L (8.7-10.3) mg/dL Coronavirus (PCR) (Not Detectd) Assessment and Plan Plan: Assessment: 1. Acute kidney injury secondary to ATN secondary to infection. Also concern for obstructive uropathy. Creatinine 4.9 on admission - 3.5 today. 2. Chronic kidney disease stage III with baseline creatinine near 1.3-1.4. Etiology is diabetic kidney disease. 3. Right-sided hydronephrosis. Urology following. 4. Volume overload. Improved with diuresis. 5. Metabolic acidosis secondary to acute kidney injury. Maintained on oral bicarb. Better. 6. Covid-19 pneumonia. Maintained on steroids. s/p remdesivir. 7. Anemia of chronic kidney disease. Maintained on Aranesp. 8. Diabetes mellitus. Plan: Maintain Lasix 40 mg orally once daily. Avoid nephrotoxins. Continue to monitor renal function and urine output. Wean FiO2.
[2020-09-29] MEDS: MICATIN TOPICAL SCH ×2 (11:12→19:39)
--- NOTE | 2020-09-29 14:09 | P.PN ---
Subjective Progress Note Date: 09/29/20 Principal diagnosis: Acute hypoxic respiratory failure secondary to covid 19 pneumonitis. This is a pleasant 80-year-old gentleman who resides in a assisted living facility. He has a history of coronary artery disease with previous stent placement, chronic obstructive pulmonary disease, former smoker, diabetes mellitus type 2, gastroesophageal reflux disease, hyperlipidemia, hypertension, osteoarthritis, bladder cancer status post ileostomy. He presented to [facility] with complaints of increasing shortness of breath, cough congestion, low back pain, diarrhea, weakness. He had also fallen and sustained injury to his left elbow. He is found to be in acute renal failure and hypoxemic and transferred here yesterday for further treatment. His randolph virus test was 8 days ago. Chest x-ray shows evidence of COPD, cardiomegaly and basilar atelectasis. White count 4.6. Hemoglobin 11.0. Platelet count 140,000. Sodium 135. Potassium 4.0. Creatinine 4.94. Urinalysis with moderate bacteria, large leukocyte esterase. He is seen today in consultation on the regular medical floor. He is currently sitting up in bed. Awake and alert in no acute distress. 18 and O2 saturations in the 90s on 4 L/m per nasal cannula. He's been afebrile. Hemodynamically stable. Initiated on ceftriaxone. The patient is seen today 09/26/2020 in follow-up on the regular medical floor. He is resting comfortably in bed. Awake and alert in no acute distress. Breathing a bit easier today compared to yesterday. Maintaining O2 saturation in the low 90s on 7 L high flow nasal cannula. He's been afebrile. Hemodynamically stable. White count 5.1. Hemoglobin 11.0. Sodium 138. Potassium 3.6. Creatinine 4.6. Patient was reevaluated today on 09/27/20, surprisingly the patient is feeling better, breathing a lot easier, becoming more and more active in the room. Patient was seen for his hydronephrosis by nephrology and urology, patient is scheduled for CT of abdomen and pelvis to better assess his hydronephrosis, and the urologist is concern about the possibility of obstruction or possibly reflux given his history of the conduit. In the meantime the patient is being followed by nephrology and addressing his acute on chronic kidney injury. Pulmonary-wi se, the patient is feeling better, remains on 15 L high flow nasal cannula, and his O2 saturation is 91%. CBC today is relatively normal. Basic metabolic profile is normal. However his bicarb is low at 14, BUN is 87 creatinine is 4.4. Reevaluated today on 09/28/20, patient is still requiring high flow FiO2, he is now on 15 L/m, clinically he is feeling better, breathing easier, sitting in bed eating, in no distress. Patient is being followed by nephrology and urology regarding his hydronephrosis, pulmonary-hudson basically he is about the same. Reevaluated today on 09/29/20, patient remains on the regular medical floor, however he is requiring significant amount of FiO2, he is now on airvo FiO2 is 90%, and 60 L flow. O2 saturation is marginal. Clinically the patient is feeling better, breathing easier. Maintained on oral Lasix, patient is nonoliguric. Objective - Vital Signs Vital signs: Vital Signs Temp 97.8 F 09/29/20 11:00 Pulse 60 09/29/20 11:00 Resp 19 09/29/20 11:00 BP 141/78 09/29/20 11:00 Pulse Ox 85 L 09/29/20 11:00 Intake & Output 09/28/20 09/29/20 09/29/20 18:59 06:59 18:59 Intake Total 50 590 Output Total 800 800 Balance -750 -210 Weight 108.862 kg Intake: Intake, IV Titration 50 Amount cefTRIAXone 1 gm In 50 Sodium Chloride 0.9% 50 ml @ 100 mls/hr IVPB Q24HR [facility] Rx#:[id number] Oral 590 Output: Urine 800 800 Other: Voiding Method Ileal Conduit (Right) Ileal Conduit (Right) Ileal Conduit (Right) - Exam GENERAL EXAM: Alert, pleasant 72-year-old gentleman, on high FiO2 via airvo HEAD: Normocephalic. Atraumatic. ENT: PERRLA, EOMI, neck to his, neck masses, no JVD, no stridor. CHEST: No chest wall deformity. LUNGS: Symmetrical expansion, crackles at the bases bilaterally noted. CVS: S1 and S2 normal with no audible murmur, regular rhythm. ABDOMEN: No hepatosplenomegaly, normal bowel sounds, no guarding or rigidity. SPINE: No scoliosis or deformity SKIN: Wound to the left elbow, dressing intact CENTRAL NERVOUS SYSTEM: No focal deficits, tone is normal in all 4 extremities. EXTREMITIES: There is no peripheral edema. No clubbing, no cyanosis. Peripheral pulses are intact. - Labs CBC & Chem 7: 09/26/20 08:37 09/29/20 05:38 Labs: Abnormal Lab Results - Last 24 Hours (Table) 09/28/20 09/28/20 09/29/20 Range/Units 16:52 20:18 05:38 Carbon Dioxide 21.4 L (21.6-31.8) mmol/L Anion Gap 15.60 H (4.00-12.00) mmol/L BUN 100.0 H (9.0-27.0) mg/dL Creatinine 3.5 H (0.6-1.5) mg/dL Est GFR (CKD-EPI)AfAm 18.3 L (60.0-200.0) Est GFR (CKD-EPI)NonAf 15.8 L (60.0-200.0) BUN/Creatinine Ratio 28.57 H (12.00-20.00) Ratio POC Glucose (mg/dL) 284 H 280 H (75-99) mg/dL Calcium 8.3 L (8.7-10.3) mg/dL 09/29/20 Range/Units 11:00 Carbon Dioxide (21.6-31.8) mmol/L Anion Gap (4.00-12.00) mmol/L BUN (9.0-27.0) mg/dL Creatinine (0.6-1.5) mg/dL Est GFR (CKD-EPI)AfAm (60.0-200.0) Est GFR (CKD-EPI)NonAf (60.0-200.0) BUN/Creatinine Ratio (12.00-20.00) Ratio POC Glucose (mg/dL) 173 H (75-99) mg/dL Calcium (8.7-10.3) mg/dL Assessment and Plan Assessment: Impression: Acute hypoxic restriction failure secondary to Covid 19 pneumonitis. Chronic kidney disease, possible obstructive uropathy, that is being addressed by nephrology and urology on the case. History of bladder cancer and history of ileal conduit. Gastroenteritis secondary to Covid 19 infection History of coronary artery disease and previous stents. Benign essential hypertension. Dyslipidemia. History of COPD relatively inactive at this point. History of GERD without esophagitis. Former smoker. Type 2 diabetes. Recommendation: Continue the Covid 19 cocktail. Patient did not qualify for remdwsivir Continue to titrate FiO2 as tolerated. Maintain O2 saturation above 90%. Continue bronchodilators. Not quite ready for discharge planning. Patient did not receive remdesivir, but he received 1 unit of convalescent plasma. We'll continue to follow. Prognosis remains relatively guarded, patient is not ready for discharge Time with Patient: Less than 30
--- NOTE | 2020-09-29 15:09 | P.PN ---
Subjective Progress Note Date: 09/29/20 patient is a pleasant pleasant 82-year-old male came in with complains of shortness of breath does have history of COPD patient was diagnosed with Covid 19 6 days ago. Patient is comparing of shortness of breath cough congestion diarrhea for couple days. Patient is found to have renal failure, actually patient appears to have chronic kidney disease I do not know his baseline creatinine baseline creatinine around the about any year ago was 1.4 but apparently patient is supposed to be started on hemodialysis. Patient denied any UTI symptoms with the patient urine is abnormal, nephrology believes her UTI is responsible for acute renal failure and acute tubular necrosis in the recommending antibiotics and patient was started on Rocephin which is being continued at this time. Nephrology is recommending Lasix and discontinue IV fluids. 09/26/2020 Patient was pretty status is bit worse today patient is according 7 L patient is not feeling well. Patient creatinine although marginally improved patient is presently on Lasix.patient is having fairly good urine output. Patient may need a repeat chest x-ray leave the decision to cardiology. 09/27/2020 Patient is presently on 15 L of oxygen although feeling well. Patient also requirements keep on going up and I do not have any basic metabolic profile available from today. Patient does have a right-sided hydronephrosis because of which urology was consulted. Patient is presently on oral Lasix 40 mg twice a day patient is being treated for volume overload because of poor renal function 09/28/2020 Patient is seen and evaluated and follow-up currently remains on 15 L of oxygen via nasal cannula as well as nonrebreather high flow. Urology and nephrology following. Patient's creatinine slightly improved today and is 4.0. Patient is also maintained on Lasix oral which was transitioned to daily and will continue at this time. Patient underwent CT abdomen and pelvis showing mild to moderate right hydronephrosis with some right renal atrophy as compared to previous in 2018 with the possibility of [place] moderate stricture. Patient is maintained on IV ceftriaxone and will continue this time. Blood sugars remain elevated and will adjust long-acting to 65 units at night and will continue sliding scale. 09/29/2020 Patient is seen today and continues to be severely dyspneic and is currently being placed on Airvo as he was maxed out on nasal cannula and nonrebreather. Pulmonary along with nephrology and urology following. Possibility of nephrostomy tube may be required per urology although given current respiratory status patient may be unable to tolerate the procedure. Patient is hesitant on receiving a nephrostomy tube at this time and will continue with conservative treatment and management. Current creatinine slightly trending down at 3.5 and nephrology is following. Will monitor closely and repeat labs. Constitutional: No reports of fatigue, fevers, or chills Cardio vascular: denied any chest pain, palpitations Gastrointestinal denied any nausea vomiting Pulmonary: Reports increased shortness of breath on nonrebreather and nasal cannula Neurologic denied any new focal deficits All inpatient medications were reviewed and appropriate changes in these medications as dictated in the interval history and assessment and plan. Objective - Vital Signs Vital signs: Vital Signs Temp 98.0 F 09/29/20 05:00 Pulse 66 09/29/20 05:00 Resp 20 09/29/20 05:00 BP 157/71 09/29/20 05:00 Pulse Ox 93 L 09/29/20 05:00 Intake & Output 09/28/20 09/29/20 09/29/20 18:59 06:59 18:59 Intake Total 50 590 Output Total 800 800 Balance -750 -210 Intake: Intake, IV Titration 50 Amount cefTRIAXone 1 gm In 50 Sodium Chloride 0.9% 50 ml @ 100 mls/hr IVPB Q24HR [facility] Rx#:[id number] Oral 590 Output: Urine 800 800 Other: Voiding Method Ileal Conduit (Right) Ileal Conduit (Right) - Exam GENERAL: The patient is alert and oriented x3, not in any acute distress. Well developed, well nourished. HEENT: Pupils are round and equally reacting to light. EOMI. No scleral icterus. No conjunctival pallor. Normocephalic, atraumatic. No pharyngeal erythema. No thyromegaly. Non-rebreather mask and nasal cannula noted CARDIOVASCULAR: S1 and S2 present. No murmurs, rubs, or gallops. PULMONARY: Chest is clear to auscultation, no wheezing or crackles. ABDOMEN: Soft, nontender, nondistended, normoactive bowel sounds. No palpable organomegaly. MUSCULOSKELETAL: No joint swelling or deformity. EXTREMITIES: No cyanosis, clubbing, or pedal edema. NEUROLOGICAL: Gross neurological examination did not reveal any focal deficits. SKIN: No rashes. Note: Because of COVID 19 isolation, some of the history and physical exam findings are indirect and obtained from nursing staff, and other physician examinations to avoid unnecessary contact with the patient. - Labs CBC & Chem 7: 09/26/20 08:37 09/29/20 05:38 Labs: Abnormal Lab Results - Last 24 Hours (Table) 09/28/20 09/28/20 09/28/20 Range/Units 06:37 10:15 11:08 Carbon Dioxide 16.2 L (21.6-31.8) mmol/L Anion Gap 17.80 H (4.00-12.00) mmol/L BUN 97.0 H (9.0-27.0) mg/dL Creatinine 4.0 H (0.6-1.5) mg/dL Est GFR (CKD-EPI)AfAm 15.6 L (60.0-200.0) Est GFR (CKD-EPI)NonAf 13.4 L (60.0-200.0) BUN/Creatinine Ratio 24.25 H (12.00-20.00) Ratio Glucose 229 H (70-110) mg/dL POC Glucose (mg/dL) 244 H (75-99) mg/dL Calcium 8.4 L (8.7-10.3) mg/dL Phosphorus 5.7 H (2.4-5.1) mg/dL Coronavirus (PCR) Detected A (Not Detectd) 09/28/20 09/28/20 Range/Units 16:52 20:18 Carbon Dioxide (21.6-31.8) mmol/L Anion Gap (4.00-12.00) mmol/L BUN (9.0-27.0) mg/dL Creatinine (0.6-1.5) mg/dL Est GFR (CKD-EPI)AfAm (60.0-200.0) Est GFR (CKD-EPI)NonAf (60.0-200.0) BUN/Creatinine Ratio (12.00-20.00) Ratio Glucose (70-110) mg/dL POC Glucose (mg/dL) 284 H 280 H (75-99) mg/dL Calcium (8.7-10.3) mg/dL Phosphorus (2.4-5.1) mg/dL Coronavirus (PCR) (Not Detectd) Assessment and Plan Assessment: -Acute hypoxic respiratory failure secondary to acute CoVID 19 pneumonitis. Outside the window for Remdesivir, GFR 10. Patient is a presently on Decadron and the vitamin supplementation. Because of renal dysfunction patient is not a candidate for Lovenox but we'll continue with heparin for DVT prophylaxis. Patient remains on antibiotics for possible secondary bacterial pneumonia in the form of ceftriaxone and will continue this time. Pulmonary following. A shunt currently being placed on Airvo as he is requiring more oxygen and maxed out on high flow nasal cannula and nonrebreather. -Chronic kidney disease stage V supposed to be initiated on hemodialysis. Patient may have some acute tubular necrosis from hypotension leading to acute renal failure nephrology is following the patient, patient is also found to have hydronephrosis on the right side and urology following. Urology recommending possible nephrostomy tube placement although patient is hesitant may not be able to tolerate procedure given current respiratory status and urology will continue to follow. Patient is also maintained on sodium bicarb tablets and nephrology following. -Volume overload secondary to renal failure and patient is on oral Lasix and will continue with 40 mg daily -history of bladder cancer with ileostomy -Diarrhea secondary to Covid 19 resolved at this time -Type 2 diabetes mellitus, uncontrolled with hyperglycemia most likely related to dexamethasone. Continue with long-acting and sliding scale and monitor closely his blood sugars have been on the lower side today. -Coronary artery disease with previous stents -Hypertension -Hyperlipidemia -Gastroesophageal reflux disease -COPD without any significant exacerbation.
[2020-09-29] MEDS: FERROUS SULFATE 325 MG TAB PO SCH (16:51)
[2020-09-29 16:53] LABS: Glucose,Whole Blood 288 mg/dL (75-99)
[2020-09-29] MEDS: ALPRAZolam 0.25 MG TAB PO PRN (19:27)
[2020-09-29 19:48] LABS: Glucose,Whole Blood 385 mg/dL (75-99)
[2020-09-29] MEDS: MELATONIN 5 MG TABLET PO SCH (20:52)
[2020-09-29] MEDS: LORATADINE 10 MG TAB PO SCH (20:53)
[2020-09-29] MEDS: INSULIN DETEMIR (LEVEMIR) 100 UNIT/ML SYR SQ SCH (20:53)
[2020-09-29] MEDS: PRAMIPEXOLE 0.125 MG TAB PO SCH (20:53)
[2020-09-30] MEDS: HEPARIN SODIUM,PORCINE 5,000 UNIT/ML 1 ML VIAL SQ SCH ×4 (00:08→23:12)
[2020-09-30] MEDS: BENZOCAINE/MENTHOL LOZENG 1 EACH LOZENGE MUCOUS MEM PRN (02:04)
[2020-09-30] MEDS: ASCORBIC ACID 500 MG TAB PO SCH ×2 (07:54→15:18)
[2020-09-30] MEDS: ASPIRIN 81 MG PO SCH (07:55)
[2020-09-30] MEDS: traMADol 50 MG TAB PO SCH ×2 (07:55→21:36)
[2020-09-30] MEDS: CHOLECALCIFEROL 1,000 UNIT TAB PO SCH (07:55)
[2020-09-30] MEDS: PANTOPRAZOLE 40 MG TABLET PO SCH (07:55)
[2020-09-30] MEDS: dexAMETHasone 2 MG TAB PO SCH (07:55)
[2020-09-30] MEDS: AMIODARONE 200 MG TAB PO SCH (07:55)
[2020-09-30] MEDS: MULTIVITAMINS, THERA 1 EACH TAB PO SCH (07:55)
[2020-09-30] MEDS: ALPRAZolam 0.25 MG TAB PO PRN ×2 (07:56→21:36)
[2020-09-30] MEDS: carvediloL 3.125 MG TAB PO SCH ×2 (07:56→17:14)
[2020-09-30] MEDS: FUROSEMIDE 40 MG TAB PO SCH (07:56)
[2020-09-30] MEDS: INSULIN ASPART (NovoLOG) 100 UNIT/ML VIAL SQ SCH ×5 (07:58→21:36)
[2020-09-30] MEDS: SYMBICORT 160-4.5 MCG INHALER INHALATION SCH ×2 (08:35→20:35)
[2020-09-30] MEDS: ALBUTEROL HFA INHALER INHALATION PRN ×3 (08:35→20:35)
[2020-09-30] MEDS: SODIUM BICARBONATE TAB 650 MG TAB PO SCH ×4 (09:24→21:36)
[2020-09-30] MEDS: buPROPion XL 150 MG TAB.ER.24H PO SCH (09:24)
[2020-09-30] MEDS: MICATIN TOPICAL SCH ×2 (09:24→22:02)
[2020-09-30 11:32] LABS: African American GFR (CKD) 20.4 (60.0-200.0); Albumin 3.9 g/dL (3.80-4.90); Albumin/Globulin Ratio 1.77 (1.60-3.17); Anion Gap 15.3 mmol/L (4.00-12.00); BUN/Creat Ratio 31.25 Ratio (12.00-20.00); Calcium 8.4 mg/dL (8.7-10.3); Carbon Dioxide 17.7 mmol/L (21.6-31.8); Globulin 2.2 g/dL (1.6-3.3); Non-African American GFR(CKD) 17.6 (60.0-200.0); Potassium 4.2 mmol/L (3.5-5.5); Total Bilirubin 0.2 mg/dL (0.3-1.2); Total Protein 6.1 g/dL (6.2-8.2)
--- NOTE | 2020-09-30 11:41 | P.PN ---
Subjective Progress Note Date: 09/30/20 Principal diagnosis: Acute hypoxic respiratory failure secondary to COVID 19 pneumonitis This is a pleasant 80-year-old gentleman who resides in a assisted living facility. He has a history of coronary artery disease with previous stent placement, chronic obstructive pulmonary disease, former smoker, diabetes mellitus type 2, gastroesophageal reflux disease, hyperlipidemia, hypertension, osteoarthritis, bladder cancer status post ileostomy. He presented to [facility] with complaints of increasing shortness of breath, cough congestion, low back pain, diarrhea, weakness. He had also fallen and sustained injury to his left elbow. He is found to be in acute renal failure and hypoxemic and transferred here yesterday for further treatment. His randolph virus test was 8 days ago. Chest x-ray shows evidence of COPD, cardiomegaly and basilar atelectasis. White count 4.6. Hemoglobin 11.0. Platelet count 140,000. Sodium 135. Potassium 4.0. Creatinine 4.94. Urinalysis with moderate bacteria, large leukocyte esterase. He is seen today in consultation on the regular medical floor. He is currently sitting up in bed. Awake and alert in no acute distress. 18 and O2 saturations in the 90s on 4 L/m per nasal cannula. He's been afebrile. Hemodynamically stable. Initiated on ceftriaxone. The patient is seen today 09/26/2020 in follow-up on the regular medical floor. He is resting comfortably in bed. Awake and alert in no acute distress. Breathing a bit easier today compared to yesterday. Maintaining O2 saturation in the low 90s on 7 L high flow nasal cannula. He's been afebrile. Hemodynamically stable. White count 5.1. Hemoglobin 11.0. Sodium 138. Potassium 3.6. Creatinine 4.6. Patient was reevaluated today on 09/27/20, surprisingly the patient is feeling better, breathing a lot easier, becoming more and more active in the room. Patient was seen for his hydronephrosis by nephrology and urology, patient is scheduled for CT of abdomen and pelvis to better assess his hydronephrosis, and the urologist is concern about the possibility of obstruction or possibly reflux given his history of the conduit. In the meantime the patient is being followed by nephrology and addressing his acute on chronic kidney injury. Pulmonary-wis e, the patient is feeling better, remains on 15 L high flow nasal cannula, and his O2 saturation is 91%. CBC today is relatively normal. Basic metabolic profile is normal. However his bicarb is low at 14, BUN is 87 creatinine is 4.4. Reevaluated today on 09/28/20, patient is still requiring high flow FiO2, he is now on 15 L/m, clinically he is feeling better, breathing easier, sitting in bed eating, in no distress. Patient is being followed by nephrology and urology regarding his hydronephrosis, pulmonary-hudson basically he is about the same. Reevaluated today on 09/29/20, patient remains on the regular medical floor, however he is requiring significant amount of FiO2, he is now on airvo FiO2 is 90%, and 60 L flow. O2 saturation is marginal. Clinically the patient is feeling better, breathing easier. Maintained on oral Lasix, patient is nonoliguric. On 09/30/2020 patient seen in follow-up on general medical oncology floor. He is on high flow oxygen, per Airvo at 60 L and FiO2 of 89-90%, and he is satting about 97%. Does not appear to be in any acute distress, however patient is generally weak, requires extensive assistance to get up to the bedside commode, overall she is feeling somewhat better, he is breathing easier, patient was outside the window for Remdesivir, he did receive 1 unit of convalescent plasma. He is currently on vitamin C, dexamethasone, daily dose of Lasix. He is in - 2.5 L over the last 24 hours. Patient is awake and alert, still has some trace lower extremity edema. No new labs today. He is on subcu heparin for DVT prophylaxis, his last d-dimer was 0.63. Objective - Vital Signs Vital signs: Vital Signs Temp 97.5 F L 09/30/20 10:15 Pulse 60 09/30/20 10:15 Resp 20 09/30/20 10:15 BP 148/71 09/30/20 10:15 Pulse Ox 90 L 09/30/20 10:15 Intake & Output 09/29/20 09/30/20 09/30/20 18:59 06:59 18:59 Output Total 1400 1100 250 Balance -1400 -1100 -250 Weight 108.862 kg Output: Urine 1400 1100 250 Other: Voiding Method Ileal Conduit (Right) Ileal Conduit (Right) Ileal Conduit (Right) - Exam GENERAL EXAM: Alert, weak, 80-year-old white male, currently onAirvo at 60 L, and FiO2 of 90%, satting 97% , comfortable in no apparent distress. HEAD: Normocephalic/atraumatic. EYES: Normal reaction of pupils, equal size. Conjunctiva pink, sclera white. NOSE: Clear with pink turbinates. THROAT: No erythema or exudates. NECK: No masses, no JVD, no thyroid enlargement, no adenopathy. CHEST: No chest wall deformity. Symmetrical expansion. LUNGS: Equal air entry with no crackles, wheeze, rhonchi or dullness. CVS: Regular rate and rhythm, normal S1 and S2, no gallops, no murmurs, no rubs ABDOMEN: Soft, nontender. No hepatosplenomegaly, normal bowel sounds, no guarding or rigidity. EXTREMITIES: No clubbing, trace lower extremity edema no cyanosis, 2+ pulses and upper and lower extremities. MUSCULOSKELETAL: Muscle strength and tone normal. SPINE: No scoliosis or deformity SKIN: No rashes CENTRAL NERVOUS SYSTEM: Alert and oriented -3. No focal deficits, tone is normal in all 4 extremities. PSYCHIATRIC: Alert and oriented -3. Appropriate affect. Intact judgment and insight. - Labs CBC & Chem 7: 09/26/20 08:37 09/29/20 05:38 Labs: Abnormal Lab Results - Last 24 Hours (Table) 09/29/20 09/29/20 Range/Units 16:52 19:44 POC Glucose (mg/dL) 288 H 385 H (75-99) mg/dL Assessment and Plan Plan: Assessment: #1. Acute hypoxic respiratory failure, severe, related to COVID 19 pneumonitis, and patient continues to require high flow oxygen per Airvo is 60 L and FiO2 of 90% #2. Chronic kidney disease, with possible obstructive uropathy, nephrology and urology are on the case #3. History of bladder cancer and history of ileal conduit #4. Gastroenteritis secondary to quit 19 infection #5. Benign essential hypertension #6. Dyslipidemia #7. History of COPD #8. History of GERD without esophagitis #9. Former smoker #10. Type 2 diabetes mellitus #11. Steroid-induced hyperglycemia Plan: We will obtain follow-up blood work, including inflammatory markers, obtain follow-up d-dimer. Continue with steroids, continue vitamins, continue with Lasix per nephrology recommendation, we'll obtain follow-up chest x-ray, she is status post transfusion 1 unit of convalescent plasma, he did not qualify for Remdesivir, we'll continue supportive medical treatment. I performed a history & physical examination of the patient and discussed their management with my nurse practitioner, Kasey Reeves. I reviewed the nurse practitioner's note and agree with the documented findings and plan of care. Lung sounds are positive for crackles. The findings and the impression was discussed with the patient. I attest to the documentation by the nurse practitioner. Time with Patient: Less than 30
--- NOTE | 2020-09-30 13:39 | P.PN ---
Subjective Progress Note Date: 09/30/20 Principal diagnosis: Is a 80-year-old male seen in consultation because of acute kidney injury secondary to combination of prerenal as well as possible right hydronephrosis from a remote cystectomy and ileal conduit he. His creatinine is getting better He has been diagnosed to have Covid positive state therefore was not examined I talked to the patient's nurse and I'm told that he is doing better. I talked to the patient from the door he is less short of breath he is on oxygen via an air oh, and is eating well no diarrhea. Mild cough. No fever chills. - History of Present Illness Coming to the hospital with shortness of breath. Recently diagnosed with Covid 19. 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 He was due to start dialysis early next year. No permanent access yet. She has bladder scans of status post cystectomy currently has a urostomy bag. Admits making good amount of urine. He has no nausea but he had diarrhea. Low normal blood pressures. No recent NSAID use or contrast studies. Chest x-ray bilateral infiltrates the bases. Urine analysis active with pyuria. He does have history of recurrent urinary tract infections. Objective - Vital Signs Vital signs: Vital Signs Temp 97.5 F L 09/30/20 10:15 Pulse 60 09/30/20 10:15 Resp 20 09/30/20 10:15 BP 148/71 09/30/20 10:15 Pulse Ox 90 L 09/30/20 10:15 Intake & Output 09/29/20 09/30/20 09/30/20 18:59 06:59 18:59 Output Total 1400 1100 800 Balance -1400 -1100 -800 Weight 108.862 kg Output: Urine 1400 1100 800 Other: Voiding Method Ileal Conduit (Right) Ileal Conduit (Right) Ileal Conduit (Right) Patient was not examined by me but was seen from the doorway and I talked to the nursing staff Lungs is supposedly have slightly diminished air entry No edema was noted Patient is awake alert oriented and responds to my questions - Labs CBC & Chem 7: 09/26/20 08:37 09/30/20 05:44 Labs: Abnormal Lab Results - Last 24 Hours (Table) 09/29/20 09/29/20 09/30/20 Range/Units 16:52 19:44 05:44 Carbon Dioxide 17.7 L (21.6-31.8) mmol/L Anion Gap 15.30 H (4.00-12.00) mmol/L BUN 100.0 H (9.0-27.0) mg/dL Creatinine 3.2 H (0.6-1.5) mg/dL Est GFR (CKD-EPI)AfAm 20.4 L (60.0-200.0) Est GFR (CKD-EPI)NonAf 17.6 L (60.0-200.0) BUN/Creatinine Ratio 31.25 H (12.00-20.00) Ratio Glucose 156 H (70-110) mg/dL POC Glucose (mg/dL) 288 H 385 H (75-99) mg/dL Calcium 8.4 L (8.7-10.3) mg/dL Total Bilirubin 0.2 L (0.3-1.2) mg/dL Total Protein 6.1 L (6.2-8.2) g/dL Assessment and Plan Assessment: Impression 1. Acute kidney injury from prerenal from possible Covid related. Improving. 2. History of cystectomy with an ileal conduit , right hydronephrosis noted. Urology is following 3. Gap and Non-gap acidosis secondary to IV ileal conduit and chronic kidney disease, bicarb is down from 21-17, on sodium bicarb 650 4 times a day 4. On Lasix for volume overload improving 5. Chronic kidney disease stage 3-4 6. Diabetes mellitus 7. Anemia of chronic kidney disease Recommendation Maintain current Lasix dose Monitor labs including renal and hemoglobin. Monitor bicarb as he is going down in spite of large doses of oral bicarb
--- NOTE | 2020-09-30 14:52 | P.PN ---
Subjective patient is a pleasant pleasant 82-year-old male came in with complains of shortness of breath does have history of COPD patient was diagnosed with Covid 19 6 days ago. Patient is comparing of shortness of breath cough congestion diarrhea for couple days. Patient is found to have renal failure, actually patient appears to have chronic kidney disease I do not know his baseline creatinine baseline creatinine around the about any year ago was 1.4 but apparently patient is supposed to be started on hemodialysis. Patient denied any UTI symptoms with the patient urine is abnormal, nephrology believes her UTI is responsible for acute renal failure and acute tubular necrosis in the recommending antibiotics and patient was started on Rocephin which is being continued at this time. Nephrology is recommending Lasix and discontinue IV fluids. 10/04/2020 Patient was pretty status is bit worse today patient is according 7 L patient is not feeling well. Patient creatinine although marginally improved patient is presently on Lasix.patient is having fairly good urine output. Patient may need a repeat chest x-ray leave the decision to cardiology. 09/26/2020 Patient is presently on 15 L of oxygen although feeling well. Patient also requirements keep on going up and I do not have any basic metabolic profile available from today. Patient does have a right-sided hydronephrosis because of which neurology was consulted. Patient is presently on oral Lasix 40 mg twice a day patient is being treated for volume overload because of poor renal function 09/30/2020 Patient remains on Airvo 60 L. Patient the creatinine did improve to 3.2 pat ient will need a nephrostomy but considering his respiratory status there is no plan for any emergency nephrostomy at this time. Constitutional: as mentioned in HPI Cardio vascular: denied any chest pain, palpitations Gastrointestinal denied any nausea vomiting Pulmonary: as mentioned in HPI Neurologic denied any new focal deficits All inpatient medications were reviewed and appropriate changes in these medications as dictated in the interval history and assessment and plan.patient received the 1 unit of convalescent plasma. Objective - Vital Signs Vital signs: Vital Signs Temp 97.5 F L 09/30/20 10:15 Pulse 60 09/30/20 10:15 Resp 20 09/30/20 10:15 BP 148/71 09/30/20 10:15 Pulse Ox 90 L 09/30/20 10:15 Intake & Output 09/29/20 09/30/20 09/30/20 18:59 06:59 18:59 Output Total 1400 1100 800 Balance -1400 -1100 -800 Weight 108.862 kg Output: Urine 1400 1100 800 Other: Voiding Method Ileal Conduit (Right) Ileal Conduit (Right) Ileal Conduit (Right) # Bowel Movements 1 - Exam PHYSICAL EXAMINATION: GENERAL: The patient is alert and oriented x3, not in any acute distress. Well developed, well nourished. HEENT: Pupils are round and equally reacting to light. EOMI. No scleral icterus. No conjunctival pallor. Normocephalic, atraumatic. No pharyngeal erythema. No thyromegaly. CARDIOVASCULAR: S1 and S2 present. No murmurs, rubs, or gallops. PULMONARY: Chest is clear to auscultation, no wheezing or crackles. ABDOMEN: Soft, nontender, nondistended, normoactive bowel sounds. No palpable organomegaly. MUSCULOSKELETAL: No joint swelling or deformity. EXTREMITIES: No cyanosis, clubbing, or pedal edema. NEUROLOGICAL: Gross neurological examination did not reveal any focal deficits. SKIN: No rashes. Note: Because of [place] [id number] isolation, some of the history and physical exam findings are indirect and obtained from nursing staff, and other physician examinations to avoid unnecessary contact with the patient. - Labs CBC & Chem 7: 09/26/20 08:37 09/30/20 05:44 Labs: Abnormal Lab Results - Last 24 Hours (Table) 09/29/20 09/29/20 09/30/20 Range/Units 16:52 19:44 05:44 Carbon Dioxide 17.7 L (21.6-31.8) mmol/L Anion Gap 15.30 H (4.00-12.00) mmol/L BUN 100.0 H (9.0-27.0) mg/dL Creatinine 3.2 H (0.6-1.5) mg/dL Est GFR (CKD-EPI)AfAm 20.4 L (60.0-200.0) Est GFR (CKD-EPI)NonAf 17.6 L (60.0-200.0) BUN/Creatinine Ratio 31.25 H (12.00-20.00) Ratio Glucose 156 H (70-110) mg/dL POC Glucose (mg/dL) 288 H 385 H (75-99) mg/dL Calcium 8.4 L (8.7-10.3) mg/dL Total Bilirubin 0.2 L (0.3-1.2) mg/dL Total Protein 6.1 L (6.2-8.2) g/dL Assessment and Plan Plan: -Acute hypoxic respiratory failure secondary to acute CoVID 19 pneumonitis. Outside the window for Remdesivir, GFR 10. Patient is a presently on Decadron and the vitamin supplementation. Because of renal dysfunction patient is not a candidate for Lovenox but we'll continue with heparin for DVT prophylaxis. Patient remains on antibiotics for possible secondary bacterial pneumonia in the form of ceftriaxone and will continue this time. Pulmonary following. A shunt currently being placed on Airvo as he is requiring more oxygen. -Chronic kidney disease stage V supposed to be initiated on hemodialysis. -acute respiratory renal failure probably secondary to obstructive uropathy patient has right-sided hydronephrosispatient presently has a Gamez catheter will need a nephrostomy tube unfortunately unable to perform this procedure because of his respiratory status urology and nephrology are following the patient -Volume overload secondary to renal failure and patient is on oral Lasix and will continue with 40 mg daily -history of bladder cancer with ileostomy -Diarrhea secondary to Covid 19 resolved at this time -Type 2 diabetes mellitus, uncontrolled with hyperglycemia most likely related to dexamethasone. Continue with long-acting andadded pre-meal insulin 10 units with each meal sliding scale and monitor closely his blood sugars have been on the lower side today. -Coronary artery disease with previous stents -Hypertension -Hyperlipidemia -Gastroesophageal reflux disease -COPD without any significant exacerbation.
[2020-09-30] MEDS: FERROUS SULFATE 325 MG TAB PO SCH (17:14)
[2020-09-30] MEDS: INSULIN DETEMIR (LEVEMIR) 100 UNIT/ML SYR SQ SCH (21:36)
[2020-09-30] MEDS: LORATADINE 10 MG TAB PO SCH (21:36)
[2020-09-30] MEDS: MELATONIN 5 MG TABLET PO SCH (21:36)
[2020-09-30] MEDS: PRAMIPEXOLE 0.125 MG TAB PO SCH (21:39)
--- NOTE | 2020-10-01 06:51 | XR ---
EXAM: XR Chest, 1 View CLINICAL HISTORY: ITS.REASON XR Reason: COVID 19 TECHNIQUE: Frontal view of the chest. COMPARISON: 09/27/2020 IMPRESSION: Heterogeneous opacity in the bilateral lower lobes. Correlate with infectious process versus atelectasis. Unchanged heart size. No effusion.
[2020-10-01] MEDS: ALBUTEROL HFA INHALER INHALATION PRN ×2 (08:56→22:13)
[2020-10-01] MEDS: SYMBICORT 160-4.5 MCG INHALER INHALATION SCH ×2 (08:56→22:13)
[2020-10-01] MEDS ORDERED: DARBEPOETIN ALFA 200 MCG/0.4 ML SYRINGE SQ SCH (09:00)
[2020-10-01] MEDS: dexAMETHasone 2 MG TAB PO SCH (09:04)
[2020-10-01] MEDS: ALPRAZolam 0.25 MG TAB PO PRN (09:04)
[2020-10-01] MEDS: ASPIRIN 81 MG PO SCH (09:04)
[2020-10-01] MEDS: traMADol 50 MG TAB PO SCH ×2 (09:05→21:08)
[2020-10-01] MEDS: PANTOPRAZOLE 40 MG TABLET PO SCH (09:05)
[2020-10-01] MEDS: ASCORBIC ACID 500 MG TAB PO SCH ×2 (09:05→17:33)
[2020-10-01] MEDS: SODIUM BICARBONATE TAB 650 MG TAB PO SCH ×4 (09:05→21:08)
[2020-10-01] MEDS: HEPARIN SODIUM,PORCINE 5,000 UNIT/ML 1 ML VIAL SQ SCH (09:06)
[2020-10-01] MEDS: MULTIVITAMINS, THERA 1 EACH TAB PO SCH (09:06)
[2020-10-01] MEDS: carvediloL 3.125 MG TAB PO SCH ×2 (09:06→17:33)
[2020-10-01] MEDS: CHOLECALCIFEROL 1,000 UNIT TAB PO SCH (09:06)
[2020-10-01] MEDS: INSULIN ASPART (NovoLOG) 100 UNIT/ML VIAL SQ SCH ×7 (09:06→21:08)
[2020-10-01] MEDS: FUROSEMIDE 40 MG TAB PO SCH (09:06)
[2020-10-01] MEDS: AMIODARONE 200 MG TAB PO SCH (09:06)
[2020-10-01] MEDS: buPROPion XL 150 MG TAB.ER.24H PO SCH (09:07)
[2020-10-01] MEDS: MICATIN TOPICAL SCH ×2 (09:40→21:13)
[2020-10-01 11:00] LABS: C Reactive Protein 1.1 mg/dL (0.0-0.8)
--- NOTE | 2020-10-01 12:02 | P.PN ---
Subjective Progress Note Date: 10/01/20 Principal diagnosis: Acute CoVID 19 pneumonitis This is a pleasant 80-year-old gentleman who resides in a assisted living facility. He has a history of coronary artery disease with previous stent placement, chronic obstructive pulmonary disease, former smoker, diabetes mellitus type 2, gastroesophageal reflux disease, hyperlipidemia, hypertension, osteoarthritis, bladder cancer status post ileostomy. He presented to [facility] with complaints of increasing shortness of breath, cough congestion, low back pain, diarrhea, weakness. He had also fallen and sustained injury to his left elbow. He is found to be in acute renal failure and hypoxemic and transferred here yesterday for further treatment. His randolph virus test was 8 days ago. Chest x-ray shows evidence of COPD, cardiomegaly and basilar atelectasis. White count 4.6. Hemoglobin 11.0. Platelet count 140,000. Sodium 135. Potassium 4.0. Creatinine 4.94. Urinalysis with moderate bacteria, large leukocyte esterase. He is seen today in consultation on the regular medical floor. He is currently sitting up in bed. Awake and alert in no acute distress. 18 and O2 saturations in the 90s on 4 L/m per nasal cannula. He's been afebrile. Hemodynamically stable. Initiated on ceftriaxone. The patient is seen today 09/26/2020 in follow-up on the regular medical floor. He is resting comfortably in bed. Awake and alert in no acute distress. Breathing a bit easier today compared to yesterday. Maintaining O2 saturation in the low 90s on 7 L high flow nasal cannula. He's been afebrile. Hem odynamically stable. White count 5.1. Hemoglobin 11.0. Sodium 138. Potassium 3.6. Creatinine 4.6. The patient is seen today 10/01/2020 in follow-up on the regular medical floor. He is currently resting fairly comfortably in bed. Awake and alert in no acute distress. Still requiring airflow high flow oxygen at 60 L and 93% FiO2 to maintain O2 saturations in the 90s. He is quite dyspneic with minimal exertion. Chest x-ray continues to show opacities in the bilateral lower lobes. D-dimer 2.0. LDH 503. C-reactive protein 1.1. He remains on dexamethasone, bronchodilators, ceftriaxone, heparin for DVT prophylaxis. Objective - Vital Signs Vital signs: Vital Signs Temp 97.6 F 10/01/20 11:00 Pulse 61 10/01/20 11:00 Resp 24 10/01/20 11:00 BP 125/65 10/01/20 11:00 Pulse Ox 97 10/01/20 11:00 Intake & Output 09/30/20 10/01/20 10/01/20 18:59 06:59 18:59 Intake Total 240 Output Total 1200 850 Balance -1200 -610 Intake: Oral 240 Output: Urine 1200 850 Other: Voiding Method Ileal Conduit (Right) Ileal Conduit (Right) Ileal Conduit (Right) # Bowel Movements 1 - Exam GENERAL EXAM: Alert, pleasant 72-year-old gentleman, on AirVo high flow oxygen at 60 L and 93% FiO2,, comfortable in no apparent distress. HEAD: Normocephalic. EYES: Normal reaction of pupils, equal size. NOSE: Clear with pink turbinates. THROAT: No erythema or exudates. NECK: No masses, no JVD. CHEST: No chest wall deformity. LUNGS: Equal air entry with bilateral scattered rhonchi, crackles in posterior bases. CVS: S1 and S2 normal with no audible murmur, regular rhythm. ABDOMEN: No hepatosplenomegaly, normal bowel sounds, no guarding or rigidity. SPINE: No scoliosis or deformity SKIN: Wound to the left elbow, dressing intact CENTRAL NERVOUS SYSTEM: No focal deficits, tone is normal in all 4 extremities. EXTREMITIES: There is no peripheral edema. No clubbing, no cyanosis. Peripheral pulses are intact. - Labs CBC & Chem 7: 09/26/20 08:37 09/30/20 05:44 Labs: Abnormal Lab Results - Last 24 Hours (Table) 10/01/20 10/01/20 Range/Units 05:53 05:53 D-Dimer 2.00 H (<0.60) mg/L FEU Lactate Dehydrogenase 503 H (120-246) U/L C-Reactive Protein 1.1 H (0.0-0.8) mg/dL Assessment and Plan Assessment: 1 Acute hypoxic respiratory failure secondary to acute CoVID 19 pneumonitis. Outside the window for Remdesivir, GFR 10 2 Acute renal failure of unclear etiology. Possible dehydration. Current creatinine 3.2. GFR 17.6. Creatinine in October 2018 1.4. Renal ultrasound reveals atrophy of the bilateral kidneys right greater than left right-sided hydronephrosis 3 History of bladder cancer status post ileostomy 4 Diarrhea secondary to CoVID 19 infection 5 Diabetes mellitus, type II 6 Coronary disease with previous stent placement 7 Hypertension 8 Hyperlipidemia 9 Gastroesophageal reflux disease 10 Former smoker Plan: The patient was seen and evaluated by Dr. Jones Labs reviewed D-dimer 2.0, DC subcu heparin, add Lovenox 30 mg subcu daily Continue Decadron, vitamin supplements Symbicort, albuterol Titrate the FiO2 as tolerated We will continue to follow I, the cosigning physician, performed a history & physical examination of the patient. Lungs sounds bilateral scattered rhonchi, crackles in the posterior bases. Maintaining good O2 saturations in the 90s on AirVo high flow oxygen at 60 L and 93% FiO2. I discussed the assessment and plan of care with my nurse practitioner, Maria Luz Daniels. I attest to the above note as dictated by her.
--- NOTE | 2020-10-01 12:27 | P.PN ---
Subjective patient is a pleasant pleasant 82-year-old male came in with complains of shortness of breath does have history of COPD patient was diagnosed with Covid 19 6 days ago. Patient is comparing of shortness of breath cough congestion diarrhea for couple days. Patient is found to have renal failure, actually patient appears to have chronic kidney disease I do not know his baseline creatinine baseline creatinine around the about any year ago was 1.4 but apparently patient is supposed to be started on hemodialysis. Patient denied any UTI symptoms with the patient urine is abnormal, nephrology believes her UTI is responsible for acute renal failure and acute tubular necrosis in the recommending antibiotics and patient was started on Rocephin which is being continued at this time. Nephrology is recommending Lasix and discontinue IV fluids. 10/04/2020 Patient was pretty status is bit worse today patient is according 7 L patient is not feeling well. Patient creatinine although marginally improved patient is presently on Lasix.patient is having fairly good urine output. Patient may need a repeat chest x-ray leave the decision to cardiology. 09/26/2020 Patient is presently on 15 L of oxygen although feeling well. Patient also requirements keep on going up and I do not have any basic metabolic profile available from today. Patient does have a right-sided hydronephrosis because of which neurology was consulted. Patient is presently on oral Lasix 40 mg twice a day patient is being treated for volume overload because of poor renal function 09/30/2020 Patient remains on Airvo 60 L. Patient the creatinine did improve to 3.2 pat ient will need a nephrostomy but considering his respiratory status there is no plan for any emergency nephrostomy at this time. 10/01/2020 I do not have any basic metabolic profile available today d-dimer although is elevated to 2 patient is on subcutaneous heparin for DVT prophylaxis LDH is mildly elevated to 503. Patient to is still on 6 L of oxygen although saturations are bit better compared to yesterday Constitutional: as mentioned in HPI Cardio vascular: denied any chest pain, palpitations Gastrointestinal denied any nausea vomiting Pulmonary: as mentioned in HPI Neurologic denied any new focal deficits All inpatient medications were reviewed and appropriate changes in these medic ations as dictated in the interval history and assessment and plan.patient received the 1 unit of convalescent plasma. Objective - Vital Signs Vital signs: Vital Signs Temp 97.6 F 10/01/20 11:00 Pulse 61 10/01/20 11:00 Resp 24 10/01/20 11:00 BP 125/65 10/01/20 11:00 Pulse Ox 97 10/01/20 11:00 Intake & Output 09/30/20 10/01/20 10/01/20 18:59 06:59 18:59 Intake Total 240 Output Total 1200 850 Balance -1200 -610 Intake: Oral 240 Output: Urine 1200 850 Other: Voiding Method Ileal Conduit (Right) Ileal Conduit (Right) Ileal Conduit (Right) # Bowel Movements 1 - Exam PHYSICAL EXAMINATION: GENERAL: The patient is alert and oriented x3, not in any acute distress. Well developed, well nourished. HEENT: Pupils are round and equally reacting to light. EOMI. No scleral icterus. No conjunctival pallor. Normocephalic, atraumatic. No pharyngeal erythema. No thyromegaly. CARDIOVASCULAR: S1 and S2 present. No murmurs, rubs, or gallops. PULMONARY: Chest is clear to auscultation, no wheezing or crackles. ABDOMEN: Soft, nontender, nondistended, normoactive bowel sounds. No palpable organomegaly. MUSCULOSKELETAL: No joint swelling or deformity. EXTREMITIES: No cyanosis, clubbing, or pedal edema. NEUROLOGICAL: Gross neurological examination did not reveal any focal deficits. SKIN: No rashes. Note: Because of COVID 19 isolation, some of the history and physical exam findings are indirect and obtained from nursing staff, and other physician examinations to avoid unnecessary contact with the patient. - Labs CBC & Chem 7: 09/26/20 08:37 09/30/20 05:44 Labs: Abnormal Lab Results - Last 24 Hours (Table) 10/01/20 10/01/20 Range/Units 05:53 05:53 D-Dimer 2.00 H (<0.60) mg/L FEU Lactate Dehydrogenase 503 H (120-246) U/L C-Reactive Protein 1.1 H (0.0-0.8) mg/dL Assessment and Plan Plan: -Acute hypoxic respiratory failure secondary to acute CoVID 19 pneumonitis. Outs carmen the window for Remdesivir, GFR 10. Patient is a presently on Decadron and the vitamin supplementation. Because of renal dysfunction patient is not a candidate for Lovenox but we'll continue with heparin for DVT prophylaxis. Patient remains on antibiotics for possible secondary bacterial pneumonia in the form of ceftriaxone and will continue this time. Pulmonary following. A shunt currently being placed on Airvo as he is requiring more oxygen. -Chronic kidney disease stage V supposed to be initiated on hemodialysis. -acute respiratory renal failure probably secondary to obstructive uropathy patient has right-sided hydronephrosispatient presently has a Gamez catheter will need a nephrostomy tube unfortunately unable to perform this procedure because of his respiratory status urology and nephrology are following the patient -Volume overload secondary to renal failure and patient is on oral Lasix and will continue with 40 mg daily -history of bladder cancer with ileostomy -Diarrhea secondary to Covid 19 resolved at this time -Type 2 diabetes mellitus, uncontrolled with hyperglycemia most likely related to dexamethasone. Continue with long-acting andadded pre-meal insulin 10 units with each meal sliding scale and monitor closely his blood sugars have been on the lower side today. -Coronary artery disease with previous stents -Hypertension -Hyperlipidemia -Gastroesophageal reflux disease -COPD without any significant exacerbation.
--- NOTE | 2020-10-01 12:27 | P.PN ---
Subjective Progress Note Date: 10/01/20 Principal diagnosis: Is a 80-year-old male seen in consultation because of acute kidney injury secondary to combination of prerenal as well as possible right hydronephrosis from a remote cystectomy and ileal conduit. He was admitted with Covid pneumonia He continues to have some cough. Supposedly he is on oxygen at home but may not have been using it. Here he is on nasal cannula. He is eating very well no nausea vomiting no loose stools and abdominal pain No fever chills. His creatinine slowly improving from 4.94-3.2 as of yesterday, labs today are pending - History of Present Illness Coming to the hospital with shortness of breath. Recently diagnosed with Covid 19. 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 He was due to start dialysis early next year. No permanent access yet. She has bladder scans of status post cystectomy currently has a urostomy bag. Admits making good amount of urine. He has no nausea but he had diarrhea. Low normal blood pressures. No recent NSAID use or contrast studies. Chest x-ray bilateral infiltrates the bases. Urine analysis active with pyuria. He does have history of recurrent urinary tract infections. Objective - Vital Signs Vital signs: Vital Signs Temp 97.6 F 10/01/20 11:00 Pulse 61 10/01/20 11:00 Resp 24 10/01/20 11:00 BP 125/65 10/01/20 11:00 Pulse Ox 97 10/01/20 11:00 Intake & Output 09/30/20 10/01/20 10/01/20 18:59 06:59 18:59 Intake Total 240 Output Total 1200 850 Balance -1200 -610 Intake: Oral 240 Output: Urine 1200 850 Other: Voiding Method Ileal Conduit (Right) Ileal Conduit (Right) Ileal Conduit (Right) # Bowel Movements 1 On examination he is on O2. Awake alert oriented HEENT exam no JVP neck is supple no facial asymmetry Lungs are clear to auscultation fair air entry bilaterally. Her sounds are unremarkable for any murmur rub gallop Abdomen soft nontender Extremity exam was no edema Neurologically awake alert oriented - Labs CBC & Chem 7: 09/26/20 08:37 09/30/20 05:44 Labs: Abnormal Lab Results - Last 24 Hours (Table) 10/01/20 10/01/20 Range/Units 05:53 05:53 D-Dimer 2.00 H (<0.60) mg/L FEU Lactate Dehydrogenase 503 H (120-246) U/L C-Reactive Protein 1.1 H (0.0-0.8) mg/dL Assessment and Plan Assessment: Impression 1. Acute kidney injury from prerenal from possible Covid related. Improving. Creatinine down from 4.94-3.2 as of yesterday last today are not available 2. History of cystectomy with an ileal conduit , right hydronephrosis noted. Urology is following 3. Gap and Non-gap acidosis secondary to IV ileal conduit and chronic kidney disease, bicarb is down from 21-17, on sodium bicarb 650 4 times a day 4. On Lasix for volume overload improving 5. Chronic kidney disease stage 3-4 6. Diabetes mellitus 7. Anemia of chronic kidney disease Recommendation Maintain current Lasix dose, 40 mg by mouth daily Monitor labs including renal and hemoglobin. Monitor bicarb as he is going down in spite of large doses of oral bicarb
[2020-10-01] MEDS: BENZOCAINE/MENTHOL LOZENG 1 EACH LOZENGE MUCOUS MEM PRN (13:36)
[2020-10-01] MEDS: FERROUS SULFATE 325 MG TAB PO SCH (17:33)
[2020-10-01] MEDS: LORATADINE 10 MG TAB PO SCH (21:08)
[2020-10-01] MEDS: INSULIN DETEMIR (LEVEMIR) 100 UNIT/ML SYR SQ SCH (21:08)
[2020-10-01] MEDS: MELATONIN 5 MG TABLET PO SCH (21:08)
[2020-10-01] MEDS: PRAMIPEXOLE 0.125 MG TAB PO SCH (21:08)
[2020-10-02] MEDS: ALBUTEROL HFA INHALER INHALATION PRN ×4 (07:59→19:15)
[2020-10-02] MEDS: SYMBICORT 160-4.5 MCG INHALER INHALATION SCH ×2 (07:59→19:15)
[2020-10-02] MEDS: INSULIN ASPART (NovoLOG) 100 UNIT/ML VIAL SQ SCH ×7 (09:52→21:26)
[2020-10-02 10:04] LABS: Anion Gap 14.7 mmol/L (4.00-12.00); BUN/Creat Ratio 33.93 Ratio (12.00-20.00); Calcium 8.3 mg/dL (8.7-10.3); Carbon Dioxide 19.3 mmol/L (21.6-31.8); Non-African American GFR(CKD) 20.7 (60.0-200.0); Potassium 4.3 mmol/L (3.5-5.5)
[2020-10-02] MEDS: FUROSEMIDE 40 MG TAB PO SCH (10:07)
[2020-10-02] MEDS: dexAMETHasone 2 MG TAB PO SCH (10:07)
[2020-10-02] MEDS: buPROPion XL 150 MG TAB.ER.24H PO SCH (10:08)
[2020-10-02] MEDS: ASCORBIC ACID 500 MG TAB PO SCH ×2 (10:08→18:26)
[2020-10-02] MEDS: carvediloL 3.125 MG TAB PO SCH ×2 (10:08→18:26)
[2020-10-02] MEDS: SODIUM BICARBONATE TAB 650 MG TAB PO SCH ×4 (10:08→21:26)
[2020-10-02] MEDS: CHOLECALCIFEROL 1,000 UNIT TAB PO SCH (10:08)
[2020-10-02] MEDS: MULTIVITAMINS, THERA 1 EACH TAB PO SCH (10:08)
[2020-10-02] MEDS: ASPIRIN 81 MG PO SCH (10:08)
[2020-10-02] MEDS: PANTOPRAZOLE 40 MG TABLET PO SCH (10:09)
[2020-10-02] MEDS: AMIODARONE 200 MG TAB PO SCH (10:09)
[2020-10-02] MEDS: BENZOCAINE/MENTHOL LOZENG 1 EACH LOZENGE MUCOUS MEM PRN (10:09)
[2020-10-02] MEDS: traMADol 50 MG TAB PO SCH ×2 (10:10→21:27)
[2020-10-02] MEDS: ENOXAPARIN 30 MG/0.3 ML SYRINGE SQ SCH (10:21)
[2020-10-02] MEDS: MICATIN TOPICAL SCH ×2 (10:58→21:30)
--- NOTE | 2020-10-02 11:33 | P.PN ---
Subjective Patient is seen in follow-up for acute kidney injury. Maintained on oral Lasix. Nonoliguric. Still requiring quite a bit oxygen - currently on 60 L high flow cannula. Awake and alert. renal function improving. Vital signs are stable. General: The patient appeared well nourished and normally developed. HEENT: Head exam is unremarkable. Neck is without jugular venous distension. LUNGS: Breath sounds decreased. HEART: Rate and Rhythm are regular. ABDOMEN: Soft, nontender. EXTREMITITES: No edema. Objective - Vital Signs Vital signs: Vital Signs Temp 98.0 F 10/02/20 05:00 Pulse 76 10/02/20 05:00 Resp 20 10/02/20 05:00 BP 147/61 10/02/20 05:00 Pulse Ox 89 L 10/02/20 05:00 Intake & Output 10/01/20 10/02/20 10/02/20 18:59 06:59 18:59 Intake Total 650 660 Output Total 1200 1500 1500 Balance -550 -840 -1500 Intake: IV 160 ns@20 160 Intake, IV Titration 50 Amount cefTRIAXone 1 gm In 50 Sodium Chloride 0.9% 50 ml @ 100 mls/hr IVPB Q24HR [facility] Rx#:[id number] Oral 600 500 Output: Urine 1200 1500 1500 Other: Voiding Method Ileal Conduit (Right) Ileal Conduit (Right) - Labs CBC & Chem 7: 09/26/20 08:37 10/02/20 06:24 Labs: Abnormal Lab Results - Last 24 Hours (Table) 10/02/20 10/02/20 Range/Units 06:24 06:24 D-Dimer 1.31 H (<0.60) mg/L FEU Carbon Dioxide 19.3 L (21.6-31.8) mmol/L Anion Gap 14.70 H (4.00-12.00) mmol/L BUN 95.0 H (9.0-27.0) mg/dL Creatinine 2.8 H (0.6-1.5) mg/dL Est GFR (CKD-EPI)AfAm 24.0 L (60.0-200.0) Est GFR (CKD-EPI)NonAf 20.7 L (60.0-200.0) BUN/Creatinine Ratio 33.93 H (12.00-20.00) Ratio Glucose 185 H (70-110) mg/dL Calcium 8.3 L (8.7-10.3) mg/dL Lactate Dehydrogenase 441 H (120-246) U/L Assessment and Plan Plan: Assessment: 1. Acute kidney injury secondary to ATN secondary to infection. Creatinine 4.9 on admission - 2.8 today. 2. Chronic kidney disease stage III with baseline creatinine near 1.3-1.4. Etiology is diabetic kidney disease. 3. Right-sided hydronephrosis. Urology following. 4. Volume overload. Improved with diuresis. 5. Metabolic acidosis secondary to acute kidney injury and RTA. Maintained on oral bicarb. Better. 6. Covid-19 pneumonia. Maintained on steroids. s/p remdesivir. 7. Anemia of chronic kidney disease. Maintained on Aranesp. 8. Diabetes mellitus. Plan: Maintain Lasix 40 mg orally once daily. Avoid nephrotoxins. Continue to monitor renal function and urine output. Wean FiO2.
--- NOTE | 2020-10-02 11:59 | P.PN ---
Subjective Progress Note Date: 10/02/20 Principal diagnosis: Acute CoVID 19 pneumonitis This is a pleasant 80-year-old gentleman who resides in a assisted living facility. He has a history of coronary artery disease with previous stent placement, chronic obstructive pulmonary disease, former smoker, diabetes mellitus type 2, gastroesophageal reflux disease, hyperlipidemia, hypertension, osteoarthritis, bladder cancer status post ileostomy. He presented to [facility] with complaints of increasing shortness of breath, cough congestion, low back pain, diarrhea, weakness. He had also fallen and sustained injury to his left elbow. He is found to be in acute renal failure and hypoxemic and transferred here yesterday for further treatment. His randolph virus test was 8 days ago. Chest x-ray shows evidence of COPD, cardiomegaly and basilar atelectasis. White count 4.6. Hemoglobin 11.0. Platelet count 140,000. Sodium 135. Potassium 4.0. Creatinine 4.94. Urinalysis with moderate bacteria, large leukocyte esterase. He is seen today in consultation on the regular medical floor. He is currently sitting up in bed. Awake and alert in no acute distress. 18 and O2 saturations in the 90s on 4 L/m per nasal cannula. He's been afebrile. Hemodynamically stable. Initiated on ceftriaxone. The patient is seen today 09/26/2020 in follow-up on the regular medical floor. He is resting comfortably in bed. Awake and alert in no acute distress. Breathing a bit easier today compared to yesterday. Maintaining O2 saturation in the low 90s on 7 L high flow nasal cannula. He's been afebrile. Hem odynamically stable. White count 5.1. Hemoglobin 11.0. Sodium 138. Potassium 3.6. Creatinine 4.6. The patient is seen today 10/01/2020 in follow-up on the regular medical floor. He is currently resting fairly comfortably in bed. Awake and alert in no acute distress. Still requiring airflow high flow oxygen at 60 L and 93% FiO2 to maintain O2 saturations in the 90s. He is quite dyspneic with minimal exertion. Chest x-ray continues to show opacities in the bilateral lower lobes. D-dimer 2.0. LDH 503. C-reactive protein 1.1. He remains on dexamethasone, bronchodilators, ceftriaxone, heparin for DVT prophylaxis. The patient is seen today 10/02/2020 in follow-up on the regular medical floor. He is currently resting in bed. Awake and alert in no acute distress. Still requiring AirVo high flow oxygen at 60 L and 90% FiO2. D-dimer 1.31. Sodium 138. Potassium 4.3. Creatinine 2.8. LDH 441. Continued on bronchodilators, dexamethasone, Lovenox, diuretics. Vitamin supplements. Objective - Vital Signs Vital signs: Vital Signs Temp 98.0 F 10/02/20 05:00 Pulse 76 10/02/20 05:00 Resp 20 10/02/20 05:00 BP 147/61 10/02/20 05:00 Pulse Ox 90 L 10/02/20 11:37 Intake & Output 10/01/20 10/02/20 10/02/20 18:59 06:59 18:59 Intake Total 650 660 Output Total 1200 1500 1500 Balance -550 840 -1500 Intake: IV 160 ns@20 160 Intake, IV Titration 50 Amount cefTRIAXone 1 gm In 50 Sodium Chloride 0.9% 50 ml @ 100 mls/hr IVPB Q24HR [facility] Rx#:[id number] Oral 600 500 Output: Urine 1200 1500 1500 Other: Voiding Method Ileal Conduit (Right) Ileal Conduit (Right) - Exam GENERAL EXAM: Alert, pleasant 72-year-old gentleman, on AirVo high flow oxygen at 60 L and 90% FiO2, comfortable in no apparent distress. HEAD: Normocephalic. EYES: Normal reaction of pupils, equal size. NOSE: Clear with pink turbinates. THROAT: No erythema or exudates. NECK: No masses, no JVD. CHEST: No chest wall deformity. LUNGS: Equal air entry with bilateral scattered rhonchi, crackles in posterior bases. CVS: S1 and S2 normal with no audible murmur, regular rhythm. ABDOMEN: No hepatosplenomegaly, normal bowel sounds, no guarding or rigidity. SPINE: No scoliosis or deformity SKIN: Wound to the left elbow, dressing intact CENTRAL NERVOUS SYSTEM: No focal deficits, tone is normal in all 4 extremities. EXTREMITIES: There is no peripheral edema. No clubbing, no cyanosis. Peripher al pulses are intact. - Labs CBC & Chem 7: 09/26/20 08:37 10/02/20 06:24 Labs: Abnormal Lab Results - Last 24 Hours (Table) 10/02/20 10/02/20 Range/Units 06:24 06:24 D-Dimer 1.31 H (<0.60) mg/L FEU Carbon Dioxide 19.3 L (21.6-31.8) mmol/L Anion Gap 14.70 H (4.00-12.00) mmol/L BUN 95.0 H (9.0-27.0) mg/dL Creatinine 2.8 H (0.6-1.5) mg/dL Est GFR (CKD-EPI)AfAm 24.0 L (60.0-200.0) Est GFR (CKD-EPI)NonAf 20.7 L (60.0-200.0) BUN/Creatinine Ratio 33.93 H (12.00-20.00) Ratio Glucose 185 H (70-110) mg/dL Calcium 8.3 L (8.7-10.3) mg/dL Lactate Dehydrogenase 441 H (120-246) U/L Assessment and Plan Assessment: 1 Acute hypoxic respiratory failure secondary to acute CoVID 19 pneumonitis. Outside the window for Remdesivir, GFR 10. Did receive 1 convalescent plasma, we'll order a second 2 Acute renal failure of unclear etiology. Possible dehydration. Current creatinine 3.2. GFR 17.6. Creatinine in October 2018 1.4. Renal ultrasound reveals atrophy of the bilateral kidneys right greater than left right-sided hydronephrosis 3 History of bladder cancer status post ileostomy 4 Diarrhea secondary to CoVID 19 infection 5 Diabetes mellitus, type II 6 Coronary disease with previous stent placement 7 Hypertension 8 Hyperlipidemia 9 Gastroesophageal reflux disease 10 Former smoker Plan: The patient was seen and evaluated by Dr. Jones He has been slow to progress Remains on AirVo high flow 60 L and 90% We will give a second unit of convalescent plasma Discontinue dexamethasone and add high-dose Solu-Medrol Titrate down the FiO2 as tolerated Prognosis is guarded We will continue to follow I, the cosigning physician, performed a history & physical examination of the pa fei. Lungs sounds bilateral scattered rhonchi, crackles in the posterior bases. Maintaining O2 saturations in the 90s on AirVo high flow oxygen at 60 L and 90% FiO2. I discussed the assessment and plan of care with my nurse practitioner, Maria Luz Daniels. I attest to the above note as dictated by her.
[2020-10-02 12:20] LABS: C Reactive Protein 1.6 mg/dL (0.0-0.8)
--- NOTE | 2020-10-02 12:48 | P.PN ---
Subjective patient is a pleasant pleasant 82-year-old male came in with complains of shortness of breath does have history of COPD patient was diagnosed with Covid 19 6 days ago. Patient is comparing of shortness of breath cough congestion diarrhea for couple days. Patient is found to have renal failure, actually patient appears to have chronic kidney disease I do not know his baseline creatinine baseline creatinine around the about any year ago was 1.4 but apparently patient is supposed to be started on hemodialysis. Patient denied any UTI symptoms with the patient urine is abnormal, nephrology believes her UTI is responsible for acute renal failure and acute tubular necrosis in the recommending antibiotics and patient was started on Rocephin which is being continued at this time. Nephrology is recommending Lasix and discontinue IV fluids. 10/04/2020 Patient was pretty status is bit worse today patient is according 7 L patient is not feeling well. Patient creatinine although marginally improved patient is presently on Lasix.patient is having fairly good urine output. Patient may need a repeat chest x-ray leave the decision to cardiology. 09/26/2020 Patient is presently on 15 L of oxygen although feeling well. Patient also requirements keep on going up and I do not have any basic metabolic profile available from today. Patient does have a right-sided hydronephrosis because of which neurology was consulted. Patient is presently on oral Lasix 40 mg twice a day patient is being treated for volume overload because of poor renal function 09/30/2020 Patient remains on Airvo 60 L. Patient the creatinine did improve to 3.2 pat ient will need a nephrostomy but considering his respiratory status there is no plan for any emergency nephrostomy at this time. 10/01/2020 I do not have any basic metabolic profile available today d-dimer although is elevated to 2 patient is on subcutaneous heparin for DVT prophylaxis LDH is mildly elevated to 503. Patient to is still on 60 L of oxygen although saturations are bit better compared to yesterday 10/02/2020 Patient's creatinine continued to improve although his respiratory status is still not cleared still a bit short of breath and presently on the 60 L of oxygen. Constitutional: as mentioned in HPI Cardio vascular: denied any chest pain, palpitations Gastrointestinal denied any nausea vomiting Pulmonary: as mentioned in HPI Neurologic denied any new focal deficits All inpatient medications were reviewed and appropriate changes in these medications as dictated in the interval history and assessment and plan.patient received the 1 unit of convalescent plasma. Objective - Vital Signs Vital signs: Vital Signs Temp 98.1 F 10/02/20 11:00 Pulse 72 10/02/20 11:00 Resp 24 10/02/20 11:00 BP 126/76 10/02/20 11:00 Pulse Ox 90 L 10/02/20 11:37 Intake & Output 10/01/20 10/02/20 10/02/20 18:59 06:59 18:59 Intake Total 650 660 Output Total 1200 1500 2150 Balance -550 -840 -2150 Intake: IV 160 ns@20 160 Intake, IV Titration 50 Amount cefTRIAXone 1 gm In 50 Sodium Chloride 0.9% 50 ml @ 100 mls/hr IVPB Q24HR [facility] Rx#:[id number] Oral 600 500 Output: Urine 1200 1500 2150 Other: Voiding Method Ileal Conduit (Right) Ileal Conduit (Right) - Exam PHYSICAL EXAMINATION: GENERAL: The patient is alert and oriented x3, not in any acute distress. Well developed, well nourished. HEENT: Pupils are round and equally reacting to light. EOMI. No scleral icterus. No conjunctival pallor. Normocephalic, atraumatic. No pharyngeal erythema. No thyromegaly. CARDIOVASCULAR: S1 and S2 present. No murmurs, rubs, or gallops. PULMONARY: Chest is clear to auscultation, no wheezing or crackles. ABDOMEN: Soft, nontender, nondistended, normoactive bowel sounds. No palpable organomegaly. MUSCULOSKELETAL: No joint swelling or deformity. EXTREMITIES: No cyanosis, clubbing, or pedal edema. NEUROLOGICAL: Gross neurological examination did not reveal any focal deficits. SKIN: No rashes. Note: Because of COVID 19 isolation, some of the history and physical exam findings are indirect and obtained from nursing staff, and other physician examinations to avoid unnecessary contact with the patient. - Labs CBC & Chem 7: 09/26/20 08:37 10/02/20 06:24 Labs: Abnormal Lab Results - Last 24 Hours (Table) 10/02/20 10/02/20 Range/Units 06:24 06:24 D-Dimer 1.31 H (<0.60) mg/L FEU Carbon Dioxide 19.3 L (21.6-31.8) mmol/L Anion Gap 14.70 H (4.00-12.00) mmol/L BUN 95.0 H (9.0-27.0) mg/dL Creatinine 2.8 H (0.6-1.5) mg/dL Est GFR (CKD-EPI)AfAm 24.0 L (60.0-200.0) Est GFR (CKD-EPI)NonAf 20.7 L (60.0-200.0) BUN/Creatinine Ratio 33.93 H (12.00-20.00) Ratio Glucose 185 H (70-110) mg/dL Calcium 8.3 L (8.7-10.3) mg/dL Lactate Dehydrogenase 441 H (120-246) U/L C-Reactive Protein 1.6 H (0.0-0.8) mg/dL Assessment and Plan Plan: -Acute hypoxic respiratory failure secondary to acute CoVID 19 pneumonitis. Outside the window for Remdesivir, GFR 10. Patient is a presently on Decadron and the vitamin supplementation. Because of renal dysfunction patient is not a candidate for Lovenox but we'll continue with heparin for DVT prophylaxis. Patient remains on antibiotics for possible secondary bacterial pneumonia in the form of ceftriaxone and will continue this time. Pulmonary following. A shunt currently being placed on Airvo as he is requiring more oxygen. -Chronic kidney disease stage V supposed to be initiated on hemodialysis. -acute respiratory renal failure probably secondary to obstructive uropathy patient has right-sided hydronephrosispatient presently has a Gamez catheter will need a nephrostomy tube unfortunately unable to perform this procedure be cause of his respiratory status urology and nephrology are following the patient -Volume overload secondary to renal failure and patient is on oral Lasix and will continue with 40 mg daily -history of bladder cancer with ileostomy -Diarrhea secondary to Covid 19 resolved at this time -Type 2 diabetes mellitus, uncontrolled with hyperglycemia most likely related to dexamethasone. Continue with long-acting andadded pre-meal insulin 10 units with each meal sliding scale and monitor closely his blood sugars have been on the lower side today. -Coronary artery disease with previous stents -Hypertension -Hyperlipidemia -Gastroesophageal reflux disease -COPD without any significant exacerbation.
[2020-10-02] MEDS: methylPREDNISolone SOD SUCCI 125 MG/2 ML VIAL IV SCH ×3 (14:29→23:45)
[2020-10-02] MEDS: CLOTRIMAZOLE TROCHE 10 MG TROCHE MUCOUS MEM SCH ×4 (14:30→23:45)
[2020-10-02] MEDS: ALPRAZolam 0.25 MG TAB PO PRN (14:42)
[2020-10-02] MEDS: FERROUS SULFATE 325 MG TAB PO SCH (18:26)
[2020-10-02] MEDS: INSULIN DETEMIR (LEVEMIR) 100 UNIT/ML SYR SQ SCH (21:26)
[2020-10-02] MEDS: MELATONIN 5 MG TABLET PO SCH (21:26)
[2020-10-02] MEDS: PRAMIPEXOLE 0.125 MG TAB PO SCH (21:27)
[2020-10-02] MEDS: LORATADINE 10 MG TAB PO SCH (21:27)
[2020-10-03] MEDS: ALPRAZolam 0.25 MG TAB PO PRN ×3 (04:36→20:16)
[2020-10-03] MEDS: methylPREDNISolone SOD SUCCI 125 MG/2 ML VIAL IV SCH ×3 (06:03→17:49)
[2020-10-03] MEDS: CLOTRIMAZOLE TROCHE 10 MG TROCHE MUCOUS MEM SCH ×4 (06:04→20:16)
[2020-10-03] MEDS: ENOXAPARIN 30 MG/0.3 ML SYRINGE SQ SCH (09:19)
[2020-10-03] MEDS: INSULIN ASPART (NovoLOG) 100 UNIT/ML VIAL SQ SCH ×7 (09:19→20:18)
[2020-10-03] MEDS: PANTOPRAZOLE 40 MG TABLET PO SCH (09:20)
[2020-10-03] MEDS: ASCORBIC ACID 500 MG TAB PO SCH ×2 (09:21→16:31)
[2020-10-03] MEDS: carvediloL 3.125 MG TAB PO SCH ×2 (09:21→16:32)
[2020-10-03] MEDS: SYMBICORT 160-4.5 MCG INHALER INHALATION SCH ×2 (09:21→20:50)
[2020-10-03] MEDS: AMIODARONE 200 MG TAB PO SCH (09:21)
[2020-10-03] MEDS: ALBUTEROL HFA INHALER INHALATION PRN ×4 (09:21→20:50)
[2020-10-03] MEDS: ASPIRIN 81 MG PO SCH (09:21)
[2020-10-03] MEDS: SODIUM BICARBONATE TAB 650 MG TAB PO SCH ×3 (09:22→16:31)
[2020-10-03] MEDS: FUROSEMIDE 40 MG TAB PO SCH (09:22)
[2020-10-03] MEDS: buPROPion XL 150 MG TAB.ER.24H PO SCH (09:22)
[2020-10-03] MEDS: CHOLECALCIFEROL 1,000 UNIT TAB PO SCH (09:22)
[2020-10-03] MEDS: MULTIVITAMINS, THERA 1 EACH TAB PO SCH (09:22)
[2020-10-03] MEDS: traMADol 50 MG TAB PO SCH ×2 (09:23→20:15)
[2020-10-03 09:32] LABS: Glucose,Whole Blood 59 mg/dL (75-99)
[2020-10-03 09:33] LABS: Glucose,Whole Blood 146 mg/dL (75-99)
[2020-10-03 09:33] LABS: Glucose,Whole Blood 281 mg/dL (75-99)
[2020-10-03 09:33] LABS: Glucose,Whole Blood 74 mg/dL (75-99)
[2020-10-03 09:34] LABS: Glucose,Whole Blood 175 mg/dL (75-99)
[2020-10-03 09:34] LABS: Glucose,Whole Blood 153 mg/dL (75-99)
[2020-10-03 09:35] LABS: Glucose,Whole Blood 145 mg/dL (75-99)
[2020-10-03 09:35] LABS: Glucose,Whole Blood 308 mg/dL (75-99)
[2020-10-03 09:37] LABS: Glucose,Whole Blood 149 mg/dL (75-99)
[2020-10-03 09:37] LABS: Glucose,Whole Blood 288 mg/dL (75-99)
[2020-10-03 09:38] LABS: Glucose,Whole Blood 348 mg/dL (75-99)
[2020-10-03 09:39] LABS: Glucose,Whole Blood 178 mg/dL (75-99)
[2020-10-03 09:39] LABS: Glucose,Whole Blood 349 mg/dL (75-99)
[2020-10-03 09:41] LABS: Glucose,Whole Blood 205 mg/dL (75-99)
[2020-10-03 09:56] LABS: Anion Gap 11.6 mmol/L (4.00-12.00); BUN/Creat Ratio 36.3 Ratio (12.00-20.00); C Reactive Protein 3.9 mg/dL (0.0-0.8); Calcium 8.5 mg/dL (8.7-10.3); Carbon Dioxide 20.4 mmol/L (21.6-31.8); Non-African American GFR(CKD) 21.6 (60.0-200.0); Potassium 4.5 mmol/L (3.5-5.5)
--- NOTE | 2020-10-03 11:33 | P.PN ---
Subjective patient is a pleasant pleasant 82-year-old male came in with complains of shortness of breath does have history of COPD patient was diagnosed with Covid 19 6 days ago. Patient is comparing of shortness of breath cough congestion diarrhea for couple days. Patient is found to have renal failure, actually patient appears to have chronic kidney disease I do not know his baseline creatinine baseline creatinine around the about any year ago was 1.4 but apparently patient is supposed to be started on hemodialysis. Patient denied any UTI symptoms with the patient urine is abnormal, nephrology believes her UTI is responsible for acute renal failure and acute tubular necrosis in the recommending antibiotics and patient was started on Rocephin which is being continued at this time. Nephrology is recommending Lasix and discontinue IV fluids. 10/04/2020 Patient was pretty status is bit worse today patient is according 7 L patient is not feeling well. Patient creatinine although marginally improved patient is presently on Lasix.patient is having fairly good urine output. Patient may need a repeat chest x-ray leave the decision to cardiology. 09/26/2020 Patient is presently on 15 L of oxygen although feeling well. Patient also requirements keep on going up and I do not have any basic metabolic profile available from today. Patient does have a right-sided hydronephrosis because of which neurology was consulted. Patient is presently on oral Lasix 40 mg twice a day patient is being treated for volume overload because of poor renal function 09/30/2020 Patient remains on Airvo 60 L. Patient the creatinine did improve to 3.2 pat ient will need a nephrostomy but considering his respiratory status there is no plan for any emergency nephrostomy at this time. 10/01/2020 I do not have any basic metabolic profile available today d-dimer although is elevated to 2 patient is on subcutaneous heparin for DVT prophylaxis LDH is mildly elevated to 503. Patient to is still on 60 L of oxygen although saturations are bit better compared to yesterday 10/02/2020 Patient's creatinine continued to improve although his respiratory status is still not cleared still a bit short of breath and presently on the 60 L of oxygen. 10/03/2020 Patient LDH is 439 d-dimer is 135 patient is still on 60 L of oxygen via airvo as well as Ventimask. Patient although feels better. Constitutional: as mentioned in HPI Cardio vascular: denied any chest pain, palpitations Gastrointestinal denied any nausea vomiting Pulmonary: as mentioned in HPI Neurologic denied any new focal deficits All inpatient medications were reviewed and appropriate changes in these medications as dictated in the interval history and assessment and plan.patient received the 1 unit of convalescent plasma. Objective - Vital Signs Vital signs: Vital Signs Temp 97.7 F 10/03/20 04:33 Pulse 65 10/03/20 08:15 Resp 22 10/03/20 08:15 BP 167/79 10/03/20 04:33 Pulse Ox 92 L 10/03/20 04:33 Intake & Output 10/02/20 10/03/20 10/03/20 18:59 06:59 18:59 Intake Total 720 Output Total 3500 700 Balance -2780 -700 Intake: Oral 720 Blood Product 0 Ffp Pher Conval Covid19 0 Acda 2 Unit [id number] Output: Urine 3500 700 Other: Voiding Method Ileal Conduit (Right) Ileal Conduit (Right) Ileal Conduit (Righ t) - Exam PHYSICAL EXAMINATION: GENERAL: The patient is alert and oriented x3, not in any acute distress. Well developed, well nourished. HEENT: Pupils are round and equally reacting to light. EOMI. No scleral icterus. No conjunctival pallor. Normocephalic, atraumatic. No pharyngeal erythema. No thyromegaly. CARDIOVASCULAR: S1 and S2 present. No murmurs, rubs, or gallops. PULMONARY: Chest is clear to auscultation, no wheezing or crackles. ABDOMEN: Soft, nontender, nondistended, normoactive bowel sounds. No palpable organomegaly. MUSCULOSKELETAL: No joint swelling or deformity. EXTREMITIES: No cyanosis, clubbing, or pedal edema. NEUROLOGICAL: Gross neurological examination did not reveal any focal deficits. SKIN: No rashes. Note: Because of COVID 19 isolation, some of the history and physical exam findings are indirect and obtained from nursing staff, and other physician examinations to avoid unnecessary contact with the patient. - Labs CBC & Chem 7: 09/26/20 08:37 10/03/20 05:14 Labs: Abnormal Lab Results - Last 24 Hours (Table) 09/30/20 09/30/20 09/30/20 Range/Units 07:07 11:15 16:35 D-Dimer (<0.60) mg/L FEU Carbon Dioxide (21.6-31.8) mmol/L BUN (9.0-27.0) mg/dL Creatinine (0.6-1.5) mg/dL Est GFR (CKD-EPI)AfAm (60.0-200.0) Est GFR (CKD-EPI)NonAf (60.0-200.0) BUN/Creatinine Ratio (12.00-20.00) Ratio Glucose (70-110) mg/dL POC Glucose (mg/dL) 149 H 288 H 348 H (75-99) mg/dL Calcium (8.7-10.3) mg/dL Lactate Dehydrogenase (120-246) U/L C-Reactive Protein (0.0-0.8) mg/dL 09/30/20 10/01/20 10/01/20 Range/Units 20:08 07:26 07:55 D-Dimer (<0.60) mg/L FEU Carbon Dioxide (21.6-31.8) mmol/L BUN (9.0-27.0) mg/dL Creatinine (0.6-1.5) mg/dL Est GFR (CKD-EPI)AfAm (60.0-200.0) Est GFR (CKD-EPI)NonAf (60.0-200.0) BUN/Creatinine Ratio (.00-.00) Ratio Glucose (70-110) mg/dL POC Glucose (mg/dL) 349 H 59 L 74 L (75-99) mg/dL Calcium (8.7-10.3) mg/dL Lactate Dehydrogenase (120-246) U/L C-Reactive Protein (0.0-0.8) mg/dL 10/01/20 10/01/20 10/01/20 Range/Units 11:06 16:56 20:44 D-Dimer (<0.60) mg/L FEU Carbon Dioxide (21.6-31.8) mmol/L BUN (9.0-27.0) mg/dL Creatinine (0.6-1.5) mg/dL Est GFR (CKD-EPI)AfAm (60.0-200.0) Est GFR (CKD-EPI)NonAf (60.0-200.0) BUN/Creatinine Ratio (12.00-20.00) Ratio Glucose (70-110) mg/dL POC Glucose (mg/dL) 146 H 178 H 281 H (75-99) mg/dL Calcium (8.7-10.3) mg/dL Lactate Dehydrogenase (120-246) U/L C-Reactive Protein (0.0-0.8) mg/dL 10/02/20 10/02/20 10/02/20 Range/Units 06:24 07:18 11:42 D-Dimer (<0.60) mg/L FEU Carbon Dioxide (21.6-31.8) mmol/L BUN (9.0-27.0) mg/dL Creatinine (0.6-1.5) mg/dL Est GFR (CKD-EPI)AfAm (60.0-200.0) Est GFR (CKD-EPI)NonAf (60.0-200.0) BUN/Creatinine Ratio (.00-.00) Ratio Glucose (70-110) mg/dL POC Glucose (mg/dL) 175 H 153 H (75-99) mg/dL Calcium (8.7-10.3) mg/dL Lactate Dehydrogenase (120-246) U/L C-Reactive Protein 1.6 H (0.0-0.8) mg/dL 10/02/20 10/02/20 10/03/20 Range/Units 17:17 20:09 05:14 D-Dimer 1.35 H (<0.60) mg/L FEU Carbon Dioxide (21.6-31.8) mmol/L BUN (9.0-27.0) mg/dL Creatinine (0.6-1.5) mg/dL Est GFR (CKD-EPI)AfAm (60.0-200.0) Est GFR (CKD-EPI)NonAf (60.0-200.0) BUN/Creatinine Ratio (.00-.00) Ratio Glucose (70-110) mg/dL POC Glucose (mg/dL) 145 H 308 H (75-99) mg/dL Calcium (8.7-10.3) mg/dL Lactate Dehydrogenase (120-246) U/L C-Reactive Protein (0.0-0.8) mg/dL 10/03/20 10/03/20 Range/Units 05:14 07:37 D-Dimer (<0.60) mg/L FEU Carbon Dioxide 20.4 L (21.6-31.8) mmol/L BUN 98.0 H (9.0-27.0) mg/dL Creatinine 2.7 H (0.6-1.5) mg/dL Est GFR (CKD-EPI)AfAm 25.0 L (60.0-200.0) Est GFR (CKD-EPI)NonAf 21.6 L (60.0-200.0) BUN/Creatinine Ratio 36.30 H (12.00-20.00) Ratio Glucose 170 H (70-110) mg/dL POC Glucose (mg/dL) 205 H (75-99) mg/dL Calcium 8.5 L (8.7-10.3) mg/dL Lactate Dehydrogenase 439 H (120-246) U/L C-Reactive Protein 3.9 H (0.0-0.8) mg/dL Assessment and Plan Plan: -Acute hypoxic respiratory failure secondary to acute CoVID 19 pneumonitis. Outside the window for Remdesivir, GFR 10. Patient is a presently on Decadron and the vitamin supplementation. Because of renal dysfunction patient is not a candidate for Lovenox but we'll continue with heparin for DVT prophylaxis. Patient remains on antibiotics for possible secondary bacterial pneumonia in the form of ceftriaxone and will continue this time. Pulmonary following. A shunt currently being placed on Airvo as he is requiring more oxygen. -Chronic kidney disease stage V supposed to be initiated on hemodialysis. -acute respiratory renal failure probably secondary to obstructive uropathy patient has right-sided hydronephrosispatient presently has a Gamez catheter will need a nephrostomy tube unfortunately unable to perform this procedure because of his respiratory status urology and nephrology are following the patient -Volume overload secondary to renal failure and patient is on oral Lasix and will continue with 40 mg daily -history of bladder cancer with ileostomy -Diarrhea secondary to Covid 19 resolved at this time -Type 2 diabetes mellitus, uncontrolled with hyperglycemia most likely related to dexamethasone. Continue with long-acting andadded pre-meal insulin 10 units with each meal sliding scale and monitor closely his blood sugars have been on the lower side today. -Coronary artery disease with previous stents -Hypertension -Hyperlipidemia -Gastroesophageal reflux disease -COPD without any significant exacerbation.
--- NOTE | 2020-10-03 11:48 | P.PN ---
Subjective Patient is seen in follow-up for acute kidney injury. Maintained on oral Lasix. Nonoliguric - urine output documented is 4.2 L in the last 24 hours. Still requiring quite a bit oxygen - currently on 60 L high flow cannula. Awake and alert. Renal function continues to improve. Creatinine 2.7 today. Oral intake fair. Vital signs are stable. General: The patient appeared well nourished and normally developed. HEENT: Head exam is unremarkable. Neck is without jugular venous distension. LUNGS: Breath sounds decreased. HEART: Rate and Rhythm are regular. ABDOMEN: Soft, nontender. EXTREMITITES: No edema. Objective - Vital Signs Vital signs: Vital Signs Temp 97.7 F 10/03/20 04:33 Pulse 65 10/03/20 08:15 Resp 22 10/03/20 08:15 BP 167/79 10/03/20 04:33 Pulse Ox 92 L 10/03/20 04:33 Intake & Output 10/02/20 10/03/20 10/03/20 18:59 06:59 18:59 Intake Total 720 Output Total 3500 700 Balance -2780 -700 Intake: Oral 720 Blood Product 0 Ffp Pher Conval Covid19 0 Acda 2 Unit [id number] Output: Urine 3500 700 Other: Voiding Method Ileal Conduit (Right) Ileal Conduit (Right) Ileal Conduit (Right) - Labs CBC & Chem 7: 09/26/20 08:37 10/03/20 05:14 Labs: Abnormal Lab Results - Last 24 Hours (Table) 09/30/20 09/30/20 09/30/20 Range/Units 07:07 11:15 16:35 D-Dimer (<0.60) mg/L FEU Carbon Dioxide (21.6-31.8) mmol/L BUN (9.0-27.0) mg/dL Creatinine (0.6-1.5) mg/dL Est GFR (CKD-EPI)AfAm (60.0-200.0) Est GFR (CKD-EPI)NonAf (60.0-200.0) BUN/Creatinine Ratio (12.00-20.00) Ratio Glucose (70-110) mg/dL POC Glucose (mg/dL) 149 H 288 H 348 H (75-99) mg/dL Calcium (8.7-10.3) mg/dL Lactate Dehydrogenase (120-246) U/L C-Reactive Protein (0.0-0.8) mg/dL 09/30/20 10/01/20 10/01/20 Range/Units 20:08 07:26 07:55 D-Dimer (<0.60) mg/L FEU Carbon Dioxide (21.6-31.8) mmol/L BUN (9.0-27.0) mg/dL Creatinine (0.6-1.5) mg/dL Est GFR (CKD-EPI)AfAm (60.0-200.0) Est GFR (CKD-EPI)NonAf (60.0-200.0) BUN/Creatinine Ratio (.00-.) Ratio Glucose (70-110) mg/dL POC Glucose (mg/dL) 349 H 59 L 74 L (75-99) mg/dL Calcium (8.7-10.3) mg/dL Lactate Dehydrogenase (120-246) U/L C-Reactive Protein (0.0-0.8) mg/dL 10/01/20 10/01/20 10/01/20 Range/Units 11:06 16:56 20:44 D-Dimer (<0.60) mg/L FEU Carbon Dioxide (21.6-31.8) mmol/L BUN (9.0-27.0) mg/dL Creatinine (0.6-1.5) mg/dL Est GFR (CKD-EPI)AfAm (60.0-200.0) Est GFR (CKD-EPI)NonAf (60.0-200.0) BUN/Creatinine Ratio (.-.) Ratio Glucose (70-110) mg/dL POC Glucose (mg/dL) 146 H 178 H 281 H (75-99) mg/dL Calcium (8.7-10.3) mg/dL Lactate Dehydrogenase (120-246) U/L C-Reactive Protein (0.0-0.8) mg/dL 10/02/20 10/02/20 10/02/20 Range/Units 06:24 07:18 11:42 D-Dimer (<0.60) mg/L FEU Carbon Dioxide (21.6-31.8) mmol/L BUN (9.0-27.0) mg/dL Creatinine (0.6-1.5) mg/dL Est GFR (CKD-EPI)AfAm (60.0-200.0) Est GFR (CKD-EPI)NonAf (60.0-200.0) BUN/Creatinine Ratio (12.00-20.00) Ratio Glucose (70-110) mg/dL POC Glucose (mg/dL) 175 H 153 H (75-99) mg/dL Calcium (8.7-10.3) mg/dL Lactate Dehydrogenase (120-246) U/L C-Reactive Protein 1.6 H (0.0-0.8) mg/dL 10/02/20 10/02/20 10/03/20 Range/Units 17:17 20:09 05:14 D-Dimer 1.35 H (<0.60) mg/L FEU Carbon Dioxide (21.6-31.8) mmol/L BUN (9.0-27.0) mg/dL Creatinine (0.6-1.5) mg/dL Est GFR (CKD-EPI)AfAm (60.0-200.0) Est GFR (CKD-EPI)NonAf (60.0-200.0) BUN/Creatinine Ratio (12.00-.00) Ratio Glucose (70-110) mg/dL POC Glucose (mg/dL) 145 H 308 H (75-99) mg/dL Calcium (8.7-10.3) mg/dL Lactate Dehydrogenase (120-246) U/L C-Reactive Protein (0.0-0.8) mg/dL 10/03/20 10/03/20 Range/Units 05:14 07:37 D-Dimer (<0.60) mg/L FEU Carbon Dioxide 20.4 L (21.6-31.8) mmol/L BUN 98.0 H (9.0-27.0) mg/dL Creatinine 2.7 H (0.6-1.5) mg/dL Est GFR (CKD-EPI)AfAm 25.0 L (60.0-200.0) Est GFR (CKD-EPI)NonAf 21.6 L (60.0-200.0) BUN/Creatinine Ratio 36.30 H (12.00-20.00) Ratio Glucose 170 H (70-110) mg/dL POC Glucose (mg/dL) 205 H (75-99) mg/dL Calcium 8.5 L (8.7-10.3) mg/dL Lactate Dehydrogenase 439 H (120-246) U/L C-Reactive Protein 3.9 H (0.0-0.8) mg/dL Assessment and Plan Plan: Assessment: 1. Acute kidney injury secondary to ATN secondary to infection. Creatinine 4.9 on admission - 2.7 today. 2. Chronic kidney disease stage III with baseline creatinine near 1.3-1.4. Etiology is diabetic kidney disease. 3. Right-sided hydronephrosis. Urology following. Potential PCN down the road. 4. Volume overload. Improved with diuresis. 5. Metabolic acidosis secondary to acute kidney injury and RTA. Maintained on oral bicarb. Better. 6. Covid-19 pneumonia. s/p decadron and remdesivir. Now on IV solumedrol. 7. Anemia of chronic kidney disease. Maintained on Aranesp. 8. Diabetes mellitus. 9. Hypertension with chronic kidney disease. Exacerbated by steroids. Plan: Maintain Lasix 40 mg orally once daily. Avoid nephrotoxins. Continue to monitor renal function and urine output. Wean FiO2. Add hydralazine 25 mg 3 times daily. To be held for systolic blood pressure less than 125.
[2020-10-03 11:59] LABS: Glucose,Whole Blood 270 mg/dL (75-99)
--- NOTE | 2020-10-03 12:16 | P.PN ---
Subjective Progress Note Date: 10/03/20 Principal diagnosis: Acute CoVID 19 pneumonitis This is a pleasant 80-year-old gentleman who resides in a assisted living facility. He has a history of coronary artery disease with previous stent placement, chronic obstructive pulmonary disease, former smoker, diabetes mellitus type 2, gastroesophageal reflux disease, hyperlipidemia, hypertension, osteoarthritis, bladder cancer status post ileostomy. He presented to [facility] with complaints of increasing shortness of breath, cough congestion, low back pain, diarrhea, weakness. He had also fallen and sustained injury to his left elbow. He is found to be in acute renal failure and hypoxemic and transferred here yesterday for further treatment. His randolph virus test was 8 days ago. Chest x-ray shows evidence of COPD, cardiomegaly and basilar atelectasis. White count 4.6. Hemoglobin 11.0. Platelet count 140,000. Sodium 135. Potassium 4.0. Creatinine 4.94. Urinalysis with moderate bacteria, large leukocyte esterase. He is seen today in consultation on the regular medical floor. He is currently sitting up in bed. Awake and alert in no acute distress. 18 and O2 saturations in the 90s on 4 L/m per nasal cannula. He's been afebrile. Hemodynamically stable. Initiated on ceftriaxone. The patient is seen today 09/26/2020 in follow-up on the regular medical floor. He is resting comfortably in bed. Awake and alert in no acute distress. Breathing a bit easier today compared to yesterday. Maintaining O2 saturation in the low 90s on 7 L high flow nasal cannula. He's been afebrile. Hem odynamically stable. White count 5.1. Hemoglobin 11.0. Sodium 138. Potassium 3.6. Creatinine 4.6. The patient is seen today 10/01/2020 in follow-up on the regular medical floor. He is currently resting fairly comfortably in bed. Awake and alert in no acute distress. Still requiring airflow high flow oxygen at 60 L and 93% FiO2 to maintain O2 saturations in the 90s. He is quite dyspneic with minimal exertion. Chest x-ray continues to show opacities in the bilateral lower lobes. D-dimer 2.0. LDH 503. C-reactive protein 1.1. He remains on dexamethasone, bronchodilators, ceftriaxone, heparin for DVT prophylaxis. The patient is seen today 10/02/2020 in follow-up on the regular medical floor. He is currently resting in bed. Awake and alert in no acute distress. Still requiring AirVo high flow oxygen at 60 L and 90% FiO2. D-dimer 1.31. Sodium 138. Potassium 4.3. Creatinine 2.8. LDH 441. Continued on bronchodilators, dexamethasone, Lovenox, diuretics. Vitamin supplements. The patient is seen today 10/03/2020 in follow-up on the regular medical floor. He is awake and alert in no acute distress. He is still quite dyspneic with minimal exertion. Minimal conversation. Remains on AirVo high flow oxygen at 60 L and 90% FiO2. He is afebrile. D-dimer 1.35. Sodium 139. Potassium 4.5. Creatinine 2.7. LDH 439. C-reactive protein 3.9. He remains on Symbicort, albuterol, IV Solu-Medrol, vitamin supplements. He has received 2 units of convalescent plasma. Remains on Lovenox. Objective - Vital Signs Vital signs: Vital Signs Temp 97.7 F 10/03/20 04:33 Pulse 65 10/03/20 08:15 Resp 22 10/03/20 08:15 BP 167/79 10/03/20 04:33 Pulse Ox 92 L 10/03/20 04:33 Intake & Output 10/02/20 10/03/20 10/03/20 18:59 06:59 18:59 Intake Total 720 Output Total 3500 700 Balance -2780 -700 Intake: Oral 720 Blood Product 0 Ffp Pher Conval Covid19 0 Acda 2 Unit [id number] Output: Urine 3500 700 Other: Voiding Method Ileal Conduit (Right) Ileal Conduit (Right) Ileal Conduit (Right) - Exam GENERAL EXAM: Alert, pleasant 72-year-old gentleman, on AirVo high flow oxygen at 60 L and 90% FiO2, comfortable in no apparent distress. HEAD: Normocephalic. EYES: Normal reaction of pupils, equal size. NOSE: Clear with pink turbinates. THROAT: No erythema or exudates. NECK: No masses, no JVD. CHEST: No chest wall deformity. LUNGS: Equal air entry with bilateral scattered rhonchi, crackles in posterior bases. CVS: S1 and S2 normal with no audible murmur, regular rhythm. ABDOMEN: No hepatosplenomegaly, normal bowel sounds, no guarding or rigidity. SPINE: No scoliosis or deformity SKIN: Wound to the left elbow, dressing intact CENTRAL NERVOUS SYSTEM: No focal deficits, tone is normal in all 4 extremities. EXTREMITIES: There is no peripheral edema. No clubbing, no cyanosis. Peripheral pulses are intact. - Labs CBC & Chem 7: 09/26/20 08:37 10/03/20 05:14 Labs: Abnormal Lab Results - Last 24 Hours (Table) 09/30/20 09/30/20 09/30/20 Range/Units 07:07 11:15 16:35 D-Dimer (<0.60) mg/L FEU Carbon Dioxide (21.6-31.8) mmol/L BUN (9.0-27.0) mg/dL Creatinine (0.6-1.5) mg/dL Est GFR (CKD-EPI)AfAm (60.0-200.0) Est GFR (CKD-EPI)NonAf (60.0-200.0) BUN/Creatinine Ratio (.-.) Ratio Glucose (70-110) mg/dL POC Glucose (mg/dL) 149 H 288 H 348 H (75-99) mg/dL Calcium (8.7-10.3) mg/dL Lactate Dehydrogenase (120-246) U/L C-Reactive Protein (0.0-0.8) mg/dL 09/30/20 10/01/20 10/01/20 Range/Units 20:08 07:26 07:55 D-Dimer (<0.60) mg/L FEU Carbon Dioxide (21.6-31.8) mmol/L BUN (9.0-27.0) mg/dL Creatinine (0.6-1.5) mg/dL Est GFR (CKD-EPI)AfAm (60.0-200.0) Est GFR (CKD-EPI)NonAf (60.0-200.0) BUN/Creatinine Ratio (.00-.00) Ratio Glucose (70-110) mg/dL POC Glucose (mg/dL) 349 H 59 L 74 L (75-99) mg/dL Calcium (8.7-10.3) mg/dL Lactate Dehydrogenase (120-246) U/L C-Reactive Protein (0.0-0.8) mg/dL 10/01/20 10/01/20 10/01/20 Range/Units 11:06 16:56 20:44 D-Dimer (<0.60) mg/L FEU Carbon Dioxide (21.6-31.8) mmol/L BUN (9.0-27.0) mg/dL Creatinine (0.6-1.5) mg/dL Est GFR (CKD-EPI)AfAm (60.0-200.0) Est GFR (CKD-EPI)NonAf (60.0-200.0) BUN/Creatinine Ratio (.00-.00) Ratio Glucose (70-110) mg/dL POC Glucose (mg/dL) 146 H 178 H 281 H (75-99) mg/dL Calcium (8.7-10.3) mg/dL Lactate Dehydrogenase (120-246) U/L C-Reactive Protein (0.0-0.8) mg/dL 10/02/20 10/02/20 10/02/20 Range/Units 06:24 07:18 11:42 D-Dimer (<0.60) mg/L FEU Carbon Dioxide (21.6-31.8) mmol/L BUN (9.0-27.0) mg/dL Creatinine (0.6-1.5) mg/dL Est GFR (CKD-EPI)AfAm (60.0-200.0) Est GFR (CKD-EPI)NonAf (60.0-200.0) BUN/Creatinine Ratio (.00-.00) Ratio Glucose (70-110) mg/dL POC Glucose (mg/dL) 175 H 153 H (75-99) mg/dL Calcium (8.7-10.3) mg/dL Lactate Dehydrogenase (120-246) U/L C-Reactive Protein 1.6 H (0.0-0.8) mg/dL 10/02/20 10/02/20 10/03/20 Range/Units 17:17 20:09 05:14 D-Dimer 1.35 H (<0.60) mg/L FEU Carbon Dioxide (21.6-31.8) mmol/L BUN (9.0-27.0) mg/dL Creatinine (0.6-1.5) mg/dL Est GFR (CKD-EPI)AfAm (60.0-200.0) Est GFR (CKD-EPI)NonAf (60.0-200.0) BUN/Creatinine Ratio (12.00-20.00) Ratio Glucose (70-110) mg/dL POC Glucose (mg/dL) 145 H 308 H (75-99) mg/dL Calcium (8.7-10.3) mg/dL Lactate Dehydrogenase (120-246) U/L C-Reactive Protein (0.0-0.8) mg/dL 10/03/20 10/03/20 10/03/20 Range/Units 05:14 07:37 11:57 D-Dimer (<0.60) mg/L FEU Carbon Dioxide 20.4 L (21.6-31.8) mmol/L BUN 98.0 H (9.0-27.0) mg/dL Creatinine 2.7 H (0.6-1.5) mg/dL Est GFR (CKD-EPI)AfAm 25.0 L (60.0-200.0) Est GFR (CKD-EPI)NonAf 21.6 L (60.0-200.0) BUN/Creatinine Ratio 36.30 H (12.00-20.00) Ratio Glucose 170 H (70-110) mg/dL POC Glucose (mg/dL) 205 H 270 H (75-99) mg/dL Calcium 8.5 L (8.7-10.3) mg/dL Lactate Dehydrogenase 439 H (120-246) U/L C-Reactive Protein 3.9 H (0.0-0.8) mg/dL Assessment and Plan Assessment: 1 Acute hypoxic respiratory failure secondary to acute CoVID 19 pneumonitis. Outside the window for Remdesivir, GFR 10. Did receive 2 units of convalescent plasma 2 Acute renal failure of unclear etiology. Possible dehydration. Current creatinine 2.7. GFR 21.6. Creatinine in October 2018 1.4. Renal ultrasound reveals atrophy of the bilateral kidneys right greater than left right-sided hydronephrosis 3 History of bladder cancer status post ileostomy 4 Diarrhea secondary to CoVID 19 infection 5 Diabetes mellitus, type II 6 Coronary disease with previous stent placement 7 Hypertension 8 Hyperlipidemia 9 Gastroesophageal reflux disease 10 Former smoker Plan: The patient was seen and evaluated by Dr. Jones Remains on AirVo high flow 60 L and 90% Continue the current treatment plan Titrate down the FiO2 as tolerated Prognosis is guarded We will continue to follow I, the cosigning physician, performed a history & physical examination of the patient. Lungs sounds bilateral scattered rhonchi, crackles in the posterior bases. Maintaining O2 saturations in the 90s on AirVo high flow oxygen at 60 L and 90% FiO2. I discussed the assessment and plan of care with my nurse practitioner, Maria Luz Daniels. I attest to the above note as dictated by her.
[2020-10-03] MEDS: hydrALAZINE HCL 25 MG TAB PO SCH ×2 (16:32→20:23)
[2020-10-03] MEDS: FERROUS SULFATE 325 MG TAB PO SCH (16:32)
[2020-10-03] MEDS: MICATIN TOPICAL SCH ×2 (16:49→20:25)
[2020-10-03 17:18] LABS: Glucose,Whole Blood 266 mg/dL (75-99)
[2020-10-03 20:06] LABS: Glucose,Whole Blood 397 mg/dL (75-99)
[2020-10-03] MEDS: LORATADINE 10 MG TAB PO SCH (20:16)
[2020-10-03] MEDS: MELATONIN 5 MG TABLET PO SCH (20:17)
[2020-10-03] MEDS: INSULIN DETEMIR (LEVEMIR) 100 UNIT/ML SYR SQ SCH (20:27)
[2020-10-04] MEDS: PRAMIPEXOLE 0.125 MG TAB PO SCH ×2 (00:11→20:16)
[2020-10-04] MEDS: SODIUM BICARBONATE TAB 650 MG TAB PO SCH ×5 (00:11→20:16)
[2020-10-04] MEDS: CLOTRIMAZOLE TROCHE 10 MG TROCHE MUCOUS MEM SCH ×5 (00:17→20:16)
[2020-10-04] MEDS: methylPREDNISolone SOD SUCCI 125 MG/2 ML VIAL IV SCH ×4 (00:23→17:30)
[2020-10-04 07:07] LABS: Glucose,Whole Blood 261 mg/dL (75-99)
[2020-10-04] MEDS: SYMBICORT 160-4.5 MCG INHALER INHALATION SCH ×2 (08:14→19:39)
[2020-10-04] MEDS: ALBUTEROL HFA INHALER INHALATION PRN ×3 (08:14→19:39)
[2020-10-04 09:57] LABS: BUN/Creat Ratio 38.33 Ratio (12.00-20.00); Calcium 8.4 mg/dL (8.7-10.3); Magnesium 2.2 mg/dL (1.5-2.4); Potassium 4.6 mmol/L (3.5-5.5)
[2020-10-04] MEDS: ASCORBIC ACID 500 MG TAB PO SCH ×2 (10:10→17:26)
[2020-10-04] MEDS: ALPRAZolam 0.25 MG TAB PO PRN ×2 (10:10→20:18)
[2020-10-04] MEDS: PANTOPRAZOLE 40 MG TABLET PO SCH (10:10)
[2020-10-04] MEDS: FUROSEMIDE 40 MG TAB PO SCH (10:13)
[2020-10-04] MEDS: CHOLECALCIFEROL 1,000 UNIT TAB PO SCH (10:13)
[2020-10-04] MEDS: traMADol 50 MG TAB PO SCH ×2 (10:13→20:17)
[2020-10-04] MEDS: MULTIVITAMINS, THERA 1 EACH TAB PO SCH (10:13)
[2020-10-04] MEDS: INSULIN ASPART (NovoLOG) 100 UNIT/ML VIAL SQ SCH ×7 (10:14→21:19)
[2020-10-04] MEDS: ASPIRIN 81 MG PO SCH (10:14)
[2020-10-04] MEDS: carvediloL 3.125 MG TAB PO SCH ×2 (10:14→17:28)
[2020-10-04] MEDS: AMIODARONE 200 MG TAB PO SCH (10:15)
[2020-10-04] MEDS: buPROPion XL 150 MG TAB.ER.24H PO SCH (10:15)
[2020-10-04] MEDS: MICATIN TOPICAL SCH ×2 (10:16→21:11)
[2020-10-04] MEDS: hydrALAZINE HCL 25 MG TAB PO SCH ×3 (10:16→21:20)
[2020-10-04] MEDS: ENOXAPARIN 30 MG/0.3 ML SYRINGE SQ SCH (10:16)
[2020-10-04 10:39] LABS: Glucose,Whole Blood 385 mg/dL (75-99)
--- NOTE | 2020-10-04 11:34 | XR ---
EXAMINATION TYPE: XR chest 1V portable DATE OF EXAM: 10/04/2020 COMPARISON: Prior chest x-ray 10/01/2020 HISTORY: Covid pneumonia TECHNIQUE: Single frontal view of the chest is obtained. FINDINGS: Some patchy peripheral airspace disease persists. No evident pneumothorax or pleural effus ion. Patient is post median sternotomy and rotated. Heart size is stable. Aorta is dense. Generators present in left pectoral region, there are leads in the right atrium and ventricle. IMPRESSION: Correlate for pneumonia
--- NOTE | 2020-10-04 13:46 | P.PN ---
Subjective Progress Note Date: 10/04/20 Principal diagnosis: Acute hypoxic respiratory failure secondary to COVID 19 pneumonitis This is a pleasant 80-year-old gentleman who resides in a assisted living facility. He has a history of coronary artery disease with previous stent placement, chronic obstructive pulmonary disease, former smoker, diabetes mellitus type 2, gastroesophageal reflux disease, hyperlipidemia, hypertension, osteoarthritis, bladder cancer status post ileostomy. He presented to [facility] with complaints of increasing shortness of breath, cough congestion, low back pain, diarrhea, weakness. He had also fallen and sustained injury to his left elbow. He is found to be in acute renal failure and hypoxemic and transferred here yesterday for further treatment. His randolph virus test was 8 days ago. Chest x-ray shows evidence of COPD, cardiomegaly and basilar atelectasis. White count 4.6. Hemoglobin 11.0. Platelet count 140,000. Sodium 135. Potassium 4.0. Creatinine 4.94. Urinalysis with moderate bacteria, large leukocyte esterase. He is seen today in consultation on the regular medical floor. He is currently sitting up in bed. Awake and alert in no acute distress. 18 and O2 saturations in the 90s on 4 L/m per nasal cannula. He's been afebrile. Hemodynamically stable. Initiated on ceftriaxone. The patient is seen today 09/26/2020 in follow-up on the regular medical floor. He is resting comfortably in bed. Awake and alert in no acute distress. Breathing a bit easier today compared to yesterday. Maintaining O2 saturation in the low 90s on 7 L high flow nasal cannula. He's been afebrile. Hemodynamically stable. White count 5.1. Hemoglobin 11.0. Sodium 138. Potassium 3.6. Creatinine 4.6. Patient was reevaluated today on 09/27/20, surprisingly the patient is feeling better, breathing a lot easier, becoming more and more active in the room. Patient was seen for his hydronephrosis by nephrology and urology, patient is scheduled for CT of abdomen and pelvis to better assess his hydronephrosis, and the urologist is concern about the possibility of obstruction or possibly reflux given his history of the conduit. In the meantime the patient is being followed by nephrology and addressing his acute on chronic kidney injury. Pulmonary-wis e, the patient is feeling better, remains on 15 L high flow nasal cannula, and his O2 saturation is 91%. CBC today is relatively normal. Basic metabolic profile is normal. However his bicarb is low at 14, BUN is 87 creatinine is 4.4. Reevaluated today on 09/28/20, patient is still requiring high flow FiO2, he is now on 15 L/m, clinically he is feeling better, breathing easier, sitting in bed eating, in no distress. Patient is being followed by nephrology and urology regarding his hydronephrosis, pulmonary-hudson basically he is about the same. Reevaluated today on 09/29/20, patient remains on the regular medical floor, however he is requiring significant amount of FiO2, he is now on airvo FiO2 is 90%, and 60 L flow. O2 saturation is marginal. Clinically the patient is feeling better, breathing easier. Maintained on oral Lasix, patient is nonoliguric. On 09/30/2020 patient seen in follow-up on general medical oncology floor. He is on high flow oxygen, per Airvo at 60 L and FiO2 of 89-90%, and he is satting about 97%. Does not appear to be in any acute distress, however patient is generally weak, requires extensive assistance to get up to the bedside commode, overall she is feeling somewhat better, he is breathing easier, patient was outside the window for Remdesivir, he did receive 1 unit of convalescent plasma. He is currently on vitamin C, dexamethasone, daily dose of Lasix. He is in - 2.5 L over the last 24 hours. Patient is awake and alert, still has some trace lower extremity edema. No new labs today. He is on subcu heparin for DVT prophylaxis, his last d-dimer was 0.63. On 10/04/2020 patient seen in follow-up on medical floor, he is resting in bed, the confusion has somewhat improved, she still has a clinical safety manager at the bedside, no agitation, he could tell us that she was in the hospital, and he knew the year. She is very weak, short of breath with exertion, remains on high flow oxygen per Airvo at 60 L and 90%, and his pulse ox is 98%, hemodynamically has been stable, he's been afebrile. His chest x-ray has been reviewed, showing patchy peripheral airspace disease persistence. His labs have been reviewed, showing BUN of 1:15, creatinine of 3, renal function has gotten a little worse since yesterday. His last LDH was done yesterday, down trending, at 439, CRP is 3.9. No nausea vomiting or diarrhea. Patient remains on vitamin C, he is on a cough syrup, nebulized bronchodilators, once daily dose of oral Lasix, IV steroids at 60 mg every 6 hours. Status post transfusion with 2 units of convalescent plasma. he was outside the window for Remdesivir, Objective - Vital Signs Vital signs: Vital Signs Temp 97.5 F L 10/04/20 11:00 Pulse 67 10/04/20 11:00 Resp 19 10/04/20 11:00 BP 158/76 10/04/20 11:00 Pulse Ox 98 10/04/20 11:00 Intake & Output 10/03/20 10/04/20 10/04/20 18:59 06:59 18:59 Intake Total 590 Output Total 1100 1200 Balance -1100 -610 Weight 108.862 kg Intake: Oral 590 Output: Urine 1100 1200 Other: Voiding Method Ileal Conduit (Right) Ileal Conduit (Right) Ileal Conduit (Right) - Exam GENERAL EXAM: Alert, weak, 80-year-old white male, currently onAirvo at 60 L, and FiO2 of 90%, satting 98% , comfortable in no apparent distress. HEAD: Normocephalic/atraumatic. EYES: Normal reaction of pupils, equal size. Conjunctiva pink, sclera white. NOSE: Clear with pink turbinates. THROAT: No erythema or exudates. NECK: No masses, no JVD, no thyroid enlargement, no adenopathy. CHEST: No chest wall deformity. Symmetrical expansion. LUNGS: Equal air entry with no crackles, wheeze, rhonchi or dullness. CVS: Regular rate and rhythm, normal S1 and S2, no gallops, no murmurs, no rubs ABDOMEN: Soft, nontender. No hepatosplenomegaly, normal bowel sounds, no guarding or rigidity. EXTREMITIES: No clubbing, trace lower extremity edema no cyanosis, 2+ pulses and upper and lower extremities. MUSCULOSKELETAL: Muscle strength and tone normal. SPINE: No scoliosis or deformity SKIN: No rashes CENTRAL NERVOUS SYSTEM: Alert and oriented -3. No focal deficits, tone is normal in all 4 extremities. PSYCHIATRIC: Alert and oriented -3. Appropriate affect. Intact judgment and insight. - Labs CBC & Chem 7: 09/26/20 08:37 10/04/20 04:56 Labs: Abnormal Lab Results - Last 24 Hours (Table) 10/03/20 10/03/20 10/04/20 Range/Units 17:16 20:05 04:56 Carbon Dioxide 19.0 L (21.6-31.8) mmol/L Anion Gap 13.00 H (4.00-12.00) mmol/L BUN 115.0 H* (9.0-27.0) mg/dL Creatinine 3.0 H (0.6-1.5) mg/dL Est GFR (CKD-EPI)AfAm 22.0 L (60.0-200.0) Est GFR (CKD-EPI)NonAf 19.0 L (60.0-200.0) BUN/Creatinine Ratio 38.33 H (12.00-20.00) Ratio Glucose 243 H (70-110) mg/dL POC Glucose (mg/dL) 266 H 397 H (75-99) mg/dL Calcium 8.4 L (8.7-10.3) mg/dL 10/04/20 10/04/20 Range/Units 07:05 10:38 Carbon Dioxide (21.6-31.8) mmol/L Anion Gap (4.00-12.00) mmol/L BUN (9.0-27.0) mg/dL Creatinine (0.6-1.5) mg/dL Est GFR (CKD-EPI)AfAm (60.0-200.0) Est GFR (CKD-EPI)NonAf (60.0-200.0) BUN/Creatinine Ratio (12.00-20.00) Ratio Glucose (70-110) mg/dL POC Glucose (mg/dL) 261 H 385 H (75-99) mg/dL Calcium (8.7-10.3) mg/dL Assessment and Plan Plan: Assessment: #1. Acute hypoxic respiratory failure, severe, related to COVID 19 pneumonitis, and patient continues to require high flow oxygen per Airvo is 60 L and FiO2 of 90%, patient was also performed of for Remdesivir, received 2 units of convalescent immunoglobulin for COVID 19 on 09/25/2020, and 10/02/2020 #2. Chronic kidney disease, with possible obstructive uropathy, nephrology and urology are on the case #3. History of bladder cancer and history of ileal conduit #4. Gastroenteritis secondary to quit 19 infection #5. Benign essential hypertension #6. Dyslipidemia #7. History of COPD #8. History of GERD without esophagitis #9. Former smoker #10. Type 2 diabetes mellitus #11. Steroid-induced hyperglycemia Plan: Continue current medical treatment, continue IV steroids, continue vitamins, including vitamin C, zinc, continue cough syrup, continue prophylactic dose Lovenox. Chest x-ray shows persistence of bilateral airspace disease, and patient still requires high flow oxygen. He has been very slow to progress. We will continue supportive treatment, patient is DO NOT RESUSCITATE CODE STATUS. I performed a history & physical examination of the patient and discussed their management with my nurse practitioner, Kasey Reeves. I reviewed the nurse practitioner's note and agree with the documented findings and plan of care. Lung sounds are positive for crackles. The findings and the impression was discussed with the patient. I attest to the documentation by the nurse practitioner. Time with Patient: Less than 30
--- NOTE | 2020-10-04 14:09 | PN ---
PROGRESS NOTE Patient is seen for followup for acute kidney injury. He was admitted to the hospital with shortness of breath and has COVID-19 pneumonia. He is maintained on BiPAP at this point. Renal function has been slowly worsening with serum creatinine increased to 3.0 from 2.7 yesterday. However, this is still better than 4.9 on initial admission. The patient has a urostomy. A 24-hour urine output documented at about 4.2 L. Currently patient is a maintained on oral Lasix. He is not on any IV fluids. His oxygen requirement has increased according to nursing staff. PHYSICAL EXAMINATION: Blood pressure this morning was 158/76, heart rate 67 per minute. He is afebrile. Examination shows no significant edema lower extremities. Abdomen is soft, nontender. DOCUMENT MANAGEMENT TECHNICIAN exam shows patient is confused. He is moving all 4 extremities. LABS: Labs show sodium 136, potassium 4.6, chloride 104, CO2 is 19, BUN 115, serum creatinine 3.0 mg/dL. ASSESSMENT: 1. Acute kidney injury, acute tubular necrosis, associated with underlying COVID-19 infection currently nonoliguric. Serum creatinine better than on admission; however, increased from yesterday. Continue off of IV fluids secondary to respiratory status. The patient also has right-sided hydronephrosis with possible percutaneous nephrostomy down the road. 2. Volume overload, currently improved with diuresis. 3. Metabolic acidosis associated with renal failure, RTA, maintained on oral bicarb. 4. COVID-19 pneumonia, status post Decadron and remdesivir, maintained on IV Solu- Medrol. 5. Disproportionately elevated BUN secondary to steroids and worsening renal function. PLAN: Repeat labs in a.m. The patient is not an ideal candidate for long-term renal replacement therapy if his renal function does not improve. Code status will be discussed with the family. MMODL / IJN: [id number] /
--- NOTE | 2020-10-04 14:32 | P.PN ---
Subjective Progress Note Date: 10/04/20 patient is a pleasant pleasant 82-year-old male came in with complains of shortness of breath does have history of COPD patient was diagnosed with Covid 19 6 days ago. Patient is comparing of shortness of breath cough congestion diarrhea for couple days. Patient is found to have renal failure, actually patient appears to have chronic kidney disease I do not know his baseline creatinine baseline creatinine around the about any year ago was 1.4 but apparently patient is supposed to be started on hemodialysis. Patient denied any UTI symptoms with the patient urine is abnormal, nephrology believes her UTI is responsible for acute renal failure and acute tubular necrosis in the recommending antibiotics and patient was started on Rocephin which is being continued at this time. Nephrology is recommending Lasix and discontinue IV fluids. 10/04/2020 Patient was pretty status is bit worse today patient is according 7 L patient is not feeling well. Patient creatinine although marginally improved patient is presently on Lasix.patient is having fairly good urine output. Patient may need a repeat chest x-ray leave the decision to cardiology. 09/26/2020 Patient is presently on 15 L of oxygen although feeling well. Patient also requirements keep on going up and I do not have any basic metabolic profile available from today. Patient does have a right-sided hydronephrosis because of which neurology was consulted. Patient is presently on oral Lasix 40 mg twice a day patient is being treated for volume overload because of poor renal function 09/30/2020 Patient remains on Airvo 60 L. Patient the creatinine did improve to 3.2 patient will need a nephrostomy but considering his respiratory status there is no plan for any emergency nephrostomy at this time. 10/01/2020 I do not have any basic metabolic profile available today d-dimer although is elevated to 2 patient is on subcutaneous heparin for DVT prophylaxis LDH is mildly elevated to 503. Patient to is still on 60 L of oxygen although saturations are bit better compared to yesterday 10/02/2020 Patient's creatinine continued to improve although his respiratory status is still not cleared still a bit short of breath and presently on the 60 L of oxygen. 10/03/2020 Patient LDH is 439 d-dimer is 135 patient is still on 60 L of oxygen via airvo as well as Ventimask. Patient although feels better. 10/04/2020 Patient is seen in follow-up and continues to require high flow oxygen via Airvo as well as a nonrebreather and oxygen saturation is 98%. Patient continues to be severely dyspneic with any form of exertion and also appears to be quite anxious. Patient does have a sitter at the side of the bed as he continues to have confusion at times and will pull mask soft and easy that quickly. Patient is eating although intake continues to be poor. Urine output noted although patient's creatinine has worsened today and is currently 3.0 with a BUN of 115. Nephrology is following. Blood sugars continue to be elevated and will continue with sliding scale, pre-meal, and long acting. Had a lengthy discussion with amol Romo today about CODE STATUS and she is the power of county attorney and CODE STATUS was changed to no code per patient and daughter's wishes. Constitutional: as mentioned in HPI Cardio vascular: denied any chest pain, palpitations Gastrointestinal denied any nausea vomiting Pulmonary: as mentioned in HPI Neurologic denied any new focal deficits All inpatient medications were reviewed and appropriate changes in these medications as dictated in the interval history and assessment and plan. patient received the 1 unit of convalescent plasma. Objective - Vital Signs Vital signs: Vital Signs Temp 98.2 F 10/04/20 05:00 Pulse 78 10/04/20 05:00 Resp 20 10/04/20 05:00 BP 148/81 10/04/20 05:00 Pulse Ox 98 10/04/20 05:00 Intake & Output 10/03/20 10/04/20 10/04/20 18:59 06:59 18:59 Intake Total 590 Output Total 1100 1200 Balance -1100 -610 Intake: Oral 590 Output: Urine 1100 1200 Other: Voiding Method Ileal Conduit (Right) Ileal Conduit (Right) - Exam GENERAL: The patient is alert and oriented x3, slightly anxious. Well developed, well nourished. HEENT: Pupils are round and equally reacting to light. EOMI. No scleral icterus. No conjunctival pallor. Normocephalic, atraumatic. No pharyngeal erythema. No thyromegaly. Oral mucosa is dry. CARDIOVASCULAR: S1 and S2 present. No murmurs, rubs, or gallops. PULMONARY: Diminished breath sounds at the bases with some scattered crackles noted, no wheezing noted ABDOMEN: Soft, nontender, nondistended, normoactive bowel sounds. No palpable organomegaly. MUSCULOSKELETAL: No joint swelling or deformity. EXTREMITIES: No cyanosis, clubbing, or pedal edema. NEUROLOGICAL: Gross neurological examination did not reveal any focal deficits. SKIN: No rashes. Note: Because of COVID 19 isolation, some of the history and physical exam findings are indirect and obtained from nursing staff, and other physician examinations to avoid unnecessary contact with the patient. - Labs CBC & Chem 7: 09/26/20 08:37 10/04/20 04:56 Labs: Abnormal Lab Results - Last 24 Hours (Table) 10/03/20 10/03/20 10/03/20 Range/Units 11:57 17:16 20:05 Carbon Dioxide (21.6-31.8) mmol/L Anion Gap (4.00-12.00) mmol/L BUN (9.0-27.0) mg/dL Creatinine (0.6-1.5) mg/dL Est GFR (CKD-EPI)AfAm (60.0-200.0) Est GFR (CKD-EPI)NonAf (60.0-200.0) BUN/Creatinine Ratio (12.00-20.00) Ratio Glucose (70-110) mg/dL POC Glucose (mg/dL) 270 H 266 H 397 H (75-99) mg/dL Calcium (8.7-10.3) mg/dL 10/04/20 10/04/20 10/04/20 Range/Units 04:56 07:05 10:38 Carbon Dioxide 19.0 L (21.6-31.8) mmol/L Anion Gap 13.00 H (4.00-12.00) mmol/L BUN 115.0 H* (9.0-27.0) mg/dL Creatinine 3.0 H (0.6-1.5) mg/dL Est GFR (CKD-EPI)AfAm 22.0 L (60.0-200.0) Est GFR (CKD-EPI)NonAf 19.0 L (60.0-200.0) BUN/Creatinine Ratio 38.33 H (12.00-20.00) Ratio Glucose 243 H (70-110) mg/dL POC Glucose (mg/dL) 261 H 385 H (75-99) mg/dL Calcium 8.4 L (8.7-10.3) mg/dL Assessment and Plan Assessment: -Acute hypoxic respiratory failure secondary to acute CoVID 19 pneumonitis. Outside the window for Remdesivir, GFR 10. Patient is a presently on Decadron and the vitamin supplementation. Because of renal dysfunction patient is not a candidate for Lovenox but we'll continue with heparin for DVT prophylaxis. Patient remains on antibiotics for possible secondary bacterial pneumonia in the form of ceftriaxone and will continue this time. Pulmonary following. Patient presently remains on Airvo along with nonrebreather as he is requiring more oxygen. -Chronic kidney disease stage V supposed to be initiated on hemodialysis. Nephrology following -acute renal failure probably secondary to obstructive uropathy patient has right-sided hydronephrosis. patient presently has a suprapubic Gamez catheter will need a nephrostomy tube unfortunately unable to perform this procedure because of his respiratory status urology and nephrology are following the patie nt -Volume overload secondary to renal failure and patient is on oral Lasix and will continue with 40 mg daily -history of bladder cancer with ileostomy -Diarrhea secondary to Covid 19 resolved at this time -Type 2 diabetes mellitus, uncontrolled with hyperglycemia most likely related to dexamethasone. Continue with long-acting, pre-meal insulin 10 units with each meal, and sliding scale. Will continue to monitor closely his blood sugars -Coronary artery disease with previous stents -Hypertension -Hyperlipidemia -Gastroesophageal reflux disease -COPD without any significant exacerbation. -No code Plan: Patient continues to require high amounts of oxygen and CODE STATUS was discussed with family today. Daughter Clarissa who is the power of county attorney was agreeable to status as per her father's wishes. Prognosis is guarded. Further recommendations to follow. Nephrology and pulmonary following closely.
[2020-10-04 16:52] LABS: Glucose,Whole Blood 153 mg/dL (75-99)
[2020-10-04] MEDS: FERROUS SULFATE 325 MG TAB PO SCH (17:28)
[2020-10-04] MEDS: LORATADINE 10 MG TAB PO SCH (20:16)
[2020-10-04] MEDS: MELATONIN 5 MG TABLET PO SCH (20:16)
[2020-10-04 20:34] LABS: Glucose,Whole Blood 161 mg/dL (75-99)
[2020-10-04] MEDS: INSULIN DETEMIR (LEVEMIR) 100 UNIT/ML SYR SQ SCH (21:20)
[2020-10-05] MEDS: methylPREDNISolone SOD SUCCI 125 MG/2 ML VIAL IV SCH ×4 (00:10→16:08)
[2020-10-05] MEDS: CLOTRIMAZOLE TROCHE 10 MG TROCHE MUCOUS MEM SCH ×5 (00:10→21:42)
[2020-10-05 07:18] LABS: Glucose,Whole Blood 146 mg/dL (75-99)
[2020-10-05] MEDS: INSULIN ASPART (NovoLOG) 100 UNIT/ML VIAL SQ SCH ×8 (08:23→21:32)
[2020-10-05] MEDS: hydrALAZINE HCL 25 MG TAB PO SCH ×3 (08:24→21:31)
[2020-10-05] MEDS: ENOXAPARIN 30 MG/0.3 ML SYRINGE SQ SCH (08:24)
[2020-10-05] MEDS: SYMBICORT 160-4.5 MCG INHALER INHALATION SCH ×2 (08:25→19:34)
[2020-10-05] MEDS: SODIUM BICARBONATE TAB 650 MG TAB PO SCH ×4 (08:25→21:31)
[2020-10-05] MEDS: CHOLECALCIFEROL 1,000 UNIT TAB PO SCH (08:25)
[2020-10-05] MEDS: ALBUTEROL HFA INHALER INHALATION PRN ×4 (08:25→19:34)
[2020-10-05] MEDS: FUROSEMIDE 40 MG TAB PO SCH (08:26)
[2020-10-05] MEDS: carvediloL 3.125 MG TAB PO SCH ×2 (08:26→16:08)
[2020-10-05] MEDS: ASPIRIN 81 MG PO SCH (08:26)
[2020-10-05] MEDS: traMADol 50 MG TAB PO SCH ×2 (08:26→21:31)
[2020-10-05] MEDS: MULTIVITAMINS, THERA 1 EACH TAB PO SCH (08:26)
[2020-10-05] MEDS: ASCORBIC ACID 500 MG TAB PO SCH ×2 (08:27→16:07)
[2020-10-05] MEDS: PANTOPRAZOLE 40 MG TABLET PO SCH (08:27)
[2020-10-05] MEDS: AMIODARONE 200 MG TAB PO SCH (08:27)
[2020-10-05] MEDS: MICATIN TOPICAL SCH ×2 (08:28→21:42)
[2020-10-05] MEDS: buPROPion XL 150 MG TAB.ER.24H PO SCH (08:28)
[2020-10-05 11:05] LABS: Glucose,Whole Blood 317 mg/dL (75-99)
[2020-10-05 11:30] LABS: African American GFR (CKD) 20.4 (60.0-200.0); Anion Gap 11.5 mmol/L (4.00-12.00); BUN/Creat Ratio 39.06 Ratio (12.00-20.00); Calcium 8.3 mg/dL (8.7-10.3); Carbon Dioxide 21.5 mmol/L (21.6-31.8); Non-African American GFR(CKD) 17.6 (60.0-200.0); Potassium 4.9 mmol/L (3.5-5.5)
--- NOTE | 2020-10-05 12:13 | P.PN ---
Subjective Progress Note Date: 10/05/20 Acute hypoxic respiratory failure secondary to COVID 19 pneumonitis This is a pleasant 80-year-old gentleman who resides in a assisted living facility. He has a history of coronary artery disease with previous stent placement, chronic obstructive pulmonary disease, former smoker, diabetes mellitus type 2, gastroesophageal reflux disease, hyperlipidemia, hypertension, osteoarthritis, bladder cancer status post ileostomy. He presented to [facility] with complaints of increasing shortness of breath, cough congestion, low back pain, diarrhea, weakness. He had also fallen and sustained injury to his left elbow. He is found to be in acute renal failure and hypoxemic and transferred here yesterday for further treatment. His randolph virus test was 8 days ago. Chest x-ray shows evidence of COPD, cardiomegaly and basilar atelectasis. White count 4.6. Hemoglobin 11.0. Platelet count 140,000. Sodium 135. Potassium 4.0. Creatinine 4.94. Urinalysis with moderate bacteria, large leukocyte esterase. He is seen today in consultation on the regular medical floor. He is currently sitting up in bed. Awake and alert in no acute distress. 18 and O2 saturations in the 90s on 4 L/m per nasal cannula. He's been afebrile. Hemodynamically stable. Initiated on ceftriaxone. The patient is seen today 09/26/2020 in follow-up on the regular medical floor. He is resting comfortably in bed. Awake and alert in no acute distress. Breathing a bit easier today compared to yesterday. Maintaining O2 saturation in the low 90s on 7 L high flow nasal cannula. He's been afebrile. Hemodyna mically stable. White count 5.1. Hemoglobin 11.0. Sodium 138. Potassium 3.6. Creatinine 4.6. Patient was reevaluated today on 09/27/20, surprisingly the patient is feeling better, breathing a lot easier, becoming more and more active in the room. Patient was seen for his hydronephrosis by nephrology and urology, patient is scheduled for CT of abdomen and pelvis to better assess his hydronephrosis, and the urologist is concern about the possibility of obstruction or possibly reflux given his history of the conduit. In the meantime the patient is being followed by nephrology and addressing his acute on chronic kidney injury. Pulmonary- hudson, the patient is feeling better, remains on 15 L high flow nasal cannula, and his O2 saturation is 91%. CBC today is relatively normal. Basic metabolic profile is normal. However his bicarb is low at 14, BUN is 87 creatinine is 4.4. Reevaluated today on 09/28/20, patient is still requiring high flow FiO2, he is now on 15 L/m, clinically he is feeling better, breathing easier, sitting in bed eating, in no distress. Patient is being followed by nephrology and urology regarding his hydronephrosis, pulmonary-hudson basically he is about the same. Reevaluated today on 09/29/20, patient remains on the regular medical floor, however he is requiring significant amount of FiO2, he is now on airvo FiO2 is 90%, and 60 L flow. O2 saturation is marginal. Clinically the patient is feeling better, breathing easier. Maintained on oral Lasix, patient is nonoliguric. On 09/30/2020 patient seen in follow-up on general medical oncology floor. He is on high flow oxygen, per Airvo at 60 L and FiO2 of 89-90%, and he is satting about 97%. Does not appear to be in any acute distress, however patient is generally weak, requires extensive assistance to get up to the bedside commode, overall she is feeling somewhat better, he is breathing easier, patient was outside the window for Remdesivir, he did receive 1 unit of convalescent plasma. He is currently on vitamin C, dexamethasone, daily dose of Lasix. He is in - 2.5 L over the last 24 hours. Patient is awake and alert, still has some trace lower extremity edema. No new labs today. He is on subcu heparin for DVT prophylaxis, his last d-dimer was 0.63. On 10/04/2020 patient seen in follow-up on medical floor, he is resting in bed, the confusion has somewhat improved, she still has a health and safety trainer at the bedside, no agitation, he could tell us that she was in the hospital, and he knew the year. She is very weak, short of breath with exertion, remains on high flow oxygen per Airvo at 60 L and 90%, and his pulse ox is 98%, hemodynamically has been stable, he's been afebrile. His chest x-ray has been reviewed, showing patchy peripheral airspace disease persistence. His labs have been reviewed, showing BUN of 1:15, creatinine of 3, renal function has gotten a little worse since yesterday. His last LDH was done yesterday, down trending, at 439, CRP is 3.9. No nausea vomiting or diarrhea. Patient remains on vitamin C, he is on a cough syrup, nebulized bronchodilators, once daily dose of oral Lasix, IV steroids at 60 mg every 6 hours. Status post transfusion with 2 units of convalescent plasma. he was outside the window for Remdesivir, On 10/05/2020, the patient is on high flow oxygen 60 L per minute nasal cannula. He short of breath even at rest and he gets short of breath on minimal amount of activity. He is still being treated forCOVID 19 related pneumonia. He remains on Decadron. No chest pain. No altered mentation. No nausea vomiting or diarrhea or abdominal pain. He is able to tolerate the high flow oxygen without any major difficulties. At the same time, the patient had an acute on top of his chronic kidney disease. The acute kidney failure was attributed to ATN. Creatinine was as high as above for and it has gradually improved. She also has a right-sided hydronephrosis. Nephrology is on the case. The patient is on IV fluids and his currently receiving normal saline at the rate of 75 mL an hour. He is in a negative fluid balance as the patient is being diuresis with oral Lasix 40 mg by mouth daily. He remains on IV Solu-Medrol 60 mg every 6 hours. He is on Levemir insulin 65 units at bedtime in addition to NovoLog 10 units with meals and is sinus. Coverage. He is on Lovenox 30 mg subcu for DVT prophylaxis. No altered mentation. No significant fluid overload and the patient has no edema in lower extremities bilaterally. His chest x-ray from 09/26/2020 showed some patchy peripheral pulmonary infiltrates still persistent consistent with COVID 19 related pneumonia. He is post coronary artery bypass surgery and there is a sternotomy wires over the anterior chest. Patient also has a pacer Objective - Vital Signs Vital signs: Vital Signs Temp 97.8 F 10/05/20 11:00 Pulse 66 10/05/20 11:00 Resp 18 10/05/20 11:00 BP 116/72 10/05/20 11:00 Pulse Ox 93 L 10/05/20 11:00 Intake & Output 10/04/20 10/05/20 10/05/20 18:59 06:59 18:59 Output Total 450 600 Balance -450 -600 Weight 108.862 kg Output: Urine 450 600 Other: Voiding Method Ileal Conduit (Right) Ileal Conduit (Right) Ileal Conduit (Right) # Bowel Movements 0 - Exam GENERAL EXAM: Alert, weak, 80-year-old white male, currently onAirvo at 60 L, and FiO2 of 90%, satting 98% , comfortable in no apparent distress. HEAD: Normocephalic/atraumatic. EYES: Normal reaction of pupils, equal size. Conjunctiva pink, sclera white. NOSE: Clear with pink turbinates. THROAT: No erythema or exudates. NECK: No masses, no JVD, no thyroid enlargement, no adenopathy. CHEST: No chest wall deformity. Symmetrical expansion. LUNGS: Equal air entry with no crackles, wheeze, rhonchi or dullness. CVS: Regular rate and rhythm, normal S1 and S2, no gallops, no murmurs, no rubs ABDOMEN: Soft, nontender. No hepatosplenomegaly, normal bowel sounds, no guarding or rigidity. EXTREMITIES: No clubbing, trace lower extremity edema no cyanosis, 2+ pulses and upper and lower extremities. MUSCULOSKELETAL: Muscle strength and tone normal. SPINE: No scoliosis or deformity SKIN: No rashes CENTRAL NERVOUS SYSTEM: Alert and oriented -3. No focal deficits, tone is normal in all 4 extremities. PSYCHIATRIC: Alert and oriented -3. Appropriate affect. Intact judgment and insight. - Labs CBC & Chem 7: 09/26/20 08:37 10/05/20 06:10 Labs: Abnormal Lab Results - Last 24 Hours (Table) 10/04/20 10/04/20 10/05/20 Range/Units 16:51 20:33 06:10 Carbon Dioxide 21.5 L (21.6-31.8) mmol/L BUN 125.0 H* (9.0-27.0) mg/dL Creatinine 3.2 H (0.6-1.5) mg/dL Est GFR (CKD-EPI)AfAm 20.4 L (60.0-200.0) Est GFR (CKD-EPI)NonAf 17.6 L (60.0-200.0) BUN/Creatinine Ratio 39.06 H (12.00-20.00) Ratio Glucose 139 H (70-110) mg/dL POC Glucose (mg/dL) 153 H 161 H (75-99) mg/dL Calcium 8.3 L (8.7-10.3) mg/dL 10/05/20 10/05/20 Range/Units 07:17 11:04 Carbon Dioxide (21.6-31.8) mmol/L BUN (9.0-27.0) mg/dL Creatinine (0.6-1.5) mg/dL Est GFR (CKD-EPI)AfAm (60.0-200.0) Est GFR (CKD-EPI)NonAf (60.0-200.0) BUN/Creatinine Ratio (12.00-20.00) Ratio Glucose (70-110) mg/dL POC Glucose (mg/dL) 146 H 317 H (75-99) mg/dL Calcium (8.7-10.3) mg/dL Assessment and Plan Plan: #1. Acute hypoxic respiratory failure, severe, related to COVID 19 pneumonitis, and patient continues to require high flow oxygen per Airvo is 60 L and FiO2 of 90%, patient was also performed of for Remdesivir, received 2 units of convalescent immunoglobulin for COVID 19 on 09/25/2020, and 10/02/2020 clinically, the patient is essentially unchanged compared to yesterday. He re hayden on high flow oxygen at 60 L. No interval improvement or worsening shortness of breath. #2. Chronic kidney disease, with possible obstructive uropathy, nephrology and urology are on the case #3. History of bladder cancer and history of ileal conduit #4. Gastroenteritis secondary to quit 19 infection #5. Benign essential hypertension #6. Dyslipidemia #7. History of COPD #8. History of GERD without esophagitis #9. Former smoker #10. Type 2 diabetes mellitus #11. Steroid-induced hyperglycemia Plan: Continue current medical treatment, continue IV steroids, continue vitamins, including vitamin C, zinc, continue cough syrup, continue prophylactic dose Lovenox. Chest x-ray shows persistence of bilateral airspace disease, and patient still requires high flow oxygen. He has been very slow to progress. We will continue supportive treatment, patient is DO NOT RESUSCITATE CODE STATUS. Continue the Solu-Medrol Attempt to wean the FiO2 to maintain saturation above 90% Monitor renal function nephrology is on the case. Does not seem to the patient is a good candidate for dialysis based on their opinion. Continue oral Lasix
--- NOTE | 2020-10-05 16:04 | P.PN ---
Subjective Progress Note Date: 10/05/20 patient is a pleasant pleasant 82-year-old male came in with complains of shortness of breath does have history of COPD patient was diagnosed with Covid 19 6 days ago. Patient is comparing of shortness of breath cough congestion diarrhea for couple days. Patient is found to have renal failure, actually patient appears to have chronic kidney disease I do not know his baseline creatinine baseline creatinine around the about any year ago was 1.4 but apparently patient is supposed to be started on hemodialysis. Patient denied any UTI symptoms with the patient urine is abnormal, nephrology believes her UTI is responsible for acute renal failure and acute tubular necrosis in the recommending antibiotics and patient was started on Rocephin which is being continued at this time. Nephrology is recommending Lasix and discontinue IV fluids. 10/04/2020 Patient is seen in follow-up and continues to require high flow oxygen via Airvo as well as a nonrebreather and oxygen saturation is 98%. Patient continues to be severely dyspneic with any form of exertion and also appears to be quite anxious. Patient does have a sitter at the side of the bed as he continues to have confusion at times and will pull mask soft and easy that quickly. Patient is eating although intake continues to be poor. Urine output noted although patient's creatinine has worsened today and is currently 3.0 with a BUN of 115. Nephrology is following. Blood sugars continue to be elevated and will continue with sliding scale, pre-meal, and long acting. Had a lengthy discussion with daughter Clarissa today about CODE STATUS and she is the power of mushroom laborer and CODE STATUS was changed to no code per patient and daughter's wishes. 10/05/2020 Patient is seen in follow-up this morning and continues to be on Airvo with an O2 flow rate of 60 and an FiO2 of 90 and currently 88%. Patient does not currently have a nonrebreather mask on. Patient needs constant re-encouragement to keep the oxygen on. Patient's mentation is slightly more clear today although continues to be confused at times. Patient is anxious as well. Pulmonary is following and patient is maintained on IV steroids along with vitamin C supplementation, Lovenox, and zinc and will continue at this time. Patient continues to be quite weak and severely dyspneic with any exertion. Patient urine output is adequate and patient is maintained on normal saline along with oral Lasix and nephrology following closely. Current creatinine is 3.2. Patient is not a candidate for dialysis at this time and also patient has refused this as well. Urology following recommending possible nephrostomy tube once more stable respiratory hudson. Constitutional: Anxious, no reports of fever, reports fatigue Cardio vascular: denied any chest pain, palpitations Gastrointestinal denied any nausea vomiting Pulmonary: as mentioned in HPI Neurologic reports weakness All inpatient medications were reviewed and appropriate changes in these medications as dictated in the interval history and assessment and plan. Active Medications Acetaminophen (Acetaminophen Tab 500 Mg Tab) 1,000 mg PO Q6H PRN PRN Reason: Fever and/ or Pain Hydrocodone Bitart/Acetaminophen (Hydrocodone/Apap 5-325mg 1 Each Tab) 1 each PO Q8H PRN PRN Reason: Pain Albuterol Sulfate (Albuterol Hfa Inhaler) 2 puff INHALATION RT-Q4H PRN PRN Reason: Shortness Of Breath Last Admin: 10/05/20 15:42 Dose: 2 puff Documented by: Alprazolam (Alprazolam 0.25 Mg Tab) 0.25 mg PO BID PRN PRN Reason: Anxiety Last Admin: 10/04/20 20:18 Dose: 0.25 mg Documented by: Amiodarone HCl (Amiodarone 200 Mg Tab) 200 mg PO DAILY [facility] Last Admin: 10/05/20 08:27 Dose: 200 mg Documented by: Ascorbic Acid (Ascorbic Acid 500 Mg Tab) 250 mg PO BID@0800,1700 [facility] Last Admin: 10/05/20 08:27 Dose: 250 mg Documented by: Aspirin (Aspirin 81 Mg) 81 mg PO DAILY [facility] Last Admin: 10/05/20 08:26 Dose: 81 mg Documented by: Baclofen (Baclofen 10 Mg Tab) 10 mg PO TID PRN PRN Reason: Muscle Pain Benzocaine/Menthol (Benzocaine/Menthol Lozeng 1 Each Lozenge) 1 each MUCOUS MEM Q4HR PRN PRN Reason: Sore Throat Last Admin: 10/02/20 10:09 Dose: 1 each Documented by: Bisacodyl (Bisacodyl 10 Mg Supp) 10 mg RECTAL DAILY PRN PRN Reason: Constipation Budesonide/Formoterol Fumarate (Symbicort 160-4.5 Mcg Inhaler) 2 puff INHALATION RT-BID [facility] Last Admin: 12/29/20 08:25 Dose: 2 puff Documented by: Bupropion HCl (Bupropion Xl 150 Mg Tab.Er.24h) 150 mg PO DAILY [facility] Last Admin: 10/05/20 08:28 Dose: 150 mg Documented by: Calcium Carbonate/Glycine (Calcium Carbonate 500 Mg Chewable) 1,000 mg PO Q8H PRN PRN Reason: Indigestion Carvedilol (Carvedilol 3.125 Mg Tab) 3.125 mg PO BID@0800,1800 [facility] Last Admin: 10/05/20 08:26 Dose: 3.125 mg Documented by: Cholecalciferol (Cholecalciferol 1,000 Unit Tab) 2,000 unit PO DAILY [facility] Last Admin: 10/05/20 08:25 Dose: 2,000 unit Documented by: Clotrimazole (Clotrimazole Melo 10 Mg Melo) 10 mg MUCOUS MEM 5XD [facility] Stop: 10/09/20 11:00 Last Admin: 10/05/20 09:35 Dose: 10 mg Documented by: Enoxaparin Sodium (Enoxaparin 30 Mg/0.3 Ml Syringe) 30 mg SQ DAILY [facility] Last Admin: 10/05/20 08:24 Dose: 30 mg Documented by: Ferrous Sulfate (Ferrous Sulfate 325 Mg Tab) 325 mg PO HS@1800 [facility] Last Admin: 10/04/20 17:28 Dose: 325 mg Documented by: Guaifenesin/Dextromethorphan (Guaifenesin-Dm 100-10mg/5ml 10 Ml Cup) 5 ml PO Q4H PRN PRN Reason: Cough Hydralazine HCl (Hydralazine Hcl 25 Mg Tab) 25 mg PO TID [facility] Last Admin: 10/05/20 08:24 Dose: 25 mg Documented by: Insulin Aspart (Insulin Aspart (Novolog) 100 Unit/Ml Vial) 0 unit SQ ACHS [facility]; Protocol Last Admin: 10/05/20 13:01 Dose: 8 unit Documented by: Insulin Aspart (Insulin Aspart (Novolog) 100 Unit/Ml Vial) 10 unit SQ AC-TID S Last Admin: 10/05/20 13:01 Dose: 10 unit Documented by: Insulin Detemir (Insulin Detemir (Levemir) 100 Unit/Ml Syr) 65 unit SQ [facility] Last Admin: 10/04/20 21:20 Dose: 65 unit Documented by: Loperamide HCl (Loperamide 2 Mg Cap) 2 mg PO QID PRN PRN Reason: Diarrhea Last Admin: 09/26/20 00:31 Dose: 2 mg Documented by: Loratadine (Loratadine 10 Mg Tab) 10 mg PO [facility] Last Admin: 10/04/20 20:16 Dose: 10 mg Documented by: Magnesium Hydroxide (Magnesium Hydroxide 2,400 Mg/10 Ml Cup) 2,400 mg PO DAILY PRN PRN Reason: Constipation Melatonin (Melatonin 5 Mg Tablet) 10 mg PO [facility] Last Admin: 10/04/20 20:16 Dose: 10 mg Documented by: Methylprednisolone Sodium Succinate (Methylprednisolone Sod Succi 125 Mg/2 Ml Vial) 60 mg IV Q6HR [facility] Last Admin: 10/05/20 13:00 Dose: 60 mg Documented by: Multivitamins (Multivitamins, Thera 1 Each Tab) 1 each PO DAILY [facility] Last Admin: 10/05/20 08:26 Dose: 1 each Documented by: Naloxone HCl (Naloxone 0.4 Mg/Ml 1 Ml Vial) 0.2 mg IV Q2M PRN PRN Reason: Opioid Reversal Micatin Cream 1 applic TOPICAL BID [facility] Last Admin: 10/05/20 08:28 Dose: Not Given Documented by: Miconazole Nitrate [ Zeasorb Af] 71 Gm Powder 1 applic TOPICAL BID PRN PRN Reason: SKIN FOLD/GROIN AREA Ondansetron HCl (Ondansetron 4 Mg Tab) 4 mg PO Q8H PRN PRN Reason: Nausea And Vomiting Pantoprazole Sodium (Pantoprazole 40 Mg Tablet) 40 mg PO DAILY@0730 [facility] Last Admin: 10/05/20 08:27 Dose: 40 mg Documented by: Polyethylene Glycol (Polyethylene Glycol 3350 17 Gm Powd.Pack) 17 gm PO DAILY PRN PRN Reason: Constipation Pramipexole Dihydrochloride (Pramipexole 0.125 Mg Tab) 0.125 mg PO [facility] Last Admin: 10/04/20 20:16 Dose: 0.125 mg Documented by: Sodium Bicarbonate (Sodium Bicarbonate Tab 650 Mg Tab) 650 mg PO QID [facility] Last Admin: 10/05/20 13:02 Dose: 650 mg Documented by: Tramadol HCl (Tramadol 50 Mg Tab) 50 mg PO BID [facility] Last Admin: 10/05/20 08:26 Dose: 50 mg Documented by: Objective - Vital Signs Vital signs: Vital Signs Temp 97.8 F 10/05/20 11:00 Pulse 66 10/05/20 11:00 Resp 18 10/05/20 11:00 BP 116/72 10/05/20 11:00 Pulse Ox 88 L 10/05/20 15:34 Intake & Output 10/04/20 10/05/20 10/05/20 18:59 06:59 18:59 Output Total 450 600 Balance -450 -600 Weight 108.862 kg Output: Urine 450 600 Other: Voiding Method Ileal Conduit (Right) Ileal Conduit (Right) Ileal Conduit (Right) # Bowel Movements 0 - Exam GENERAL: The patient is alert and oriented x3, slightly anxious. Well developed, well nourished. Temp is 97.8, pulse is 66, respirations are 18, blood pressure is 116/72, oxygen saturations is 88% on high flow Airvo at 60% HEENT: Pupils are round and equally reacting to light. EOMI. No scleral icterus. No conjunctival pallor. Normocephalic, atraumatic. No pharyngeal erythema. No thyromegaly. Oral mucosa is dry. CARDIOVASCULAR: S1 and S2 present. No murmurs, rubs, or gallops. PULMONARY: Diminished breath sounds at the bases with some scattered crackles noted, no wheezing noted ABDOMEN: Soft, nontender, nondistended, normoactive bowel sounds. No palpable organomegaly. Suprapubic catheter noted MUSCULOSKELETAL: No joint swelling or deformity. EXTREMITIES: No cyanosis, clubbing, or pedal edema. NEUROLOGICAL: Gross neurological examination did not reveal any focal deficits. Diffusely weak SKIN: No rashes. - Labs CBC & Chem 7: 09/26/20 08:37 10/05/20 06:10 Labs: Abnormal Lab Results - Last 24 Hours (Table) 10/04/20 10/04/20 10/05/20 Range/Units 16:51 20:33 06:10 Carbon Dioxide 21.5 L (21.6-31.8) mmol/L BUN 125.0 H* (9.0-27.0) mg/dL Creatinine 3.2 H (0.6-1.5) mg/dL Est GFR (CKD-EPI)AfAm 20.4 L (60.0-200.0) Est GFR (CKD-EPI)NonAf 17.6 L (60.0-200.0) BUN/Creatinine Ratio 39.06 H (12.00-20.00) Ratio Glucose 139 H (70-110) mg/dL POC Glucose (mg/dL) 153 H 161 H (75-99) mg/dL Calcium 8.3 L (8.7-10.3) mg/dL 10/05/20 10/05/20 Range/Units 07:17 11:04 Carbon Dioxide (21.6-31.8) mmol/L BUN (9.0-27.0) mg/dL Creatinine (0.6-1.5) mg/dL Est GFR (CKD-EPI)AfAm (60.0-200.0) Est GFR (CKD-EPI)NonAf (60.0-200.0) BUN/Creatinine Ratio (12.00-20.00) Ratio Glucose (70-110) mg/dL POC Glucose (mg/dL) 146 H 317 H (75-99) mg/dL Calcium (8.7-10.3) mg/dL Assessment and Plan Assessment: -Acute hypoxic respiratory failure secondary to acute CoVID 19 pneumonitis. -Chronic kidney disease stage V -acute renal failure probably secondary to obstructive uropathy patient has right-sided hydronephrosis. patient presently has a suprapubic Gamez catheter -Volume overload secondary to renal failure -history of bladder cancer with ileostomy -Diarrhea secondary to Covid 19 resolved at this time -Type 2 diabetes mellitus, uncontrolled with hyperglycemia -Coronary artery disease with previous stents -Hypertension -Hyperlipidemia -Gastroesophageal reflux disease -COPD without any significant exacerbation. -No code Plan: Patient continues to require high amounts of oxygen and currently remains on Airvo at 60%. Nephrology and pulmonary following closely. Patient also continue s with Lasix and gentle IV hydration as patient continues to have elevated creatinine. Nephrology continues to monitor urine output as this is adequate at this time. Patient refusing any form of dialysis. Urology was consulted recommending possibility of nephrostomy tube although patient is hesitant and refusing at this time given current respiratory status. May consider in the future once respiratory status is more stable. His mentation slightly improved today and he is not pulling at the nasal cannula. Discussed at length with family about status and they are making arrangements to come to [place] soon as they are currently in [place]. Due to multiple complex medical issues, progno sis is extremely guarded. Further recommendations to follow. Time with Patient: Greater than 30
[2020-10-05] MEDS: FERROUS SULFATE 325 MG TAB PO SCH (16:07)
--- NOTE | 2020-10-05 16:47 | PN ---
PROGRESS NOTE Patient is seen for followup for acute kidney injury. He currently has underlying COVID pneumonia and is being followed for acute kidney injury. Renal function has been slowly worsening over the last few days, with creatinine up to 3.2 from 2.7 two days ago. Initial creatinine on admission was 4.94. Previous creatinine was 1.4 in October of 2018. The patient currently has good urine output with 24-hour output documented at 1050 L. Currently patient is maintained on oral Lasix at 40 mg daily. Chest x-ray from yesterday shows patchy peripheral airspace disease. No significant pleural effusions or CHF noted. PHYSICAL EXAMINATION: On examination today, blood pressure was 116/72, heart rate 66 per minute. He is afebrile. Examination of the abdomen shows it to be soft, nontender. Examination of lower extremities shows no significant edema. Lungs are not examined. LABS: Labs show sodium 136, potassium 4.9, chloride 109. CO2 is 21.5, BUN 125, creatinine 3.2. ASSESSMENT: 1. Acute kidney injury, acute tubular necrosis on initial admission. Serum creatinine had improved to 2.7; however, worsening again recently. The patient is maintained on oral Lasix. His volume status has improved. I will hold off on the Lasix for now. He has good urine output. CT scan did show some right-sided hydronephrosis. If his renal function continues to worsen, we will discuss with Urology. Patient was seen by Urology on 09/28/2020; however, at that time renal function had been improving. 2. COVID-19 pneumonia, status post Decadron and remdesivir, maintained on IV Solu- Medrol currently. 3. Metabolic acidosis associated with renal failure and RTA, maintained on oral bicarb. 4. Volume overload, currently improved. 5. Disproportionately elevated BUN associated with steroids, renal failure and possible underlying obstructive uropathy. PLAN: Hold Lasix, and if renal function continues to worsen, re-consult Urology. MMODL / IJN: [id number] /
[2020-10-05 17:02] LABS: Glucose,Whole Blood 391 mg/dL (75-99)
[2020-10-05] MEDS: ALPRAZolam 0.25 MG TAB PO PRN (18:19)
[2020-10-05 21:05] LABS: Glucose,Whole Blood 331 mg/dL (75-99)
[2020-10-05] MEDS: PRAMIPEXOLE 0.125 MG TAB PO SCH (21:31)
[2020-10-05] MEDS: LORATADINE 10 MG TAB PO SCH (21:31)
[2020-10-05] MEDS: MELATONIN 5 MG TABLET PO SCH (21:31)
[2020-10-05] MEDS: INSULIN DETEMIR (LEVEMIR) 100 UNIT/ML SYR SQ SCH (21:32)
[2020-10-06] MEDS: methylPREDNISolone SOD SUCCI 125 MG/2 ML VIAL IV SCH ×4 (00:48→16:44)
[2020-10-06] MEDS: CLOTRIMAZOLE TROCHE 10 MG TROCHE MUCOUS MEM SCH ×5 (00:49→21:28)
[2020-10-06 07:06] LABS: Glucose,Whole Blood 201 mg/dL (75-99)
[2020-10-06] MEDS: ENOXAPARIN 30 MG/0.3 ML SYRINGE SQ SCH (07:24)
[2020-10-06] MEDS: hydrALAZINE HCL 25 MG TAB PO SCH ×3 (07:25→21:28)
[2020-10-06] MEDS: PANTOPRAZOLE 40 MG TABLET PO SCH (07:25)
[2020-10-06] MEDS: ASPIRIN 81 MG PO SCH (07:25)
[2020-10-06] MEDS: ASCORBIC ACID 500 MG TAB PO SCH ×2 (07:26→16:42)
[2020-10-06] MEDS: traMADol 50 MG TAB PO SCH ×2 (07:26→21:37)
[2020-10-06] MEDS: SODIUM BICARBONATE TAB 650 MG TAB PO SCH ×4 (07:26→21:28)
[2020-10-06] MEDS: MULTIVITAMINS, THERA 1 EACH TAB PO SCH (07:27)
[2020-10-06] MEDS: CHOLECALCIFEROL 1,000 UNIT TAB PO SCH (07:27)
[2020-10-06] MEDS: carvediloL 3.125 MG TAB PO SCH ×2 (07:27→16:43)
[2020-10-06] MEDS: INSULIN ASPART (NovoLOG) 100 UNIT/ML VIAL SQ SCH ×6 (07:27→22:08)
[2020-10-06] MEDS: ALBUTEROL HFA INHALER INHALATION PRN ×4 (08:23→20:18)
[2020-10-06] MEDS: SYMBICORT 160-4.5 MCG INHALER INHALATION SCH ×2 (08:23→20:18)
[2020-10-06 10:53] LABS: Glucose,Whole Blood 220 mg/dL (75-99)
[2020-10-06] MEDS: MICATIN TOPICAL SCH ×2 (11:03→21:42)
[2020-10-06] MEDS: AMIODARONE 200 MG TAB PO SCH (11:03)
[2020-10-06] MEDS: buPROPion XL 150 MG TAB.ER.24H PO SCH (12:19)
--- NOTE | 2020-10-06 14:20 | P.PN ---
Subjective Progress Note Date: 10/06/20 Principal diagnosis: Acute CoVID 19 pneumonitis This is a pleasant 80-year-old gentleman who resides in a assisted living facility. He has a history of coronary artery disease with previous stent placement, chronic obstructive pulmonary disease, former smoker, diabetes mellitus type 2, gastroesophageal reflux disease, hyperlipidemia, hypertension, osteoarthritis, bladder cancer status post ileostomy. He presented to [facility] with complaints of increasing shortness of breath, cough congestion, low back pain, diarrhea, weakness. He had also fallen and sustained injury to his left elbow. He is found to be in acute renal failure and hypoxemic and transferred here yesterday for further treatment. His randolph virus test was 8 days ago. Chest x-ray shows evidence of COPD, cardiomegaly and basilar atelectasis. White count 4.6. Hemoglobin 11.0. Platelet count 140,000. Sodium 135. Potassium 4.0. Creatinine 4.94. Urinalysis with moderate bacteria, large leukocyte esterase. He is seen today in consultation on the regular medical floor. He is currently sitting up in bed. Awake and alert in no acute distress. 18 and O2 saturations in the 90s on 4 L/m per nasal cannula. He's been afebrile. Hemodynamically stable. Initiated on ceftriaxone. The patient is seen today 09/26/2020 in follow-up on the regular medical floor. He is resting comfortably in bed. Awake and alert in no acute distress. Breathing a bit easier today compared to yesterday. Maintaining O2 saturation in the low 90s on 7 L high flow nasal cannula. He's been afebrile. Hem odynamically stable. White count 5.1. Hemoglobin 11.0. Sodium 138. Potassium 3.6. Creatinine 4.6. The patient is seen today 10/01/2020 in follow-up on the regular medical floor. He is currently resting fairly comfortably in bed. Awake and alert in no acute distress. Still requiring airflow high flow oxygen at 60 L and 93% FiO2 to maintain O2 saturations in the 90s. He is quite dyspneic with minimal exertion. Chest x-ray continues to show opacities in the bilateral lower lobes. D-dimer 2.0. LDH 503. C-reactive protein 1.1. He remains on dexamethasone, bronchodilators, ceftriaxone, heparin for DVT prophylaxis. The patient is seen today 10/02/2020 in follow-up on the regular medical floor. He is currently resting in bed. Awake and alert in no acute distress. Still requiring AirVo high flow oxygen at 60 L and 90% FiO2. D-dimer 1.31. Sodium 138. Potassium 4.3. Creatinine 2.8. LDH 441. Continued on bronchodilators, dexamethasone, Lovenox, diuretics. Vitamin supplements. The patient is seen today 10/03/2020 in follow-up on the regular medical floor. He is awake and alert in no acute distress. He is still quite dyspneic with minimal exertion. Minimal conversation. Remains on AirVo high flow oxygen at 60 L and 90% FiO2. He is afebrile. D-dimer 1.35. Sodium 139. Potassium 4.5. Creatinine 2.7. LDH 439. C-reactive protein 3.9. He remains on Symbicort, albuterol, IV Solu-Medrol, vitamin supplements. He has received 2 units of convalescent plasma. Remains on Lovenox. The patient is seen today 10/06/2020 in follow-up on the regular medical floor. He is currently resting quite comfortably in bed. Awake and alert in no acute distress. He is still requiring high amounts of oxygen supplementations including airflow high flow oxygen at 60 L and 92% FiO2 along with a nonrebreather mask. He remains on albuterol, IV Solu-Medrol. Lovenox for DVT prophylaxis. Remains on vitamin supplements. Objective - Vital Signs Vital signs: Vital Signs Temp 97.6 F 10/06/20 11:00 Pulse 66 10/06/20 11:00 Resp 18 10/06/20 11:00 BP 133/72 10/06/20 05:00 Pulse Ox 94 L 10/06/20 11:00 Intake & Output 10/05/20 10/06/20 10/06/20 18:59 06:59 18:59 Output Total 600 825 500 Balance -600 -825 -500 Output: Urine 600 825 500 Other: Voiding Method Ileal Conduit (Right) Ileal Conduit (Right) Ileal Conduit (Right) - Exam GENERAL EXAM: Alert, pleasant 80-year-old gentleman, on AirVo high flow oxygen at 60 L and 92% FiO2, comfortable in no apparent distress. HEAD: Normocephalic. EYES: Normal reaction of pupils, equal size. NOSE: Clear with pink turbinates. THROAT: No erythema or exudates. NECK: No masses, no JVD. CHEST: No chest wall deformity. LUNGS: Equal air entry with bilateral scattered rhonchi, crackles in posterior bases. CVS: S1 and S2 normal with no audible murmur, regular rhythm. ABDOMEN: No hepatosplenomegaly, normal bowel sounds, no guarding or rigidity. SPINE: No scoliosis or deformity SKIN: Wound to the left elbow, dressing intact CENTRAL NERVOUS SYSTEM: No focal deficits, tone is normal in all 4 extremities. EXTREMITIES: There is no peripheral edema. No clubbing, no cyanosis. Ina pheral pulses are intact. - Labs CBC & Chem 7: 09/26/20 08:37 10/05/20 06:10 Labs: Abnormal Lab Results - Last 24 Hours (Table) 10/05/20 10/05/20 10/05/20 Range/Units 06:10 17:00 20:54 BUN 125.0 H* (9.0-27.0) mg/dL POC Glucose (mg/dL) 391 H 331 H (75-99) mg/dL 10/06/20 10/06/20 Range/Units 07:05 10:52 BUN (9.0-27.0) mg/dL POC Glucose (mg/dL) 201 H 220 H (75-99) mg/dL Assessment and Plan Assessment: 1 Acute hypoxic respiratory failure secondary to acute CoVID 19 pneumonitis. Outside the window for Remdesivir, GFR 10. Did receive 2 units of convalescent plasma 2 Acute renal failure of unclear etiology. Possible dehydration. Renal u ltrasound reveals atrophy of the bilateral kidneys right greater than left right-sided hydronephrosis 3 History of bladder cancer status post ileostomy 4 Diarrhea secondary to CoVID 19 infection 5 Diabetes mellitus, type II 6 Coronary disease with previous stent placement 7 Hypertension 8 Hyperlipidemia 9 Gastroesophageal reflux disease 10 Former smoker Plan: The patient was seen and evaluated by Dr. Jones He has been slow to progress Remains on AirVo high flow 60 L and 92% Continue the current treatment plan Titrate down the FiO2 as tolerated Repeat chest x-ray in a.m. Prognosis is guarded He is a DO NOT RESUSCITATE/DO NOT INTUBATE CODE STATUS We will continue to follow I, the cosigning physician, performed a history & physical examination of the patient. Lungs sounds bilateral scattered rhonchi, crackles in the posterior bases. Maintaining O2 saturations in the 90s on AirVo high flow oxygen at 60 L and 92% FiO2. I discussed the assessment and plan of care with my nurse practitioner, Maria Luz Daniels. I attest to the above note as dictated by her.
--- NOTE | 2020-10-06 14:21 | PN ---
PROGRESS NOTE The patient is seen for follow up for acute kidney injury. He has underlying COVID pneumonia. Renal function has been slowly worsening for the last couple of days, although improved since admission with creatinine down to 2.7 from 4.9 on initial admission, but started to go up again and it was 3.2 yesterday. Diuretics were decreased yesterday. PHYSICAL EXAMINATION: On examination today, patient is comfortable. He is awake, not in any acute distress. Heart rate 66 per minute. He is afebrile. Blood pressure 133/72. He is maintained on high-flow nasal cannula, O2 sats at 94%. Examination of the abdomen reveals it to be soft, nontender, distended. Examination of lower extremities shows trace edema. [employer] exam is grossly intact. Patient moving all 4 extremities. LABS: Labs are not available from today. Chest x-ray done on 10/04 shows bilateral infiltrates. ASSESSMENT: 1. Acute kidney injury, acute tubular necrosis, associated with underlying COVID infection currently nonoliguric. There was volume overload previously and patient was maintained on Lasix which was decreased yesterday. Check labs today and continue to avoid nephrotoxic agents. 2. CT scan did show some right-sided hydronephrosis. This will need to be addressed if renal function does not improve. 3. COVID-19 pneumonia, status post Decadron, remdesivir, maintained on IV steroids. 4. Metabolic acidosis associated with renal failure, RTA, maintained on oral sodium bicarb. 5. Volume overload, now improved. 6. Disproportionately elevated BUN associated with steroids and renal failure, possibly secondary to obstructive uropathy as well. PLAN: Check labs today. Continue to hold Lasix for now. Repeat labs in a.m. Avoid hypotension. Consult Urology if renal function is worse. MMODL / IJN: [id number] /
[2020-10-06 16:39] LABS: Glucose,Whole Blood 197 mg/dL (75-99)
[2020-10-06] MEDS: FERROUS SULFATE 325 MG TAB PO SCH (16:42)
[2020-10-06] MEDS: MELATONIN 5 MG TABLET PO SCH (21:28)
[2020-10-06] MEDS: PRAMIPEXOLE 0.125 MG TAB PO SCH (21:42)
[2020-10-06] MEDS: LORATADINE 10 MG TAB PO SCH (21:42)
[2020-10-06 21:56] LABS: Glucose,Whole Blood 307 mg/dL (75-99)
[2020-10-06] MEDS: BACLOFEN 10 MG TAB PO PRN (22:08)
[2020-10-06] MEDS: INSULIN DETEMIR (LEVEMIR) 100 UNIT/ML SYR SQ SCH (22:10)
--- NOTE | 2020-10-06 23:39 | P.PN ---
Subjective Progress Note Date: 10/06/20 patient is a pleasant 82-year-old male came in with complains of shortness of breath does have history of COPD patient was diagnosed with Covid 19 6 days ago. Patient is comparing of shortness of breath cough congestion diarrhea for couple days. Patient is found to have renal failure, actually patient appears to have chronic kidney disease I do not know his baseline creatinine baseline creatinine around the about any year ago was 1.4 but apparently patient is supposed to be started on hemodialysis. Patient denied any UTI symptoms with the patient urine is abnormal, nephrology believes her UTI is responsible for acute renal failure and acute tubular necrosis in the recommending antibiotics and patient was started on Rocephin which is being continued at this time. Nephrology is recommending Lasix and discontinue IV fluids. 10/04/2020 Patient is seen in follow-up and continues to require high flow oxygen via Airvo as well as a nonrebreather and oxygen saturation is 98%. Patient continues to be severely dyspneic with any form of exertion and also appears to be quite anxious. Patient does have a sitter at the side of the bed as he continues to have confusion at times and will pull mask soft and easy that quickly. Patient is eating although intake continues to be poor. Urine output noted although patient's creatinine has worsened today and is currently 3.0 with a BUN of 115. Nephrology is following. Blood sugars continue to be elevated and will continue with sliding scale, pre-meal, and long acting. Had a lengthy discussion with daughter Clarissa today about CODE STATUS and she is the power of employment law attorney and CODE STATUS was changed to no code per patient and daughter's wishes. 10/05/2020 Patient is seen in follow-up this morning and continues to be on Airvo with an O2 flow rate of 60 and an FiO2 of 90 and currently 88%. Patient does not currently have a nonrebreather mask on. Patient needs constant re-encouragement to keep the oxygen on. Patient's mentation is slightly more clear today although continues to be confused at times. Patient is anxious as well. Susie huffman is following and patient is maintained on IV steroids along with vitamin C supplementation, Lovenox, and zinc and will continue at this time. Patient continues to be quite weak and severely dyspneic with any exertion. Patient urine output is adequate and patient is maintained on normal saline along with oral Lasix and nephrology following closely. Current creatinine is 3.2. Patient is not a candidate for dialysis at this time and also patient has refused this as well. Urology following recommending possible nephrostomy tube once more stable respiratory hudson. 10/06/2020 Patient evaluated this morning and remains on Airvo along with 15L Non rebreather as respiratory status continues to decline. Patient continues to have urine output and current creatinine not available. Will repeat am labs. Nephrology along with pulmonary following. Wean FI02 as tolerated although patient has not shown any improvements in respiratory status. Lasix on hold right now as renal function was worsening. Patient is weak and needs redirection on maintaining Airvo and NRB along with assistance with ADL's. PT/OT following. Blood sugars continue to be elevated and maintained on long acting along with sliding scale. Patient will continue with IV steroids, lovenox, zinc, and vitamin supplementation at this time. Constitutional: Anxious, no reports of fever, reports fatigue Cardio vascular: denied any chest pain, palpitations Gastrointestinal denied any nausea vomiting Pulmonary: reports extreme shortness of breath Neurologic reports weakness All inpatient medications were reviewed and appropriate changes in these medications as dictated in the interval history and assessment and plan. Active Medications Acetaminophen (Acetaminophen Tab 500 Mg Tab) 1,000 mg PO Q6H PRN PRN Reason: Fever and/ or Pain Hydrocodone Bitart/Acetaminophen (Hydrocodone/Apap 5-325mg 1 Each Tab) 1 each PO Q8H PRN PRN Reason: Pain Albuterol Sulfate (Albuterol Hfa Inhaler) 2 puff INHALATION RT-Q4H PRN PRN Reason: Shortness Of Breath Last Admin: 10/06/20 20:18 Dose: 2 puff Documented by: Alprazolam (Alprazolam 0.25 Mg Tab) 0.25 mg PO BID PRN PRN Reason: Anxiety Last Admin: 10/05/20 18:19 Dose: 0.25 mg Documented by: Amiodarone HCl (Amiodarone 200 Mg Tab) 200 mg PO DAILY [facility] Last Admin: 10/06/20 11:03 Dose: 200 mg Documented by: Ascorbic Acid (Ascorbic Acid 500 Mg Tab) 250 mg PO BID@0800,1700 [facility] Last Admin: 10/06/20 16:42 Dose: 250 mg Documented by: Aspirin (Aspirin 81 Mg) 81 mg PO DAILY [facility] Last Admin: 10/06/20 07:25 Dose: 81 mg Documented by: Baclofen (Baclofen 10 Mg Tab) 10 mg PO TID PRN PRN Reason: Muscle Pain Last Admin: 10/06/20 22:08 Dose: 10 mg Documented by: Benzocaine/Menthol (Benzocaine/Menthol Lozeng 1 Each Lozenge) 1 each MUCOUS MEM Q4HR PRN PRN Reason: Sore Throat Last Admin: 10/02/20 10:09 Dose: 1 each Documented by: Bisacodyl (Bisacodyl 10 Mg Supp) 10 mg RECTAL DAILY PRN PRN Reason: Constipation Budesonide/Formoterol Fumarate (Symbicort 160-4.5 Mcg Inhaler) 2 puff INHALATION RT-BID [facility] Last Admin: 10/06/20 20:18 Dose: 2 puff Documented by: Bupropion HCl (Bupropion Xl 150 Mg Tab.Er.24h) 150 mg PO DAILY [facility] Last Admin: 10/06/20 12:19 Dose: 150 mg Documented by: Calcium Carbonate/Glycine (Calcium Carbonate 500 Mg Chewable) 1,000 mg PO Q8H PRN PRN Reason: Indigestion Carvedilol (Carvedilol 3.125 Mg Tab) 3.125 mg PO BID@0800,1800 [facility] Last Admin: 10/06/20 16:43 Dose: 3.125 mg Documented by: Cholecalciferol (Cholecalciferol 1,000 Unit Tab) 2,000 unit PO DAILY [facility] Last Admin: 10/06/20 07:27 Dose: 2,000 unit Documented by: Clotrimazole (Clotrimazole Melo 10 Mg Melo) 10 mg MUCOUS MEM 5XD [facility] Stop: 10/09/20 11:00 Last Admin: 10/06/20 21:28 Dose: 10 mg Documented by: Enoxaparin Sodium (Enoxaparin 30 Mg/0.3 Ml Syringe) 30 mg SQ DAILY [facility] Last Admin: 10/06/20 07:24 Dose: 30 mg Documented by: Ferrous Sulfate (Ferrous Sulfate 325 Mg Tab) 325 mg PO HS@1800 [facility] Last Admin: 10/06/20 16:42 Dose: 325 mg Documented by: Guaifenesin/Dextromethorphan (Guaifenesin-Dm 100-10mg/5ml 10 Ml Cup) 5 ml PO Q4H PRN PRN Reason: Cough Hydralazine HCl (Hydralazine Hcl 25 Mg Tab) 25 mg PO TID [facility] Last Admin: 10/06/20 21:28 Dose: 25 mg Documented by: Insulin Aspart (Insulin Aspart (Novolog) 100 Unit/Ml Vial) 0 unit SQ ACHS [facility]; Protocol Last Admin: 10/06/20 22:08 Dose: 8 unit Documented by: Insulin Aspart (Insulin Aspart (Novolog) 100 Unit/Ml Vial) 10 unit SQ AC-TID [facility] Last Admin: 10/06/20 17:27 Dose: 10 unit Documented by: Insulin Detemir (Insulin Detemir (Levemir) 100 Unit/Ml Syr) 65 unit SQ [facility] Last Admin: 10/06/20 22:10 Dose: 65 unit Documented by: Loperamide HCl (Loperamide 2 Mg Cap) 2 mg PO QID PRN PRN Reason: Diarrhea Last Admin: 09/26/20 00:31 Dose: 2 mg Documented by: Loratadine (Loratadine 10 Mg Tab) 10 mg PO [facility] Last Admin: 10/06/20 21:42 Dose: 10 mg Documented by: Magnesium Hydroxide (Magnesium Hydroxide 2,400 Mg/10 Ml Cup) 2,400 mg PO DAILY PRN PRN Reason: Constipation Melatonin (Melatonin 5 Mg Tablet) 10 mg PO [facility] Last Admin: 10/06/20 21:28 Dose: 10 mg Documented by: Methylprednisolone Sodium Succinate (Methylprednisolone Sod Succi 125 Mg/2 Ml Vial) 60 mg IV Q6HR [facility] Last Admin: 10/06/20 16:44 Dose: 60 mg Documented by: Multivitamins (Multivitamins, Thera 1 Each Tab) 1 each PO DAILY [facility] Last Admin: 10/06/20 07:27 Dose: 1 each Documented by: Naloxone HCl (Naloxone 0.4 Mg/Ml 1 Ml Vial) 0.2 mg IV Q2M PRN PRN Reason: Opioid Reversal Micatin Cream 1 applic TOPICAL BID [facility] Last Admin: 10/06/20 21:42 Dose: Not Given Documented by: Miconazole Nitrate [ Zeasorb Af] 71 Gm Powder 1 applic TOPICAL BID PRN PRN Reason: SKIN FOLD/GROIN AREA Ondansetron HCl (Ondansetron 4 Mg Tab) 4 mg PO Q8H PRN PRN Reason: Nausea And Vomiting Pantoprazole Sodium (Pantoprazole 40 Mg Tablet) 40 mg PO DAILY@0730 [facility] Last Admin: 10/06/20 07:25 Dose: 40 mg Documented by: Polyethylene Glycol (Polyethylene Glycol 3350 17 Gm Powd.Pack) 17 gm PO DAILY PRN PRN Reason: Constipation Pramipexole Dihydrochloride (Pramipexole 0.125 Mg Tab) 0.125 mg PO HS [facility] Last Admin: 10/06/20 21:42 Dose: 0.125 mg Documented by: Sodium Bicarbonate (Sodium Bicarbonate Tab 650 Mg Tab) 650 mg PO QID [facility] Last Admin: 10/06/20 21:28 Dose: 650 mg Documented by: Tramadol HCl (Tramadol 50 Mg Tab) 50 mg PO BID [facility] Last Admin: 10/06/20 21:37 Dose: 50 mg Documented by: Objective - Vital Signs Vital signs: Vital Signs Temp 97.6 F 10/06/20 11:00 Pulse 66 10/06/20 11:00 Resp 18 10/06/20 11:00 BP 133/72 10/06/20 05:00 Pulse Ox 94 L 10/06/20 11:00 Intake & Output 10/05/20 10/06/20 10/06/20 18:59 06:59 18:59 Output Total 600 825 500 Balance -600 -825 -500 Output: Urine 600 825 500 Other: Voiding Method Ileal Conduit (Right) Ileal Conduit (Right) Ileal Conduit (Right) - Exam GENERAL: The patient is alert and oriented x3, slightly anxious. Well developed, well nourished. Temp is 97.6, pulse is 66, respirations are 18, blood pressure is 133/72, oxygen saturations is 94% on high flow Airvo at 60% along with 15 L nonrebreather HEENT: Pupils are round and equally reacting to light. EOMI. No scleral icterus. No conjunctival pallor. Normocephalic, atraumatic. No pharyngeal erythema. No thyromegaly. Oral mucosa is dry. CARDIOVASCULAR: S1 and S2 muffled PULMONARY: Diminished breath sounds at the bases with some scattered crackles noted, no wheezing noted ABDOMEN: Soft, nontender, nondistended, normoactive bowel sounds. No palpable organomegaly. Suprapubic catheter noted MUSCULOSKELETAL: No joint swelling or deformity. EXTREMITIES: No cyanosis, clubbing, or pedal edema. NEUROLOGICAL: Gross neurological examination did not reveal any focal deficits. Diffusely weak SKIN: No rashes. - Labs CBC & Chem 7: 09/26/20 08:37 10/05/20 06:10 Labs: Abnormal Lab Results - Last 24 Hours (Table) 10/05/20 10/05/20 10/05/20 Range/Units 06:10 17:00 20:54 BUN 125.0 H* (9.0-27.0) mg/dL POC Glucose (mg/dL) 391 H 331 H (75-99) mg/dL 10/06/20 10/06/20 Range/Units 07:05 10:52 BUN (9.0-27.0) mg/dL POC Glucose (mg/dL) 201 H 220 H (75-99) mg/dL Assessment and Plan Assessment: -Acute hypoxic respiratory failure secondary to acute CoVID 19 pneumonitis. -Chronic kidney disease stage V -acute renal failure probably secondary to obstructive uropathy patient has right-sided hydronephrosis. patient presently has a suprapubic Gamez catheter -Volume overload secondary to renal failure -history of bladder cancer with ileostomy -Diarrhea secondary to Covid 19 resolved at this time -Type 2 diabetes mellitus, uncontrolled with hyperglycemia -Coronary artery disease with previous stents -Hypertension -Hyperlipidemia -Gastroesophageal reflux disease -COPD without any significant exacerbation. -No code Plan: Patient continues to require high amounts of oxygen and currently remains on rvo at 60%. Patient is also on 15L nonrebreather at this time. Nephrology and pulmonary following closely. Lasix on hold. Nephrology continues to monitor urine output as this is adequate at this time. Patient refusing any form of dialysis. Urology was consulted recommending possibility of nephrostomy tube although patient is hesitant and refusing at this time given current respiratory status. May consider in the future once respiratory status is more stable. Discussed with nursing staff and respiratory about weaning FI02 as tolerated although patient continues to be extremely dyspneic with any exertion. Due to multiple complex medical issues, prognosis is extremely guarded. Further re commendations to follow.
[2020-10-07] MEDS: methylPREDNISolone SOD SUCCI 125 MG/2 ML VIAL IV SCH ×5 (00:58→23:21)
[2020-10-07] MEDS: CLOTRIMAZOLE TROCHE 10 MG TROCHE MUCOUS MEM SCH ×6 (00:59→23:21)
[2020-10-07 07:03] LABS: Glucose,Whole Blood 185 mg/dL (75-99)
[2020-10-07] MEDS: SYMBICORT 160-4.5 MCG INHALER INHALATION SCH ×2 (07:33→20:06)
[2020-10-07] MEDS: ALBUTEROL HFA INHALER INHALATION PRN ×2 (07:33→20:06)
[2020-10-07] MEDS: SODIUM BICARBONATE TAB 650 MG TAB PO SCH ×4 (08:17→21:26)
[2020-10-07] MEDS: ASCORBIC ACID 500 MG TAB PO SCH ×2 (08:17→17:23)
[2020-10-07] MEDS: PANTOPRAZOLE 40 MG TABLET PO SCH (08:17)
[2020-10-07] MEDS: CHOLECALCIFEROL 1,000 UNIT TAB PO SCH (08:18)
[2020-10-07] MEDS: MULTIVITAMINS, THERA 1 EACH TAB PO SCH (08:18)
[2020-10-07] MEDS: buPROPion XL 150 MG TAB.ER.24H PO SCH (08:18)
[2020-10-07] MEDS: traMADol 50 MG TAB PO SCH ×2 (08:18→21:26)
[2020-10-07] MEDS: INSULIN ASPART (NovoLOG) 100 UNIT/ML VIAL SQ SCH ×7 (08:20→21:26)
[2020-10-07] MEDS: ASPIRIN 81 MG PO SCH (08:20)
[2020-10-07] MEDS: ENOXAPARIN 30 MG/0.3 ML SYRINGE SQ SCH (08:20)
[2020-10-07] MEDS: AMIODARONE 200 MG TAB PO SCH (08:20)
[2020-10-07] MEDS: hydrALAZINE HCL 25 MG TAB PO SCH ×3 (08:20→21:26)
[2020-10-07] MEDS: ALPRAZolam 0.25 MG TAB PO PRN (08:20)
--- NOTE | 2020-10-07 08:42 | XR ---
EXAMINATION TYPE: XR chest 1V portable DATE OF EXAM: 10/07/2020 COMPARISON: Prior chest x-ray 10/04/2020 HISTORY: Covid pneumonia TECHNIQUE: Single frontal view of the chest is obtained. FINDINGS: Patient is post median sternotomy. Patchy basilar density persists. Cardiac mediastinal si lhouette is stable. Generators present in the left pectoral region, there are leads in the right atri um, right ventricle, coronary sinus. No evident pneumothorax or pleural effusion. IMPRESSION: Correlate for possible pneumonia, edema
--- NOTE | 2020-10-07 10:53 | P.PN ---
Subjective Progress Note Date: 10/07/20 Principal diagnosis: Acute CoVID 19 pneumonitis This is a pleasant 80-year-old gentleman who resides in a assisted living facility. He has a history of coronary artery disease with previous stent placement, chronic obstructive pulmonary disease, former smoker, diabetes mellitus type 2, gastroesophageal reflux disease, hyperlipidemia, hypertension, osteoarthritis, bladder cancer status post ileostomy. He presented to [facility] with complaints of increasing shortness of breath, cough congestion, low back pain, diarrhea, weakness. He had also fallen and sustained injury to his left elbow. He is found to be in acute renal failure and hypoxemic and transferred here yesterday for further treatment. His randolph virus test was 8 days ago. Chest x-ray shows evidence of COPD, cardiomegaly and basilar atelectasis. White count 4.6. Hemoglobin 11.0. Platelet count 140,000. Sodium 135. Potassium 4.0. Creatinine 4.94. Urinalysis with moderate bacteria, large leukocyte esterase. He is seen today in consultation on the regular medical floor. He is currently sitting up in bed. Awake and alert in no acute distress. 18 and O2 saturations in the 90s on 4 L/m per nasal cannula. He's been afebrile. Hemodynamically stable. Initiated on ceftriaxone. The patient is seen today 09/26/2020 in follow-up on the regular medical floor. He is resting comfortably in bed. Awake and alert in no acute distress. Breathing a bit easier today compared to yesterday. Maintaining O2 saturation in the low 90s on 7 L high flow nasal cannula. He's been afebrile. Hem odynamically stable. White count 5.1. Hemoglobin 11.0. Sodium 138. Potassium 3.6. Creatinine 4.6. The patient is seen today 10/01/2020 in follow-up on the regular medical floor. He is currently resting fairly comfortably in bed. Awake and alert in no acute distress. Still requiring airflow high flow oxygen at 60 L and 93% FiO2 to maintain O2 saturations in the 90s. He is quite dyspneic with minimal exertion. Chest x-ray continues to show opacities in the bilateral lower lobes. D-dimer 2.0. LDH 503. C-reactive protein 1.1. He remains on dexamethasone, bronchodilators, ceftriaxone, heparin for DVT prophylaxis. The patient is seen today 10/02/2020 in follow-up on the regular medical floor. He is currently resting in bed. Awake and alert in no acute distress. Still requiring AirVo high flow oxygen at 60 L and 90% FiO2. D-dimer 1.31. Sodium 138. Potassium 4.3. Creatinine 2.8. LDH 441. Continued on bronchodilators, dexamethasone, Lovenox, diuretics. Vitamin supplements. The patient is seen today 10/03/2020 in follow-up on the regular medical floor. He is awake and alert in no acute distress. He is still quite dyspneic with minimal exertion. Minimal conversation. Remains on AirVo high flow oxygen at 60 L and 90% FiO2. He is afebrile. D-dimer 1.35. Sodium 139. Potassium 4.5. Creatinine 2.7. LDH 439. C-reactive protein 3.9. He remains on Symbicort, albuterol, IV Solu-Medrol, vitamin supplements. He has received 2 units of convalescent plasma. Remains on Lovenox. The patient is seen today 10/06/2020 in follow-up on the regular medical floor. He is currently resting quite comfortably in bed. Awake and alert in no acute distress. He is still requiring high amounts of oxygen supplementations including airflow high flow oxygen at 60 L and 92% FiO2 along with a nonrebreather mask. He remains on albuterol, IV Solu-Medrol. Lovenox for DVT prophylaxis. Remains on vitamin supplements. The patient is seen today 10/07/2020 in follow-up on the regular medical floor. He has been slow to progress. He is currently resting fairly comfortably in bed. Still quite dyspneic with minimal exertion. He remains on AirVo high flow oxygen at 60 L and 90% FiO2 to maintain O2 saturations at 93%. He is afebrile. Hemodynamically stable. Remains quite weak and debilitated. Chest x-ray continues to show patchy basilar densities. He remains on Symbicort, albuterol, IV Solu-Medrol. Lovenox for DVT prophylaxis. Vitamin supplements. Objective - Vital Signs Vital signs: Vital Signs Temp 97.8 F 10/07/20 05:00 Pulse 66 10/07/20 05:00 Resp 20 10/07/20 05:00 BP 138/77 10/07/20 05:00 Pulse Ox 93 L 10/07/20 07:31 Intake & Output 10/06/20 10/07/20 10/07/20 18:59 06:59 18:59 Output Total 500 900 Balance -500 -900 Output: Urine 500 900 Other: Voiding Method Ileal Conduit (Right) Ileal Conduit (Right) Ileal Conduit (Right) - Exam GENERAL EXAM: Alert, pleasant 80-year-old gentleman, on AirVo high flow oxygen at 60 L and 90% FiO2, comfortable in no apparent distress. HEAD: Normocephalic. EYES: Normal reaction of pupils, equal size. NOSE: Clear with pink turbinates. THROAT: No erythema or exudates. NECK: No masses, no JVD. CHEST: No chest wall deformity. LUNGS: Equal air entry with bilateral scattered rhonchi, crackles in posterior bases. CVS: S1 and S2 normal with no audible murmur, regular rhythm. ABDOMEN: No hepatosplenomegaly, normal bowel sounds, no guarding or rigidity. SPINE: No scoliosis or deformity SKIN: Wound to the left elbow, dressing intact CENTRAL NERVOUS SYSTEM: No focal deficits, tone is normal in all 4 extremities. EXTREMITIES: There is no peripheral edema. No clubbing, no cyanosis. Peripheral pulses are intact. - Labs CBC & Chem 7: 09/26/20 08:37 10/05/20 06:10 Labs: Abnormal Lab Results - Last 24 Hours (Table) 10/06/20 10/06/20 10/06/20 Range/Units 10:52 16:37 21:49 POC Glucose (mg/dL) 220 H 197 H 307 H (75-99) mg/dL 10/07/20 Range/Units 07:01 POC Glucose (mg/dL) 185 H (75-99) mg/dL Assessment and Plan Assessment: 1 Acute hypoxic respiratory failure secondary to acute CoVID 19 pneumonitis. Outside the window for Remdesivir, GFR 10. Did receive 2 units of convalescent plasma 2 Acute renal failure of unclear etiology. Possible dehydration. Renal ultrasound reveals atrophy of the bilateral kidneys right greater than left right-sided hydronephrosis 3 History of bladder cancer status post ileostomy 4 Diarrhea secondary to CoVID 19 infection 5 Diabetes mellitus, type II 6 Coronary disease with previous stent placement 7 Hypertension 8 Hyperlipidemia 9 Gastroesophageal reflux disease 10 Former smoker Plan: The patient was seen and evaluated by Dr. Jones Chest x-ray reviewed Remains on AirVo high flow 60 L and 90% Continue the current treatment plan Titrate down the FiO2 as tolerated Prognosis is guarded He is a DO NOT RESUSCITATE/DO NOT INTUBATE CODE STATUS We will continue to follow I, the cosigning physician, performed a history & physical examination of the patient. Lungs sounds bilateral scattered rhonchi, crackles in the posterior bases. Maintaining O2 saturations in the 90s on AirVo high flow oxygen at 60 L and 90% FiO2. I discussed the assessment and plan of care with my nurse practitioner, Maria Luz Daniels. I attest to the above note as dictated by her.
[2020-10-07 11:39] LABS: Glucose,Whole Blood 223 mg/dL (75-99)
[2020-10-07] MEDS: MICATIN TOPICAL SCH ×2 (12:11→21:27)
[2020-10-07 15:40] LABS: African American GFR (CKD) 25 (>60 ml/min/1.73 sqM); Anion Gap 9 mmol/L; Calcium 8.4 mg/dL (8.4-10.2); Carbon Dioxide 19 mmol/L (22-30); Chloride 105 mmol/L (98-107); Glucose 177 mg/dL (74-99); Non-African American GFR(CKD) 21 (>60 ml/min/1.73 sqM); Potassium 5.1 mmol/L (3.5-5.1); Sodium 133 mmol/L (137-145)
[2020-10-07 15:57] LABS: Blood Urea Nitrogen 127 mg/dL (9-20)
--- NOTE | 2020-10-07 16:08 | PN ---
PROGRESS NOTE Patient is seen for followup for acute kidney injury associated with underlying COVID- 19 infection and pneumonia. This morning patient is sitting at the edge of bed. He is maintained on 100% non-rebreather. However, according to nursing staff his respiratory status has been fairly stable. Urine output for 24 hours was about 1.4 L. PHYSICAL EXAMINATION: On examination today, blood pressure was 138/77, heart rate 66 per minute. Patient is afebrile. Examination of lower extremities shows no significant edema. Abdomen is soft, nontender. SPECIAL DELIVERY MESSENGER exam grossly intact. LABS: Labs are not available from today. Sodium was 136 and potassium 4.9 on 10/05. It appears that the labs were ordered, but they are not available yet. I will reorder the labs for today. Patient is maintained on Lasix, which was decreased yesterday. ASSESSMENT: 1. COVID-19 pneumonia, maintained on 100% non-rebreather. 2. Metabolic acidosis associated with renal failure. 3. Disproportionately elevated BUN secondary to steroids. 4. Volume overload, currently improved. PLAN: Check labs. I will reorder the labs as STAT. Continue off of Lasix unless respiratory status is worse today. MMODL / IJN: [id number] /
[2020-10-07 17:13] LABS: Glucose,Whole Blood 145 mg/dL (75-99)
[2020-10-07] MEDS: carvediloL 3.125 MG TAB PO SCH (17:23)
[2020-10-07] MEDS: FERROUS SULFATE 325 MG TAB PO SCH (17:25)
[2020-10-07 17:39] LABS: Anion Gap 11.3 mmol/L (4.00-12.00); BUN/Creat Ratio 45.33 Ratio (12.00-20.00); Calcium 8.2 mg/dL (8.7-10.3); Carbon Dioxide 19.7 mmol/L (21.6-31.8); Potassium 4.9 mmol/L (3.5-5.5)
[2020-10-07 20:13] LABS: Glucose,Whole Blood 146 mg/dL (75-99)
[2020-10-07] MEDS: PRAMIPEXOLE 0.125 MG TAB PO SCH (21:25)
[2020-10-07] MEDS: LORATADINE 10 MG TAB PO SCH (21:26)
[2020-10-07] MEDS: INSULIN DETEMIR (LEVEMIR) 100 UNIT/ML SYR SQ SCH (21:26)
[2020-10-07] MEDS: MELATONIN 5 MG TABLET PO SCH (21:37)
--- NOTE | 2020-10-08 00:26 | P.PN ---
Subjective Progress Note Date: 10/07/20 patient is a pleasant 82-year-old male came in with complains of shortness of breath does have history of COPD patient was diagnosed with Covid 19 6 days ago. Patient is comparing of shortness of breath cough congestion diarrhea for couple days. Patient is found to have renal failure, actually patient appears to have chronic kidney disease I do not know his baseline creatinine baseline creatinine around the about any year ago was 1.4 but apparently patient is supposed to be started on hemodialysis. Patient denied any UTI symptoms with the patient urine is abnormal, nephrology believes her UTI is responsible for acute renal failure and acute tubular necrosis in the recommending antibiotics and patient was started on Rocephin which is being continued at this time. Nephrology is recommending Lasix and discontinue IV fluids. 10/04/2020 Patient is seen in follow-up and continues to require high flow oxygen via Airvo as well as a nonrebreather and oxygen saturation is 98%. Patient continues to be severely dyspneic with any form of exertion and also appears to be quite anxious. Patient does have a sitter at the side of the bed as he continues to have confusion at times and will pull mask soft and easy that quickly. Patient is eating although intake continues to be poor. Urine output noted although patient's creatinine has worsened today and is currently 3.0 with a BUN of 115. Nephrology is following. Blood sugars continue to be elevated and will continue with sliding scale, pre-meal, and long acting. Had a lengthy discussion with daughter Clarissa today about CODE STATUS and she is the power of city attorney and CODE STATUS was changed to no code per patient and daughter's wishes. 10/05/2020 Patient is seen in follow-up this morning and continues to be on Airvo with an O2 flow rate of 60 and an FiO2 of 90 and currently 88%. Patient does not currently have a nonrebreather mask on. Patient needs constant re-encouragement to keep the oxygen on. Patient's mentation is slightly more clear today although continues to be confused at times. Patient is anxious as well. Susie huffman is following and patient is maintained on IV steroids along with vitamin C supplementation, Lovenox, and zinc and will continue at this time. Patient continues to be quite weak and severely dyspneic with any exertion. Patient urine output is adequate and patient is maintained on normal saline along with oral Lasix and nephrology following closely. Current creatinine is 3.2. Patient is not a candidate for dialysis at this time and also patient has refused this as well. Urology following recommending possible nephrostomy tube once more stable respiratory hudson. 10/06/2020 Patient evaluated this morning and remains on Airvo along with 15L Non rebreather as respiratory status continues to decline. Patient continues to have urine output and current creatinine not available. Will repeat am labs. Nephrology along with pulmonary following. Wean FI02 as tolerated although patient has not shown any improvements in respiratory status. Lasix on hold right now as renal function was worsening. Patient is weak and needs redirection on maintaining Airvo and NRB along with assistance with ADL's. PT/OT following. Blood sugars continue to be elevated and maintained on long acting along with sliding scale. Patient will continue with IV steroids, lovenox, zinc, and vitamin supplementation at this time. 10/07/2020 Patient is seen today currently sitting on the edge of the bed attempting to transfer to the bedside commode. Patient has been stating he feels constipated and will order stool softener. Patient is extremely dyspneic with any type of exertion and requiring assistance with the non-rebreather along with the Airvo with periodic breaks. Patient is a 1-2 person assist for transfers. Patient is quite weak. Case management and social work following as patient may require ECF for continued rehab. Nephrology following along with pulmonary. Patient creatinine today is 2.74 which is slowly trending down. Patient to continue off of lasix at this time. Patient is maintained on IV steroids along with lovenox, zinc, and vitamin c & d supplements. Constitutional: Anxious, no reports of fever, reports fatigue Cardio vascular: denied any chest pain, palpitations Gastrointestinal denied any nausea vomiting Pulmonary: reports extreme shortness of breath with exertion Neurologic reports weakness All inpatient medications were reviewed and appropriate changes in these medicat ions as dictated in the interval history and assessment and plan. Active Medications Acetaminophen (Acetaminophen Tab 500 Mg Tab) 1,000 mg PO Q6H PRN PRN Reason: Fever and/ or Pain Hydrocodone Bitart/Acetaminophen (Hydrocodone/Apap 5-325mg 1 Each Tab) 1 each PO Q8H PRN PRN Reason: Pain Albuterol Sulfate (Albuterol Hfa Inhaler) 2 puff INHALATION RT-Q4H PRN PRN Reason: Shortness Of Breath Last Admin: 10/07/20 07:33 Dose: 2 puff Documented by: Alprazolam (Alprazolam 0.25 Mg Tab) 0.25 mg PO BID PRN PRN Reason: Anxiety Last Admin: 10/07/20 08:20 Dose: 0.25 mg Documented by: Amiodarone HCl (Amiodarone 200 Mg Tab) 200 mg PO DAILY [facility] Last Admin: 10/07/20 08:20 Dose: 200 mg Documented by: Ascorbic Acid (Ascorbic Acid 500 Mg Tab) 250 mg PO BID@0800,1700 [facility] Last Admin: 10/07/20 08:17 Dose: 250 mg Documented by: Aspirin (Aspirin 81 Mg) 81 mg PO DAILY [facility] Last Admin: 10/07/20 08:20 Dose: 81 mg Documented by: Baclofen (Baclofen 10 Mg Tab) 10 mg PO TID PRN PRN Reason: Muscle Pain Last Admin: 10/06/20 22:08 Dose: 10 mg Documented by: Benzocaine/Menthol (Benzocaine/Menthol Lozeng 1 Each Lozenge) 1 each MUCOUS MEM Q4HR PRN PRN Reason: Sore Throat Last Admin: 10/02/20 10:09 Dose: 1 each Documented by: Bisacodyl (Bisacodyl 10 Mg Supp) 10 mg RECTAL DAILY PRN PRN Reason: Constipation Budesonide/Formoterol Fumarate (Symbicort 160-4.5 Mcg Inhaler) 2 puff INHALATION RT-BID [facility] Last Admin: 10/07/20 07:33 Dose: 2 puff Documented by: Bupropion HCl (Bupropion Xl 150 Mg Tab.Er.24h) 150 mg PO DAILY [facility] Last Admin: 10/07/20 08:18 Dose: 150 mg Documented by: Calcium Carbonate/Glycine (Calcium Carbonate 500 Mg Chewable) 1,000 mg PO Q8H PRN PRN Reason: Indigestion Carvedilol (Carvedilol 3.125 Mg Tab) 3.125 mg PO BID@0800,1800 [facility] Last Admin: 10/06/20 16:43 Dose: 3.125 mg Documented by: Cholecalciferol (Cholecalciferol 1,000 Unit Tab) 2,000 unit PO DAILY [facility] Last Admin: 10/07/20 08:18 Dose: 2,000 unit Documented by: Clotrimazole (Clotrimazole Melo 10 Mg Melo) 10 mg MUCOUS MEM 5XD [facility] Stop: 10/09/20 11:00 Last Admin: 10/07/20 12:28 Dose: Not Given Documented by: Enoxaparin Sodium (Enoxaparin 30 Mg/0.3 Ml Syringe) 30 mg SQ DAILY [facility] Last Admin: 10/07/20 08:20 Dose: 30 mg Documented by: Ferrous Sulfate (Ferrous Sulfate 325 Mg Tab) 325 mg PO HS@1800 [facility] Last Admin: 10/06/20 16:42 Dose: 325 mg Documented by: Guaifenesin/Dextromethorphan (Guaifenesin-Dm 100-10mg/5ml 10 Ml Cup) 5 ml PO Q4H PRN PRN Reason: Cough Hydralazine HCl (Hydralazine Hcl 25 Mg Tab) 25 mg PO TID [facility] Last Admin: 10/07/20 08:20 Dose: 25 mg Documented by: Insulin Aspart (Insulin Aspart (Novolog) 100 Unit/Ml Vial) 0 unit SQ [facility]; Protocol Last Admin: 10/07/20 12:32 Dose: 4 unit Documented by: Insulin Aspart (Insulin Aspart (Novolog) 100 Unit/Ml Vial) 10 unit SQ AC-TID [facility] Last Admin: 10/07/20 12:32 Dose: 10 unit Documented by: Insulin Detemir (Insulin Detemir (Levemir) 100 Unit/Ml Syr) 65 unit SQ [facility] Last Admin: 10/06/20 22:10 Dose: 65 unit Documented by: Loperamide HCl (Loperamide 2 Mg Cap) 2 mg PO QID PRN PRN Reason: Diarrhea Last Admin: 09/26/20 00:31 Dose: 2 mg Documented by: Loratadine (Loratadine 10 Mg Tab) 10 mg PO [facility] Last Admin: 10/06/20 21:42 Dose: 10 mg Documented by: Magnesium Hydroxide (Magnesium Hydroxide 2,400 Mg/10 Ml Cup) 2,400 mg PO DAILY PRN PRN Reason: Constipation Melatonin (Melatonin 5 Mg Tablet) 10 mg PO [facility] Last Admin: 10/06/20 21:28 Dose: 10 mg Documented by: Methylprednisolone Sodium Succinate (Methylprednisolone Sod Succi 125 Mg/2 Ml Vial) 60 mg IV Q6HR [facility] Last Admin: 10/07/20 12:32 Dose: 60 mg Documented by: Multivitamins (Multivitamins, Thera 1 Each Tab) 1 each PO DAILY [facility] Last Admin: 10/07/20 08:18 Dose: 1 each Documented by: Naloxone HCl (Naloxone 0.4 Mg/Ml 1 Ml Vial) 0.2 mg IV Q2M PRN PRN Reason: Opioid Reversal Micatin Cream 1 applic TOPICAL BID [facility] Last Admin: 10/07/20 12:11 Dose: Not Given Documented by: Miconazole Nitrate [ Zeasorb Af] 71 Gm Powder 1 applic TOPICAL BID PRN PRN Reason: SKIN FOLD/GROIN AREA Ondansetron HCl (Ondansetron 4 Mg Tab) 4 mg PO Q8H PRN PRN Reason: Nausea And Vomiting Pantoprazole Sodium (Pantoprazole 40 Mg Tablet) 40 mg PO DAILY@0730 [facility] Last Admin: 10/07/20 08:17 Dose: 40 mg Documented by: Polyethylene Glycol (Polyethylene Glycol 3350 17 Gm Powd.Pack) 17 gm PO DAILY PRN PRN Reason: Constipation Last Admin: 10/07/20 12:32 Dose: 17 gm Documented by: Pramipexole Dihydrochloride (Pramipexole 0.125 Mg Tab) 0.125 mg PO HS [facility] Last Admin: 10/06/20 21:42 Dose: 0.125 mg Documented by: Sodium Bicarbonate (Sodium Bicarbonate Tab 650 Mg Tab) 650 mg PO QID [facility] Last Admin: 10/07/20 12:32 Dose: 650 mg Documented by: Tramadol HCl (Tramadol 50 Mg Tab) 50 mg PO BID [facility] Last Admin: 10/07/20 08:18 Dose: 50 mg Documented by: Objective - Vital Signs Vital signs: Vital Signs Temp 97.5 F L 10/07/20 11:55 Pulse 70 10/07/20 11:55 Resp 18 10/07/20 11:55 BP 137/74 10/07/20 11:55 Pulse Ox 97 10/07/20 11:55 Intake & Output 10/06/20 10/07/20 10/07/20 18:59 06:59 18:59 Output Total 500 900 750 Balance -500 -900 -750 Output: Urine 500 900 750 Other: Voiding Method Ileal Conduit (Right) Ileal Conduit (Right) Ileal Conduit (Right) - Exam GENERAL: The patient is alert and oriented x3, slightly anxious. Well developed, well nourished. Temp is 97.5, pulse is 70, respirations are 18, blood pressure is 137/74, oxygen saturations is 97% on high flow Airvo at 60% along with 15 L nonrebreather when being exerted HEENT: Pupils are round and equally reacting to light. EOMI. No scleral icterus. No conjunctival pallor. Normocephalic, atraumatic. No pharyngeal erythema. No thyromegaly. Oral mucosa is dry. CARDIOVASCULAR: S1 and S2 muffled PULMONARY: Diminished breath sounds at the bases with no wheezing or rhonchi ABDOMEN: Soft, nontender, nondistended, normoactive bowel sounds. No palpable organomegaly. Suprapubic catheter noted MUSCULOSKELETAL: No joint swelling or deformity. EXTREMITIES: No cyanosis, clubbing, or pedal edema. NEUROLOGICAL: Gross neurological examination did not reveal any focal deficits. Diffusely weak SKIN: No rashes. - Labs CBC & Chem 7: 09/26/20 08:37 10/07/20 06:50 Labs: Abnormal Lab Results - Last 24 Hours (Table) 10/06/20 10/06/20 10/07/20 Range/Units 16:37 21:49 06:50 Sodium 133 L (137-145) mmol/L Carbon Dioxide 19 L (22-30) mmol/L BUN 127 H* (9-20) mg/dL Creatinine 2.74 H (0.66-1.25) mg/dL Glucose 177 H (74-99) mg/dL POC Glucose (mg/dL) 197 H 307 H (75-99) mg/dL 10/07/20 10/07/20 Range/Units 07:01 11:37 Sodium (137-145) mmol/L Carbon Dioxide (22-30) mmol/L BUN (9-20) mg/dL Creatinine (0.66-1.25) mg/dL Glucose (74-99) mg/dL POC Glucose (mg/dL) 185 H 223 H (75-99) mg/dL Assessment and Plan Assessment: -Acute hypoxic respiratory failure secondary to acute CoVID 19 pneumonitis. -Chronic kidney disease stage V -acute renal failure probably secondary to obstructive uropathy patient has right-sided hydronephrosis. patient presently has a suprapubic Gamez catheter -Volume overload secondary to renal failure -history of bladder cancer with ileostomy -Diarrhea secondary to Covid 19 resolved at this time -Type 2 diabetes mellitus, uncontrolled with hyperglycemia -Coronary artery disease with previous stents -Hypertension -Hyperlipidemia -Gastroesophageal reflux disease -COPD without any significant exacerbation. -No code Plan: Patient continues to require high amounts of oxygen and currently remains on A irvo at 60%. Patient is also on 15L nonrebreather intermittently at this time. Nephrology and pulmonary following closely. Lasix on hold. Nephrology continues to monitor urine output as this is adequate at this time. Patient refusing any form of dialysis. Discussed with nursing staff and respiratory about weaning FI02 as tolerated although patient continues to be extremely dyspneic with any exertion. Patient maintained on IV steroids, lovenox, vitamin supplements, and zinc and will continue at this time. Continue to monitor blood sugars and continue with sliding scale and long acting insulin. Due to multiple complex medical issues, prognosis is extremely guarded. Further recommendations to follow.
[2020-10-08] MEDS: methylPREDNISolone SOD SUCCI 125 MG/2 ML VIAL IV SCH ×3 (06:19→16:29)
[2020-10-08] MEDS: CLOTRIMAZOLE TROCHE 10 MG TROCHE MUCOUS MEM SCH ×4 (06:19→21:32)
[2020-10-08 06:43] LABS: Glucose,Whole Blood 311 mg/dL (75-99)
[2020-10-08] MEDS: SYMBICORT 160-4.5 MCG INHALER INHALATION SCH ×2 (07:57→20:40)
[2020-10-08] MEDS: ALBUTEROL HFA INHALER INHALATION PRN ×4 (07:57→20:40)
[2020-10-08] MEDS: INSULIN ASPART (NovoLOG) 100 UNIT/ML VIAL SQ SCH ×7 (07:58→21:23)
[2020-10-08] MEDS: PANTOPRAZOLE 40 MG TABLET PO SCH (07:59)
[2020-10-08] MEDS: ASCORBIC ACID 500 MG TAB PO SCH ×2 (08:00→16:23)
[2020-10-08] MEDS: carvediloL 3.125 MG TAB PO SCH ×2 (08:00→16:24)
[2020-10-08] MEDS: AMIODARONE 200 MG TAB PO SCH (08:01)
[2020-10-08] MEDS: buPROPion XL 150 MG TAB.ER.24H PO SCH (08:01)
[2020-10-08] MEDS: ASPIRIN 81 MG PO SCH (08:01)
[2020-10-08] MEDS: CHOLECALCIFEROL 1,000 UNIT TAB PO SCH (08:01)
[2020-10-08] MEDS: hydrALAZINE HCL 25 MG TAB PO SCH ×3 (08:01→21:28)
[2020-10-08] MEDS: ENOXAPARIN 30 MG/0.3 ML SYRINGE SQ SCH (08:01)
[2020-10-08] MEDS: traMADol 50 MG TAB PO SCH ×2 (08:02→21:28)
[2020-10-08] MEDS: SODIUM BICARBONATE TAB 650 MG TAB PO SCH ×4 (08:03→21:28)
[2020-10-08] MEDS: MULTIVITAMINS, THERA 1 EACH TAB PO SCH (08:03)
[2020-10-08 10:17] LABS: Basophils % (A) 0 %; Eosinophils % (A) 0 %; HCT 33.3 % (39.0-53.0); HGB 11.1 gm/dL (13.0-17.5); Lymphocytes # (A) 0.1 k/uL (1.0-4.8); Lymphocytes % (A) 0 %; MCH 33.8 pg (25.0-35.0); MCHC 33.2 g/dL (31.0-37.0); MCV 101.7 fL (80.0-100.0); Macrocytosis Slight; Mean Platelet Volume 8.6; Monocytes # (A) 0.3 k/uL (0-1.0); Monocytes % (A) 3 %; Neutrophils # (A) 12.5 k/uL (1.3-7.7); Neutrophils % (A) 96 %; Platelet Count 231 k/uL (150-450); RBC 3.28 m/uL (4.30-5.90); RDW 13.9 % (11.5-15.5)
[2020-10-08 10:25] LABS: African American GFR (CKD) 25 (>60 ml/min/1.73 sqM); Anion Gap 8 mmol/L; C Reactive Protein <5.0 mg/L (<10.0); Calcium 8.4 mg/dL (8.4-10.2); Carbon Dioxide 21 mmol/L (22-30); Chloride 104 mmol/L (98-107); Glucose 299 mg/dL (74-99); Non-African American GFR(CKD) 22 (>60 ml/min/1.73 sqM); Potassium 4.9 mmol/L (3.5-5.1); Sodium 133 mmol/L (137-145)
[2020-10-08 10:59] LABS: Blood Urea Nitrogen 120 mg/dL (9-20)
--- NOTE | 2020-10-08 11:53 | P.PN ---
Subjective Progress Note Date: 10/08/20 Principal diagnosis: Acute CoVID 19 pneumonitis This is a pleasant 80-year-old gentleman who resides in a assisted living facility. He has a history of coronary artery disease with previous stent placement, chronic obstructive pulmonary disease, former smoker, diabetes mellitus type 2, gastroesophageal reflux disease, hyperlipidemia, hypertension, osteoarthritis, bladder cancer status post ileostomy. He presented to [facility] with complaints of increasing shortness of breath, cough congestion, low back pain, diarrhea, weakness. He had also fallen and sustained injury to his left elbow. He is found to be in acute renal failure and hypoxemic and transferred here yesterday for further treatment. His randolph virus test was 8 days ago. Chest x-ray shows evidence of COPD, cardiomegaly and basilar atelectasis. White count 4.6. Hemoglobin 11.0. Platelet count 140,000. Sodium 135. Potassium 4.0. Creatinine 4.94. Urinalysis with moderate bacteria, large leukocyte esterase. He is seen today in consultation on the regular medical floor. He is currently sitting up in bed. Awake and alert in no acute distress. 18 and O2 saturations in the 90s on 4 L/m per nasal cannula. He's been afebrile. Hemodynamically stable. Initiated on ceftriaxone. The patient is seen today 09/26/2020 in follow-up on the regular medical floor. He is resting comfortably in bed. Awake and alert in no acute distress. Breathing a bit easier today compared to yesterday. Maintaining O2 saturation in the low 90s on 7 L high flow nasal cannula. He's been afebrile. Hem odynamically stable. White count 5.1. Hemoglobin 11.0. Sodium 138. Potassium 3.6. Creatinine 4.6. The patient is seen today 10/01/2020 in follow-up on the regular medical floor. He is currently resting fairly comfortably in bed. Awake and alert in no acute distress. Still requiring airflow high flow oxygen at 60 L and 93% FiO2 to maintain O2 saturations in the 90s. He is quite dyspneic with minimal exertion. Chest x-ray continues to show opacities in the bilateral lower lobes. D-dimer 2.0. LDH 503. C-reactive protein 1.1. He remains on dexamethasone, bronchodilators, ceftriaxone, heparin for DVT prophylaxis. The patient is seen today 10/02/2020 in follow-up on the regular medical floor. He is currently resting in bed. Awake and alert in no acute distress. Still requiring AirVo high flow oxygen at 60 L and 90% FiO2. D-dimer 1.31. Sodium 138. Potassium 4.3. Creatinine 2.8. LDH 441. Continued on bronchodilators, dexamethasone, Lovenox, diuretics. Vitamin supplements. The patient is seen today 10/03/2020 in follow-up on the regular medical floor. He is awake and alert in no acute distress. He is still quite dyspneic with minimal exertion. Minimal conversation. Remains on AirVo high flow oxygen at 60 L and 90% FiO2. He is afebrile. D-dimer 1.35. Sodium 139. Potassium 4.5. Creatinine 2.7. LDH 439. C-reactive protein 3.9. He remains on Symbicort, albuterol, IV Solu-Medrol, vitamin supplements. He has received 2 units of convalescent plasma. Remains on Lovenox. The patient is seen today 10/06/2020 in follow-up on the regular medical floor. He is currently resting quite comfortably in bed. Awake and alert in no acute distress. He is still requiring high amounts of oxygen supplementations including airflow high flow oxygen at 60 L and 92% FiO2 along with a nonrebreather mask. He remains on albuterol, IV Solu-Medrol. Lovenox for DVT prophylaxis. Remains on vitamin supplements. The patient is seen today 10/07/2020 in follow-up on the regular medical floor. He has been slow to progress. He is currently resting fairly comfortably in bed. Still quite dyspneic with minimal exertion. He remains on AirVo high flow oxygen at 60 L and 90% FiO2 to maintain O2 saturations at 93%. He is afebrile. Hemodynamically stable. Remains quite weak and debilitated. Chest x-ray continues to show patchy basilar densities. He remains on Symbicort, albuterol, IV Solu-Medrol. Lovenox for DVT prophylaxis. Vitamin supplements. The patient is seen today 10/08/2020 in follow-up on the regular medical floor. He is resting in bed. Still requiring AirVo high flow oxygen at 60 L and 90% FiO2 along with a nonrebreather mask. White count 13.0. Hemoglobin 11.1. Lymphocytes 0.1. D-dimer 1.29. Sodium 133. Potassium 4.9. BUN 120. Creatinine 2.66. Currently on sodium bicarb tablets. He did receive 2 units of convalescent plasma. He remains on bronchodilators, IV Solu-Medrol, Lovenox, vitamin supplements. No significant improvement in his pulmonary status in the past 2 weeks. Objective - Vital Signs Vital signs: Vital Signs Temp 97.6 F 10/08/20 11:36 Pulse 69 10/08/20 11:36 Resp 18 10/08/20 11:36 BP 138/74 10/08/20 11:36 Pulse Ox 100 10/08/20 11:36 Intake & Output 10/07/20 10/08/20 10/08/20 18:59 06:59 18:59 Intake Total 250 Output Total 1250 1000 300 Balance -1250 -750 -300 Intake: Oral 250 Output: Urine 1250 1000 300 Other: Voiding Method Ileal Conduit (Right) Ileal Conduit (Right) Ileal Conduit (Right) # Bowel Movements 0 - Exam GENERAL EXAM: Alert, pleasant 80-year-old gentleman, on AirVo high flow oxygen at 60 L and 90% FiO2, nonrebreather mask as well, fairly comfortable in no apparent distress. HEAD: Normocephalic. EYES: Normal reaction of pupils, equal size. NOSE: Clear with pink turbinates. THROAT: No erythema or exudates. NECK: No masses, no JVD. CHEST: No chest wall deformity. LUNGS: Equal air entry with bilateral scattered rhonchi, crackles in posterior bases. CVS: S1 and S2 normal with no audible murmur, regular rhythm. ABDOMEN: No hepatosplenomegaly, normal bowel sounds, no guarding or rigidity. SPINE: No scoliosis or deformity SKIN: Wound to the left elbow, dressing intact CENTRAL NERVOUS SYSTEM: No focal deficits, tone is normal in all 4 extremities. EXTREMITIES: There is no peripheral edema. No clubbing, no cyanosis. Peripheral pulses are intact. - Labs CBC & Chem 7: 10/08/20 09:44 10/08/20 09:44 Labs: Abnormal Lab Results - Last 24 Hours (Table) 10/07/20 10/07/20 10/07/20 Range/Units 06:50 06:50 17:10 WBC (3.8-10.6) k/uL RBC (4.30-5.90) m/uL Hgb (13.0-17.5) gm/dL Hct (39.0-53.0) % MCV (80.0-100.0) fL Neutrophils # (1.3-7.7) k/uL Lymphocytes # (1.0-4.8) k/uL D-Dimer (<0.60) mg/L FEU Sodium 133 L (137-145) mmol/L Carbon Dioxide 19.7 L 19 L (21.6-31.8) mmol/L BUN 136.0 H* 127 H* (9.0-27.0) mg/dL Creatinine 3.0 H 2.74 H (0.6-1.5) mg/dL Est GFR (CKD-EPI)AfAm 22.0 L (60.0-200.0) Est GFR (CKD-EPI)NonAf 19.0 L (60.0-200.0) BUN/Creatinine Ratio 45.33 H (12.00-20.00) Ratio Glucose 176 H 177 H (70-110) mg/dL POC Glucose (mg/dL) 145 H (75-99) mg/dL Calcium 8.2 L (8.7-10.3) mg/dL 10/07/20 10/08/20 10/08/20 Range/Units 20:11 06:36 09:44 WBC 13.0 H (3.8-10.6) k/uL RBC 3.28 L (4.30-5.90) m/uL Hgb 11.1 L (13.0-17.5) gm/dL Hct 33.3 L (39.0-53.0) % MCV 101.7 H (80.0-100.0) fL Neutrophils # 12.5 H (1.3-7.7) k/uL Lymphocytes # 0.1 L (1.0-4.8) k/uL D-Dimer (<0.60) mg/L FEU Sodium (137-145) mmol/L Carbon Dioxide (21.6-31.8) mmol/L BUN (9.0-27.0) mg/dL Creatinine (0.6-1.5) mg/dL Est GFR (CKD-EPI)AfAm (60.0-200.0) Est GFR (CKD-EPI)NonAf (60.0-200.0) BUN/Creatinine Ratio (12.00-20.00) Ratio Glucose (70-110) mg/dL POC Glucose (mg/dL) 146 H 311 H (75-99) mg/dL Calcium (8.7-10.3) mg/dL 10/08/20 10/08/20 Range/Units 09:44 09:44 WBC (3.8-10.6) k/uL RBC (4.30-5.90) m/uL Hgb (13.0-17.5) gm/dL Hct (39.0-53.0) % MCV (80.0-100.0) fL Neutrophils # (1.3-7.7) k/uL Lymphocytes # (1.0-4.8) k/uL D-Dimer 1.29 H (<0.60) mg/L FEU Sodium 133 L (137-145) mmol/L Carbon Dioxide 21 L (21.6-31.8) mmol/L BUN 120 H* (9.0-27.0) mg/dL Creatinine 2.66 H (0.6-1.5) mg/dL Est GFR (CKD-EPI)AfAm (60.0-200.0) Est GFR (CKD-EPI)NonAf (60.0-200.0) BUN/Creatinine Ratio (12.00-20.00) Ratio Glucose 299 H (70-110) mg/dL POC Glucose (mg/dL) (75-99) mg/dL Calcium (8.7-10.3) mg/dL Assessment and Plan Assessment: 1 Acute hypoxic respiratory failure secondary to acute CoVID 19 pneumonitis. Outside the window for Remdesivir, GFR 10. Did receive 2 units of convalescent plasma 2 Acute renal failure of unclear etiology. Possible dehydration. Renal ultrasound reveals atrophy of the bilateral kidneys right greater than left right-sided hydronephrosis 3 History of bladder cancer status post ileostomy 4 Diarrhea secondary to CoVID 19 infection 5 Diabetes mellitus, type II 6 Coronary disease with previous stent placement 7 Hypertension 8 Hyperlipidemia 9 Gastroesophageal reflux disease 10 Former smoker Plan: The patient was seen and evaluated by Dr. Jones Remains on AirVo high flow 60 L and 90% along with nonrebreather mask Continue the current treatment plan Titrate down the FiO2 as tolerated Prognosis is guarded, may need to consider hospice/comfort care He is a DO NOT RESUSCITATE/DO NOT INTUBATE CODE STATUS We will continue to follow I, the cosigning physician, performed a history & physical examination of the patient. Lungs sounds bilateral scattered rhonchi, crackles in the posterior bases. Maintaining O2 saturations in the 90s on AirVo high flow oxygen at 60 L and 90% FiO2. I discussed the assessment and plan of care with my nurse practitioner, Maria Luz Daniels. I attest to the above note as dictated by her.
[2020-10-08 11:56] LABS: Glucose,Whole Blood 273 mg/dL (75-99)
[2020-10-08] MEDS: MICATIN TOPICAL SCH ×2 (12:44→21:27)
[2020-10-08] MEDS: ALPRAZolam 0.25 MG TAB PO PRN (14:58)
--- NOTE | 2020-10-08 15:49 | P.PN ---
Subjective Progress Note Date: 10/08/20 patient is a pleasant 82-year-old male came in with complains of shortness of breath does have history of COPD patient was diagnosed with Covid 19 6 days ago. Patient is comparing of shortness of breath cough congestion diarrhea for couple days. Patient is found to have renal failure, actually patient appears to have chronic kidney disease I do not know his baseline creatinine baseline creatinine around the about any year ago was 1.4 but apparently patient is supposed to be started on hemodialysis. Patient denied any UTI symptoms with the patient urine is abnormal, nephrology believes her UTI is responsible for acute renal failure and acute tubular necrosis in the recommending antibiotics and patient was started on Rocephin which is being continued at this time. Nephrology is recommending Lasix and discontinue IV fluids. 10/04/2020 Patient is seen in follow-up and continues to require high flow oxygen via Airvo as well as a nonrebreather and oxygen saturation is 98%. Patient continues to be severely dyspneic with any form of exertion and also appears to be quite anxious. Patient does have a sitter at the side of the bed as he continues to have confusion at times and will pull mask soft and easy that quickly. Patient is eating although intake continues to be poor. Urine output noted although patient's creatinine has worsened today and is currently 3.0 with a BUN of 115. Nephrology is following. Blood sugars continue to be elevated and will continue with sliding scale, pre-meal, and long acting. Had a lengthy discussion with daughter Clarissa today about CODE STATUS and she is the power of deputy commonwealth's attorney and CODE STATUS was changed to no code per patient and daughter's wishes. 10/05/2020 Patient is seen in follow-up this morning and continues to be on Airvo with an O2 flow rate of 60 and an FiO2 of 90 and currently 88%. Patient does not currently have a nonrebreather mask on. Patient needs constant re-encouragement to keep the oxygen on. Patient's mentation is slightly more clear today although continues to be confused at times. Patient is anxious as well. Susie huffman is following and patient is maintained on IV steroids along with vitamin C supplementation, Lovenox, and zinc and will continue at this time. Patient continues to be quite weak and severely dyspneic with any exertion. Patient urine output is adequate and patient is maintained on normal saline along with oral Lasix and nephrology following closely. Current creatinine is 3.2. Patient is not a candidate for dialysis at this time and also patient has refused this as well. Urology following recommending possible nephrostomy tube once more stable respiratory hudson. 10/06/2020 Patient evaluated this morning and remains on Airvo along with 15L Non rebreather as respiratory status continues to decline. Patient continues to have urine output and current creatinine not available. Will repeat am labs. Nephrology along with pulmonary following. Wean FI02 as tolerated although patient has not shown any improvements in respiratory status. Lasix on hold right now as renal function was worsening. Patient is weak and needs redirection on maintaining Airvo and NRB along with assistance with ADL's. PT/OT following. Blood sugars continue to be elevated and maintained on long acting along with sliding scale. Patient will continue with IV steroids, lovenox, zinc, and vitamin supplementation at this time. 10/07/2020 Patient is seen today currently sitting on the edge of the bed attempting to transfer to the bedside commode. Patient has been stating he feels constipated and will order stool softener. Patient is extremely dyspneic with any type of exertion and requiring assistance with the non-rebreather along with the Airvo with periodic breaks. Patient is a 1-2 person assist for transfers. Patient is quite weak. Case management and social work following as patient may require ECF for continued rehab. Nephrology following along with pulmonary. Patient creatinine today is 2.74 which is slowly trending down. Patient to continue off of lasix at this time. Patient is maintained on IV steroids along with lovenox, zinc, and vitamin c & d supplements. 10/08/2020 Patient is seen and evaluated in follow-up today and per nursing staff patient continues to remove oxygen and has been found multiple times with oxygen off. No improvements noted of respiratory status and patient is maintained on high flow along with nonrebreather at times. Prognosis is extremely guarded. Creatinine slowly improving and is currently 0.66. Sodium is 133. D-dimer is 1.29 slightly improved from previous. CRP is negative. White blood count is 13.0 with a hemoglobin of 11.1. Continues to have adequate urine output noted and nephrology following closely. Cleaned off Lasix and will continue at this time. Patient is also on IV steroids along with Lovenox, zinc, and vitamin supplements. Patient states he is not feeling well today and feels tired. Constitutional: Anxious, no reports of fever, reports fatigue Cardio vascular: denied any chest pain, palpitations Gastrointestinal denied any nausea vomiting Pulmonary: reports extreme shortness of breath with exertion Neurologic reports weakness All inpatient medications were reviewed and appropriate changes in these medications as dictated in the interval history and assessment and plan. Active Medications Acetaminophen (Acetaminophen Tab 500 Mg Tab) 1,000 mg PO Q6H PRN PRN Reason: Fever and/ or Pain Hydrocodone Bitart/Acetaminophen (Hydrocodone/Apap 5-325mg 1 Each Tab) 1 each PO Q8H PRN PRN Reason: Pain Albuterol Sulfate (Albuterol Hfa Inhaler) 2 puff INHALATION RT-Q4H PRN PRN Reason: Shortness Of Breath Last Admin: 10/08/20 15:28 Dose: 2 puff Documented by: Alprazolam (Alprazolam 0.25 Mg Tab) 0.25 mg PO BID PRN PRN Reason: Anxiety Last Admin: 10/08/20 14:58 Dose: 0.25 mg Documented by: Amiodarone HCl (Amiodarone 200 Mg Tab) 200 mg PO DAILY [facility] Last Admin: 10/08/20 08:01 Dose: 200 mg Documented by: Ascorbic Acid (Ascorbic Acid 500 Mg Tab) 250 mg PO BID@0800,1700 [facility] Last Admin: 10/08/20 08:00 Dose: 250 mg Documented by: Aspirin (Aspirin 81 Mg) 81 mg PO DAILY [facility] Last Admin: 10/08/20 08:01 Dose: 81 mg Documented by: Baclofen (Baclofen 10 Mg Tab) 10 mg PO TID PRN PRN Reason: Muscle Pain Last Admin: 10/06/20 22:08 Dose: 10 mg Documented by: Benzocaine/Menthol (Benzocaine/Menthol Lozeng 1 Each Lozenge) 1 each MUCOUS MEM Q4HR PRN PRN Reason: Sore Throat Last Admin: 10/02/20 10:09 Dose: 1 each Documented by: Bisacodyl (Bisacodyl 10 Mg Supp) 10 mg RECTAL DAILY PRN PRN Reason: Constipation Budesonide/Formoterol Fumarate (Symbicort 160-4.5 Mcg Inhaler) 2 puff INHALATION RT-BID [facility] Last Admin: 10/08/20 07:57 Dose: 2 puff Documented by: Bupropion HCl (Bupropion Xl 150 Mg Tab.Er.24h) 150 mg PO DAILY [facility] Last Admin: 10/08/20 08:01 Dose: 150 mg Documented by: Calcium Carbonate/Glycine (Calcium Carbonate 500 Mg Chewable) 1,000 mg PO Q8H PRN PRN Reason: Indigestion Carvedilol (Carvedilol 3.125 Mg Tab) 3.125 mg PO BID@0800,1800 [facility] Last Admin: 10/08/20 08:00 Dose: 3.125 mg Documented by: Cholecalciferol (Cholecalciferol 1,000 Unit Tab) 2,000 unit PO DAILY [facility] Last Admin: 10/08/20 08:01 Dose: 2,000 unit Documented by: Clotrimazole (Clotrimazole Melo 10 Mg Melo) 10 mg MUCOUS MEM 5XD [facility] Stop: 10/09/20 11:00 Last Admin: 10/08/20 15:04 Dose: Not Given Documented by: Enoxaparin Sodium (Enoxaparin 30 Mg/0.3 Ml Syringe) 30 mg SQ DAILY [facility] Last Admin: 10/08/20 08:01 Dose: 30 mg Documented by: Ferrous Sulfate (Ferrous Sulfate 325 Mg Tab) 325 mg PO HS@1800 [facility] Last Admin: 10/07/20 17:25 Dose: 325 mg Documented by: Guaifenesin/Dextromethorphan (Guaifenesin-Dm 100-10mg/5ml 10 Ml Cup) 5 ml PO Q4H PRN PRN Reason: Cough Hydralazine HCl (Hydralazine Hcl 25 Mg Tab) 25 mg PO TID [facility] Last Admin: 10/08/20 08:01 Dose: 25 mg Documented by: Insulin Aspart (Insulin Aspart (Novolog) 100 Unit/Ml Vial) 0 unit SQ ACHS [facility]; Protocol Last Admin: 10/08/20 12:45 Dose: 6 unit Documented by: Insulin Aspart (Insulin Aspart (Novolog) 100 Unit/Ml Vial) 10 unit SQ AC-TID [facility] Last Admin: 10/08/20 12:46 Dose: 10 unit Documented by: Insulin Detemir (Insulin Detemir (Levemir) 100 Unit/Ml Syr) 65 unit SQ [facility] Last Admin: 10/07/20 21:26 Dose: 65 unit Documented by: Loperamide HCl (Loperamide 2 Mg Cap) 2 mg PO QID PRN PRN Reason: Diarrhea Last Admin: 09/26/20 00:31 Dose: 2 mg Documented by: Loratadine (Loratadine 10 Mg Tab) 10 mg PO [facility] Last Admin: 10/07/20 21:26 Dose: 10 mg Documented by: Magnesium Hydroxide (Magnesium Hydroxide 2,400 Mg/10 Ml Cup) 2,400 mg PO DAILY PRN PRN Reason: Constipation Melatonin (Melatonin 5 Mg Tablet) 10 mg PO [facility] Last Admin: 10/07/20 21:37 Dose: Not Given Documented by: Methylprednisolone Sodium Succinate (Methylprednisolone Sod Succi 125 Mg/2 Ml Vial) 60 mg IV Q6HR [facility] Last Admin: 10/08/20 12:45 Dose: 60 mg Documented by: Multivitamins (Multivitamins, Thera 1 Each Tab) 1 each PO DAILY [facility] Last Admin: 10/08/20 08:03 Dose: 1 each Documented by: Naloxone HCl (Naloxone 0.4 Mg/Ml 1 Ml Vial) 0.2 mg IV Q2M PRN PRN Reason: Opioid Reversal Micatin Cream 1 applic TOPICAL BID [facility] Last Admin: 10/08/20 12:44 Dose: Not Given Documented by: Miconazole Nitrate [ Zeasorb Af] 71 Gm Powder 1 applic TOPICAL BID PRN PRN Reason: SKIN FOLD/GROIN AREA Ondansetron HCl (Ondansetron 4 Mg Tab) 4 mg PO Q8H PRN PRN Reason: Nausea And Vomiting Pantoprazole Sodium (Pantoprazole 40 Mg Tablet) 40 mg PO DAILY@0730 [facility] Last Admin: 10/08/20 07:59 Dose: 40 mg Documented by: Polyethylene Glycol (Polyethylene Glycol 3350 17 Gm Powd.Pack) 17 gm PO DAILY PRN PRN Reason: Constipation Last Admin: 10/07/20 12:32 Dose: 17 gm Documented by: Pramipexole Dihydrochloride (Pramipexole 0.125 Mg Tab) 0.125 mg PO [facility] Last Admin: 10/07/20 21:25 Dose: 0.125 mg Documented by: Sodium Bicarbonate (Sodium Bicarbonate Tab 650 Mg Tab) 650 mg PO QID [facility] Last Admin: 10/08/20 12:46 Dose: 650 mg Documented by: Tramadol HCl (Tramadol 50 Mg Tab) 50 mg PO BID [facility] Last Admin: 10/08/20 08:02 Dose: 50 mg Documented by: Objective - Vital Signs Vital signs: Vital Signs Temp 98.9 F 10/08/20 05:00 Pulse 71 10/08/20 05:00 Resp 28 H 10/08/20 05:00 BP 161/84 10/08/20 05:00 Pulse Ox 99 10/08/20 07:58 Intake & Output 10/07/20 10/08/20 10/08/20 18:59 06:59 18:59 Intake Total 250 Output Total 1250 1000 300 Balance -1250 -750 -300 Intake: Oral 250 Output: Urine 1250 1000 300 Other: Voiding Method Ileal Conduit (Right) Ileal Conduit (Right) # Bowel Movements 0 - Exam GENERAL: The patient is alert and oriented x3, slightly anxious. Well developed, well nourished. Temp is 97.6, pulse is 69, respirations are 18, blood pressure is 138/74, oxygen saturations is 100% on high flow Airvo at 60% along with 15 L nonrebreather HEENT: Pupils are round and equally reacting to light. EOMI. No scleral icterus. No conjunctival pallor. Normocephalic, atraumatic. No pharyngeal erythema. No thyromegaly. Oral mucosa is dry. CARDIOVASCULAR: S1 and S2 muffled PULMONARY: Diminished breath sounds at the bases with no wheezing or rhonchi ABDOMEN: Soft, nontender, nondistended, normoactive bowel sounds. No palpable organomegaly. Suprapubic catheter noted MUSCULOSKELETAL: No joint swelling or deformity. EXTREMITIES: No cyanosis, clubbing, or pedal edema. NEUROLOGICAL: Gross neurological examination did not reveal any focal deficits. Diffusely weak SKIN: No rashes. - Labs CBC & Chem 7: 10/08/20 09:44 10/08/20 09:44 Labs: Abnormal Lab Results - Last 24 Hours (Table) 10/07/20 10/07/20 10/07/20 Range/Units 06:50 06:50 11:37 Sodium 133 L (137-145) mmol/L Carbon Dioxide 19.7 L 19 L (21.6-31.8) mmol/L BUN 136.0 H* 127 H* (9.0-27.0) mg/dL Creatinine 3.0 H 2.74 H (0.6-1.5) mg/dL Est GFR (CKD-EPI)AfAm 22.0 L (60.0-200.0) Est GFR (CKD-EPI)NonAf 19.0 L (60.0-200.0) BUN/Creatinine Ratio 45.33 H (12.00-20.00) Ratio Glucose 176 H 177 H (70-110) mg/dL POC Glucose (mg/dL) 223 H (75-99) mg/dL Calcium 8.2 L (8.7-10.3) mg/dL 10/07/20 10/07/20 10/08/20 Range/Units 17:10 20:11 06:36 Sodium (137-145) mmol/L Carbon Dioxide (21.6-31.8) mmol/L BUN (9.0-27.0) mg/dL Creatinine (0.6-1.5) mg/dL Est GFR (CKD-EPI)AfAm (60.0-200.0) Est GFR (CKD-EPI)NonAf (60.0-200.0) BUN/Creatinine Ratio (12.00-20.00) Ratio Glucose (70-110) mg/dL POC Glucose (mg/dL) 145 H 146 H 311 H (75-99) mg/dL Calcium (8.7-10.3) mg/dL Assessment and Plan Assessment: -Acute hypoxic respiratory failure secondary to acute CoVID 19 pneumonitis. -Chronic kidney disease stage V -acute renal failure probably secondary to obstructive uropathy patient has right-sided hydronephrosis. patient presently has a suprapubic Gamez catheter -Volume overload secondary to renal failure -history of bladder cancer with ileostomy -Diarrhea secondary to Covid 19 resolved at this time -Type 2 diabetes mellitus, uncontrolled with hyperglycemia -Coronary artery disease with previous stents -Hypertension -Hyperlipidemia -Gastroesophageal reflux disease -COPD without any significant exacerbation. -No code Plan: Patient continues to require high amounts of oxygen and currently remains on Airvo at 60%. Patient is also on 15L nonrebreather intermittently at this time. Patient continues to remove nonrebreather and becomes hypoxic and needs redirection to keep the oxygen on his face. Nephrology and pulmonary following closely. Lasix on hold. Nephrology continues to monitor urine output as this is adequate at this time. Patient refusing any form of dialysis. Discussed with nursing staff and respiratory about weaning FI02 as tolerated although patient continues to be extremely dyspneic with any exertion. Patient maintained on IV steroids, lovenox, vitamin supplements, and zinc and will continue at this time. Continue to monitor blood sugars and continue with sliding scale and long acting insulin. Due to multiple complex medical issues, prognosis is extremely guarded. Will discuss further plans and treatments with daughter Clarissa who is the power of deputy commonwealth's attorney. PT/OT to evaluate the patient. Further recommendations to follow.
[2020-10-08] MEDS ORDERED: FUROSEMIDE 10 MG/ML 2 ML VIAL IV ONE (16:15)
[2020-10-08] MEDS: FERROUS SULFATE 325 MG TAB PO SCH (16:24)
--- NOTE | 2020-10-08 16:39 | PN ---
PROGRESS NOTE Patient is seen for followup for acute kidney injury associated with underlying COVID pneumonia. The patient has also been mildly volume overloaded. He was maintained on IV Lasix which is currently on hold. Patient is maintained on high-flow oxygen. He has been confused on and off. PHYSICAL EXAMINATION: On examination today, blood pressure is 126/69, heart rate 71 per minute, he is afebrile. Examination shows no edema lower extremities. Abdomen is soft, obese, nontender. FARM [employer]ER exam grossly intact. Patient is moving all 4 extremities. Heart and lungs are not examined as patient has COVID pneumonia. LABS: Show sodium 133, potassium 4.9, chloride 104, CO2 is 21, BUN 120, serum creatinine 2.6 mg/dL. ASSESSMENT: 1. Acute kidney injury associated with underlying COVID infection. Renal function slowly improving. Diuretics on hold. I can give him a dose of IV Lasix today as he appears to be slightly more dyspneic today. 2. COVID-19 pneumonia maintained on steroids and status post Remdesivir. 3. Hypertension, currently controlled. PLAN: Lasix IV x1. Repeat labs in a.m. MMODL / IJN: [id number] /
[2020-10-08 17:06] LABS: Glucose,Whole Blood 181 mg/dL (75-99)
[2020-10-08 21:02] LABS: Glucose,Whole Blood 104 mg/dL (75-99)
[2020-10-08] MEDS: LORATADINE 10 MG TAB PO SCH (21:28)
[2020-10-08] MEDS: MELATONIN 5 MG TABLET PO SCH (21:28)
[2020-10-08] MEDS: INSULIN DETEMIR (LEVEMIR) 100 UNIT/ML SYR SQ SCH (21:29)
[2020-10-08] MEDS: PRAMIPEXOLE 0.125 MG TAB PO SCH (21:54)
[2020-10-09] MEDS: CLOTRIMAZOLE TROCHE 10 MG TROCHE MUCOUS MEM SCH ×3 (00:44→12:54)
[2020-10-09] MEDS: methylPREDNISolone SOD SUCCI 125 MG/2 ML VIAL IV SCH ×4 (00:44→17:00)
[2020-10-09 07:15] LABS: Glucose,Whole Blood 160 mg/dL (75-99)
[2020-10-09] MEDS: SYMBICORT 160-4.5 MCG INHALER INHALATION SCH ×2 (07:50→19:24)
[2020-10-09] MEDS: ALBUTEROL HFA INHALER INHALATION PRN ×4 (07:50→19:24)
[2020-10-09] MEDS: buPROPion XL 150 MG TAB.ER.24H PO SCH (08:11)
[2020-10-09] MEDS: ASPIRIN 81 MG PO SCH (08:11)
[2020-10-09] MEDS: ALPRAZolam 0.25 MG TAB PO PRN ×2 (08:11→20:52)
[2020-10-09] MEDS: traMADol 50 MG TAB PO SCH ×2 (08:12→20:51)
[2020-10-09] MEDS: PANTOPRAZOLE 40 MG TABLET PO SCH (08:12)
[2020-10-09] MEDS: SODIUM BICARBONATE TAB 650 MG TAB PO SCH ×4 (08:12→21:57)
[2020-10-09] MEDS: MULTIVITAMINS, THERA 1 EACH TAB PO SCH (08:12)
[2020-10-09] MEDS: ASCORBIC ACID 500 MG TAB PO SCH ×2 (08:12→16:46)
[2020-10-09] MEDS: carvediloL 3.125 MG TAB PO SCH ×2 (08:12→17:00)
[2020-10-09] MEDS: hydrALAZINE HCL 25 MG TAB PO SCH ×3 (08:12→21:57)
[2020-10-09] MEDS: CHOLECALCIFEROL 1,000 UNIT TAB PO SCH (08:12)
[2020-10-09] MEDS: ENOXAPARIN 30 MG/0.3 ML SYRINGE SQ SCH (08:13)
[2020-10-09] MEDS: INSULIN ASPART (NovoLOG) 100 UNIT/ML VIAL SQ SCH ×7 (08:13→20:52)
[2020-10-09] MEDS: AMIODARONE 200 MG TAB PO SCH (08:13)
[2020-10-09] MEDS: MICATIN TOPICAL SCH ×2 (08:25→21:15)
[2020-10-09 09:39] LABS: Ferritin 237.4 ng/mL (22.0-322.0)
[2020-10-09 11:17] LABS: Glucose,Whole Blood 171 mg/dL (75-99)
--- NOTE | 2020-10-09 12:12 | P.PN ---
Subjective Progress Note Date: 10/09/20 Principal diagnosis: This is a a 80-year-old male seen in consultation because of acute kidney injury secondary to combination of prerenal as well as possible right hydronephrosis f rom a remote cystectomy and ileal conduit. He was admitted with Covid pneumonia He continues to have shortness of breath requiring oxygen. Supposedly he is on oxygen at home but may not have been using it. His appetite is fair. No nausea vomiting diarrhea no chest pain no dizziness He is profoundly weak though. His creatinine slowly improving from 4.94-to 2.6 yesterday, labs this morning ar e not available - History of Present Illness Coming to the hospital with shortness of breath. Recently diagnosed with Covid 19. He has CK D stage V follows with body technician in [place]. He was due to start dialysis early next year. No permanent access yet. She has bladder scans of status post cystectomy currently has a urostomy bag. Admits making good amount of urine. He has no nausea but he had diarrhea. Low normal blood pressures. No recent NSAID use or contrast studies. Chest x-ray bilateral infiltrates the bases. Urine analysis active with pyuria. He does have history of recurrent urinary tract infections. Objective - Vital Signs Vital signs: Vital Signs Temp 97.5 F L 10/09/20 11:00 Pulse 67 10/09/20 11:00 Resp 18 10/09/20 11:00 BP 116/97 10/09/20 11:00 Pulse Ox 94 L 10/09/20 11:04 Intake & Output 10/08/20 10/09/20 10/09/20 18:59 06:59 18:59 Intake Total 240 Output Total 1350 600 550 Balance -1110 -600 -550 Intake: Oral 240 Output: Urine 1350 600 550 Other: Voiding Method Ileal Conduit (Right) Ileal Conduit (Right) Ileal Conduit (Right) On examination he is on oxygen via cannula and seems comfortable HEENT exam no JVP neck is supple no facial asymmetry Lungs are clear to auscultation fair air entry bilaterally Heart sounds unremarkable for any murmur rub gallop Abdomen soft nontender Extremity exam was no edema Neurologically awake alert oriented but profoundly weak His chest x-ray does show some infiltration bilaterally - Labs CBC & Chem 7: 10/08/20 09:44 10/08/20 09:44 Labs: Abnormal Lab Results - Last 24 Hours (Table) 10/08/20 10/08/20 10/09/20 Range/Units 16:57 21:00 07:12 POC Glucose (mg/dL) 181 H 104 H 160 H (75-99) mg/dL 10/09/20 Range/Units 11:10 POC Glucose (mg/dL) 171 H (75-99) mg/dL Assessment and Plan Assessment: Impression 1. Acute kidney injury from prerenal from possible Covid related. Improving. Creatinine down from 4.94-2.6 2.6 as of yesterday last today are not available 2. History of cystectomy with an ileal conduit , right hydronephrosis noted. Urology is following 3. Non-gap acidosis secondary to ileal conduit and chronic kidney disease, bicarb is 21, on sodium bicarb 650 4 times a day 4. Chronic kidney disease stage 3-4 6. Diabetes mellitus 7. Anemia of chronic kidney disease Recommendation Maintain small dose of Lasix by mouth 20 daily and see if his breathing can be improved . Monitor bicarb , renal function
--- NOTE | 2020-10-09 12:23 | P.PN ---
Subjective Progress Note Date: 10/09/20 Principal diagnosis: Acute CoVID 19 pneumonitis This is a pleasant 80-year-old gentleman who resides in a assisted living facility. He has a history of coronary artery disease with previous stent placement, chronic obstructive pulmonary disease, former smoker, diabetes mellitus type 2, gastroesophageal reflux disease, hyperlipidemia, hypertension, osteoarthritis, bladder cancer status post ileostomy. He presented to [facility] with complaints of increasing shortness of breath, cough congestion, low back pain, diarrhea, weakness. He had also fallen and sustained injury to his left elbow. He is found to be in acute renal failure and hypoxemic and transferred here yesterday for further treatment. His randolph virus test was 8 days ago. Chest x-ray shows evidence of COPD, cardiomegaly and basilar atelectasis. White count 4.6. Hemoglobin 11.0. Platelet count 140,000. Sodium 135. Potassium 4.0. Creatinine 4.94. Urinalysis with moderate bacteria, large leukocyte esterase. He is seen today in consultation on the regular medical floor. He is currently sitting up in bed. Awake and alert in no acute distress. 18 and O2 saturations in the 90s on 4 L/m per nasal cannula. He's been afebrile. Hemodynamically stable. Initiated on ceftriaxone. The patient is seen today 09/26/2020 in follow-up on the regular medical floor. He is resting comfortably in bed. Awake and alert in no acute distress. Breathing a bit easier today compared to yesterday. Maintaining O2 saturation in the low 90s on 7 L high flow nasal cannula. He's been afebrile. Hem odynamically stable. White count 5.1. Hemoglobin 11.0. Sodium 138. Potassium 3.6. Creatinine 4.6. The patient is seen today 10/01/2020 in follow-up on the regular medical floor. He is currently resting fairly comfortably in bed. Awake and alert in no acute distress. Still requiring airflow high flow oxygen at 60 L and 93% FiO2 to maintain O2 saturations in the 90s. He is quite dyspneic with minimal exertion. Chest x-ray continues to show opacities in the bilateral lower lobes. D-dimer 2.0. LDH 503. C-reactive protein 1.1. He remains on dexamethasone, bronchodilators, ceftriaxone, heparin for DVT prophylaxis. The patient is seen today 10/02/2020 in follow-up on the regular medical floor. He is currently resting in bed. Awake and alert in no acute distress. Still requiring AirVo high flow oxygen at 60 L and 90% FiO2. D-dimer 1.31. Sodium 138. Potassium 4.3. Creatinine 2.8. LDH 441. Continued on bronchodilators, dexamethasone, Lovenox, diuretics. Vitamin supplements. The patient is seen today 10/03/2020 in follow-up on the regular medical floor. He is awake and alert in no acute distress. He is still quite dyspneic with minimal exertion. Minimal conversation. Remains on AirVo high flow oxygen at 60 L and 90% FiO2. He is afebrile. D-dimer 1.35. Sodium 139. Potassium 4.5. Creatinine 2.7. LDH 439. C-reactive protein 3.9. He remains on Symbicort, albuterol, IV Solu-Medrol, vitamin supplements. He has received 2 units of convalescent plasma. Remains on Lovenox. The patient is seen today 10/06/2020 in follow-up on the regular medical floor. He is currently resting quite comfortably in bed. Awake and alert in no acute distress. He is still requiring high amounts of oxygen supplementations including airflow high flow oxygen at 60 L and 92% FiO2 along with a nonrebreather mask. He remains on albuterol, IV Solu-Medrol. Lovenox for DVT prophylaxis. Remains on vitamin supplements. The patient is seen today 10/07/2020 in follow-up on the regular medical floor. He has been slow to progress. He is currently resting fairly comfortably in bed. Still quite dyspneic with minimal exertion. He remains on AirVo high flow oxygen at 60 L and 90% FiO2 to maintain O2 saturations at 93%. He is afebrile. Hemodynamically stable. Remains quite weak and debilitated. Chest x-ray continues to show patchy basilar densities. He remains on Symbicort, albuterol, IV Solu-Medrol. Lovenox for DVT prophylaxis. Vitamin supplements. The patient is seen today 10/08/2020 in follow-up on the regular medical floor. He is resting in bed. Still requiring AirVo high flow oxygen at 60 L and 90% FiO2 along with a nonrebreather mask. White count 13.0. Hemoglobin 11.1. Lymphocytes 0.1. D-dimer 1.29. Sodium 133. Potassium 4.9. BUN 120. Creatinine 2.66. Currently on sodium bicarb tablets. He did receive 2 units of convalescent plasma. He remains on bronchodilators, IV Solu-Medrol, Lovenox, vitamin supplements. No significant improvement in his pulmonary status in the past 2 weeks. The patient is seen today 10/09/2020 in follow-up on the regular medical floor. He is awake, arousable, no significant improvement in the past 2 weeks. Still dyspneic with minimal exertion. Still requiring AirVo at 60 L and 90% FiO2 along with a nonrebreather mask. He has made no clinical improvement. Blood glucose 171. He remains on bronchodilators, IV Solu-Medrol, Lovenox, vitamin supplements. Objective - Vital Signs Vital signs: Vital Signs Temp 97.5 F L 10/09/20 11:00 Pulse 67 10/09/20 11:00 Resp 18 10/09/20 11:00 BP 116/97 10/09/20 11:00 Pulse Ox 94 L 10/09/20 11:04 Intake & Output 10/08/20 10/09/20 10/09/20 18:59 06:59 18:59 Intake Total 240 Output Total 1350 600 550 Balance -1110 -600 -550 Intake: Oral 240 Output: Urine 1350 600 550 Other: Voiding Method Ileal Conduit (Right) Ileal Conduit (Right) Ileal Conduit (Right) - Exam GENERAL EXAM: Arousable, pleasant 80-year-old gentleman, on AirVo high flow oxygen at 60 L and 90% FiO2, nonrebreather mask as well, fairly comfortable in no apparent distress. HEAD: Normocephalic. EYES: Normal reaction of pupils, equal size. NOSE: Clear with pink turbinates. THROAT: No erythema or exudates. NECK: No masses, no JVD. CHEST: No chest wall deformity. LUNGS: Equal air entry with bilateral scattered rhonchi, crackles in posterior bases. CVS: S1 and S2 normal with no audible murmur, regular rhythm. ABDOMEN: No hepatosplenomegaly, normal bowel sounds, no guarding or rigidity. SPINE: No scoliosis or deformity SKIN: Wound to the left elbow, dressing intact CENTRAL NERVOUS SYSTEM: No focal deficits, tone is normal in all 4 extremities. EXTREMITIES: There is no peripheral edema. No clubbing, no cyanosis. Pe ripheral pulses are intact. - Labs CBC & Chem 7: 10/08/20 09:44 10/08/20 09:44 Labs: Abnormal Lab Results - Last 24 Hours (Table) 10/08/20 10/08/20 10/09/20 Range/Units 16:57 21:00 07:12 POC Glucose (mg/dL) 181 H 104 H 160 H (75-99) mg/dL 10/09/20 Range/Units 11:10 POC Glucose (mg/dL) 171 H (75-99) mg/dL Assessment and Plan Assessment: 1 Acute hypoxic respiratory failure secondary to acute CoVID 19 pneumonitis. Outside the window for Remdesivir, GFR 10. Did receive 2 units of convalescent plasma 2 Acute renal failure of unclear etiology. Possible dehydration. Renal ultrasound reveals atrophy of the bilateral kidneys right greater than left rig ht-sided hydronephrosis 3 History of bladder cancer status post ileostomy 4 Diarrhea secondary to CoVID 19 infection 5 Diabetes mellitus, type II 6 Coronary disease with previous stent placement 7 Hypertension 8 Hyperlipidemia 9 Gastroesophageal reflux disease 10 Former smoker Plan: The patient was seen and evaluated by Dr. Jones Remains on AirVo high flow 60 L and 90% along with nonrebreather mask Continue the current treatment plan Titrate down the FiO2 as tolerated Prognosis is guarded, may need to consider hospice/comfort care He is a DO NOT RESUSCITATE/DO NOT INTUBATE CODE STATUS We will continue to follow I, the cosigning physician, performed a history & physical examination of the patient. Lungs sounds bilateral scattered rhonchi, crackles in the posterior bases. Maintaining O2 saturations in the 90s on AirVo high flow oxygen at 60 L and 90% FiO2. I discussed the assessment and plan of care with my nurse practitioner, Maria Luz Daniels. I attest to the above note as dictated by her.
[2020-10-09] MEDS: FUROSEMIDE 20 MG TAB PO SCH (12:54)
[2020-10-09 16:47] LABS: Glucose,Whole Blood 137 mg/dL (75-99)
[2020-10-09] MEDS: FERROUS SULFATE 325 MG TAB PO SCH (17:00)
--- NOTE | 2020-10-09 17:17 | PN ---
PROGRESS NOTE DATE OF SERVICE: 10/09/2020 INTERVAL HISTORY: This is a 80-year-old gentleman who was admitted with acute hypoxic respiratory failure secondary to COVID-19 pneumonia and is being closely monitored. Patient is on AIRVO as well as 100% nonbreather mask at [address] Jones is following the patient closely. The patient's chest x-ray which was reviewed personally showed bilateral lesions. Patient is being closely monitored. Dr. Jones is also considering the possibility of hospice measures at this time. PAST MEDICAL HISTORY: Reviewed. REVIEW OF SYSTEMS: Could not be taken because the patient is on AIRVO, as well as partial non-rebreather mask. CURRENT MEDICATIONS: Reviewed include Tylenol, Mentone, Ventolin, Xanax, Cordarone, vitamin C, aspirin, Cepacol, Symbicort, Tums, Coreg, Lovenox, Lasix, Apresoline, Claritin, Solu-Medrol. PHYSICAL EXAM: GENERAL: Patient is alert and oriented times two. VITAL SIGNS: Pulse 67, blood pressure 160/97, respirations 18, temperature 97.5, pulse ox 93% on 6 liters and 60% high flow AIRVO. HEENT: Conjunctivae normal. Oral mucosa moist. NECK: No jugular venous distention. No carotid bruits. No lymph node enlargement. RESPIRATORY: Breath sounds diminished at the bases. Bilateral scattered rhonchi and crackles. HEART: S1 and S2, muffled. ABDOMEN: Soft, no tenderness. NERVOUS: Diffusely weak. LABS: WBC 13, hemoglobin 11.1, sodium 133. ASSESSMENT: 1. Acute COVID-19 pneumonia, bilateral interstitial viral pneumonia with acute hypoxic respiratory failure. 2. Chronic kidney disease stage 5. 3. Acute renal failure possibly secondary to obstructive uropathy. The patient has right-sided hydronephrosis. The patient currently had suprapubic Gamez catheter. 4. Volume overload secondary to renal failure. 5. History of bladder cancer with ileostomy. 6. Diarrhea secondary to COVID-19, resolved. 7. Diabetes mellitus type 2, uncontrolled with hyperglycemia. 8. Coronary artery disease with history of stents. 9. Hypertension. 10.Hyperlipidemia. 11.Gastroesophageal reflux disease. 12.Chronic obstructive pulmonary disease without any significant exacerbation. 13.NO CODE, NO CPR, NO VENT. RECOMMENDATIONS AND DISCUSSION: I recommend to continue current management and continue symptomatic treatment. Repeat labs will be arranged. Otherwise, continue with current medications including the bronchodilators. I would also increase the dose of Solu-Medrol. Guarded prognosis because of multiple complex medical issues. Further recommendations to follow. MMODL / IJN: [id number] /
[2020-10-09 20:04] LABS: Glucose,Whole Blood 300 mg/dL (75-99)
[2020-10-09] MEDS: MELATONIN 5 MG TABLET PO SCH (20:52)
[2020-10-09] MEDS: LORATADINE 10 MG TAB PO SCH (20:52)
[2020-10-09] MEDS: ENOXAPARIN 40 MG/0.4 ML SYRINGE SQ SCH (20:52)
[2020-10-09] MEDS: INSULIN DETEMIR (LEVEMIR) 100 UNIT/ML SYR SQ SCH (20:52)
[2020-10-09] MEDS: PRAMIPEXOLE 0.125 MG TAB PO SCH (21:57)
[2020-10-10] MEDS: methylPREDNISolone SOD SUCCI 125 MG/2 ML VIAL IV SCH ×5 (00:54→23:36)
[2020-10-10 04:37] LABS: Basophils % (A) 0 %; Eosinophils % (A) 0 %; HCT 33.9 % (39.0-53.0); HGB 10.7 gm/dL (13.0-17.5); Lymphocytes # (A) 0.1 k/uL (1.0-4.8); Lymphocytes % (A) 0 %; MCHC 31.7 g/dL (31.0-37.0); MCV 101.1 fL (80.0-100.0); Macrocytosis Slight; Mean Platelet Volume 9.6; Monocytes # (A) 0.5 k/uL (0-1.0); Monocytes % (A) 3 %; Neutrophils # (A) 15.1 k/uL (1.3-7.7); Neutrophils % (A) 96 %; Platelet Count 210 k/uL (150-450); RBC 3.35 m/uL (4.30-5.90); RDW 14.2 % (11.5-15.5); WBC 15.8 k/uL (3.8-10.6)
[2020-10-10 06:57] LABS: Glucose,Whole Blood 138 mg/dL (75-99)
[2020-10-10] MEDS: INSULIN ASPART (NovoLOG) 100 UNIT/ML VIAL SQ SCH ×7 (08:12→21:32)
[2020-10-10] MEDS: ENOXAPARIN 40 MG/0.4 ML SYRINGE SQ SCH ×2 (08:13→21:32)
[2020-10-10] MEDS: SODIUM BICARBONATE TAB 650 MG TAB PO SCH ×4 (08:13→21:33)
[2020-10-10] MEDS: CHOLECALCIFEROL 1,000 UNIT TAB PO SCH (08:14)
[2020-10-10] MEDS: ASPIRIN 81 MG PO SCH (08:14)
[2020-10-10] MEDS: traMADol 50 MG TAB PO SCH ×2 (08:15→21:32)
[2020-10-10] MEDS: AMIODARONE 200 MG TAB PO SCH (08:16)
[2020-10-10] MEDS: MULTIVITAMINS, THERA 1 EACH TAB PO SCH (08:16)
[2020-10-10] MEDS: hydrALAZINE HCL 25 MG TAB PO SCH ×3 (08:16→21:31)
[2020-10-10] MEDS: carvediloL 3.125 MG TAB PO SCH ×2 (08:16→17:03)
[2020-10-10] MEDS: FUROSEMIDE 20 MG TAB PO SCH (08:16)
[2020-10-10] MEDS: buPROPion XL 150 MG TAB.ER.24H PO SCH (08:17)
[2020-10-10] MEDS: ASCORBIC ACID 500 MG TAB PO SCH ×2 (08:17→17:02)
[2020-10-10] MEDS: PANTOPRAZOLE 40 MG TABLET PO SCH (08:17)
[2020-10-10] MEDS: ALBUTEROL HFA INHALER INHALATION PRN ×4 (08:23→20:05)
[2020-10-10] MEDS: SYMBICORT 160-4.5 MCG INHALER INHALATION SCH ×2 (08:23→20:08)
[2020-10-10] MEDS: MICATIN TOPICAL SCH ×2 (08:29→21:34)
--- NOTE | 2020-10-10 09:23 | P.PN ---
Progress Note - Text Progress Note Date: 10/10/20 The patient continues to be treated for covert pneumonia, requiring an FiO2 of 90%. His serum creatinine level has gradually improved to 2.66. It would be my recommendation that a loopogram be obtained after his overall medical condition has improved, in order to determine the cause of his right hydronephrosis.
[2020-10-10 10:21] LABS: African American GFR (CKD) 20.4 (60.0-200.0); Anion Gap 12.4 mmol/L (4.00-12.00); BUN/Creat Ratio 43.44 Ratio (12.00-20.00); Calcium 8.2 mg/dL (8.7-10.3); Carbon Dioxide 18.6 mmol/L (21.6-31.8); Non-African American GFR(CKD) 17.6 (60.0-200.0); Potassium 4.5 mmol/L (3.5-5.5)
[2020-10-10 11:12] LABS: Glucose,Whole Blood 163 mg/dL (75-99)
--- NOTE | 2020-10-10 11:43 | P.PN ---
Subjective Progress Note Date: 10/10/20 Principal diagnosis: Acute CoVID 19 pneumonitis This is a pleasant 80-year-old gentleman who resides in a assisted living facility. He has a history of coronary artery disease with previous stent placement, chronic obstructive pulmonary disease, former smoker, diabetes mellitus type 2, gastroesophageal reflux disease, hyperlipidemia, hypertension, osteoarthritis, bladder cancer status post ileostomy. He presented to [facility] with complaints of increasing shortness of breath, cough congestion, low back pain, diarrhea, weakness. He had also fallen and sustained injury to his left elbow. He is found to be in acute renal failure and hypoxemic and transferred here yesterday for further treatment. His randolph virus test was 8 days ago. Chest x-ray shows evidence of COPD, cardiomegaly and basilar atelectasis. White count 4.6. Hemoglobin 11.0. Platelet count 140,000. Sodium 135. Potassium 4.0. Creatinine 4.94. Urinalysis with moderate bacteria, large leukocyte esterase. He is seen today in consultation on the regular medical floor. He is currently sitting up in bed. Awake and alert in no acute distress. 18 and O2 saturations in the 90s on 4 L/m per nasal cannula. He's been afebrile. Hemodynamically stable. Initiated on ceftriaxone. The patient is seen today 09/26/2020 in follow-up on the regular medical floor. He is resting comfortably in bed. Awake and alert in no acute distress. Breathing a bit easier today compared to yesterday. Maintaining O2 saturation in the low 90s on 7 L high flow nasal cannula. He's been afebrile. Hem odynamically stable. White count 5.1. Hemoglobin 11.0. Sodium 138. Potassium 3.6. Creatinine 4.6. The patient is seen today 10/01/2020 in follow-up on the regular medical floor. He is currently resting fairly comfortably in bed. Awake and alert in no acute distress. Still requiring airflow high flow oxygen at 60 L and 93% FiO2 to maintain O2 saturations in the 90s. He is quite dyspneic with minimal exertion. Chest x-ray continues to show opacities in the bilateral lower lobes. D-dimer 2.0. LDH 503. C-reactive protein 1.1. He remains on dexamethasone, bronchodilators, ceftriaxone, heparin for DVT prophylaxis. The patient is seen today 10/02/2020 in follow-up on the regular medical floor. He is currently resting in bed. Awake and alert in no acute distress. Still requiring AirVo high flow oxygen at 60 L and 90% FiO2. D-dimer 1.31. Sodium 138. Potassium 4.3. Creatinine 2.8. LDH 441. Continued on bronchodilators, dexamethasone, Lovenox, diuretics. Vitamin supplements. The patient is seen today 10/03/2020 in follow-up on the regular medical floor. He is awake and alert in no acute distress. He is still quite dyspneic with minimal exertion. Minimal conversation. Remains on AirVo high flow oxygen at 60 L and 90% FiO2. He is afebrile. D-dimer 1.35. Sodium 139. Potassium 4.5. Creatinine 2.7. LDH 439. C-reactive protein 3.9. He remains on Symbicort, albuterol, IV Solu-Medrol, vitamin supplements. He has received 2 units of convalescent plasma. Remains on Lovenox. The patient is seen today 10/06/2020 in follow-up on the regular medical floor. He is currently resting quite comfortably in bed. Awake and alert in no acute distress. He is still requiring high amounts of oxygen supplementations including airflow high flow oxygen at 60 L and 92% FiO2 along with a nonrebreather mask. He remains on albuterol, IV Solu-Medrol. Lovenox for DVT prophylaxis. Remains on vitamin supplements. The patient is seen today 10/07/2020 in follow-up on the regular medical floor. He has been slow to progress. He is currently resting fairly comfortably in bed. Still quite dyspneic with minimal exertion. He remains on AirVo high flow oxygen at 60 L and 90% FiO2 to maintain O2 saturations at 93%. He is afebrile. Hemodynamically stable. Remains quite weak and debilitated. Chest x-ray continues to show patchy basilar densities. He remains on Symbicort, albuterol, IV Solu-Medrol. Lovenox for DVT prophylaxis. Vitamin supplements. The patient is seen today 10/08/2020 in follow-up on the regular medical floor. He is resting in bed. Still requiring AirVo high flow oxygen at 60 L and 90% FiO2 along with a nonrebreather mask. White count 13.0. Hemoglobin 11.1. Lymphocytes 0.1. D-dimer 1.29. Sodium 133. Potassium 4.9. BUN 120. Creatinine 2.66. Currently on sodium bicarb tablets. He did receive 2 units of convalescent plasma. He remains on bronchodilators, IV Solu-Medrol, Lovenox, vitamin supplements. No significant improvement in his pulmonary status in the past 2 weeks. The patient is seen today 10/09/2020 in follow-up on the regular medical floor. He is awake, arousable, no significant improvement in the past 2 weeks. Still dyspneic with minimal exertion. Still requiring AirVo at 60 L and 90% FiO2 along with a nonrebreather mask. He has made no clinical improvement. Blood glucose 171. He remains on bronchodilators, IV Solu-Medrol, Lovenox, vitamin supplements. The patient is seen today 10/10/2020 in follow-up on the regular medical floor. He is bit more awake and alert today. Answering questions appropriately. Still requiring airflow a 60 L and 93% FiO2 to maintain O2 saturations in the 90s. He states he is not hungry his appetite is poor he is somewhat depressed. Making no significant improvement. White count 15.8. Hemoglobin 10.7. Sodium 137. Potassium 4.5. BUN 139. Creatinine 3.2. Nephrology and urology on the case. He remains on bronchodilators, IV Solu-Medrol, Lovenox, vitamin supplements. Objective - Vital Signs Vital signs: Vital Signs Temp 97.4 F L 10/10/20 10:08 Pulse 68 10/10/20 10:08 Resp 20 10/10/20 10:08 BP 126/55 10/10/20 10:08 Pulse Ox 95 10/10/20 11:21 Intake & Output 10/09/20 10/10/20 10/10/20 18:59 06:59 18:59 Intake Total 1040 Output Total 1300 1000 600 Balance -1300 40 -600 Intake: Oral 1040 Output: Urine 1300 1000 600 Other: Voiding Method Ileal Conduit (Right) Ileal Conduit (Right) Ileal Conduit (Right) - Exam GENERAL EXAM: Awake, more alert today, pleasant 80-year-old gentleman, on AirVo high flow oxygen at 60 L and 93% FiO2, nonrebreather mask as well, fairly comfortable in no apparent distress. HEAD: Normocephalic. EYES: Normal reaction of pupils, equal size. NOSE: Clear with pink turbinates. THROAT: No erythema or exudates. NECK: No masses, no JVD. CHEST: No chest wall deformity. LUNGS: Equal air entry with bilateral scattered rhonchi, crackles in posterior bases. CVS: S1 and S2 normal with no audible murmur, regular rhythm. ABDOMEN: No hepatosplenomegaly, normal bowel sounds, no guarding or rigidity. SPINE: No scoliosis or deformity SKIN: Wound to the left elbow, dressing intact CENTRAL NERVOUS SYSTEM: No focal deficits, tone is normal in all 4 extremities. EXTREMITIES: There is no peripheral edema. No clubbing, no cyanosis. Peripheral pulses are intact. - Labs CBC & Chem 7: 10/10/20 03:36 10/10/20 03:36 Labs: Abnormal Lab Results - Last 24 Hours (Table) 10/09/20 10/09/20 10/10/20 Range/Units 16:45 20:02 03:36 WBC 15.8 H (3.8-10.6) k/uL RBC 3.35 L (4.30-5.90) m/uL Hgb 10.7 L (13.0-17.5) gm/dL Hct 33.9 L (39.0-53.0) % MCV 101.1 H (80.0-100.0) fL Neutrophils # 15.1 H (1.3-7.7) k/uL Lymphocytes # 0.1 L (1.0-4.8) k/uL Carbon Dioxide (21.6-31.8) mmol/L Anion Gap (4.00-12.00) mmol/L BUN (9.0-27.0) mg/dL Creatinine (0.6-1.5) mg/dL Est GFR (CKD-EPI)AfAm (60.0-200.0) Est GFR (CKD-EPI)NonAf (60.0-200.0) BUN/Creatinine Ratio (12.00-20.00) Ratio Glucose (70-110) mg/dL POC Glucose (mg/dL) 137 H 300 H (75-99) mg/dL Calcium (8.7-10.3) mg/dL 10/10/20 10/10/20 10/10/20 Range/Units 03:36 06:56 11:08 WBC (3.8-10.6) k/uL RBC (4.30-5.90) m/uL Hgb (13.0-17.5) gm/dL Hct (39.0-53.0) % MCV (80.0-100.0) fL Neutrophils # (1.3-7.7) k/uL Lymphocytes # (1.0-4.8) k/uL Carbon Dioxide 18.6 L (21.6-31.8) mmol/L Anion Gap 12.40 H (4.00-12.00) mmol/L BUN 139.0 H* (9.0-27.0) mg/dL Creatinine 3.2 H (0.6-1.5) mg/dL Est GFR (CKD-EPI)AfAm 20.4 L (60.0-200.0) Est GFR (CKD-EPI)NonAf 17.6 L (60.0-200.0) BUN/Creatinine Ratio 43.44 H (12.00-20.00) Ratio Glucose 143 H (70-110) mg/dL POC Glucose (mg/dL) 138 H 163 H (75-99) mg/dL Calcium 8.2 L (8.7-10.3) mg/dL Assessment and Plan Assessment: 1 Acute hypoxic respiratory failure secondary to acute CoVID 19 pneumonitis. Outside the window for Remdesivir, GFR 10. Did receive 2 units of convalescent plasma 2 Acute renal failure of unclear etiology. Possible dehydration. Renal ultrasound reveals atrophy of the bilateral kidneys right greater than left right-sided hydronephrosis 3 History of bladder cancer status post ileostomy 4 Diarrhea secondary to CoVID 19 infection 5 Diabetes mellitus, type II 6 Coronary disease with previous stent placement 7 Hypertension 8 Hyperlipidemia 9 Gastroesophageal reflux disease 10 Former smoker Plan: The patient was seen and evaluated by Dr. Jones Remains on AirVo high flow 60 L and 93% along with nonrebreather mask Continue the current treatment plan Titrate down the FiO2 as tolerated He is a DO NOT RESUSCITATE/DO NOT INTUBATE CODE STATUS We will continue to follow I, the cosigning physician, performed a history & physical examination of the patient. Lungs sounds bilateral scattered rhonchi, crackles in the posterior bases. Maintaining O2 saturations in the 90s on AirVo high flow oxygen at 60 L and 93% FiO2. I discussed the assessment and plan of care with my nurse practitioner, Maria Luz Daniels. I attest to the above note as dictated by her.
--- NOTE | 2020-10-10 13:07 | P.PN ---
Subjective Progress Note Date: 10/10/20 Principal diagnosis: This is a a 80-year-old male seen in consultation because of acute kidney injury secondary to combination of prerenal as well as possible right hydronephrosis f rom a remote cystectomy and ileal conduit. He was admitted with Covid pneumonia. He continues to have shortness of breath requiring oxygen. Supposedly he is on oxygen at home but may not have been using it. His appetite is fair. No nausea vomiting diarrhea no chest pain no dizziness He is profoundly weak though. His creatinine slowly improving from 4.94-to 2.6, and then went up again to 3.2 with a BUN going up to 139. He was given 1 dose of Lasix yesterday because of shortness of breath there was worsening - History of Present Illness Coming to the hospital with shortness of breath. Recently diagnosed with Covid 19. He has CK D stage V follows with regional extension service specialist in [place]. He was due to start dialysis early next year. No permanent access yet. She has bladder scans of status post cystectomy currently has a urostomy bag. Admits making good amount of urine. He has no nausea but he had diarrhea. Low normal blood pressures. No recent NSAID use or contrast studies. Chest x-ray bilateral infiltrates the bases. Urine analysis active with pyuria. He does have history of recurrent urinary tract infections. Objective - Vital Signs Vital signs: Vital Signs Temp 97.4 F L 10/10/20 10:08 Pulse 68 10/10/20 10:08 Resp 20 10/10/20 10:08 BP 126/55 10/10/20 10:08 Pulse Ox 95 10/10/20 11:21 Intake & Output 10/09/20 10/10/20 10/10/20 18:59 06:59 18:59 Intake Total 1040 Output Total 1300 1000 600 Balance -1300 40 -600 Intake: Oral 1040 Output: Urine 1300 1000 600 Other: Voiding Method Ileal Conduit (Right) Ileal Conduit (Right) Ileal Conduit (Right) On examination he is on nonrebreather mask but seems to be eating fairly well HEENT exam no JVP neck is supple no facial asymmetry Lungs are significant for bilateral wheezing and coarse crackles Heart sounds are unremarkable for any murmur rub gallop Abdomen soft nontender Extremity exam was no edema Neurologically awake alert oriented but generalized weakness is profound - Labs CBC & Chem 7: 10/10/20 03:36 10/10/20 03:36 Labs: Abnormal Lab Results - Last 24 Hours (Table) 10/09/20 10/09/20 10/10/20 Range/Units 16:45 20:02 03:36 WBC 15.8 H (3.8-10.6) k/uL RBC 3.35 L (4.30-5.90) m/uL Hgb 10.7 L (13.0-17.5) gm/dL Hct 33.9 L (39.0-53.0) % MCV 101.1 H (80.0-100.0) fL Neutrophils # 15.1 H (1.3-7.7) k/uL Lymphocytes # 0.1 L (1.0-4.8) k/uL Carbon Dioxide (21.6-31.8) mmol/L Anion Gap (4.00-12.00) mmol/L BUN (9.0-27.0) mg/dL Creatinine (0.6-1.5) mg/dL Est GFR (CKD-EPI)AfAm (60.0-200.0) Est GFR (CKD-EPI)NonAf (60.0-200.0) BUN/Creatinine Ratio (12.00-20.00) Ratio Glucose (70-110) mg/dL POC Glucose (mg/dL) 137 H 300 H (75-99) mg/dL Calcium (8.7-10.3) mg/dL 10/10/20 10/10/20 10/10/20 Range/Units 03:36 06:56 11:08 WBC (3.8-10.6) k/uL RBC (4.30-5.90) m/uL Hgb (13.0-17.5) gm/dL Hct (39.0-53.0) % MCV (80.0-100.0) fL Neutrophils # (1.3-7.7) k/uL Lymphocytes # (1.0-4.8) k/uL Carbon Dioxide 18.6 L (21.6-31.8) mmol/L Anion Gap 12.40 H (4.00-12.00) mmol/L BUN 139.0 H* (9.0-27.0) mg/dL Creatinine 3.2 H (0.6-1.5) mg/dL Est GFR (CKD-EPI)AfAm 20.4 L (60.0-200.0) Est GFR (CKD-EPI)NonAf 17.6 L (60.0-200.0) BUN/Creatinine Ratio 43.44 H (12.00-20.00) Ratio Glucose 143 H (70-110) mg/dL POC Glucose (mg/dL) 138 H 163 H (75-99) mg/dL Calcium 8.2 L (8.7-10.3) mg/dL Assessment and Plan Assessment: Impression 1. Acute kidney injury from prerenal from possible Covid related. Creatinine down from 4.94-2.6 2.6 as of 10/08/2020 but then went up again to 3.2 with a BUN of 139 after this one dose of Lasix, his vital signs are stable is not hypotensive. The cause of this worsening may be prerenal from congestive heart failure 2. History of cystectomy with an ileal conduit , right hydronephrosis noted. Urology is following 3. Non-gap acidosis secondary to ileal conduit and chronic kidney disease, bicarb is on. 18, on sodium bicarb 650 4 times a day 4. Chronic kidney disease stage 3-4 6. Diabetes mellitus 7. Anemia of chronic kidney disease Recommendation will obtain a chest x-ray to see how much diuresis to order Maintain small dose of Lasix by mouth 20 daily and see if his breathing can be improved . Monitor bicarb , renal function
--- NOTE | 2020-10-10 13:49 | XR ---
EXAMINATION TYPE: XR chest 1V DATE OF EXAM: 10/10/2020 CLINICAL HISTORY: Worsening shortness of breath TECHNIQUE: Single AP portable upright view of the chest is obtained. COMPARISON: Chest x-ray from 3 days earlier and older studies FINDINGS: Overlying sternal wires redemonstrated. Persistent mild cardiomegaly with multi lead pacem lucia. Chronic parenchymal changes with increased peripheral mid to lower lung opacities bilaterally. No pleural effusion or pneumothorax seen. Osseous structures remain demineralized. IMPRESSION: Mild cardiomegaly and chronic parenchymal changes with peripheral and basilar multi focal acute infiltrates, possible covid 19 infection. Correlate clinically. Pulmonary infection favored ov er CHF.
--- NOTE | 2020-10-10 15:32 | PN ---
PROGRESS NOTE DATE OF SERVICE: 10/10/2019 This 80-year-old gentleman who was admitted with acute hypoxic respiratory secondary to Covid 19 pneumonia is being closely monitored. The patient has been on AIRVO 100% nonrebreather mask, has been removed most recent. Dr. Jones is following the patient closely. The most recent chest x-ray which was reviewed personally by me showed bilateral lesions, left more than the right. Patient being closely monitored at this time. The patient is saturating about 95% at this time. REVIEW OF SYSTEMS: CARDIOVASCULAR SYSTEM: No angina. Respirations: As mentioned earlier. GI as mentioned earlier. NERVOUS SYSTEM: No numbness or weakness. CURRENT MEDICATIONS: Reviewed and include: Tylenol, Eva, Ventolin, Xanax, Cordarone, vitamin C, aspirin, Lioresal, Cepacol, Dulcolax, Symbicort, Tums, Coreg. Vitamin D3, Lovenox, iron sulfate, Lasix. Doses are reviewed. PHYSICAL EXAM: Patient is alert and oriented times three. Pulse 68, blood pressure 120/65, respirations 20. Temperature 97.4, pulse ox 99% on AIRVO. HEENT: Conjunctivae normal. NECK: No JVD. CARDIOVASCULAR: S1, S2 muffled. RESPIRATIONS: Breath sounds diminished in the bases. Bilateral scattered rhonchi and crackles. ABDOMEN: Soft. Obese, nontender. LEGS: No edema. No swelling. NERVOUS SYSTEM: Higher functions as mentioned earlier. Moves all four limbs. LYMPHATICS: No lymph nodes palpable in the neck, axillae or groin. SKIN: No ulcer, no rash and no bleeding. JOINTS: No active deforming arthropathy. LAB STUDIES: WBC 15.8, hemoglobin 10.7. BUN is 139, creatinine is 3.2, which is slightly worsening. ASSESSMENT: 1. Acute COVID-19 pneumonia bilateral interstitial viral pneumonia with acute hypoxic respiratory failure. 2. Acute kidney failure with acute tubular necrosis. 3. Chronic kidney disease stage 5, baseline. 4. Right-sided hydronephrosis and obstructive uropathy. Currently has suprapubic Gamez catheter. 5. Volume overload secondary to renal failure. 6. History of bladder cancer with ileostomy. 7. Diarrhea secondary to Covid 19, resolved. 8. Diabetes mellitus type 2, uncontrolled with hyperglycemia. 9. History of coronary artery disease/stent. 10.Hypertension. 11.Hyperlipidemia. 12.Gastroesophageal reflux disease. 13.Chronic obstructive pulmonary disease without significant acute exacerbation. 14.NO CODE, NO CPR, NO VENT. RECOMMENDATIONS AND DISCUSSION: I recommend to continue current medications. Continue AIRVO. Symptomatic treatment. We will continue the rest of medications. Otherwise, the patient has seen multiple consultants. Most recent chest x-ray was reviewed. Guarded prognosis because of multiple complex medical issues. Patient currently NO CODE. Further recommendations to follow. MMODL / IJN: [id number] /
[2020-10-10] MEDS: FERROUS SULFATE 325 MG TAB PO SCH (17:03)
[2020-10-10 17:06] LABS: Glucose,Whole Blood 189 mg/dL (75-99)
[2020-10-10 21:14] LABS: Glucose,Whole Blood 205 mg/dL (75-99)
[2020-10-10] MEDS: MELATONIN 5 MG TABLET PO SCH (21:31)
[2020-10-10] MEDS: PRAMIPEXOLE 0.125 MG TAB PO SCH (21:31)
[2020-10-10] MEDS: INSULIN DETEMIR (LEVEMIR) 100 UNIT/ML SYR SQ SCH (21:32)
[2020-10-10] MEDS: LORATADINE 10 MG TAB PO SCH (21:32)
[2020-10-10] MEDS: ALPRAZolam 0.25 MG TAB PO PRN (21:33)
[2020-10-11] MEDS: methylPREDNISolone SOD SUCCI 125 MG/2 ML VIAL IV SCH ×2 (05:42→13:22)
[2020-10-11 05:58] LABS: Basophils % (A) 0 %; Eosinophils % (A) 0 %; HCT 33.8 % (39.0-53.0); HGB 11.4 gm/dL (13.0-17.5); Lymphocytes % (A) 0 %; MCH 33.4 pg (25.0-35.0); MCHC 33.6 g/dL (31.0-37.0); MCV 99.3 fL (80.0-100.0); Mean Platelet Volume 9.2; Monocytes # (A) 0.5 k/uL (0-1.0); Monocytes % (A) 3 %; Neutrophils # (A) 15.1 k/uL (1.3-7.7); Neutrophils % (A) 96 %; Platelet Count 177 k/uL (150-450); RBC 3.41 m/uL (4.30-5.90); RDW 13.9 % (11.5-15.5); WBC 15.8 k/uL (3.8-10.6)
[2020-10-11 07:36] LABS: Glucose,Whole Blood 99 mg/dL (75-99)
[2020-10-11] MEDS: SYMBICORT 160-4.5 MCG INHALER INHALATION SCH ×2 (08:14→19:23)
[2020-10-11] MEDS: ALBUTEROL HFA INHALER INHALATION PRN (08:14)
[2020-10-11] MEDS: INSULIN ASPART (NovoLOG) 100 UNIT/ML VIAL SQ SCH ×7 (09:23→21:29)
[2020-10-11 10:07] LABS: African American GFR (CKD) 20.4 (60.0-200.0); Anion Gap 10.3 mmol/L (4.00-12.00); BUN/Creat Ratio 44.06 Ratio (12.00-20.00); Carbon Dioxide 19.7 mmol/L (21.6-31.8); Non-African American GFR(CKD) 17.6 (60.0-200.0); Potassium 4.5 mmol/L (3.5-5.5)
[2020-10-11] MEDS ORDERED: traMADol 50 MG TAB PO STA (10:18)
[2020-10-11] MEDS: SODIUM BICARBONATE TAB 650 MG TAB PO SCH ×4 (10:33→21:30)
[2020-10-11] MEDS: buPROPion XL 150 MG TAB.ER.24H PO SCH (10:33)
[2020-10-11] MEDS: CHOLECALCIFEROL 1,000 UNIT TAB PO SCH (10:33)
[2020-10-11] MEDS: MULTIVITAMINS, THERA 1 EACH TAB PO SCH (10:33)
[2020-10-11] MEDS: AMIODARONE 200 MG TAB PO SCH (10:34)
[2020-10-11] MEDS: PANTOPRAZOLE 40 MG TABLET PO SCH (10:34)
[2020-10-11] MEDS: ASPIRIN 81 MG PO SCH (10:34)
[2020-10-11] MEDS: FUROSEMIDE 20 MG TAB PO SCH (10:34)
[2020-10-11] MEDS: ASCORBIC ACID 500 MG TAB PO SCH ×2 (10:34→16:48)
[2020-10-11] MEDS: carvediloL 3.125 MG TAB PO SCH ×2 (10:35→18:17)
[2020-10-11] MEDS: ENOXAPARIN 40 MG/0.4 ML SYRINGE SQ SCH ×2 (10:35→21:29)
[2020-10-11] MEDS: hydrALAZINE HCL 25 MG TAB PO SCH ×3 (10:35→21:30)
[2020-10-11] MEDS: MICATIN TOPICAL SCH ×2 (12:07→21:31)
[2020-10-11] MEDS: ALBUTEROL HFA INHALER INHALATION SCH ×3 (12:19→19:23)
--- NOTE | 2020-10-11 12:45 | P.PN ---
Subjective Progress Note Date: 10/11/20 Principal diagnosis: Acute hypoxic respiratory failure secondary to COVID 19 pneumonitis This is a pleasant 80-year-old gentleman who resides in a assisted living facility. He has a history of coronary artery disease with previous stent placement, chronic obstructive pulmonary disease, former smoker, diabetes mellitus type 2, gastroesophageal reflux disease, hyperlipidemia, hypertension, osteoarthritis, bladder cancer status post ileostomy. He presented to [facility] with complaints of increasing shortness of breath, cough congestion, low back pain, diarrhea, weakness. He had also fallen and sustained injury to his left elbow. He is found to be in acute renal failure and hypoxemic and transferred here yesterday for further treatment. His randolph virus test was 8 days ago. Chest x-ray shows evidence of COPD, cardiomegaly and basilar atelectasis. White count 4.6. Hemoglobin 11.0. Platelet count 140,000. Sodium 135. Potassium 4.0. Creatinine 4.94. Urinalysis with moderate bacteria, large leukocyte esterase. He is seen today in consultation on the regular medical floor. He is currently sitting up in bed. Awake and alert in no acute distress. 18 and O2 saturations in the 90s on 4 L/m per nasal cannula. He's been afebrile. Hemodynamically stable. Initiated on ceftriaxone. The patient is seen today 09/26/2020 in follow-up on the regular medical floor. He is resting comfortably in bed. Awake and alert in no acute distress. Breathing a bit easier today compared to yesterday. Maintaining O2 saturation in the low 90s on 7 L high flow nasal cannula. He's been afebrile. Hemodynamically stable. White count 5.1. Hemoglobin 11.0. Sodium 138. Potassium 3.6. Creatinine 4.6. Patient was reevaluated today on 09/27/20, surprisingly the patient is feeling better, breathing a lot easier, becoming more and more active in the room. Patient was seen for his hydronephrosis by nephrology and urology, patient is scheduled for CT of abdomen and pelvis to better assess his hydronephrosis, and the urologist is concern about the possibility of obstruction or possibly reflux given his history of the conduit. In the meantime the patient is being followed by nephrology and addressing his acute on chronic kidney injury. Pulmonary-wis e, the patient is feeling better, remains on 15 L high flow nasal cannula, and his O2 saturation is 91%. CBC today is relatively normal. Basic metabolic profile is normal. However his bicarb is low at 14, BUN is 87 creatinine is 4.4. Reevaluated today on 09/28/20, patient is still requiring high flow FiO2, he is now on 15 L/m, clinically he is feeling better, breathing easier, sitting in bed eating, in no distress. Patient is being followed by nephrology and urology regarding his hydronephrosis, pulmonary-hudson basically he is about the same. Reevaluated today on 09/29/20, patient remains on the regular medical floor, however he is requiring significant amount of FiO2, he is now on airvo FiO2 is 90%, and 60 L flow. O2 saturation is marginal. Clinically the patient is feeling better, breathing easier. Maintained on oral Lasix, patient is nonoliguric. On 09/30/2020 patient seen in follow-up on general medical oncology floor. He is on high flow oxygen, per Airvo at 60 L and FiO2 of 89-90%, and he is satting about 97%. Does not appear to be in any acute distress, however patient is generally weak, requires extensive assistance to get up to the bedside commode, overall she is feeling somewhat better, he is breathing easier, patient was outside the window for Remdesivir, he did receive 1 unit of convalescent plasma. He is currently on vitamin C, dexamethasone, daily dose of Lasix. He is in - 2.5 L over the last 24 hours. Patient is awake and alert, still has some trace lower extremity edema. No new labs today. He is on subcu heparin for DVT prophylaxis, his last d-dimer was 0.63. On 10/04/2020 patient seen in follow-up on medical floor, he is resting in bed, the confusion has somewhat improved, she still has a safety trainer at the bedside, no agitation, he could tell us that she was in the hospital, and he knew the year. She is very weak, short of breath with exertion, remains on high flow oxygen per Airvo at 60 L and 90%, and his pulse ox is 98%, hemodynamically has been stable, he's been afebrile. His chest x-ray has been reviewed, showing patchy peripheral airspace disease persistence. His labs have been reviewed, showing BUN of 1:15, creatinine of 3, renal function has gotten a little worse since yesterday. His last LDH was done yesterday, down trending, at 439, CRP is 3.9. No nausea vomiting or diarrhea. Patient remains on vitamin C, he is on a cough syrup, nebulized bronchodilators, once daily dose of oral Lasix, IV steroids at 60 mg every 6 hours. Status post transfusion with 2 units of convalescent plasma. he was outside the window for Remdesivir. On 10/11/2020 patient seen in follow-up on the medical floor. He was on high flow oxygen this morning Airvo at 60 L and FiO2 of 70%, the pulse ox between 95- 97%, no worsening dyspnea, patient crusted to be switched over to 100% nonrebreather mask, tolerating it well, his last chest x-ray from yesterday showed chronic bronchial changes with peripheral and basilar multifocal acute infiltrates related to COPD 19 infection. No significant cough, no complaints of chest discomfort, patient is awake and alert, he is answering questions appropriately, denies any acute distress, he has been on steroids in the form of Solu-Medrol 60 mg every 6 hours, he had been on diuretics which were recently cut back in view of worsening renal function, nephrology is following, he is on Lovenox 40 mg twice daily, he status post transfusion with 2 units of convalescent plasma, patient was outside the therapeutic window for Remdesivir. He has not had recent echocardiogram done. He has been slow to improve, still requiring high flow oxygen. We'll repeat chest x-ray and echocardiogram today. Objective - Vital Signs Vital signs: Vital Signs Temp 97 F L 10/11/20 04:57 Pulse 72 10/11/20 04:57 Resp 24 10/11/20 04:57 BP 144/80 10/11/20 04:57 Pulse Ox 97 10/11/20 04:57 Intake & Output 10/10/20 10/11/20 10/11/20 18:59 06:59 18:59 Intake Total 540 Output Total 1100 1450 Balance -1100 -910 Intake: Oral 540 Output: Urine 1100 1450 Other: Voiding Method Ileal Conduit (Right) Ileal Conduit (Right) - Exam GENERAL EXAM: Alert, weak, 80-year-old white male, currently onAirvo at 60 L, and FiO2 of 90%, satting 97% , comfortable in no apparent distress. HEAD: Normocephalic/atraumatic. EYES: Normal reaction of pupils, equal size. Conjunctiva pink, sclera white. NOSE: Clear with pink turbinates. THROAT: No erythema or exudates. NECK: No masses, no JVD, no thyroid enlargement, no adenopathy. CHEST: No chest wall deformity. Symmetrical expansion. LUNGS: Equal air entry with no crackles, wheeze, rhonchi or dullness. CVS: Regular rate and rhythm, normal S1 and S2, no gallops, no murmurs, no rubs ABDOMEN: Soft, nontender. No hepatosplenomegaly, normal bowel sounds, no guarding or rigidity. EXTREMITIES: No clubbing, trace lower extremity edema no cyanosis, 2+ pulses and upper and lower extremities. MUSCULOSKELETAL: Muscle strength and tone normal. SPINE: No scoliosis or deformity SKIN: No rashes CENTRAL NERVOUS SYSTEM: Alert and oriented -3. No focal deficits, tone is normal in all 4 extremities. PSYCHIATRIC: Alert and oriented -3. Appropriate affect. Intact judgment and insight. - Labs CBC & Chem 7: 10/11/20 05:24 10/11/20 05:24 Labs: Abnormal Lab Results - Last 24 Hours (Table) 10/07/20 10/10/20 10/10/20 Range/Units 06:50 03:36 17:00 WBC (3.8-10.6) k/uL RBC (4.30-5.90) m/uL Hgb (13.0-17.5) gm/dL Hct (39.0-53.0) % Neutrophils # (1.3-7.7) k/uL Lymphocytes # (1.0-4.8) k/uL Carbon Dioxide (21.6-31.8) mmol/L BUN 136.0 H* 139.0 H* (9.0-27.0) mg/dL Creatinine (0.6-1.5) mg/dL Est GFR (CKD-EPI)AfAm (60.0-200.0) Est GFR (CKD-EPI)NonAf (60.0-200.0) BUN/Creatinine Ratio (12.00-20.00) Ratio POC Glucose (mg/dL) 189 H (75-99) mg/dL Calcium (8.7-10.3) mg/dL 10/10/20 10/11/20 10/11/20 Range/Units 21:11 05:24 05:24 WBC 15.8 H (3.8-10.6) k/uL RBC 3.41 L (4.30-5.90) m/uL Hgb 11.4 L (13.0-17.5) gm/dL Hct 33.8 L (39.0-53.0) % Neutrophils # 15.1 H (1.3-7.7) k/uL Lymphocytes # 0.0 L (1.0-4.8) k/uL Carbon Dioxide 19.7 L (21.6-31.8) mmol/L BUN 141.0 H* (9.0-27.0) mg/dL Creatinine 3.2 H (0.6-1.5) mg/dL Est GFR (CKD-EPI)AfAm 20.4 L (60.0-200.0) Est GFR (CKD-EPI)NonAf 17.6 L (60.0-200.0) BUN/Creatinine Ratio 44.06 H (12.00-20.00) Ratio POC Glucose (mg/dL) 205 H (75-99) mg/dL Calcium 8.0 L (8.7-10.3) mg/dL Assessment and Plan Plan: Assessment: #1. Acute hypoxic respiratory failure, severe, related to COVID 19 pneumonitis, and patient continues to require high flow oxygen per Airvo is 60 L and FiO2 of 90%, patient was also performed of for Remdesivir, received 2 units of convalescent immunoglobulin for COVID 19 on 09/25/2020, and 10/02/2020 #2. Chronic kidney disease, with possible obstructive uropathy, nephrology and urology are on the case #3. History of bladder cancer and history of ileal conduit #4. Gastroenteritis secondary to quit 19 infection #5. Benign essential hypertension #6. Dyslipidemia #7. History of COPD #8. History of GERD without esophagitis #9. Former smoker #10. Type 2 diabetes mellitus #11. Steroid-induced hyperglycemia Plan: Continue IV steroids will come back to 40 mg every 12 hours, we'll stop the La six, renal function has worsened, continue supportive treatment, wean FiO2, patient is currently on percent nonrebreather mask. We'll repeat echocardiogram and follow-up chest x-ray tomorrow. I performed a history & physical examination of the patient and discussed their management with my nurse practitioner, Kasey Reeves. I reviewed the nurse practitioner's note and agree with the documented findings and plan of care. Lung sounds are positive for crackles. The findings and the impression was discussed with the patient. I attest to the documentation by the nurse practitioner. Time with Patient: Less than 30
[2020-10-11 12:56] LABS: Glucose,Whole Blood 240 mg/dL (75-99)
--- NOTE | 2020-10-11 14:30 | P.PN ---
Subjective Patient is seen in follow-up for acute kidney injury. Creatinine stable at 3.2 today. Nonoliguric. Still requiring quite a bit oxygen. Awake and alert. Denies chest pain. Scheduled for echocardiogram and CT of the chest today. Blood pressure stable. Vital signs are stable. General: The patient appeared well nourished and normally developed. HEENT: Head exam is unremarkable. Neck is without jugular venous distension. LUNGS: Breath sounds decreased. HEART: Rate and Rhythm are regular. ABDOMEN: Soft, nontender. EXTREMITITES: No edema. Objective - Vital Signs Vital signs: Vital Signs Temp 97.3 F L 10/11/20 11:00 Pulse 68 10/11/20 11:00 Resp 22 10/11/20 11:00 BP 124/65 10/11/20 11:00 Pulse Ox 97 10/11/20 11:00 Intake & Output 10/10/20 10/11/20 10/11/20 18:59 06:59 18:59 Intake Total 540 Output Total 1100 1450 Balance -1100 -910 Intake: Oral 540 Output: Urine 1100 1450 Other: Voiding Method Ileal Conduit (Right) Ileal Conduit (Right) - Labs CBC & Chem 7: 10/11/20 05:24 10/11/20 05:24 Labs: Abnormal Lab Results - Last 24 Hours (Table) 10/07/20 10/10/20 10/10/20 Range/Units 06:50 03:36 17:00 WBC (3.8-10.6) k/uL RBC (4.30-5.90) m/uL Hgb (13.0-17.5) gm/dL Hct (39.0-53.0) % Neutrophils # (1.3-7.7) k/uL Lymphocytes # (1.0-4.8) k/uL Carbon Dioxide (21.6-31.8) mmol/L BUN 136.0 H* 139.0 H* (9.0-27.0) mg/dL Creatinine (0.6-1.5) mg/dL Est GFR (CKD-EPI)AfAm (60.0-200.0) Est GFR (CKD-EPI)NonAf (60.0-200.0) BUN/Creatinine Ratio (12.00-20.00) Ratio POC Glucose (mg/dL) 189 H (75-99) mg/dL Calcium (8.7-10.3) mg/dL 10/10/20 10/11/20 10/11/20 Range/Units 21:11 05:24 05:24 WBC 15.8 H (3.8-10.6) k/uL RBC 3.41 L (4.30-5.90) m/uL Hgb 11.4 L (13.0-17.5) gm/dL Hct 33.8 L (39.0-53.0) % Neutrophils # 15.1 H (1.3-7.7) k/uL Lymphocytes # 0.0 L (1.0-4.8) k/uL Carbon Dioxide 19.7 L (21.6-31.8) mmol/L BUN 141.0 H* (9.0-27.0) mg/dL Creatinine 3.2 H (0.6-1.5) mg/dL Est GFR (CKD-EPI)AfAm 20.4 L (60.0-200.0) Est GFR (CKD-EPI)NonAf 17.6 L (60.0-200.0) BUN/Creatinine Ratio 44.06 H (12.00-20.00) Ratio POC Glucose (mg/dL) 205 H (75-99) mg/dL Calcium 8.0 L (8.7-10.3) mg/dL 10/11/20 Range/Units 12:54 WBC (3.8-10.6) k/uL RBC (4.30-5.90) m/uL Hgb (13.0-17.5) gm/dL Hct (39.0-53.0) % Neutrophils # (1.3-7.7) k/uL Lymphocytes # (1.0-4.8) k/uL Carbon Dioxide (21.6-31.8) mmol/L BUN (9.0-27.0) mg/dL Creatinine (0.6-1.5) mg/dL Est GFR (CKD-EPI)AfAm (60.0-200.0) Est GFR (CKD-EPI)NonAf (60.0-200.0) BUN/Creatinine Ratio (12.00-20.00) Ratio POC Glucose (mg/dL) 240 H (75-99) mg/dL Calcium (8.7-10.3) mg/dL Assessment and Plan Plan: Assessment: 1. Acute kidney injury secondary to ATN secondary to infection and diuresis. Creatinine stable at 3.2 today. Disproportionately elevated BUN secondary to acute kidney injury as well as steroids. No gross evidence of bleeding. 2. Chronic kidney disease stage III with baseline creatinine near 1.3-1.4. Etiology is diabetic kidney disease. 3. Right-sided hydronephrosis. Urology following. Potential PCN down the road. 4. Volume overload. s/p diuresis. 5. Metabolic acidosis secondary to acute kidney injury and RTA. Maintained on oral bicarb. 6. Covid-19 pneumonia. s/p decadron and remdesivir. Now on IV solumedrol. 7. Anemia of chronic kidney disease. Maintained on Aranesp. 8. Diabetes mellitus. 9. Hypertension with chronic kidney disease. Exacerbated by steroids. Controlled. Plan: Continue to hold Lasix. Check stool for occult blood. Follow-up CT chest and echocardiogram. Avoid nephrotoxins. Continue to monitor renal function and urine output. Wean FiO2. Repeat electrolytes in the morning
--- NOTE | 2020-10-11 15:48 | P.PN ---
Subjective Progress Note Date: 10/11/20 This is a 80-year-old male who was recently admitted with acute hypoxic respiratory failure secondary to Covid 19 pneumonia and is being closely monitored. Multiple medical consultations following. Patient remains on Airvo along with nonrebreather mask at 15 L and continues to be quite dyspneic and exerts very easily. Lasix is on hold and kidney function slowly improving. Nephrology is following. Urology recommended possible nephrostomy tube placement although will need to discuss this possible option once respiratory status improves. Patient continues to be extremely weak requiring assistance and experiences severe dyspnea with position changes. Patient is having some back pain and will order pain medications. Will repeat a.m. chest x-ray and a 2-D echo was ordered and pending at this time. Review of systems: Constitutional: Reports fatigue and weakness along with back pain Cardiovascular: No reports of chest pain or palpitations Respiratory: Reports shortness of breath GI: No reports of nausea, vomiting, or diarrhea : No reports of dysuria or retention Neurovascular: Reports weakness with no reports of numbness All medications have been reviewed Active Medications Acetaminophen (Acetaminophen Tab 500 Mg Tab) 1,000 mg PO Q6H PRN PRN Reason: Fever and/ or Pain Albuterol Sulfate (Albuterol Hfa Inhaler) 2 puff INHALATION RT-Q4H [facility] Last Admin: 10/11/20 15:29 Dose: 2 puff Documented by: Alprazolam (Alprazolam 0.25 Mg Tab) 0.25 mg PO BID PRN PRN Reason: Anxiety Last Admin: 10/10/20 21:33 Dose: 0.25 mg Documented by: Amiodarone HCl (Amiodarone 200 Mg Tab) 200 mg PO DAILY [facility] Last Admin: 10/11/20 10:34 Dose: 200 mg Documented by: Ascorbic Acid (Ascorbic Acid 500 Mg Tab) 250 mg PO BID@0800,1700 [facility] Last Admin: 10/11/20 10:34 Dose: 250 mg Documented by: Aspirin (Aspirin 81 Mg) 81 mg PO DAILY [facility] Last Admin: 10/11/20 10:34 Dose: 81 mg Documented by: Baclofen (Baclofen 10 Mg Tab) 10 mg PO TID PRN PRN Reason: Muscle Pain Last Admin: 10/06/20 22:08 Dose: 10 mg Documented by: Benzocaine/Menthol (Benzocaine/Menthol Lozeng 1 Each Lozenge) 1 each MUCOUS MEM Q4HR PRN PRN Reason: Sore Throat Last Admin: 10/02/20 10:09 Dose: 1 each Documented by: Bisacodyl (Bisacodyl 10 Mg Supp) 10 mg RECTAL DAILY PRN PRN Reason: Constipation Budesonide/Formoterol Fumarate (Symbicort 160-4.5 Mcg Inhaler) 2 puff INHALA TION RT-BID [facility] Last Admin: 10/11/20 08:14 Dose: 2 puff Documented by: Bupropion HCl (Bupropion Xl 150 Mg Tab.Er.24h) 150 mg PO DAILY [facility] Last Admin: 10/11/20 10:33 Dose: 150 mg Documented by: Calcium Carbonate/Glycine (Calcium Carbonate 500 Mg Chewable) 1,000 mg PO Q8H PRN PRN Reason: Indigestion Carvedilol (Carvedilol 3.125 Mg Tab) 3.125 mg PO BID@0800,1800 [facility] Last Admin: 10/11/20 10:35 Dose: 3.125 mg Documented by: Cholecalciferol (Cholecalciferol 1,000 Unit Tab) 2,000 unit PO DAILY [facility] Last Admin: 10/11/20 10:33 Dose: 2,000 unit Documented by: Enoxaparin Sodium (Enoxaparin 40 Mg/0.4 Ml Syringe) 40 mg SQ BID [facility] Last Admin: 10/11/20 10:35 Dose: 40 mg Documented by: Ferrous Sulfate (Ferrous Sulfate 325 Mg Tab) 325 mg PO HS@1800 [facility] Last Admin: 10/10/20 17:03 Dose: 325 mg Documented by: Guaifenesin/Dextromethorphan (Guaifenesin-Dm 100-10mg/5ml 10 Ml Cup) 5 ml PO Q4H PRN PRN Reason: Cough Hydralazine HCl (Hydralazine Hcl 25 Mg Tab) 25 mg PO TID [facility] Last Admin: 10/11/20 10:35 Dose: 25 mg Documented by: Insulin Aspart (Insulin Aspart (Novolog) 100 Unit/Ml Vial) 0 unit SQ ACHS [facility]; Protocol Last Admin: 10/11/20 13:27 Dose: 5 unit Documented by: Insulin Aspart (Insulin Aspart (Novolog) 100 Unit/Ml Vial) 10 unit SQ AC-TID [facility] Last Admin: 10/11/20 13:27 Dose: 10 unit Documented by: Insulin Detemir (Insulin Detemir (Levemir) 100 Unit/Ml Syr) 65 unit SQ [facility] Last Admin: 10/10/20 21:32 Dose: 65 unit Documented by: Loperamide HCl (Loperamide 2 Mg Cap) 2 mg PO QID PRN PRN Reason: Diarrhea Last Admin: 09/26/20 00:31 Dose: 2 mg Documented by: Loratadine (Loratadine 10 Mg Tab) 10 mg PO [facility] Last Admin: 10/10/20 21:32 Dose: 10 mg Documented by: Magnesium Hydroxide (Magnesium Hydroxide 2,400 Mg/10 Ml Cup) 2,400 mg PO DAILY PRN PRN Reason: Constipation Melatonin (Melatonin 5 Mg Tablet) 10 mg PO [facility] Last Admin: 10/10/20 21:31 Dose: 10 mg Documented by: Methylprednisolone Sodium Succinate (Methylprednisolone Sod Succi 40 Mg/Ml 1 Ml Vial) 40 mg IV Q12HR [facility] Multivitamins (Multivitamins, Thera 1 Each Tab) 1 each PO DAILY [facility] Last Admin: 10/11/20 10:33 Dose: 1 each Documented by: Naloxone HCl (Naloxone 0.4 Mg/Ml 1 Ml Vial) 0.2 mg IV Q2M PRN PRN Reason: Opioid Reversal Micatin Cream 1 applic TOPICAL BID [facility] Last Admin: 10/11/20 12:07 Dose: Not Given Documented by: Miconazole Nitrate [ Zeasorb Af] 71 Gm Powder 1 applic TOPICAL BID PRN PRN Reason: SKIN FOLD/GROIN AREA Ondansetron HCl (Ondansetron 4 Mg Tab) 4 mg PO Q8H PRN PRN Reason: Nausea And Vomiting Pantoprazole Sodium (Pantoprazole 40 Mg Tablet) 40 mg PO DAILY@0730 [facility] Last Admin: 10/11/20 10:34 Dose: 40 mg Documented by: Polyethylene Glycol (Polyethylene Glycol 3350 17 Gm Powd.Pack) 17 gm PO DAILY PRN PRN Reason: Constipation Last Admin: 10/07/20 12:32 Dose: 17 gm Documented by: Pramipexole Dihydrochloride (Pramipexole 0.125 Mg Tab) 0.125 mg PO [facility] Last Admin: 10/10/20 21:31 Dose: 0.125 mg Documented by: Sodium Bicarbonate (Sodium Bicarbonate Tab 650 Mg Tab) 650 mg PO QID [facility] Last Admin: 10/11/20 13:28 Dose: 650 mg Documented by: Objective - Vital Signs Vital signs: Vital Signs Temp 97.3 F L 10/11/20 11:00 Pulse 68 10/11/20 11:00 Resp 22 10/11/20 11:00 BP 124/65 10/11/20 11:00 Pulse Ox 97 10/11/20 11:00 Intake & Output 10/10/20 10/11/20 10/11/20 18:59 06:59 18:59 Intake Total 540 Output Total 1100 1450 Balance -1100 -910 Intake: Oral 540 Output: Urine 1100 1450 Other: Voiding Method Ileal Conduit (Right) Ileal Conduit (Right) - Exam GENERAL: The patient is alert and oriented x3, slightly anxious. Well developed, well nourished. Temp is 97.3, pulse is 68, respirations are 22, blood pressure is 124/65, oxygen saturations is 92% on high flow Airvo at 60% along with 15 L nonrebreather HEENT: Pupils are round and equally reacting to light. EOMI. No scleral icterus. No conjunctival pallor. Normocephalic, atraumatic. No pharyngeal erythema. No thyromegaly. Oral mucosa is dry. CARDIOVASCULAR: S1 and S2 muffled PULMONARY: Diminished breath sounds at the bases with no wheezing or rhonchi ABDOMEN: Soft, nontender, nondistended, normoactive bowel sounds. No palpable organomegaly. Suprapubic catheter noted MUSCULOSKELETAL: No joint swelling or deformity. EXTREMITIES: No cyanosis, clubbing, or pedal edema. NEUROLOGICAL: Gross neurological examination did not reveal any focal deficits. Diffusely weak SKIN: No rashes. - Labs CBC & Chem 7: 10/11/20 05:24 10/11/20 05:24 Labs: Abnormal Lab Results - Last 24 Hours (Table) 10/07/20 10/10/20 10/10/20 Range/Units 06:50 03:36 17:00 WBC (3.8-10.6) k/uL RBC (4.30-5.90) m/uL Hgb (13.0-17.5) gm/dL Hct (39.0-53.0) % Neutrophils # (1.3-7.7) k/uL Lymphocytes # (1.0-4.8) k/uL Carbon Dioxide (21.6-31.8) mmol/L BUN 136.0 H* 139.0 H* (9.0-27.0) mg/dL Creatinine (0.6-1.5) mg/dL Est GFR (CKD-EPI)AfAm (60.0-200.0) Est GFR (CKD-EPI)NonAf (60.0-200.0) BUN/Creatinine Ratio (12.00-20.00) Ratio POC Glucose (mg/dL) 189 H (75-99) mg/dL Calcium (8.7-10.3) mg/dL 10/10/20 10/11/20 10/11/20 Range/Units 21:11 05:24 05:24 WBC 15.8 H (3.8-10.6) k/uL RBC 3.41 L (4.30-5.90) m/uL Hgb 11.4 L (13.0-17.5) gm/dL Hct 33.8 L (39.0-53.0) % Neutrophils # 15.1 H (1.3-7.7) k/uL Lymphocytes # 0.0 L (1.0-4.8) k/uL Carbon Dioxide 19.7 L (21.6-31.8) mmol/L BUN 141.0 H* (9.0-27.0) mg/dL Creatinine 3.2 H (0.6-1.5) mg/dL Est GFR (CKD-EPI)AfAm 20.4 L (60.0-200.0) Est GFR (CKD-EPI)NonAf 17.6 L (60.0-200.0) BUN/Creatinine Ratio 44.06 H (12.00-20.00) Ratio POC Glucose (mg/dL) 205 H (75-99) mg/dL Calcium 8.0 L (8.7-10.3) mg/dL 10/11/20 Range/Units 12:54 WBC (3.8-10.6) k/uL RBC (4.30-5.90) m/uL Hgb (13.0-17.5) gm/dL Hct (39.0-53.0) % Neutrophils # (1.3-7.7) k/uL Lymphocytes # (1.0-4.8) k/uL Carbon Dioxide (21.6-31.8) mmol/L BUN (9.0-27.0) mg/dL Creatinine (0.6-1.5) mg/dL Est GFR (CKD-EPI)AfAm (60.0-200.0) Est GFR (CKD-EPI)NonAf (60.0-200.0) BUN/Creatinine Ratio (12.00-20.00) Ratio POC Glucose (mg/dL) 240 H (75-99) mg/dL Calcium (8.7-10.3) mg/dL Assessment and Plan Assessment: -Acute Covid 19 pneumonia bilateral interstitial viral pneumonia with acute hypoxic respiratory failure. -Chronic kidney disease stage V, baseline -Acute kidney failure with acute tubular necrosis -Right sided hydronephrosis and obstructive uropathy. Currently has suprapubic Gamez catheter -Volume overload secondary to renal failure -history of bladder cancer with ileostomy -Diarrhea secondary to Covid 19, resolved -Type 2 diabetes mellitus, uncontrolled with hyperglycemia -Coronary artery disease with previous stents -Hypertension -Hyperlipidemia -Gastroesophageal reflux disease -COPD without any significant exacerbation. -No code, no CPR, no vent Recommendations and discussion: Recommend to continue current medications, management, symptomatic treatment. Patient is maintained on Airvo along with nonrebreather. Multiple medical consultations following. 2-D echo along with repeat chest x-ray in the morning is ordered and currently pending. Nephrology also following and will continue to hold Lasix at this time. Daughter Clarissa who is the patient's power of a [employer] is presently traveling from [place] to [place] at this time. Patient is maintained on IV steroids along with Lovenox, vitamin C and E supplements, and zinc supplements and will continue. To continue with sliding scale along with long-acting insulin. PT/OT following and working with the patient although patient continues to be severely dyspneic and not able to work with them very long. Due to multiple complex medical issues, prognosis is extremely guarded. Further recommendations to follow.
[2020-10-11] MEDS: FERROUS SULFATE 325 MG TAB PO SCH (16:48)
[2020-10-11 17:34] LABS: Glucose,Whole Blood 331 mg/dL (75-99)
--- NOTE | 2020-10-11 18:13 | CT ---
EXAMINATION TYPE: CT chest wo con DATE OF EXAM: 10/11/2020 COMPARISON: None HISTORY: Covid+ PT hypoxic respiratory failure. Pt not able to lay prone. Dr Aponte made aware prior to exam and still wanted supine exam done.Hx COPD CT DLP: 503.60 mGycm Automated exposure control for dose reduction was used. Images were obtained from the thoracic inlet to the diaphragm without contrast. FINDINGS: There is some pulmonary emphysema. There is coarse groundglass interstitial infiltrates throughout linus th lungs. There is some honeycomb pattern of the lung camarena. There is bilateral bronchiectasis at th e lung bases. There is no pleural effusion. There is no discrete suspicious pulmonary mass. There is no mediastinal adenopathy. There are no hilar masses. There is atherosclerotic vascular calcification . There is coronary artery calcification. There are sternal wires. Upper abdominal soft tissues are i ntact. IMPRESSION: Emphysema and pulmonary interstitial fibrotic changes. Honeycomb pattern in both lungs. There is also patchy areas of groundglass interstitial infiltrate in both peripheral lung camarena. There is increas ed infiltrate in the lower lungs compared to the CT abdomen pelvis of 09/27/2020 that suggests some s uperimposed acute lung disease.
[2020-10-11 20:46] LABS: Glucose,Whole Blood 310 mg/dL (75-99)
[2020-10-11] MEDS: LORATADINE 10 MG TAB PO SCH (21:29)
[2020-10-11] MEDS: MELATONIN 5 MG TABLET PO SCH (21:29)
[2020-10-11] MEDS: INSULIN DETEMIR (LEVEMIR) 100 UNIT/ML SYR SQ SCH (21:29)
[2020-10-11] MEDS: methylPREDNISolone SOD SUCCI 40 MG/ML 1 ML VIAL IV SCH (21:30)
[2020-10-11] MEDS: PRAMIPEXOLE 0.125 MG TAB PO SCH (21:30)
[2020-10-11] MEDS: ALPRAZolam 0.25 MG TAB PO PRN (21:42)
[2020-10-12] MEDS: ALBUTEROL HFA INHALER INHALATION SCH ×6 (00:44→19:42)
[2020-10-12 06:37] LABS: Basophils % (A) 0 %; Eosinophils % (A) 0 %; HCT 32.8 % (39.0-53.0); HGB 11.1 gm/dL (13.0-17.5); Lymphocytes % (A) 0 %; MCH 33.8 pg (25.0-35.0); MCHC 33.9 g/dL (31.0-37.0); MCV 99.7 fL (80.0-100.0); Mean Platelet Volume 9.7; Monocytes # (A) 0.6 k/uL (0-1.0); Monocytes % (A) 4 %; Neutrophils # (A) 15.8 k/uL (1.3-7.7); Neutrophils % (A) 96 %; Platelet Count 142 k/uL (150-450); RBC 3.29 m/uL (4.30-5.90); RDW 13.8 % (11.5-15.5); WBC 16.5 k/uL (3.8-10.6)
[2020-10-12 07:27] LABS: Glucose,Whole Blood 95 mg/dL (75-99)
[2020-10-12] MEDS: INSULIN ASPART (NovoLOG) 100 UNIT/ML VIAL SQ SCH ×7 (08:10→20:55)
[2020-10-12] MEDS: SYMBICORT 160-4.5 MCG INHALER INHALATION SCH ×2 (08:10→19:45)
[2020-10-12] MEDS: SODIUM BICARBONATE TAB 650 MG TAB PO SCH ×4 (08:44→21:00)
[2020-10-12] MEDS: hydrALAZINE HCL 25 MG TAB PO SCH ×3 (08:44→21:00)
[2020-10-12] MEDS: ASCORBIC ACID 500 MG TAB PO SCH ×2 (08:44→17:47)
[2020-10-12] MEDS: CHOLECALCIFEROL 1,000 UNIT TAB PO SCH (08:44)
[2020-10-12] MEDS: ENOXAPARIN 40 MG/0.4 ML SYRINGE SQ SCH ×2 (08:44→20:54)
[2020-10-12] MEDS: MULTIVITAMINS, THERA 1 EACH TAB PO SCH (08:45)
[2020-10-12] MEDS: MICATIN TOPICAL SCH ×2 (08:45→20:56)
[2020-10-12] MEDS: ASPIRIN 81 MG PO SCH (08:45)
[2020-10-12] MEDS: PANTOPRAZOLE 40 MG TABLET PO SCH (08:45)
[2020-10-12] MEDS: carvediloL 3.125 MG TAB PO SCH ×2 (08:45→17:48)
[2020-10-12] MEDS: AMIODARONE 200 MG TAB PO SCH (08:45)
[2020-10-12] MEDS: buPROPion XL 150 MG TAB.ER.24H PO SCH (08:46)
[2020-10-12] MEDS: methylPREDNISolone SOD SUCCI 40 MG/ML 1 ML VIAL IV SCH ×2 (08:46→20:55)
[2020-10-12 10:21] LABS: Anion Gap 11.2 mmol/L (4.00-12.00); BUN/Creat Ratio 45.67 Ratio (12.00-20.00); Carbon Dioxide 18.8 mmol/L (21.6-31.8); Magnesium 2.3 mg/dL (1.5-2.4); Potassium 4.4 mmol/L (3.5-5.5)
--- NOTE | 2020-10-12 11:41 | ECHOF ---
Referral Reason:hypoxia MEASUREMENTS -------- HEIGHT: 180.3 cm WEIGHT: 108.9 kg BP: 125/52 RVIDd: 3.2 cm (< 3.3) IVSd: 1.7 cm (0.6 - 1.1) LVIDd: 4.8 cm (3.9 - 5.3) LVPWd: 1.5 cm (0.6 - 1.1) IVSs: 1.8 cm LVIDs: 3.7 cm LVPWs: 2.1 cm LA Diam: 3.7 cm (2.7 - 3.8) LAESV Index (A-L): 27.96 ml/m Ao Diam: 3.5 cm (2.0 - 3.7) AV Cusp: 2.0 cm (1.5 - 2.6) MV EXCURSION: 15.618 mm (> 18.000) MV EF SLOPE: 48 mm/s (70 - 150) EPSS: 1.5 cm MV E Abhijit: 0.61 m/s MV DecT: 298 ms MV A Abhijit: 0.80 m/s MV E/A Ratio: 0.76 RAP: 15.00 mmHg RVSP: 40.53 mmHg FINDINGS -------- Paced rhythm. This was a technically adequate study. The left ventricular size is normal. There is severe concentric left ventricular hypertrophy. Ove rall left ventricular systolic function is mild-moderately impaired with, an EF between 40 - 45 %. Basal inferior LV wall motion is hypokinetic. Basal inferoseptal LV wall motion is hypokinetic. The right ventricle is normal in size. Normal LA size by volume 22+/-6 ml/m2. The right atrium is normal in size. Interatrial and interventricular septum intact. There is mild aortic valve sclerosis. Mild mitral annular calcification present. There is trace to mild mitral regurgitation. Mild tricuspid regurgitation present. There is mild pulmonary hypertension. The right ventricular systolic pressure, as measured by Doppler, is 40.53mmHg. Trace/mild (physiologic) pulmonic regurgitation. The aortic root size is normal. The inferior vena cava is dilated with no significant inspiratory collapse which is consistent estima geneva right atrial pressure of >15 mmHg. There is no pericardial effusion. CONCLUSIONS -------- 1. The left ventricular size is normal. 2. There is severe concentric left ventricular hypertrophy. 3. Overall left ventricular systolic function is mild-moderately impaired with, an EF between 40 - 45 %. 4. Basal inferior LV wall motion is hypokinetic. 5. Basal inferoseptal LV wall motion is hypokinetic. 6. There is mild aortic valve sclerosis. 7. Mild mitral annular calcification present. 8. There is trace to mild mitral regurgitation. 9. Mild tricuspid regurgitation present. 10. There is mild pulmonary hypertension. 11. The right ventricular systolic pressure, as measured by Doppler, is 40.53mmHg. 12. Trace/mild (physiologic) pulmonic regurgitation. 13. The inferior vena cava is dilated with no significant inspiratory collapse which is consistent es timated right atrial pressure of >15 mmHg. 14. There is no pericardial effusion. PAINTING SUPERVISOR: Ivania Hoyos RDCS
[2020-10-12 12:02] LABS: Glucose,Whole Blood 58 mg/dL (75-99)
[2020-10-12 12:45] LABS: Glucose,Whole Blood 94 mg/dL (75-99)
--- NOTE | 2020-10-12 13:14 | P.PN ---
Subjective Progress Note Date: 10/12/20 Principal diagnosis: Acute hypoxic respiratory failure secondary to COVID 19 pneumonitis This is a pleasant 80-year-old gentleman who resides in a assisted living facility. He has a history of coronary artery disease with previous stent placement, chronic obstructive pulmonary disease, former smoker, diabetes mellitus type 2, gastroesophageal reflux disease, hyperlipidemia, hypertension, osteoarthritis, bladder cancer status post ileostomy. He presented to [facility] with complaints of increasing shortness of breath, cough congestion, low back pain, diarrhea, weakness. He had also fallen and sustained injury to his left elbow. He is found to be in acute renal failure and hypoxemic and transferred here yesterday for further treatment. His randolph virus test was 8 days ago. Chest x-ray shows evidence of COPD, cardiomegaly and basilar atelectasis. White count 4.6. Hemoglobin 11.0. Platelet count 140,000. Sodium 135. Potassium 4.0. Creatinine 4.94. Urinalysis with moderate bacteria, large leukocyte esterase. He is seen today in consultation on the regular medical floor. He is currently sitting up in bed. Awake and alert in no acute distress. 18 and O2 saturations in the 90s on 4 L/m per nasal cannula. He's been afebrile. Hemodynamically stable. Initiated on ceftriaxone. The patient is seen today 09/26/2020 in follow-up on the regular medical floor. He is resting comfortably in bed. Awake and alert in no acute distress. Breathing a bit easier today compared to yesterday. Maintaining O2 saturation in the low 90s on 7 L high flow nasal cannula. He's been afebrile. Hemodynamically stable. White count 5.1. Hemoglobin 11.0. Sodium 138. Potassium 3.6. Creatinine 4.6. Patient was reevaluated today on 09/27/20, surprisingly the patient is feeling better, breathing a lot easier, becoming more and more active in the room. Patient was seen for his hydronephrosis by nephrology and urology, patient is scheduled for CT of abdomen and pelvis to better assess his hydronephrosis, and the urologist is concern about the possibility of obstruction or possibly reflux given his history of the conduit. In the meantime the patient is being followed by nephrology and addressing his acute on chronic kidney injury. Pulmonary-wis e, the patient is feeling better, remains on 15 L high flow nasal cannula, and his O2 saturation is 91%. CBC today is relatively normal. Basic metabolic profile is normal. However his bicarb is low at 14, BUN is 87 creatinine is 4.4. Reevaluated today on 09/28/20, patient is still requiring high flow FiO2, he is now on 15 L/m, clinically he is feeling better, breathing easier, sitting in bed eating, in no distress. Patient is being followed by nephrology and urology regarding his hydronephrosis, pulmonary-hudson basically he is about the same. Reevaluated today on 09/29/20, patient remains on the regular medical floor, however he is requiring significant amount of FiO2, he is now on airvo FiO2 is 90%, and 60 L flow. O2 saturation is marginal. Clinically the patient is feeling better, breathing easier. Maintained on oral Lasix, patient is nonoliguric. On 09/30/2020 patient seen in follow-up on general medical oncology floor. He is on high flow oxygen, per Airvo at 60 L and FiO2 of 89-90%, and he is satting about 97%. Does not appear to be in any acute distress, however patient is generally weak, requires extensive assistance to get up to the bedside commode, overall she is feeling somewhat better, he is breathing easier, patient was outside the window for Remdesivir, he did receive 1 unit of convalescent plasma. He is currently on vitamin C, dexamethasone, daily dose of Lasix. He is in - 2.5 L over the last 24 hours. Patient is awake and alert, still has some trace lower extremity edema. No new labs today. He is on subcu heparin for DVT prophylaxis, his last d-dimer was 0.63. On 10/04/2020 patient seen in follow-up on medical floor, he is resting in bed, the confusion has somewhat improved, she still has a safety net maker at the bedside, no agitation, he could tell us that she was in the hospital, and he knew the year. She is very weak, short of breath with exertion, remains on high flow oxygen per Airvo at 60 L and 90%, and his pulse ox is 98%, hemodynamically has been stable, he's been afebrile. His chest x-ray has been reviewed, showing patchy peripheral airspace disease persistence. His labs have been reviewed, showing BUN of 1:15, creatinine of 3, renal function has gotten a little worse since yesterday. His last LDH was done yesterday, down trending, at 439, CRP is 3.9. No nausea vomiting or diarrhea. Patient remains on vitamin C, he is on a cough syrup, nebulized bronchodilators, once daily dose of oral Lasix, IV steroids at 60 mg every 6 hours. Status post transfusion with 2 units of convalescent plasma. he was outside the window for Remdesivir. On 10/11/2020 patient seen in follow-up on the medical floor. He was on high flow oxygen this morning Airvo at 60 L and FiO2 of 70%, the pulse ox between 95- 97%, no worsening dyspnea, patient crusted to be switched over to 100% nonrebreather mask, tolerating it well, his last chest x-ray from yesterday showed chronic bronchial changes with peripheral and basilar multifocal acute infiltrates related to COPD 19 infection. No significant cough, no complaints of chest discomfort, patient is awake and alert, he is answering questions appropriately, denies any acute distress, he has been on steroids in the form of Solu-Medrol 60 mg every 6 hours, he had been on diuretics which were recently cut back in view of worsening renal function, nephrology is following, he is on Lovenox 40 mg twice daily, he status post transfusion with 2 units of convalescent plasma, patient was outside the therapeutic window for Remdesivir. He has not had recent echocardiogram done. He has been slow to improve, still requiring high flow oxygen. We'll repeat chest x-ray and echocardiogram today. On 10/12/2020 patient seen in follow-up on medical floor, since yesterday patient had been taken off the AIrvo, however he still requiring high flow oxygen, currently on a nonrebreather at 100%, and his pulse ox is around 91%, the attempt was made to place the patient on the regular high flow nasal cannula at 15 L and he needs the patient desaturated into the 70s became very short of breath. Any attempt to mobilize the patient increase his activity has been unsuccessful as the patient becomes very short of breath with any little bit of exertion, and desaturates quite significantly. His been for the most part bedbound, remains on 100% nonrebreather, his saturations are very marginal, a CT of the chest was obtained yesterday showed emphysema and pulmonary interstitial fibrotic changes with a honeycomb pattern in both lungs. There was also patchy areas of groundglass interstitial infiltrate in both peripheral lung camarena. There is increased infiltrate in the lower lungs compared to the CT of the abdomen and pelvis that was completed on 09/27/2020 that suggest some superimpo sed acute lung disease. He has been afebrile, his been hemodynamically stable, no significant cough, or phlegm production, no complaints of chest discomfort, patient for the most part just appears very fatigued. He is arousable, but drowsy for the most part. Echocardiogram was completed showing left ventricular systolic function mild to moderately impaired with a EF between 40-45%, mild pulmonary hypertension with a right-sided pressures of 40.5 mmHg, mild aortic valve sclerosis, mild MR and mild TR. His labs have been reviewed, WBC was 16.5, hemoglobin of 11.1, sodium was 135, potassium is 4.4, chloride is 105, CO2 is 18, BUN is 137, creatinine is 3.0, slight improvement in patient's renal function was noted, his diuretics remain on hold. Patient remains on IV steroids currently at 40 mg every 12 hours, inhaled bronchodilators, has had no fever or chills, he status post transfusion with 2 units of convalescent immunoglobulin for COVID 19, and patient was not a candidate for Remdesivir. Overall has not made any significant improvement in his oxygenation pattern, chest x-ray findings, CAT scan of the chest findings, and overall physical functioning Objective - Vital Signs Vital signs: Vital Signs Temp 98.5 F 10/12/20 11:00 Pulse 65 10/12/20 11:00 Resp 16 10/12/20 11:00 BP 133/66 10/12/20 11:00 Pulse Ox 83 L 10/12/20 11:00 Intake & Output 10/11/20 10/12/20 10/12/20 18:59 06:59 18:59 Intake Total 1920 480 Output Total 500 1000 Balance 1420 -1000 480 Intake: Oral 1920 480 Output: Urine 500 1000 Other: Voiding Method Ileal Conduit (Right) Ileal Conduit (Right) Ileal Conduit (Right) # Voids 4 - Exam GENERAL EXAM: Drowsy but arousable, 80-year-old white male, currently on 100% nonrebreather satting 91% , comfortable in no apparent distress. HEAD: Normocephalic/atraumatic. EYES: Normal reaction of pupils, equal size. Conjunctiva pink, sclera white. NOSE: Clear with pink turbinates. THROAT: No erythema or exudates. NECK: No masses, no JVD, no thyroid enlargement, no adenopathy. CHEST: No chest wall deformity. Symmetrical expansion. LUNGS: Equal air entry with no crackles, wheeze, rhonchi or dullness. CVS: Regular rate and rhythm, normal S1 and S2, no gallops, no murmurs, no rubs ABDOMEN: Soft, nontender. No hepatosplenomegaly, normal bowel sounds, no guarding or rigidity. EXTREMITIES: No clubbing, trace lower extremity edema no cyanosis, 2+ pulses and upper and lower extremities. MUSCULOSKELETAL: Muscle strength and tone normal. SPINE: No scoliosis or deformity SKIN: No rashes CENTRAL NERVOUS SYSTEM: Drowsy, fatigued, No focal deficits, tone is normal in all 4 extremities. - Labs CBC & Chem 7: 10/12/20 05:58 10/12/20 05:58 Labs: Abnormal Lab Results - Last 24 Hours (Table) 10/11/20 10/11/20 10/12/20 Range/Units 17:33 20:45 05:58 WBC 16.5 H (3.8-10.6) k/uL RBC 3.29 L (4.30-5.90) m/uL Hgb 11.1 L (13.0-17.5) gm/dL Hct 32.8 L (39.0-53.0) % Plt Count 142 L (150-450) k/uL Neutrophils # 15.8 H (1.3-7.7) k/uL Lymphocytes # 0.0 L (1.0-4.8) k/uL Carbon Dioxide (21.6-31.8) mmol/L BUN (9.0-27.0) mg/dL Creatinine (0.6-1.5) mg/dL Est GFR (CKD-EPI)AfAm (60.0-200.0) Est GFR (CKD-EPI)NonAf (60.0-200.0) BUN/Creatinine Ratio (12.00-20.00) Ratio POC Glucose (mg/dL) 331 H 310 H (75-99) mg/dL Calcium (8.7-10.3) mg/dL 10/12/20 10/12/20 Range/Units 05:58 12:01 WBC (3.8-10.6) k/uL RBC (4.30-5.90) m/uL Hgb (13.0-17.5) gm/dL Hct (39.0-53.0) % Plt Count (150-450) k/uL Neutrophils # (1.3-7.7) k/uL Lymphocytes # (1.0-4.8) k/uL Carbon Dioxide 18.8 L (21.6-31.8) mmol/L BUN 137.0 H* (9.0-27.0) mg/dL Creatinine 3.0 H (0.6-1.5) mg/dL Est GFR (CKD-EPI)AfAm 22.0 L (60.0-200.0) Est GFR (CKD-EPI)NonAf 19.0 L (60.0-200.0) BUN/Creatinine Ratio 45.67 H (12.00-20.00) Ratio POC Glucose (mg/dL) 58 L (75-99) mg/dL Calcium 8.0 L (8.7-10.3) mg/dL Assessment and Plan Plan: Assessment: #1. Acute hypoxic respiratory failure, severe, related to COVID 19 pneumonitis, and patient continues to require high flow oxygen per Airvo is 60 L and FiO2 of 90%, patient was also performed of for Remdesivir, received 2 units of convalescent immunoglobulin for COVID 19 on 09/25/2020, and 10/02/2020 #2. Chronic kidney disease, with possible obstructive uropathy, nephrology and urology are on the case #3. History of bladder cancer and history of ileal conduit #4. Gastroenteritis secondary to COVID 19 infection #5. Benign essential hypertension #6. Dyslipidemia #7. History of COPD #8. History of GERD without esophagitis #9. Former smoker #10. Type 2 diabetes mellitus #11. Steroid-induced hyperglycemia, improved with tapering of the steroids #12. Acute kidney injury #13. Generalized medical debility related to prolonged hospitalization and severe hypoxemia #14. Emphysema #15. Extensive pulmonary interstitial fibrotic changes with honeycomb pattern in both lungs as seen on the CT of the chest completed on 10/11/2020 #16. Cardiomyopathy, with EF of 40-45%, mild aortic valve sclerosis, mild TR, mild pulmonary hypertension, with right-sided pressure of 40.5 mmHg Plan: Continue current dose of IV steroids, continue to hold the diuretics, renal function is still significantly impaired however slightly better on today's labs, clinically patient does not look fluid overloaded as a matter fact he looks a bit dry, encourage oral fluids, his been afebrile, his CT chest shows extensive pulmonary interstitial fibrotic changes on the background of emphysema with superimposed groundglass opacities related to active COVID 19 infection. Overall any attempts to wean his FiO2 have been unsuccessful. And overall patient has maintained little progress since admission in terms of dyspnea, and hypoxemia. The patient has made very little clinical improvement despite the medical treatment. He is becoming weaker, and remains quite hypoxic and unable to tolerate any activity, he still requiring 100% oxygen, overall his prognosis is extremely guarded, she has been hospitalized for 18 days and has made very little improvement. His CODE STATUS is DO NOT RESUSCITATE and DO NOT INTUBATE. Has a multiple medical comorbidities. We think discussion about hospice and palliative care is appropriate and will defer to the primary care service to address this issue as we believe it is not likely that patient will have significant improvement in terms of his oxygenation and overall condition. We'll continue supportively treat the patient I performed a history & physical examination of the patient and discussed their management with my nurse practitioner, Kasey Reeves. I reviewed the nurse practitioner's note and agree with the documented findings and plan of care. Lung sounds are positive for crackles. The findings and the impression was discussed with the patient. I attest to the documentation by the nurse practit ioner. Time with Patient: Less than 30
--- NOTE | 2020-10-12 14:34 | P.PN ---
Subjective Progress Note Date: 10/12/20 This is a 80-year-old male who was recently admitted with acute hypoxic respiratory failure secondary to Covid 19 pneumonia and is being closely monitored. Multiple medical consultations following. Patient remains on Airvo along with nonrebreather mask at 15 L and continues to be quite dyspneic and exerts very easily. Lasix is on hold and kidney function slowly improving. Nephrology is following. Urology recommended possible nephrostomy tube placement although will need to discuss this possible option once respiratory status improves. Patient continues to be extremely weak requiring assistance and experiences severe dyspnea with position changes. Patient is having some back pain and will order pain medications. Will repeat a.m. chest x-ray and a 2-D echo was ordered and pending at this time. 10/12/2020 Patient is seen and examined and follow-up currently remains on Airvo and NRB at 15 L. Patient is severely dyspneic off of any oxygen and has had unsuccessful attempts at weaning. Underwent CT yesterday showing emphysema and pulmonary interstitial fibrotic changes with honeycomb pattern noted in both lungs along with patchy areas of groundglass interstitial infiltrates in both peripheral lung camarena. Patient's 2-D echo shows severe left ventricular hypertrophy with systolic function mild to moderately impaired with an EF between 40 and 45% with a trace to mild mitral regurgitation along with mild tricuspid regurgitation present. Creatinine today is 3.0 and continues to hold diuretic at this time. Sodium is 135 and potassium is 4.4. Hemoglobin is 11.1, and white blood count is 16.5. Patient remains on IV steroids and will continue at this time. Will need to discuss with family about treatment plan moving forward. Review of systems: Constitutional: Reports fatigue and weakness along with continuous back pain Cardiovascular: No reports of chest pain or palpitations Respiratory: Reports shortness of breath GI: No reports of nausea, vomiting, or diarrhea : No reports of dysuria or retention Neurovascular: Reports weakness with no reports of numbness All medications have been reviewed Active Medications Acetaminophen (Acetaminophen Tab 500 Mg Tab) 1,000 mg PO Q6H PRN PRN Reason: Fever and/ or Pain Albuterol Sulfate (Albuterol Hfa Inhaler) 2 puff INHALATION RT-Q4H CATE Last Admin: 10/12/20 12:12 Dose: 2 puff Documented by: Alprazolam (Alprazolam 0.25 Mg Tab) 0.25 mg PO BID PRN PRN Reason: Anxiety Last Admin: 10/11/20 21:42 Dose: 0.25 mg Documented by: Amiodarone HCl (Amiodarone 200 Mg Tab) 200 mg PO DAILY [facility] Last Admin: 10/12/20 08:45 Dose: 200 mg Documented by: Ascorbic Acid (Ascorbic Acid 500 Mg Tab) 250 mg PO BID@0800,1700 [facility] Last Admin: 10/12/20 08:44 Dose: 250 mg Documented by: Aspirin (Aspirin 81 Mg) 81 mg PO DAILY [facility] Last Admin: 10/12/20 08:45 Dose: 81 mg Documented by: Baclofen (Baclofen 10 Mg Tab) 10 mg PO TID PRN PRN Reason: Muscle Pain Last Admin: 10/06/20 22:08 Dose: 10 mg Documented by: Benzocaine/Menthol (Benzocaine/Menthol Lozeng 1 Each Lozenge) 1 each MUCOUS MEM Q4HR PRN PRN Reason: Sore Throat Last Admin: 10/02/20 10:09 Dose: 1 each Documented by: Bisacodyl (Bisacodyl 10 Mg Supp) 10 mg RECTAL DAILY PRN PRN Reason: Constipation Budesonide/Formoterol Fumarate (Symbicort 160-4.5 Mcg Inhaler) 2 puff INHALATION RT-BID [facility] Last Admin: 10/12/20 08:10 Dose: 2 puff Documented by: Bupropion HCl (Bupropion Xl 150 Mg Tab.Er.24h) 150 mg PO DAILY [facility] Last Admin: 10/12/20 08:46 Dose: 150 mg Documented by: Calcium Carbonate/Glycine (Calcium Carbonate 500 Mg Chewable) 1,000 mg PO Q8H PRN PRN Reason: Indigestion Carvedilol (Carvedilol 3.125 Mg Tab) 3.125 mg PO BID@0800,1800 [facility] Last Admin: 10/12/20 08:45 Dose: 3.125 mg Documented by: Cholecalciferol (Cholecalciferol 1,000 Unit Tab) 2,000 unit PO DAILY [facility] Last Admin: 10/12/20 08:44 Dose: 2,000 unit Documented by: Enoxaparin Sodium (Enoxaparin 40 Mg/0.4 Ml Syringe) 40 mg SQ BID [facility] Last Admin: 10/12/20 08:44 Dose: 40 mg Documented by: Ferrous Sulfate (Ferrous Sulfate 325 Mg Tab) 325 mg PO HS@1800 [facility] Last Admin: 10/11/20 16:48 Dose: 325 mg Documented by: Guaifenesin/Dextromethorphan (Guaifenesin-Dm 100-10mg/5ml 10 Ml Cup) 5 ml PO Q4H PRN PRN Reason: Cough Hydralazine HCl (Hydralazine Hcl 25 Mg Tab) 25 mg PO TID [facility] Last Admin: 10/12/20 08:44 Dose: 25 mg Documented by: Insulin Aspart (Insulin Aspart (Novolog) 100 Unit/Ml Vial) 0 unit SQ ACHS [facility]; Protocol Last Admin: 10/12/20 12:07 Dose: Not Given Documented by: Insulin Aspart (Insulin Aspart (Novolog) 100 Unit/Ml Vial) 10 unit SQ AC-TID [facility] Last Admin: 10/12/20 12:08 Dose: Not Given Documented by: Insulin Detemir (Insulin Detemir (Levemir) 100 Unit/Ml Syr) 65 unit SQ [facility] Last Admin: 10/11/20 21:29 Dose: 65 unit Documented by: Loperamide HCl (Loperamide 2 Mg Cap) 2 mg PO QID PRN PRN Reason: Diarrhea Last Admin: 09/26/20 00:31 Dose: 2 mg Documented by: Loratadine (Loratadine 10 Mg Tab) 10 mg PO [facility] Last Admin: 10/11/20 21:29 Dose: 10 mg Documented by: Magnesium Hydroxide (Magnesium Hydroxide 2,400 Mg/10 Ml Cup) 2,400 mg PO DAILY PRN PRN Reason: Constipation Melatonin (Melatonin 5 Mg Tablet) 10 mg PO [facility] Last Admin: 10/11/20 21:29 Dose: 10 mg Documented by: Methylprednisolone Sodium Succinate (Methylprednisolone Sod Succi 40 Mg/Ml 1 Ml Vial) 40 mg IV Q12HR [facility] Last Admin: 10/12/20 08:46 Dose: 40 mg Documented by: Multivitamins (Multivitamins, Thera 1 Each Tab) 1 each PO DAILY [facility] Last Admin: 10/12/20 08:45 Dose: 1 each Documented by: Naloxone HCl (Naloxone 0.4 Mg/Ml 1 Ml Vial) 0.2 mg IV Q2M PRN PRN Reason: Opioid Reversal Micatin Cream 1 applic TOPICAL BID [facility] Last Admin: 10/12/20 08:45 Dose: Not Given Documented by: Miconazole Nitrate [ Zeasorb Af] 71 Gm Powder 1 applic TOPICAL BID PRN PRN Reason: SKIN FOLD/GROIN AREA Ondansetron HCl (Ondansetron 4 Mg Tab) 4 mg PO Q8H PRN PRN Reason: Nausea And Vomiting Pantoprazole Sodium (Pantoprazole 40 Mg Tablet) 40 mg PO DAILY@0730 [facility] Last Admin: 10/12/20 08:45 Dose: 40 mg Documented by: Polyethylene Glycol (Polyethylene Glycol 3350 17 Gm Powd.Pack) 17 gm PO DAILY P RN PRN Reason: Constipation Last Admin: 10/07/20 12:32 Dose: 17 gm Documented by: Pramipexole Dihydrochloride (Pramipexole 0.125 Mg Tab) 0.125 mg PO HS [facility] Last Admin: 10/11/20 21:30 Dose: 0.125 mg Documented by: Sodium Bicarbonate (Sodium Bicarbonate Tab 650 Mg Tab) 650 mg PO QID [facility] Last Admin: 10/12/20 12:10 Dose: 650 mg Documented by: Objective - Vital Signs Vital signs: Vital Signs Temp 98.5 F 10/12/20 11:00 Pulse 65 10/12/20 11:00 Resp 16 10/12/20 11:00 BP 133/66 10/12/20 11:00 Pulse Ox 83 L 10/12/20 11:00 Intake & Output 10/11/20 10/12/20 10/12/20 18:59 06:59 18:59 Intake Total 1920 480 Output Total 500 1000 Balance 1420 -1000 480 Intake: Oral 1920 480 Output: Urine 500 1000 Other: Voiding Method Ileal Conduit (Right) Ileal Conduit (Right) Ileal Conduit (Right) # Voids 4 - Exam GENERAL: The patient is alert and oriented x3, slightly anxious. Well developed, well nourished. Temp is 98.5, pulse is 65, respirations are 16, blood pressure is 133/66, oxygen saturations is 83% on high flow Airvo at 60% along with 15 L nonrebreather HEENT: Pupils are round and equally reacting to light. EOMI. No scleral icterus. No conjunctival pallor. Normocephalic, atraumatic. No pharyngeal erythema. No thyromegaly. Oral mucosa is dry. CARDIOVASCULAR: S1 and S2 muffled PULMONARY: Diminished breath sounds at the bases with no wheezing or rhonchi ABDOMEN: Soft, nontender, nondistended, normoactive bowel sounds. No palpable organomegaly. Suprapubic catheter noted MUSCULOSKELETAL: No joint swelling or deformity. EXTREMITIES: No cyanosis, clubbing, or pedal edema. NEUROLOGICAL: Gross neurological examination did not reveal any focal deficits. Diffusely weak SKIN: No rashes. - Labs CBC & Chem 7: 10/12/20 05:58 10/12/20 05:58 Labs: Abnormal Lab Results - Last 24 Hours (Table) 10/11/20 10/11/20 10/12/20 Range/Units 17:33 20:45 05:58 WBC 16.5 H (3.8-10.6) k/uL RBC 3.29 L (4.30-5.90) m/uL Hgb 11.1 L (13.0-17.5) gm/dL Hct 32.8 L (39.0-53.0) % Plt Count 142 L (150-450) k/uL Neutrophils # 15.8 H (1.3-7.7) k/uL Lymphocytes # 0.0 L (1.0-4.8) k/uL Carbon Dioxide (21.6-31.8) mmol/L BUN (9.0-27.0) mg/dL Creatinine (0.6-1.5) mg/dL Est GFR (CKD-EPI)AfAm (60.0-200.0) Est GFR (CKD-EPI)NonAf (60.0-200.0) BUN/Creatinine Ratio (12.00-20.00) Ratio POC Glucose (mg/dL) 331 H 310 H (75-99) mg/dL Calcium (8.7-10.3) mg/dL 10/12/20 10/12/20 Range/Units 05:58 12:01 WBC (3.8-10.6) k/uL RBC (4.30-5.90) m/uL Hgb (13.0-17.5) gm/dL Hct (39.0-53.0) % Plt Count (150-450) k/uL Neutrophils # (1.3-7.7) k/uL Lymphocytes # (1.0-4.8) k/uL Carbon Dioxide 18.8 L (21.6-31.8) mmol/L BUN 137.0 H* (9.0-27.0) mg/dL Creatinine 3.0 H (0.6-1.5) mg/dL Est GFR (CKD-EPI)AfAm 22.0 L (60.0-200.0) Est GFR (CKD-EPI)NonAf 19.0 L (60.0-200.0) BUN/Creatinine Ratio 45.67 H (12.00-20.00) Ratio POC Glucose (mg/dL) 58 L (75-99) mg/dL Calcium 8.0 L (8.7-10.3) mg/dL Assessment and Plan Assessment: -Acute Covid 19 pneumonia bilateral interstitial viral pneumonia with acute hypoxic respiratory failure. -Chronic kidney disease stage V, baseline -Acute kidney failure with acute tubular necrosis -Right sided hydronephrosis and obstructive uropathy. Currently has suprapubic Gamez catheter -Volume overload secondary to renal failure -history of bladder cancer with ileostomy -Diarrhea secondary to Covid 19, resolved -Type 2 diabetes mellitus, uncontrolled with hyperglycemia -Coronary artery disease with previous stents -Hypertension -Hyperlipidemia -Gastroesophageal reflux disease -COPD without any significant exacerbation. -No code, no CPR, no vent Recommendations and discussion: Recommend to continue current medications, management, symptomatic treatment. Patient is maintained on Airvo along with nonrebreather. Multiple medical consultations following. 2-D echo and chest CT done as mentioned previously. Nephrology also following and will continue to hold Lasix at this time. Need to discuss with daughter Clarissa who is the patient's power of estate attorney about treatment plan moving forward. Patient is maintained on IV steroids along with Lovenox, vitamin C and E supplements, and zinc supplements and will continue. To continue with sliding scale along with long-acting insulin. PT/OT following and working with the patient although patient continues to be severely dyspneic and not able to work with them very long. Due to multiple complex medical issues, prognosis is poor and extremely guarded. Further recommendations to follow.
--- NOTE | 2020-10-12 14:38 | P.PN ---
Subjective Patient is seen in follow-up for acute kidney injury. Creatinine little better at 3.0 today. Nonoliguric. Still requiring quite a bit oxygen - unable to wean. Awake and alert. Denies chest pain. Blood pressure stable. Vital signs are stable. General: The patient appeared well nourished and normally developed. HEENT: Head exam is unremarkable. Neck is without jugular venous distension. LUNGS: Breath sounds decreased. HEART: Rate and Rhythm are regular. ABDOMEN: Soft, nontender. EXTREMITITES: No edema. Objective - Vital Signs Vital signs: Vital Signs Temp 98.5 F 10/12/20 11:00 Pulse 65 10/12/20 11:00 Resp 16 10/12/20 11:00 BP 133/66 10/12/20 11:00 Pulse Ox 83 L 10/12/20 11:00 Intake & Output 10/11/20 10/12/20 10/12/20 18:59 06:59 18:59 Intake Total 1920 480 Output Total 500 1000 Balance 1420 -1000 480 Intake: Oral 1920 480 Output: Urine 500 1000 Other: Voiding Method Ileal Conduit (Right) Ileal Conduit (Right) Ileal Conduit (Right) # Voids 4 - Labs CBC & Chem 7: 10/12/20 05:58 10/12/20 05:58 Labs: Abnormal Lab Results - Last 24 Hours (Table) 10/11/20 10/11/20 10/12/20 Range/Units 17:33 20:45 05:58 WBC 16.5 H (3.8-10.6) k/uL RBC 3.29 L (4.30-5.90) m/uL Hgb 11.1 L (13.0-17.5) gm/dL Hct 32.8 L (39.0-53.0) % Plt Count 142 L (150-450) k/uL Neutrophils # 15.8 H (1.3-7.7) k/uL Lymphocytes # 0.0 L (1.0-4.8) k/uL Carbon Dioxide (21.6-31.8) mmol/L BUN (9.0-27.0) mg/dL Creatinine (0.6-1.5) mg/dL Est GFR (CKD-EPI)AfAm (60.0-200.0) Est GFR (CKD-EPI)NonAf (60.0-200.0) BUN/Creatinine Ratio (12.00-20.00) Ratio POC Glucose (mg/dL) 331 H 310 H (75-99) mg/dL Calcium (8.7-10.3) mg/dL 10/12/20 10/12/20 Range/Units 05:58 12:01 WBC (3.8-10.6) k/uL RBC (4.30-5.90) m/uL Hgb (13.0-17.5) gm/dL Hct (39.0-53.0) % Plt Count (150-450) k/uL Neutrophils # (1.3-7.7) k/uL Lymphocytes # (1.0-4.8) k/uL Carbon Dioxide 18.8 L (21.6-31.8) mmol/L BUN 137.0 H* (9.0-27.0) mg/dL Creatinine 3.0 H (0.6-1.5) mg/dL Est GFR (CKD-EPI)AfAm 22.0 L (60.0-200.0) Est GFR (CKD-EPI)NonAf 19.0 L (60.0-200.0) BUN/Creatinine Ratio 45.67 H (12.00-20.00) Ratio POC Glucose (mg/dL) 58 L (75-99) mg/dL Calcium 8.0 L (8.7-10.3) mg/dL Assessment and Plan Plan: Assessment: 1. Acute kidney injury secondary to ATN secondary to infection and diuresis. Creatinine little better at 3.0 today. Disproportionately elevated BUN secondary to acute kidney injury as well as steroids. No gross evidence of bleeding. 2. Chronic kidney disease stage III with baseline creatinine near 1.3-1.4. Et iology is diabetic kidney disease. 3. Right-sided hydronephrosis. Urology following. Potential PCN down the road. 4. Volume overload. s/p diuresis. 5. Metabolic acidosis secondary to acute kidney injury and RTA. Maintained on oral bicarb. 6. Covid-19 pneumonia. s/p decadron and remdesivir. Now on IV solumedrol. 7. Anemia of chronic kidney disease. Maintained on Aranesp. 8. Diabetes mellitus. 9. Hypertension with chronic kidney disease. Exacerbated by steroids. Stable. 10. Systolic CHF with EF 40-45%. Plan: Encouraged po intake. Continue to hold Lasix. Stool for occult blood pending. Avoid nephrotoxins. Continue to monitor renal function and urine output. Wean FiO2. Repeat electrolytes in the morning.
[2020-10-12 17:09] LABS: Glucose,Whole Blood 361 mg/dL (75-99)
[2020-10-12] MEDS: FERROUS SULFATE 325 MG TAB PO SCH (17:47)
[2020-10-12 20:48] LABS: Glucose,Whole Blood 206 mg/dL (75-99)
[2020-10-12] MEDS: MELATONIN 5 MG TABLET PO SCH (20:54)
[2020-10-12] MEDS: PRAMIPEXOLE 0.125 MG TAB PO SCH (20:54)
[2020-10-12] MEDS: LORATADINE 10 MG TAB PO SCH (20:54)
[2020-10-12] MEDS: ALPRAZolam 0.25 MG TAB PO PRN (20:55)
[2020-10-12] MEDS: INSULIN DETEMIR (LEVEMIR) 100 UNIT/ML SYR SQ SCH (20:55)
[2020-10-13] MEDS: ALBUTEROL HFA INHALER INHALATION SCH ×6 (00:25→19:28)
[2020-10-13 01:39] LABS: LD Isoenzymes 1 25 % (19-38); LD Isoenzymes 2 45 % (30-43); LD Isoenzymes 3 16 % (16-26); LD Isoenzymes 4 5 % (3-12); LD Isoenzymes 5 9 % (3-14); Lactacte Dehydrogenase(LD) ISO 273 U/L (120-250)
[2020-10-13 07:05] LABS: Glucose,Whole Blood 197 mg/dL (75-99)
[2020-10-13] MEDS: SYMBICORT 160-4.5 MCG INHALER INHALATION SCH ×2 (09:04→19:28)
[2020-10-13] MEDS: INSULIN ASPART (NovoLOG) 100 UNIT/ML VIAL SQ SCH ×7 (09:08→20:23)
[2020-10-13] MEDS: ENOXAPARIN 40 MG/0.4 ML SYRINGE SQ SCH (09:08)
[2020-10-13] MEDS: ASCORBIC ACID 500 MG TAB PO SCH ×2 (09:09→17:38)
[2020-10-13] MEDS: PANTOPRAZOLE 40 MG TABLET PO SCH (09:09)
[2020-10-13] MEDS: AMIODARONE 200 MG TAB PO SCH (09:10)
[2020-10-13] MEDS: ASPIRIN 81 MG PO SCH (09:10)
[2020-10-13] MEDS: carvediloL 3.125 MG TAB PO SCH ×2 (09:10→17:38)
[2020-10-13] MEDS: buPROPion XL 150 MG TAB.ER.24H PO SCH (09:11)
[2020-10-13] MEDS: CHOLECALCIFEROL 1,000 UNIT TAB PO SCH (09:11)
[2020-10-13] MEDS: hydrALAZINE HCL 25 MG TAB PO SCH ×3 (09:15→20:14)
[2020-10-13] MEDS: SODIUM BICARBONATE TAB 650 MG TAB PO SCH ×4 (09:16→20:04)
[2020-10-13] MEDS: MULTIVITAMINS, THERA 1 EACH TAB PO SCH (09:16)
[2020-10-13] MEDS: methylPREDNISolone SOD SUCCI 40 MG/ML 1 ML VIAL IV SCH ×2 (09:16→19:59)
[2020-10-13 11:11] LABS: Anion Gap 13.7 mmol/L (4.00-12.00); BUN/Creat Ratio 42.33 Ratio (12.00-20.00); Carbon Dioxide 17.3 mmol/L (21.6-31.8); Magnesium 2.3 mg/dL (1.5-2.4); Potassium 4.6 mmol/L (3.5-5.5)
[2020-10-13 11:34] LABS: Glucose,Whole Blood 109 mg/dL (75-99)
--- NOTE | 2020-10-13 12:05 | US ---
EXAMINATION TYPE: US kidneys/renal and bladder DATE OF EXAM: 10/13/2020 COMPARISON: CT November 28, 2019 CLINICAL HISTORY: hydronephrosis. Diminished renal function. EXAM MEASUREMENTS: Right Kidney: 11.2 x 5.2 x 6.2 cm when including exophytic cyst more likely near 7-8 cm long axis Left Kidney: 11.8 x 6.3 x 5.9 cm Technically difficult study performed portably. Right Kidney: upper pole cyst measures 5.5 x 4.1 x 3.9 cm. Atrophied. Left Kidney: cyst measures 1.9 x 1.4 x 1.6 cm. Bladder: surgically absent Bilateral Jets seen: No Simple appearing thin-walled cyst upper pole of the right kidney measures around 5.0 cm in size. Gomez ed cortical thinning in the right kidney with persistent moderate hydronephrosis felt present. Bladde r is surgically absent. Left kidney normal in size without hydronephrosis. Some cortical thinning and lobulation is present. IMPRESSION: Persistent asymmetric right renal atrophy and moderate right-sided hydronephrosis. No lef t-sided hydronephrosis.
--- NOTE | 2020-10-13 12:37 | P.PN ---
Subjective Progress Note Date: 10/13/20 Principal diagnosis: Acute hypoxic respiratory failure secondary to COVID 19 pneumonitis This is a pleasant 80-year-old gentleman who resides in a assisted living facility. He has a history of coronary artery disease with previous stent placement, chronic obstructive pulmonary disease, former smoker, diabetes mellitus type 2, gastroesophageal reflux disease, hyperlipidemia, hypertension, osteoarthritis, bladder cancer status post ileostomy. He presented to [facility] with complaints of increasing shortness of breath, cough congestion, low back pain, diarrhea, weakness. He had also fallen and sustained injury to his left elbow. He is found to be in acute renal failure and hypoxemic and transferred here yesterday for further treatment. His randolph virus test was 8 days ago. Chest x-ray shows evidence of COPD, cardiomegaly and basilar atelectasis. White count 4.6. Hemoglobin 11.0. Platelet count 140,000. Sodium 135. Potassium 4.0. Creatinine 4.94. Urinalysis with moderate bacteria, large leukocyte esterase. He is seen today in consultation on the regular medical floor. He is currently sitting up in bed. Awake and alert in no acute distress. 18 and O2 saturations in the 90s on 4 L/m per nasal cannula. He's been afebrile. Hemodynamically stable. Initiated on ceftriaxone. The patient is seen today 09/26/2020 in follow-up on the regular medical floor. He is resting comfortably in bed. Awake and alert in no acute distress. Breathing a bit easier today compared to yesterday. Maintaining O2 saturation in the low 90s on 7 L high flow nasal cannula. He's been afebrile. Hemodynamically stable. White count 5.1. Hemoglobin 11.0. Sodium 138. Potassium 3.6. Creatinine 4.6. Patient was reevaluated today on 09/27/20, surprisingly the patient is feeling better, breathing a lot easier, becoming more and more active in the room. Patient was seen for his hydronephrosis by nephrology and urology, patient is scheduled for CT of abdomen and pelvis to better assess his hydronephrosis, and the urologist is concern about the possibility of obstruction or possibly reflux given his history of the conduit. In the meantime the patient is being followed by nephrology and addressing his acute on chronic kidney injury. Pulmonary-wis e, the patient is feeling better, remains on 15 L high flow nasal cannula, and his O2 saturation is 91%. CBC today is relatively normal. Basic metabolic profile is normal. However his bicarb is low at 14, BUN is 87 creatinine is 4.4. Reevaluated today on 09/28/20, patient is still requiring high flow FiO2, he is now on 15 L/m, clinically he is feeling better, breathing easier, sitting in bed eating, in no distress. Patient is being followed by nephrology and urology regarding his hydronephrosis, pulmonary-hudson basically he is about the same. Reevaluated today on 09/29/20, patient remains on the regular medical floor, however he is requiring significant amount of FiO2, he is now on airvo FiO2 is 90%, and 60 L flow. O2 saturation is marginal. Clinically the patient is feeling better, breathing easier. Maintained on oral Lasix, patient is nonoliguric. On 09/30/2020 patient seen in follow-up on general medical oncology floor. He is on high flow oxygen, per Airvo at 60 L and FiO2 of 89-90%, and he is satting about 97%. Does not appear to be in any acute distress, however patient is generally weak, requires extensive assistance to get up to the bedside commode, overall she is feeling somewhat better, he is breathing easier, patient was outside the window for Remdesivir, he did receive 1 unit of convalescent plasma. He is currently on vitamin C, dexamethasone, daily dose of Lasix. He is in - 2.5 L over the last 24 hours. Patient is awake and alert, still has some trace lower extremity edema. No new labs today. He is on subcu heparin for DVT prophylaxis, his last d-dimer was 0.63. On 10/04/2020 patient seen in follow-up on medical floor, he is resting in bed, the confusion has somewhat improved, she still has a environmental safety specialist at the bedside, no agitation, he could tell us that she was in the hospital, and he knew the year. She is very weak, short of breath with exertion, remains on high flow oxygen per Airvo at 60 L and 90%, and his pulse ox is 98%, hemodynamically has been stable, he's been afebrile. His chest x-ray has been reviewed, showing patchy peripheral airspace disease persistence. His labs have been reviewed, showing BUN of 1:15, creatinine of 3, renal function has gotten a little worse since yesterday. His last LDH was done yesterday, down trending, at 439, CRP is 3.9. No nausea vomiting or diarrhea. Patient remains on vitamin C, he is on a cough syrup, nebulized bronchodilators, once daily dose of oral Lasix, IV steroids at 60 mg every 6 hours. Status post transfusion with 2 units of convalescent plasma. he was outside the window for Remdesivir. On 10/11/2020 patient seen in follow-up on the medical floor. He was on high flow oxygen this morning Airvo at 60 L and FiO2 of 70%, the pulse ox between 95- 97%, no worsening dyspnea, patient crusted to be switched over to 100% nonrebreather mask, tolerating it well, his last chest x-ray from yesterday showed chronic bronchial changes with peripheral and basilar multifocal acute infiltrates related to COPD 19 infection. No significant cough, no complaints of chest discomfort, patient is awake and alert, he is answering questions appropriately, denies any acute distress, he has been on steroids in the form of Solu-Medrol 60 mg every 6 hours, he had been on diuretics which were recently cut back in view of worsening renal function, nephrology is following, he is on Lovenox 40 mg twice daily, he status post transfusion with 2 units of convalescent plasma, patient was outside the therapeutic window for Remdesivir. He has not had recent echocardiogram done. He has been slow to improve, still requiring high flow oxygen. We'll repeat chest x-ray and echocardiogram today. On 10/12/2020 patient seen in follow-up on medical floor, since yesterday patient had been taken off the AIrvo, however he still requiring high flow oxygen, currently on a nonrebreather at 100%, and his pulse ox is around 91%, the attempt was made to place the patient on the regular high flow nasal cannula at 15 L and he needs the patient desaturated into the 70s became very short of breath. Any attempt to mobilize the patient increase his activity has been unsuccessful as the patient becomes very short of breath with any little bit of exertion, and desaturates quite significantly. His been for the most part bedbound, remains on 100% nonrebreather, his saturations are very marginal, a CT of the chest was obtained yesterday showed emphysema and pulmonary interstitial fibrotic changes with a honeycomb pattern in both lungs. There was also patchy areas of groundglass interstitial infiltrate in both peripheral lung camarena. There is increased infiltrate in the lower lungs compared to the CT of the abdomen and pelvis that was completed on 09/27/2020 that suggest some superimpo sed acute lung disease. He has been afebrile, his been hemodynamically stable, no significant cough, or phlegm production, no complaints of chest discomfort, patient for the most part just appears very fatigued. He is arousable, but drowsy for the most part. Echocardiogram was completed showing left ventricular systolic function mild to moderately impaired with a EF between 40-45%, mild pulmonary hypertension with a right-sided pressures of 40.5 mmHg, mild aortic valve sclerosis, mild MR and mild TR. His labs have been reviewed, WBC was 16.5, hemoglobin of 11.1, sodium was 135, potassium is 4.4, chloride is 105, CO2 is 18, BUN is 137, creatinine is 3.0, slight improvement in patient's renal function was noted, his diuretics remain on hold. Patient remains on IV steroids currently at 40 mg every 12 hours, inhaled bronchodilators, has had no fever or chills, he status post transfusion with 2 units of convalescent immunoglobulin for COVID 19, and patient was not a candidate for Remdesivir. Overall has not made any significant improvement in his oxygenation pattern, chest x-ray findings, CAT scan of the chest findings, and overall physical functioning On 10/13/2020 patient seen in follow-up on medical floor. Patient means of percent nonrebreather, his pulse ox is ranging between 83-94%, is very weak, his very symptomatic and short of breath when any attempt made to wean down his oxygen. It seems to be slightly more upbeat today, answering questions appropriately, he short of breath with any exertion, his been bedbound for the most part, his been afebrile. His lab work has been reviewed, his BUN has improved slightly, creatinine is stable at 3.0, his diuretics remain on hold. He is on IV steroids, Lovenox 40 mg twice daily, and vitamin C, vitamin D and zinc supplement. Objective - Vital Signs Vital signs: Vital Signs Temp 97.4 F L 10/13/20 04:59 Pulse 65 10/13/20 08:30 Resp 22 10/13/20 08:30 BP 142/70 10/13/20 04:59 Pulse Ox 89 L 10/13/20 04:59 Intake & Output 10/12/20 10/13/20 10/13/20 18:59 06:59 18:59 Intake Total 480 1500 Output Total 1450 Balance 480 50 Intake: Oral 480 1500 Output: Urine 1450 Other: Voiding Method Ileal Conduit (Right) Ileal Conduit (Right) Ileal Conduit (Right) # Voids 1 0 - Exam GENERAL EXAM: Drowsy but arousable, 80-year-old white male, currently on 100% nonrebreather satting 83-91% , comfortable in no apparent distress. HEAD: Normocephalic/atraumatic. EYES: Normal reaction of pupils, equal size. Conjunctiva pink, sclera white. NOSE: Clear with pink turbinates. THROAT: No erythema or exudates. NECK: No masses, no JVD, no thyroid enlargement, no adenopathy. CHEST: No chest wall deformity. Symmetrical expansion. LUNGS: Equal air entry with no crackles, wheeze, rhonchi or dullness. CVS: Regular rate and rhythm, normal S1 and S2, no gallops, no murmurs, no rubs ABDOMEN: Soft, nontender. No hepatosplenomegaly, normal bowel sounds, no guard ing or rigidity. EXTREMITIES: No clubbing, trace lower extremity edema no cyanosis, 2+ pulses and upper and lower extremities. MUSCULOSKELETAL: Muscle strength and tone normal. SPINE: No scoliosis or deformity SKIN: No rashes CENTRAL NERVOUS SYSTEM: Drowsy, fatigued, No focal deficits, tone is normal in all 4 extremities. - Labs CBC & Chem 7: 10/12/20 05:58 10/13/20 05:58 Labs: Abnormal Lab Results - Last 24 Hours (Table) 10/08/20 10/12/20 10/12/20 Range/Units 09:44 17:02 20:47 Carbon Dioxide (21.6-31.8) mmol/L Anion Gap (4.00-12.00) mmol/L BUN (9.0-27.0) mg/dL Creatinine (0.6-1.5) mg/dL Est GFR (CKD-EPI)AfAm (60.0-200.0) Est GFR (CKD-EPI)NonAf (60.0-200.0) BUN/Creatinine Ratio (12.00-20.00) Ratio Glucose (70-110) mg/dL POC Glucose (mg/dL) 361 H 206 H (75-99) mg/dL Calcium (8.7-10.3) mg/dL LD Isoenzymes 273 H (120-250) U/L LD 2 45 H (30-43) % 10/13/20 10/13/20 10/13/20 Range/Units 05:58 07:03 11:31 Carbon Dioxide 17.3 L (21.6-31.8) mmol/L Anion Gap 13.70 H (4.00-12.00) mmol/L BUN 127.0 H* (9.0-27.0) mg/dL Creatinine 3.0 H (0.6-1.5) mg/dL Est GFR (CKD-EPI)AfAm 22.0 L (60.0-200.0) Est GFR (CKD-EPI)NonAf 19.0 L (60.0-200.0) BUN/Creatinine Ratio 42.33 H (12.00-20.00) Ratio Glucose 68 L (70-110) mg/dL POC Glucose (mg/dL) 197 H 109 H (75-99) mg/dL Calcium 8.0 L (8.7-10.3) mg/dL LD Isoenzymes (120-250) U/L LD 2 (30-43) % Assessment and Plan Plan: Assessment: #1. Acute hypoxic respiratory failure, severe, related to COVID 19 pneumonitis, and patient continues to require high flow oxygen per Airvo is 60 L and FiO2 of 90%, patient was outside the window for Remdesivir, received 2 units of convalescent immunoglobulin for COVID 19 on 09/25/2020, and 10/02/2020 #2. Chronic kidney disease, with possible obstructive uropathy, nephrology and urology are on the case #3. History of bladder cancer and history of ileal conduit #4. Gastroenteritis secondary to COVID 19 infection #5. Benign essential hypertension #6. Dyslipidemia #7. History of COPD #8. History of GERD without esophagitis #9. Former smoker #10. Type 2 diabetes mellitus #11. Steroid-induced hyperglycemia, improved with tapering of the steroids #12. Acute kidney injury #13. Generalized medical debility related to prolonged hospitalization and severe hypoxemia #14. Emphysema #15. Extensive pulmonary interstitial fibrotic changes with honeycomb pattern in both lungs as seen on the CT of the chest completed on 10/11/2020 #16. Cardiomyopathy, with EF of 40-45%, mild aortic valve sclerosis, mild TR, mild pulmonary hypertension, with right-sided pressure of 40.5 mmHg Plan: Continue current medical treatment, continue steroids, continue weaning attempts on the FiO2 to keep O2 sat at 88-89 and above as well as the patient is asymptomatic, so far any attempts to wean his oxygen have been unsuccessful. We'll continue supportive treatment, his CODE STATUS is DO NOT RESUSCITATE, our recommendation is to discuss palliative care and hospice with the family as the prognosis is quite guarded and poor. I performed a history & physical examination of the patient and discussed their management with my nurse practitioner, Kasey Reeves. I reviewed the nurse practitioner's note and agree with the documented findings and plan of care. Lung sounds are positive for crackles. The findings and the impression was discussed with the patient. I attest to the documentation by the nurse practitioner.
--- NOTE | 2020-10-13 13:45 | P.PN ---
Subjective Patient is seen in follow-up for acute kidney injury. Renal function stable. Nonoliguric. Awake and alert. Denies chest pain. Blood pressure stable. Oral intake fair. Continues to require high amounts of oxygen. Vital signs are stable. General: The patient appeared well nourished and normally developed. HEENT: Head exam is unremarkable. Neck is without jugular venous distension. LUNGS: Breath sounds decreased. HEART: Rate and Rhythm are regular. ABDOMEN: Soft, nontender. EXTREMITITES: No edema. Objective - Vital Signs Vital signs: Vital Signs Temp 97.6 F 10/13/20 11:00 Pulse 77 10/13/20 11:00 Resp 24 10/13/20 11:00 BP 145/74 10/13/20 11:00 Pulse Ox 90 L 10/13/20 11:00 Intake & Output 10/12/20 10/13/20 10/13/20 18:59 06:59 18:59 Intake Total 480 1500 Output Total 1450 Balance 480 50 Intake: Oral 480 1500 Output: Urine 1450 Other: Voiding Method Ileal Conduit (Right) Ileal Conduit (Right) Ileal Conduit (Right) # Voids 1 0 - Labs CBC & Chem 7: 10/12/20 05:58 10/13/20 05:58 Labs: Abnormal Lab Results - Last 24 Hours (Table) 10/08/20 10/12/20 10/12/20 Range/Units 09:44 17:02 20:47 Carbon Dioxide (21.6-31.8) mmol/L Anion Gap (4.00-12.00) mmol/L BUN (9.0-27.0) mg/dL Creatinine (0.6-1.5) mg/dL Est GFR (CKD-EPI)AfAm (60.0-200.0) Est GFR (CKD-EPI)NonAf (60.0-200.0) BUN/Creatinine Ratio (12.00-20.00) Ratio Glucose (70-110) mg/dL POC Glucose (mg/dL) 361 H 206 H (75-99) mg/dL Calcium (8.7-10.3) mg/dL LD Isoenzymes 273 H (120-250) U/L LD 2 45 H (30-43) % 10/13/20 10/13/20 10/13/20 Range/Units 05:58 07:03 11:31 Carbon Dioxide 17.3 L (21.6-31.8) mmol/L Anion Gap 13.70 H (4.00-12.00) mmol/L BUN 127.0 H* (9.0-27.0) mg/dL Creatinine 3.0 H (0.6-1.5) mg/dL Est GFR (CKD-EPI)AfAm 22.0 L (60.0-200.0) Est GFR (CKD-EPI)NonAf 19.0 L (60.0-200.0) BUN/Creatinine Ratio 42.33 H (12.00-20.00) Ratio Glucose 68 L (70-110) mg/dL POC Glucose (mg/dL) 197 H 109 H (75-99) mg/dL Calcium 8.0 L (8.7-10.3) mg/dL LD Isoenzymes (120-250) U/L LD 2 (30-43) % Assessment and Plan Plan: Assessment: 1. Acute kidney injury secondary to ATN secondary to infection and diuresis. Creatinine stable at 3.0 today. Disproportionately elevated BUN secondary to acute kidney injury as well as steroids. No gross evidence of bleeding. 2. Chronic kidney disease stage III with baseline creatinine near 1.3-1.4. Etiology is diabetic kidney disease. 3. Right-sided hydronephrosis. Urology following. Potential PCN down the road. 4. Volume overload. s/p diuresis. 5. Metabolic acidosis secondary to acute kidney injury and RTA. Maintained on oral bicarb. 6. Covid-19 pneumonia. s/p decadron and remdesivir. Now on IV solumedrol. 7. Anemia of chronic kidney disease. Maintained on Aranesp. 8. Diabetes mellitus. 9. Hypertension with chronic kidney disease. Exacerbated by steroids. Stable. 10. Systolic CHF with EF 40-45%. Plan: Encouraged po intake. Continue to hold Lasix. Avoid nephrotoxins. Continue to monitor renal function and urine output. Wean FiO2. Repeat electrolytes in the morning. Hospital is being considered.
--- NOTE | 2020-10-13 16:23 | P.PN ---
Subjective Progress Note Date: 10/13/20 This is a 80-year-old male who was recently admitted with acute hypoxic respiratory failure secondary to Covid 19 pneumonia and is being closely monitored. Multiple medical consultations following. Patient remains on Airvo along with nonrebreather mask at 15 L and continues to be quite dyspneic and exerts very easily. Lasix is on hold and kidney function slowly improving. Nephrology is following. Urology recommended possible nephrostomy tube placement although will need to discuss this possible option once respiratory status improves. Patient continues to be extremely weak requiring assistance and experiences severe dyspnea with position changes. Patient is having some back pain and will order pain medications. Will repeat a.m. chest x-ray and a 2-D echo was ordered and pending at this time. 10/12/2020 Patient is seen and examined and follow-up currently remains on Airvo and NRB at 15 L. Patient is severely dyspneic off of any oxygen and has had unsuccessful attempts at weaning. Underwent CT yesterday showing emphysema and pulmonary interstitial fibrotic changes with honeycomb pattern noted in both lungs along with patchy areas of groundglass interstitial infiltrates in both peripheral lung camarena. Patient's 2-D echo shows severe left ventricular hypertrophy with systolic function mild to moderately impaired with an EF between 40 and 45% with a trace to mild mitral regurgitation along with mild tricuspid regurgitation present. Creatinine today is 3.0 and continues to hold diuretic at this time. Sodium is 135 and potassium is 4.4. Hemoglobin is 11.1, and white blood count is 16.5. Patient remains on IV steroids and will continue at this time. Will need to discuss with family about treatment plan moving forward. 10/13/2020 Patient is seen in follow-up today currently sitting up in the chair and is on nonrebreather at 15 L and continues to be severely dyspneic and oxygen saturation is 84-89% while in the room. Patient continues to become dyspneic during conversation as well. Patient is having buttocks discomfort due to being mostly immobile. Creatinine is stable at 3 current sodium is 135 with a potassium of 4.6. Multiple medical consultations following. Patient has been afebrile. Patient continues to have adequate urine output. Renal ultrasound was done showing persistent asymmetric right renal atrophy and moderate right- sided hydronephrosis with no left-sided hydronephrosis noted. Had a lengthy discussion with daughter Clarissa about treatment options and respiratory status and she mentioned possible hospice and is open to receive information from them. Case management was made aware. Patient will be setting up a phone conference with her father and sister this evening and will update nursing staff tomorrow. Patient's prognosis is poor and extremely guarded. Lovenox being adjusted and patient is maintained on IV steroids along with vitamin C and D supplements and zinc and will continue at this time. Review of systems: Constitutional: Reports fatigue and weakness along with continuous buttock pain Cardiovascular: No reports of chest pain or palpitations Respiratory: Reports shortness of breath GI: No reports of nausea, vomiting, or diarrhea : No reports of dysuria or retention Neurovascular: Reports weakness with no reports of numbness All medications have been reviewed Active Medications Acetaminophen (Acetaminophen Tab 500 Mg Tab) 1,000 mg PO Q6H PRN PRN Reason: Fever and/ or Pain Albuterol Sulfate (Albuterol Hfa Inhaler) 2 puff INHALATION RT-Q4H [facility] Last Admin: 10/13/20 12:42 Dose: 2 puff Documented by: Alprazolam (Alprazolam 0.25 Mg Tab) 0.25 mg PO BID PRN PRN Reason: Anxiety Last Admin: 10/12/20 20:55 Dose: 0.25 mg Documented by: Amiodarone HCl (Amiodarone 200 Mg Tab) 200 mg PO DAILY [facility] Last Admin: 10/13/20 09:10 Dose: 200 mg Documented by: Ascorbic Acid (Ascorbic Acid 500 Mg Tab) 250 mg PO BID@0800,1700 [facility] Last Admin: 10/13/20 09:09 Dose: 250 mg Documented by: Aspirin (Aspirin 81 Mg) 81 mg PO DAILY [facility] Last Admin: 10/13/20 09:10 Dose: 81 mg Documented by: Baclofen (Baclofen 10 Mg Tab) 10 mg PO TID PRN PRN Reason: Muscle Pain Last Admin: 10/06/20 22:08 Dose: 10 mg Documented by: Benzocaine/Menthol (Benzocaine/Menthol Lozeng 1 Each Lozenge) 1 each MUCOUS MEM Q4HR PRN PRN Reason: Sore Throat Last Admin: 10/02/20 10:09 Dose: 1 each Documented by: Bisacodyl (Bisacodyl 10 Mg Supp) 10 mg RECTAL DAILY PRN PRN Reason: Constipation Budesonide/Formoterol Fumarate (Symbicort 160-4.5 Mcg Inhaler) 2 puff INHALATION RT-BID [facility] Last Admin: 10/13/20 09:04 Dose: 2 puff Documented by: Bupropion HCl (Bupropion Xl 150 Mg Tab.Er.24h) 150 mg PO DAILY [facility] Last Admin: 10/13/20 09:11 Dose: 150 mg Documented by: Calcium Carbonate/Glycine (Calcium Carbonate 500 Mg Chewable) 1,000 mg PO Q8H PRN PRN Reason: Indigestion Carvedilol (Carvedilol 3.125 Mg Tab) 3.125 mg PO BID@0800,1800 [facility] Last Admin: 10/13/20 09:10 Dose: 3.125 mg Documented by: Cholecalciferol (Cholecalciferol 1,000 Unit Tab) 2,000 unit PO DAILY [facility] Last Admin: 10/13/20 09:11 Dose: 1,000 unit Documented by: Enoxaparin Sodium (Enoxaparin 60 Mg/0.6 Ml Syringe) 55 mg SQ DAILY [facility] Ferrous Sulfate (Ferrous Sulfate 325 Mg Tab) 325 mg PO HS@1800 [facility] Last Admin: 10/12/20 17:47 Dose: 325 mg Documented by: Guaifenesin/Dextromethorphan (Guaifenesin-Dm 100-10mg/5ml 10 Ml Cup) 5 ml PO Q4H PRN PRN Reason: Cough Hydralazine HCl (Hydralazine Hcl 25 Mg Tab) 25 mg PO TID [facility] Last Admin: 10/13/20 09:15 Dose: 25 mg Documented by: Insulin Aspart (Insulin Aspart (Novolog) 100 Unit/Ml Vial) 0 unit SQ ACHS [facility]; Protocol Last Admin: 10/13/20 12:18 Dose: Not Given Documented by: Insulin Aspart (Insulin Aspart (Novolog) 100 Unit/Ml Vial) 10 unit SQ AC-TID [facility] Last Admin: 10/13/20 12:18 Dose: Not Given Documented by: Insulin Detemir (Insulin Detemir (Levemir) 100 Unit/Ml Syr) [address] [facility] Last Admin: 10/12/20 20:55 Dose: 65 unit Documented by: Loperamide HCl (Loperamide 2 Mg Cap) 2 mg PO QID PRN PRN Reason: Diarrhea Last Admin: 09/26/20 00:31 Dose: 2 mg Documented by: Loratadine (Loratadine 10 Mg Tab) [address] [facility] Last Admin: 10/12/20 20:54 Dose: 10 mg Documented by: Magnesium Hydroxide (Magnesium Hydroxide 2,400 Mg/10 Ml Cup) 2,400 mg PO DAILY PRN PRN Reason: Constipation Melatonin (Melatonin 5 Mg Tablet) [address] [facility] Last Admin: 10/12/20 20:54 Dose: 10 mg Documented by: Methylprednisolone Sodium Succinate (Methylprednisolone Sod Succi 40 Mg/Ml 1 Ml Vial) 40 mg IV Q12HR [facility] Last Admin: 10/13/20 09:16 Dose: 40 mg Documented by: Multivitamins (Multivitamins, Thera 1 Each Tab) 1 each PO DAILY [facility] Last Admin: 10/13/20 09:16 Dose: 1 each Documented by: Naloxone HCl (Naloxone 0.4 Mg/Ml 1 Ml Vial) 0.2 mg IV Q2M PRN PRN Reason: Opioid Reversal Micatin Cream 1 applic TOPICAL BID [facility] Last Admin: 10/12/20 20:56 Dose: Not Given Documented by: Miconazole Nitrate [ Zeasorb Af] 71 Gm Powder 1 applic TOPICAL BID PRN PRN Reason: SKIN FOLD/GROIN AREA Ondansetron HCl (Ondansetron 4 Mg Tab) 4 mg PO Q8H PRN PRN Reason: Nausea And Vomiting Pantoprazole Sodium (Pantoprazole 40 Mg Tablet) 40 mg PO DAILY@0730 [facility] Last Admin: 10/13/20 09:09 Dose: 40 mg Documented by: Polyethylene Glycol (Polyethylene Glycol 3350 17 Gm Powd.Pack) 17 gm PO DAILY PRN PRN Reason: Constipation Last Admin: 10/07/20 12:32 Dose: 17 gm Documented by: Pramipexole Dihydrochloride (Pramipexole 0.125 Mg Tab) 0.[address] [facility] Last Admin: 10/12/20 20:54 Dose: 0.125 mg Documented by: Sodium Bicarbonate (Sodium Bicarbonate Tab 650 Mg Tab) 650 mg PO QID [facility] Last Admin: 10/13/20 12:57 Dose: 650 mg Documented by: Objective - Vital Signs Vital signs: Vital Signs Temp 97.4 F L 10/13/20 04:59 Pulse 75 10/13/20 04:59 Resp 22 10/13/20 04:59 BP 142/70 10/13/20 04:59 Pulse Ox 89 L 10/13/20 04:59 Intake & Output 10/12/20 10/13/20 10/13/20 18:59 06:59 18:59 Intake Total 480 1500 Output Total 1450 Balance 480 50 Intake: Oral 480 1500 Output: Urine 1450 Other: Voiding Method Ileal Conduit (Right) Ileal Conduit (Right) # Voids 1 0 - Exam GENERAL: The patient is alert and oriented x3, slightly anxious. Well developed, well nourished. Temp is 97.4, pulse is 65, respirations are 24, blood pressure is 145/74, oxygen saturations is 83-89% on 15 L nonrebreather HEENT: Pupils are round and equally reacting to light. EOMI. No scleral icterus. No conjunctival pallor. Normocephalic, atraumatic. No pharyngeal erythema. No thyromegaly. Oral mucosa is dry. CARDIOVASCULAR: S1 and S2 muffled PULMONARY: Diminished breath sounds at the bases with no wheezing or rhonchi ABDOMEN: Soft, obese, nontender, nondistended, normoactive bowel sounds. No palpable organomegaly. Suprapubic catheter noted MUSCULOSKELETAL: No joint swelling or deformity. EXTREMITIES: No cyanosis, clubbing, or pedal edema. NEUROLOGICAL: Gross neurological examination did not reveal any focal deficits. Diffusely weak SKIN: No rashes. - Labs CBC & Chem 7: 10/12/20 05:58 10/13/20 05:58 Labs: Abnormal Lab Results - Last 24 Hours (Table) 10/08/20 10/12/20 10/12/20 Range/Units 09:44 12:01 17:02 Carbon Dioxide (21.6-31.8) mmol/L Anion Gap (4.00-12.00) mmol/L BUN (9.0-27.0) mg/dL Creatinine (0.6-1.5) mg/dL Est GFR (CKD-EPI)AfAm (60.0-200.0) Est GFR (CKD-EPI)NonAf (60.0-200.0) BUN/Creatinine Ratio (12.00-20.00) Ratio Glucose (70-110) mg/dL POC Glucose (mg/dL) 58 L 361 H (75-99) mg/dL Calcium (8.7-10.3) mg/dL LD Isoenzymes 273 H (120-250) U/L LD 2 45 H (30-43) % 10/12/20 10/13/20 10/13/20 Range/Units 20:47 05:58 07:03 Carbon Dioxide 17.3 L (21.6-31.8) mmol/L Anion Gap 13.70 H (4.00-12.00) mmol/L BUN 127.0 H* (9.0-27.0) mg/dL Creatinine 3.0 H (0.6-1.5) mg/dL Est GFR (CKD-EPI)AfAm 22.0 L (60.0-200.0) Est GFR (CKD-EPI)NonAf 19.0 L (60.0-200.0) BUN/Creatinine Ratio 42.33 H (12.00-20.00) Ratio Glucose 68 L (70-110) mg/dL POC Glucose (mg/dL) 206 H 197 H (75-99) mg/dL Calcium 8.0 L (8.7-10.3) mg/dL LD Isoenzymes (120-250) U/L LD 2 (30-43) % 10/13/20 Range/Units 11:31 Carbon Dioxide (21.6-31.8) mmol/L Anion Gap (4.00-12.00) mmol/L BUN (9.0-27.0) mg/dL Creatinine (0.6-1.5) mg/dL Est GFR (CKD-EPI)AfAm (60.0-200.0) Est GFR (CKD-EPI)NonAf (60.0-200.0) BUN/Creatinine Ratio (12.00-20.00) Ratio Glucose (70-110) mg/dL POC Glucose (mg/dL) 109 H (75-99) mg/dL Calcium (8.7-10.3) mg/dL LD Isoenzymes (120-250) U/L LD 2 (30-43) % Assessment and Plan Assessment: -Acute Covid 19 pneumonia bilateral interstitial viral pneumonia with acute hypoxic respiratory failure. -Chronic kidney disease stage V, baseline -Acute kidney failure with acute tubular necrosis -Right sided hydronephrosis and obstructive uropathy. Currently has suprapubic Gamez catheter -Volume overload secondary to renal failure -history of bladder cancer with ileostomy -Diarrhea secondary to Covid 19, resolved -Type 2 diabetes mellitus, uncontrolled with hyperglycemia -Coronary artery disease with previous stents -Hypertension -Hyperlipidemia -Gastroesophageal reflux disease -COPD without any significant exacerbation. -No code, no CPR, no vent Recommendations and discussion: Recommend to continue current medications, management, symptomatic treatment. Patient is maintained on 15 L nonrebreather. Multiple medical consultations following. discussed with daughter Clarissa who is the patient's power of deputy attorney general about treatment plan moving forward. Clarissa and her sister along with the patient will discuss treatment options and plans moving forward and will update nursing staff in the morning. Patient is maintained on IV steroids along with Lovenox which has been adjusted, vitamin C and E supplements, and zinc supplements and will continue. To continue with sliding scale along with long- acting insulin. PT/OT following and working with the patient although patient continues to be severely dyspneic and not able to work with them very long. Due to multiple complex medical issues, prognosis is poor and extremely guarded. Further recommendations to follow. Case management made aware of possible informational consult with hospice. Phone number of the daughter Clarissa, who is the power of deputy attorney general, was not correct and the chart and was updated.
[2020-10-13 17:01] LABS: Glucose,Whole Blood 173 mg/dL (75-99)
[2020-10-13] MEDS: MICATIN TOPICAL SCH ×2 (17:37→20:05)
[2020-10-13] MEDS: BACLOFEN 10 MG TAB PO PRN (17:38)
[2020-10-13] MEDS: FERROUS SULFATE 325 MG TAB PO SCH (17:38)
[2020-10-13] MEDS: LORATADINE 10 MG TAB PO SCH (19:58)
[2020-10-13] MEDS: PRAMIPEXOLE 0.125 MG TAB PO SCH (19:58)
[2020-10-13] MEDS: MELATONIN 5 MG TABLET PO SCH (19:58)
[2020-10-13] MEDS: ALPRAZolam 0.25 MG TAB PO PRN (20:04)
[2020-10-13 20:06] LABS: Glucose,Whole Blood 232 mg/dL (75-99)
[2020-10-13] MEDS: INSULIN DETEMIR (LEVEMIR) 100 UNIT/ML SYR SQ SCH (20:37)
[2020-10-14] MEDS: ALBUTEROL HFA INHALER INHALATION SCH ×6 (01:32→20:49)
[2020-10-14 07:16] LABS: Glucose,Whole Blood 79 mg/dL (75-99)
[2020-10-14] MEDS: INSULIN ASPART (NovoLOG) 100 UNIT/ML VIAL SQ SCH ×7 (07:20→20:59)
[2020-10-14] MEDS: SYMBICORT 160-4.5 MCG INHALER INHALATION SCH ×2 (08:00→20:54)
[2020-10-14 08:22] LABS: African American GFR (CKD) 26 (>60 ml/min/1.73 sqM); Anion Gap 8 mmol/L; Calcium 8.4 mg/dL (8.4-10.2); Carbon Dioxide 21 mmol/L (22-30); Chloride 107 mmol/L (98-107); Glucose 53 mg/dL (74-99); Magnesium 2.5 mg/dL (1.6-2.3); Non-African American GFR(CKD) 22 (>60 ml/min/1.73 sqM); Potassium 4.9 mmol/L (3.5-5.1); Sodium 136 mmol/L (137-145)
[2020-10-14 08:23] LABS: Blood Urea Nitrogen 112 mg/dL (9-20)
--- NOTE | 2020-10-14 08:52 | CDI ---
Documentation Clarification Form Date: 10/14/2020 08:32:39 AM From: Amina Rosario RN, CCDS Admit Date: 09/24/2020 05:09:00 PM Patient Name: Tre Fernández Visit Number: [id number] ATTENTION: The Clinical Documentation Specialists (CDI) and [facility] Coding Staff appreciate your assistance in clarifying documentation. Please respond to the clarification below the line at the bottom and electronically sign. The CDI & [facility] Coding staff will review the response and follow-up if needed. Please note: Queries are made part of the Legal Health Record. If you have any questions, please contact the author of this message via ITS. Dr. Julio Rich Systolic CHF with EF 40-45%is documented in the 10/12 & 10/13 Nephrology progress notes and requires an acuity. History/Risk Factors: VINEET on ATN with CKD stage 3, diabetic kidney disease, Covid 19 pneumonia, anemia of CKD, DM, HTN with CKD, CAD GERD, HTN, Aortic aneurysm Clinical Indicators: 10/14/20 VS/Pulse OX: Temp 97.4, HR 73, RR 20, B/P 136/74, Spo2 84% 15L nonrebreather BNP: not checked 10/12 Echocardiogram Results: EF 40-45%, basal inferior and inferoseptal LV wall motion is hypokinetic, severe concentric LVH 10/10 CT Chest: "Emphysema and pulmonary interstitial fibrotic changes. Honeycomb pattern in both lungs. There is also patchy areas of groundglass interstitial infiltrate in both peripheral lung camarena. There is increased infiltrate in the lower lungs compared to the CT abdomen pelvis of 09/27/2020 that suggests some superimposed acute lung disease." Treatment: Cordarone 200 mg PO Daily 09/24-09/25 Coreg 12.5 mg PO BID 09/25 to current: Coreg 3.125 mg PO BID 09/25 - 09/27 Lasix 40 mg IVP Q 12 hrs. 09/27-09/28 Lasix 40 mg PO BID 09/29-10/05 Lasix 40 mg Po QD 10/08 Lasix 20 mg IVP x 1 dose 10/09-10/11 Lasix 20 mg Po QD 09/24- Current: Apresoline 25 mg PO TID Torsemide 40 mg PO daily x 1 dose In your professional opinion, can you please clarify the acuity and type of CHF if known? Systolic Heart Failure: Acute Chronic Acute on Chronic Unable to Determine Other, please specify (Last Revision: January 2018) unable to determine MTDD
[2020-10-14] MEDS: PANTOPRAZOLE 40 MG TABLET PO SCH (09:00)
[2020-10-14] MEDS: ASCORBIC ACID 500 MG TAB PO SCH ×2 (09:01→17:22)
[2020-10-14] MEDS: hydrALAZINE HCL 25 MG TAB PO SCH ×3 (09:02→20:44)
[2020-10-14] MEDS: CHOLECALCIFEROL 1,000 UNIT TAB PO SCH (09:02)
[2020-10-14] MEDS: ENOXAPARIN 60 MG/0.6 ML SYRINGE SQ SCH (09:02)
[2020-10-14] MEDS: carvediloL 3.125 MG TAB PO SCH ×2 (09:02→17:23)
[2020-10-14] MEDS: AMIODARONE 200 MG TAB PO SCH (09:02)
[2020-10-14] MEDS: SODIUM BICARBONATE TAB 650 MG TAB PO SCH ×4 (09:02→20:43)
[2020-10-14] MEDS: buPROPion XL 150 MG TAB.ER.24H PO SCH (09:02)
[2020-10-14] MEDS: MULTIVITAMINS, THERA 1 EACH TAB PO SCH (09:02)
[2020-10-14] MEDS: ASPIRIN 81 MG PO SCH (09:02)
[2020-10-14] MEDS: methylPREDNISolone SOD SUCCI 40 MG/ML 1 ML VIAL IV SCH ×2 (09:03→20:45)
[2020-10-14] MEDS: MICATIN TOPICAL SCH ×2 (09:26→20:46)
--- NOTE | 2020-10-14 09:37 | CDI ---
Documentation Clarification Form Date: 10/14/2020 09:34:32 AM From: Amina Rosario RN, CCDS Admit Date: 09/24/2020 05:09:00 PM Patient Name: Tre Fernández Visit Number: [id number] ATTENTION: The Clinical Documentation Specialists (CDI) and [facility] Coding Staff appreciate your assistance in clarifying documentation. Please respond to the clarification below the line at the bottom and electronically sign. The CDI & [facility] Coding staff will review the response and follow-up if needed. Please note: Queries are made part of the Legal Health Record. If you have any questions, please contact the author of this message via ITS. Dr. Ceci Gibson Conflicting documentation between the Sap Basis Administrator and the Attending MD has been documented and requires clarification of appropriate diagnosis by the Attending MD. 10/05 H&P -10/13 Attending Progress Note: "Chronic kidney disease stage V, baseline." 09/27 -10/13 Nephrology Progress notes: "Chronic kidney disease stage III with baseline creatinine near 1.3-1.4." History/Risk Factors: 10/25/18 Patients Historical BUN/CR/GFR 38/1.4/48.5 VINEET with ATN this admission Clinical Indicators: Current BUN: 71/79/87/97/100/95/98/115/125/127/139/141/137/127 CR: 4.94/4.6/4.4/4/3.5/3.2/2.8/2.7/3/3.2/2.74/ 3.2/3 GFR: 10/11.3/12/13.4/15.8/17.6/20.7/21.6/17./19 Treatment: 09/25 Demadex 40 mg po Daily x 1 dose 09/25-10/11 IV and Po Lasix dosing 10/03- Current Apresoline 25 mg PO TID 09/28 1 amp HCO3 IVP 09/27-Current HCO3 tab PO QID 09-25- Current Theragran 1 tab PO QD In order to capture the severity of condition, please clarify the stage of the CKD, if known: CKD Stage 3a (GFR 45-59) CKD Stage 3b (GFR 30-44) CKD Stage 4 (GFR 15-29) CKD Stage 5 (GFR <15) Other, please specify Unable to determine [Template last reviewed: June 2020] Unable to determine MTDD
[2020-10-14 11:20] LABS: Glucose,Whole Blood 297 mg/dL (75-99)
--- NOTE | 2020-10-14 13:14 | P.PN ---
Subjective Patient is seen in follow-up for acute kidney injury. Renal function better today. Nonoliguric. Denies chest pain. Blood pressure stable. Oral intake fair. Continues to require high amounts of oxygen - currently on partial nonrebreather. Vital signs are stable. General: The patient appeared well nourished and normally developed. HEENT: Head exam is unremarkable. Neck is without jugular venous distension. LUNGS: Breath sounds decreased. HEART: Rate and Rhythm are regular. ABDOMEN: Soft, nontender. EXTREMITITES: No edema. Objective - Vital Signs Vital signs: Vital Signs Temp 98.2 F 10/14/20 11:00 Pulse 82 10/14/20 11:00 Resp 24 10/14/20 11:00 BP 152/63 10/14/20 11:00 Pulse Ox 80 L 10/14/20 11:00 Intake & Output 10/13/20 10/14/20 10/14/20 18:59 06:59 18:59 Output Total 1200 1450 Balance -1200 -1450 Output: Urine 1200 1450 Uretheral (Gamez) 250 Other: Voiding Method Ileal Conduit (Right) Ileal Conduit (Right) Ileal Conduit (Right) # Voids 0 # Bowel Movements 2 - Labs CBC & Chem 7: 10/12/20 05:58 10/14/20 06:50 Labs: Abnormal Lab Results - Last 24 Hours (Table) 10/13/20 10/13/20 10/14/20 Range/Units 17:00 20:01 06:50 Sodium 136 L (137-145) mmol/L Carbon Dioxide 21 L (22-30) mmol/L BUN 112 H* (9-20) mg/dL Creatinine 2.65 H (0.66-1.25) mg/dL Glucose 53 L (74-99) mg/dL POC Glucose (mg/dL) 173 H 232 H (75-99) mg/dL Magnesium 2.5 H (1.6-2.3) mg/dL 10/14/20 Range/Units 11:18 Sodium (137-145) mmol/L Carbon Dioxide (22-30) mmol/L BUN (9-20) mg/dL Creatinine (0.66-1.25) mg/dL Glucose (74-99) mg/dL POC Glucose (mg/dL) 297 H (75-99) mg/dL Magnesium (1.6-2.3) mg/dL Assessment and Plan Plan: Assessment: 1. Acute kidney injury secondary to ATN secondary to infection and diuresis. Creatinine down to 2.65 today. Disproportionately elevated BUN secondary to acute kidney injury as well as steroids. No gross evidence of bleeding. 2. Chronic kidney disease stage IIIA with baseline creatinine near 1.3-1.4. Etiology is diabetic kidney disease. 3. Right-sided hydronephrosis. Urology following. Potential PCN down the road. 4. Volume overload. s/p diuresis. 5. Metabolic acidosis secondary to acute kidney injury and RTA. Maintained on oral bicarb. 6. Covid-19 pneumonia. s/p decadron and remdesivir. Now on IV solumedrol. 7. Anemia of chronic kidney disease. Maintained on Aranesp. 8. Diabetes mellitus. 9. Hypertension with chronic kidney disease. Exacerbated by steroids. Stable. 10. Systolic CHF with EF 40-45%. Plan: Encouraged po intake. Continue to hold Lasix. Avoid nephrotoxins. Continue to monitor renal function and urine output. Wean FiO2. Repeat electrolytes in the morning. Per nurse, refusing hospice at this time.
--- NOTE | 2020-10-14 15:58 | P.PN ---
Subjective Progress Note Date: 10/14/20 This is a 80-year-old male who was recently admitted with acute hypoxic respiratory failure secondary to Covid 19 pneumonia and is being closely monitored. Multiple medical consultations following. Patient remains on Airvo along with nonrebreather mask at 15 L and continues to be quite dyspneic and exerts very easily. Lasix is on hold and kidney function slowly improving. Nephrology is following. Urology recommended possible nephrostomy tube placement although will need to discuss this possible option once respiratory status improves. Patient continues to be extremely weak requiring assistance and experiences severe dyspnea with position changes. Patient is having some back pain and will order pain medications. Will repeat a.m. chest x-ray and a 2-D echo was ordered and pending at this time. 10/12/2020 Patient is seen and examined and follow-up currently remains on Airvo and NRB at 15 L. Patient is severely dyspneic off of any oxygen and has had unsuccessful attempts at weaning. Underwent CT yesterday showing emphysema and pulmonary interstitial fibrotic changes with honeycomb pattern noted in both lungs along with patchy areas of groundglass interstitial infiltrates in both peripheral lung camarena. Patient's 2-D echo shows severe left ventricular hypertrophy with systolic function mild to moderately impaired with an EF between 40 and 45% with a trace to mild mitral regurgitation along with mild tricuspid regurgitation present. Creatinine today is 3.0 and continues to hold diuretic at this time. Sodium is 135 and potassium is 4.4. Hemoglobin is 11.1, and white blood count is 16.5. Patient remains on IV steroids and will continue at this time. Will need to discuss with family about treatment plan moving forward. 10/13/2020 Patient is seen in follow-up today currently sitting up in the chair and is on nonrebreather at 15 L and continues to be severely dyspneic and oxygen saturation is 84-89% while in the room. Patient continues to become dyspneic during conversation as well. Patient is having buttocks discomfort due to being mostly immobile. Creatinine is stable at 3 current sodium is 135 with a potassium of 4.6. Multiple medical consultations following. Patient has been afebrile. Patient continues to have adequate urine output. Renal ultrasound was done showing persistent asymmetric right renal atrophy and moderate right- sided hydronephrosis with no left-sided hydronephrosis noted. Had a lengthy discussion with daughter Clarissa about treatment options and respiratory status and she mentioned possible hospice and is open to receive information from them. Case management was made aware. Patient will be setting up a phone conference with her father and sister this evening and will update nursing staff tomorrow. Patient's prognosis is poor and extremely guarded. Lovenox being adjusted and patient is maintained on IV steroids along with vitamin C and D supplements and zinc and will continue at this time. 10/14/2020 Patient is seen and evaluated in follow-up and continues to be closely monitored. Patient had a lengthy discussion with daughter Clarissa and states he does not want to be hospice at this time. Patient continues to be extremely dyspneic with minimal exertion and becomes hypoxic in the low 80s during conversation. Patient was currently on a nonrebreather and was placed on a partial rebreather with oxygen saturation of 83-85% during exam. Patient continues to remove oxygen supply and was found in the room on room air at 80%. Patient needs constant redirection and reinforcement on keeping oxygen mask and /or cannula on at all times. Patient's creatinine continues to improve and is currently 2.65. Blood sugars variable and will continue to monitor before meals and at bedtime closely and continue sliding scale and long-acting. Magnesium is 2.5 today. Review of systems: Constitutional: Reports fatigue and weakness along with continuous buttock pain Cardiovascular: No reports of chest pain or palpitations Respiratory: Reports shortness of breath although states he feels has improved GI: No reports of nausea, vomiting, or diarrhea : No reports of dysuria or retention Neurovascular: Reports weakness with no reports of numbness All medications have been reviewed Active Medications Acetaminophen (Acetaminophen Tab 500 Mg Tab) 1,000 mg PO Q6H PRN PRN Reason: Fever and/ or Pain Albuterol Sulfate (Albuterol Hfa Inhaler) 2 puff INHALATION RT-Q4H [facility] Last Admin: 10/14/20 15:33 Dose: 2 puff Documented by: Alprazolam (Alprazolam 0.25 Mg Tab) 0.25 mg PO BID PRN PRN Reason: Anxiety Last Admin: 10/13/20 20:04 Dose: 0.25 mg Documented by: Amiodarone HCl (Amiodarone 200 Mg Tab) 200 mg PO DAILY [facility] Last Admin: 10/14/20 09:02 Dose: 200 mg Documented by: Ascorbic Acid (Ascorbic Acid 500 Mg Tab) 250 mg PO BID@0800,1700 [facility] Last Admin: 10/14/20 09:01 Dose: 250 mg Documented by: Aspirin (Aspirin 81 Mg) 81 mg PO DAILY [facility] Last Admin: 10/14/20 09:02 Dose: 81 mg Documented by: Baclofen (Baclofen 10 Mg Tab) 10 mg PO TID PRN PRN Reason: Muscle Pain Last Admin: 10/13/20 17:38 Dose: 10 mg Documented by: Benzocaine/Menthol (Benzocaine/Menthol Lozeng 1 Each Lozenge) 1 each MUCOUS MEM Q4HR PRN PRN Reason: Sore Throat Last Admin: 10/02/20 10:09 Dose: 1 each Documented by: Bisacodyl (Bisacodyl 10 Mg Supp) 10 mg RECTAL DAILY PRN PRN Reason: Constipation Budesonide/Formoterol Fumarate (Symbicort 160-4.5 Mcg Inhaler) 2 puff INHALATI ON RT-BID [facility] Last Admin: 10/14/20 08:00 Dose: 2 puff Documented by: Bupropion HCl (Bupropion Xl 150 Mg Tab.Er.24h) 150 mg PO DAILY [facility] Last Admin: 10/14/20 09:02 Dose: 150 mg Documented by: Calcium Carbonate/Glycine (Calcium Carbonate 500 Mg Chewable) 1,000 mg PO Q8H PRN PRN Reason: Indigestion Carvedilol (Carvedilol 3.125 Mg Tab) 3.125 mg PO BID@0800,1800 [facility] Last Admin: 10/14/20 09:02 Dose: 3.125 mg Documented by: Cholecalciferol (Cholecalciferol 1,000 Unit Tab) 2,000 unit PO DAILY [facility] Last Admin: 10/14/20 09:02 Dose: 2,000 unit Documented by: Enoxaparin Sodium (Enoxaparin 60 Mg/0.6 Ml Syringe) 55 mg SQ DAILY [facility] Last Admin: 10/14/20 09:02 Dose: 55 mg Documented by: Ferrous Sulfate (Ferrous Sulfate 325 Mg Tab) 325 mg PO HS@1800 [facility] Last Admin: 10/13/20 17:38 Dose: 325 mg Documented by: Guaifenesin/Dextromethorphan (Guaifenesin-Dm 100-10mg/5ml 10 Ml Cup) 5 ml PO Q4H PRN PRN Reason: Cough Hydralazine HCl (Hydralazine Hcl 25 Mg Tab) 25 mg PO TID [facility] Last Admin: 10/14/20 09:02 Dose: 25 mg Documented by: Insulin Aspart (Insulin Aspart (Novolog) 100 Unit/Ml Vial) 0 unit SQ [facility]; Protocol Last Admin: 10/14/20 12:53 Dose: 7 unit Documented by: Insulin Aspart (Insulin Aspart (Novolog) 100 Unit/Ml Vial) 10 unit SQ AC-TID [facility] Last Admin: 10/14/20 12:53 Dose: 10 unit Documented by: Insulin Detemir (Insulin Detemir (Levemir) 100 Unit/Ml Syr) 65 unit SQ [facility] Last Admin: 10/13/20 20:37 Dose: 65 unit Documented by: Loperamide HCl (Loperamide 2 Mg Cap) 2 mg PO QID PRN PRN Reason: Diarrhea Last Admin: 09/26/20 00:31 Dose: 2 mg Documented by: Loratadine (Loratadine 10 Mg Tab) 10 mg PO [facility] Last Admin: 10/13/20 19:58 Dose: 10 mg Documented by: Magnesium Hydroxide (Magnesium Hydroxide 2,400 Mg/10 Ml Cup) 2,400 mg PO DAILY PRN PRN Reason: Constipation Melatonin (Melatonin 5 Mg Tablet) 10 mg PO [facility] Last Admin: 10/13/20 19:58 Dose: 10 mg Documented by: Methylprednisolone Sodium Succinate (Methylprednisolone Sod Succi 40 Mg/Ml 1 Ml Vial) 40 mg IV Q12HR [facility] Last Admin: 10/14/20 09:03 Dose: 40 mg Documented by: Multivitamins (Multivitamins, Thera 1 Each Tab) 1 each PO DAILY [facility] Last Admin: 10/14/20 09:02 Dose: 1 each Documented by: Naloxone HCl (Naloxone 0.4 Mg/Ml 1 Ml Vial) 0.2 mg IV Q2M PRN PRN Reason: Opioid Reversal Micatin Cream 1 applic TOPICAL BID [facility] Last Admin: 10/14/20 09:26 Dose: Not Given Documented by: Miconazole Nitrate [ Zeasorb Af] 71 Gm Powder 1 applic TOPICAL BID PRN PRN Reason: SKIN FOLD/GROIN AREA Ondansetron HCl (Ondansetron 4 Mg Tab) 4 mg PO Q8H PRN PRN Reason: Nausea And Vomiting Pantoprazole Sodium (Pantoprazole 40 Mg Tablet) 40 mg PO DAILY@0730 [facility] Last Admin: 10/14/20 09:00 Dose: 40 mg Documented by: Polyethylene Glycol (Polyethylene Glycol 3350 17 Gm Powd.Pack) 17 gm PO DAILY PRN PRN Reason: Constipation Last Admin: 10/07/20 12:32 Dose: 17 gm Documented by: Pramipexole Dihydrochloride (Pramipexole 0.125 Mg Tab) 0.125 mg PO HS [facility] Last Admin: 10/13/20 19:58 Dose: 0.125 mg Documented by: Sodium Bicarbonate (Sodium Bicarbonate Tab 650 Mg Tab) 650 mg PO QID [facility] Last Admin: 10/14/20 12:54 Dose: 650 mg Documented by: Objective - Vital Signs Vital signs: Vital Signs Temp 97.4 F L 10/14/20 05:00 Pulse 73 10/14/20 05:00 Resp 20 10/14/20 05:00 BP 136/74 10/14/20 05:00 Pulse Ox 84 L 10/14/20 05:00 Intake & Output 10/13/20 10/14/20 10/14/20 18:59 06:59 18:59 Output Total 1200 1450 Balance -1200 -1450 Output: Urine 1200 1450 Uretheral (Gamez) 250 Other: Voiding Method Ileal Conduit (Right) Ileal Conduit (Right) Ileal Conduit (Right) # Voids 0 # Bowel Movements 2 - Exam GENERAL: The patient is alert and oriented x3, slightly anxious. Well developed, well nourished. Temp is 97.4, pulse is 73, respirations are 20, blood pressure is 136/74, oxygen saturations is 84% on 15 L nonrebreather HEENT: Pupils are round and equally reacting to light. EOMI. No scleral icterus. No conjunctival pallor. Normocephalic, atraumatic. No pharyngeal erythema. No thyromegaly. Oral mucosa is dry. CARDIOVASCULAR: S1 and S2 muffled PULMONARY: Diminished breath sounds at the bases with no wheezing or rhonchi ABDOMEN: Soft, obese, nontender, nondistended, normoactive bowel sounds. No palpable organomegaly. Suprapubic catheter noted MUSCULOSKELETAL: No joint swelling or deformity. EXTREMITIES: No cyanosis, clubbing, or pedal edema. NEUROLOGICAL: Gross neurological examination did not reveal any focal deficits. Diffusely weak SKIN: Pale, No rashes or lesions noted. - Labs CBC & Chem 7: 10/12/20 05:58 10/14/20 06:50 Labs: Abnormal Lab Results - Last 24 Hours (Table) 10/13/20 10/13/20 10/14/20 Range/Units 17:00 20:01 06:50 Sodium 136 L (137-145) mmol/L Carbon Dioxide 21 L (22-30) mmol/L BUN 112 H* (9-20) mg/dL Creatinine 2.65 H (0.66-1.25) mg/dL Glucose 53 L (74-99) mg/dL POC Glucose (mg/dL) 173 H 232 H (75-99) mg/dL Magnesium 2.5 H (1.6-2.3) mg/dL 10/14/20 Range/Units 11:18 Sodium (137-145) mmol/L Carbon Dioxide (22-30) mmol/L BUN (9-20) mg/dL Creatinine (0.66-1.25) mg/dL Glucose (74-99) mg/dL POC Glucose (mg/dL) 297 H (75-99) mg/dL Magnesium (1.6-2.3) mg/dL Assessment and Plan Assessment: -Acute Covid 19 pneumonia bilateral interstitial viral pneumonia with acute hypoxic respiratory failure. -Chronic kidney disease stage V, baseline -Acute kidney failure with acute tubular necrosis -Right sided hydronephrosis and obstructive uropathy. Currently has suprapubic Gamez catheter -Volume overload secondary to renal failure -history of bladder cancer with ileostomy -Diarrhea secondary to Covid 19, resolved -Type 2 diabetes mellitus, uncontrolled with hyperglycemia -Coronary artery disease with previous stents -Hypertension -Hyperlipidemia -Gastroesophageal reflux disease -COPD without any significant exacerbation. -No code, no CPR, no vent Recommendations and discussion: Recommend to continue current medications, management, symptomatic treatment. Patient is maintained on 15 L nonrebreather. Patient was placed on a partial rebreather although continues to be 83-85% oxygenation. Patient also continues to need encouragement on keeping the mask on his face as he was found multiple times on room air less than 80%. Multiple medical consultations following. Patient mentioned to his family members along with nursing staff that he does not wish to be on hospice at this time. Patient is maintained on IV steroids along with Lovenox which has been adjusted, vitamin C and D supplements, and zinc supplements and will continue. To continue with sliding scale along with long-acting insulin. PT/OT following. Due to multiple complex medical issues, prognosis is poor and extremely guarded. Will repeat a.m. labs and continue to monitor closely. Repeat chest x-ray in the morning. Further recommendations to follow.
[2020-10-14] MEDS: FERROUS SULFATE 325 MG TAB PO SCH (17:22)
[2020-10-14 17:23] LABS: Glucose,Whole Blood 108 mg/dL (75-99)
[2020-10-14] MEDS: MELATONIN 5 MG TABLET PO SCH (20:43)
[2020-10-14] MEDS: PRAMIPEXOLE 0.125 MG TAB PO SCH (20:43)
[2020-10-14] MEDS: LORATADINE 10 MG TAB PO SCH (20:44)
[2020-10-14 20:47] LABS: Glucose,Whole Blood 168 mg/dL (75-99)
[2020-10-14] MEDS: INSULIN DETEMIR (LEVEMIR) 100 UNIT/ML SYR SQ SCH (20:47)
[2020-10-15] MEDS: ALBUTEROL HFA INHALER INHALATION SCH ×6 (00:32→20:45)
[2020-10-15 07:05] LABS: Basophils % (A) 0 %; Eosinophils % (A) 0 %; HCT 33.2 % (39.0-53.0); Lymphocytes % (A) 0 %; MCH 33.5 pg (25.0-35.0); MCHC 33.1 g/dL (31.0-37.0); MCV 101.1 fL (80.0-100.0); Macrocytosis Slight; Mean Platelet Volume 10.8; Monocytes # (A) 0.3 k/uL (0-1.0); Monocytes % (A) 2 %; Neutrophils # (A) 16.7 k/uL (1.3-7.7); Neutrophils % (A) 97 %; RBC 3.29 m/uL (4.30-5.90); RDW 14.4 % (11.5-15.5); WBC 17.1 k/uL (3.8-10.6)
[2020-10-15 07:16] LABS: Glucose,Whole Blood 58 mg/dL (75-99)
[2020-10-15 07:32] LABS: Glucose,Whole Blood 82 mg/dL (75-99)
[2020-10-15] MEDS: INSULIN ASPART (NovoLOG) 100 UNIT/ML VIAL SQ SCH ×7 (07:43→21:58)
[2020-10-15 07:48] LABS: Platelet Count 80 k/uL (150-450)
[2020-10-15] MEDS: SYMBICORT 160-4.5 MCG INHALER INHALATION SCH ×2 (07:56→20:46)
[2020-10-15] MEDS: PANTOPRAZOLE 40 MG TABLET PO SCH (08:05)
[2020-10-15] MEDS: methylPREDNISolone SOD SUCCI 40 MG/ML 1 ML VIAL IV SCH ×2 (08:05→21:55)
[2020-10-15] MEDS: ASCORBIC ACID 500 MG TAB PO SCH ×2 (08:06→17:38)
[2020-10-15] MEDS: AMIODARONE 200 MG TAB PO SCH (08:06)
[2020-10-15] MEDS: ENOXAPARIN 60 MG/0.6 ML SYRINGE SQ SCH (08:06)
[2020-10-15] MEDS: SODIUM BICARBONATE TAB 650 MG TAB PO SCH ×4 (08:06→21:54)
[2020-10-15] MEDS: ASPIRIN 81 MG PO SCH (08:06)
[2020-10-15] MEDS: MULTIVITAMINS, THERA 1 EACH TAB PO SCH (08:06)
[2020-10-15] MEDS: CHOLECALCIFEROL 1,000 UNIT TAB PO SCH (08:06)
[2020-10-15] MEDS: buPROPion XL 150 MG TAB.ER.24H PO SCH (08:06)
[2020-10-15] MEDS: hydrALAZINE HCL 25 MG TAB PO SCH ×3 (08:06→21:54)
[2020-10-15] MEDS: carvediloL 3.125 MG TAB PO SCH ×2 (08:06→17:38)
[2020-10-15] MEDS: MICATIN TOPICAL SCH ×2 (08:07→22:10)
--- NOTE | 2020-10-15 09:17 | XR ---
EXAMINATION TYPE: XR chest 1V portable DATE OF EXAM: 10/15/2020 COMPARISON: 10/10/2020 HISTORY: Shortness of breath TECHNIQUE: Single frontal view of the chest is obtained. FINDINGS: Cardiac device, cardiomegaly and postsurgical changes are seen. There is underlying COPD w ith diffuse interstitial pattern and subsegmental bilateral infiltrate stable in appearance. Arthropa thy of the shoulders. IMPRESSION: 1. Cardiomegaly, COPD and pleural parenchymal changes stable correlate for CHF versus interstitial pn eumonia.
[2020-10-15 11:11] LABS: Anion Gap 10.7 mmol/L (4.00-12.00); BUN/Creat Ratio 42.86 Ratio (12.00-20.00); Calcium 8.2 mg/dL (8.7-10.3); Carbon Dioxide 19.3 mmol/L (21.6-31.8); Non-African American GFR(CKD) 20.7 (60.0-200.0); Potassium 4.8 mmol/L (3.5-5.5)
[2020-10-15 11:20] LABS: Glucose,Whole Blood 278 mg/dL (75-99)
--- NOTE | 2020-10-15 11:41 | P.PN ---
Subjective Patient is seen in follow-up for acute kidney injury. Renal function fairly stable. Nonoliguric. Denies chest pain. Blood pressure stable. Oral intake fair. No changes overnight. Vital signs are stable. General: The patient appeared well nourished and normally developed. HEENT: Head exam is unremarkable. Neck is without jugular venous distension. LUNGS: Breath sounds decreased. HEART: Rate and Rhythm are regular. ABDOMEN: Soft, nontender. EXTREMITITES: No edema. Objective - Vital Signs Vital signs: Vital Signs Temp 97.6 F 10/15/20 05:00 Pulse 70 10/15/20 05:00 Resp 16 10/15/20 05:00 BP 136/83 10/15/20 05:00 Pulse Ox 92 L 10/15/20 07:57 Intake & Output 10/14/20 10/15/20 10/15/20 18:59 06:59 18:59 Output Total 400 950 Balance -400 -950 Output: Urine 400 950 Other: Voiding Method Ileal Conduit (Right) Ileal Conduit (Right) # Voids 0 # Bowel Movements 0 - Labs CBC & Chem 7: 10/15/20 06:14 10/15/20 06:14 Labs: Abnormal Lab Results - Last 24 Hours (Table) 10/14/20 10/14/20 10/15/20 Range/Units 17:18 20:32 06:14 WBC 17.1 H (3.8-10.6) k/uL RBC 3.29 L (4.30-5.90) m/uL Hgb 11.0 L (13.0-17.5) gm/dL Hct 33.2 L (39.0-53.0) % MCV 101.1 H (80.0-100.0) fL Plt Count 80 L (150-450) k/uL Neutrophils # 16.7 H (1.3-7.7) k/uL Lymphocytes # 0.0 L (1.0-4.8) k/uL Chloride (96-109) mmol/L Carbon Dioxide (21.6-31.8) mmol/L BUN (9.0-27.0) mg/dL Creatinine (0.6-1.5) mg/dL Est GFR (CKD-EPI)AfAm (60.0-200.0) Est GFR (CKD-EPI)NonAf (60.0-200.0) BUN/Creatinine Ratio (12.00-20.00) Ratio Glucose (70-110) mg/dL POC Glucose (mg/dL) 108 H 168 H (75-99) mg/dL Calcium (8.7-10.3) mg/dL 10/15/20 10/15/20 10/15/20 Range/Units 06:14 07:06 11:07 WBC (3.8-10.6) k/uL RBC (4.30-5.90) m/uL Hgb (13.0-17.5) gm/dL Hct (39.0-53.0) % MCV (80.0-100.0) fL Plt Count (150-450) k/uL Neutrophils # (1.3-7.7) k/uL Lymphocytes # (1.0-4.8) k/uL Chloride 112 H (96-109) mmol/L Carbon Dioxide 19.3 L (21.6-31.8) mmol/L BUN 120.0 H* (9.0-27.0) mg/dL Creatinine 2.8 H (0.6-1.5) mg/dL Est GFR (CKD-EPI)AfAm 24.0 L (60.0-200.0) Est GFR (CKD-EPI)NonAf 20.7 L (60.0-200.0) BUN/Creatinine Ratio 42.86 H (12.00-20.00) Ratio Glucose 46 L* (70-110) mg/dL POC Glucose (mg/dL) 58 L 278 H (75-99) mg/dL Calcium 8.2 L (8.7-10.3) mg/dL Assessment and Plan Plan: Assessment: 1. Acute kidney injury secondary to ATN secondary to infection and diuresis. Creatinine fairly stable at 2.8 today. Disproportionately elevated BUN secondary to acute kidney injury as well as steroids. No gross evidence of bleeding. 2. Chronic kidney disease stage IIIA with baseline creatinine near 1.3-1.4. Etiology is diabetic kidney disease. 3. Right-sided hydronephrosis. Urology following. Potential PCN down the road. 4. Volume overload. s/p diuresis. 5. Metabolic acidosis secondary to acute kidney injury and RTA. Maintained on oral bicarb. 6. Covid-19 pneumonia. s/p decadron and remdesivir. Now on IV solumedrol. 7. Anemia of chronic kidney disease. Maintained on Aranesp. 8. Diabetes mellitus. 9. Hypertension with chronic kidney disease. Exacerbated by steroids. Stable. 10. Systolic CHF with EF 40-45%. Plan: Encouraged po intake. Continue to hold Lasix. Avoid nephrotoxins. Continue to monitor renal function and urine output. Wean FiO2. Repeat electrolytes in the morning.
[2020-10-15] MEDS: traMADol 50 MG TAB PO PRN ×2 (12:03→21:55)
--- NOTE | 2020-10-15 15:04 | P.PN ---
Subjective Progress Note Date: 10/15/20 This is a 80-year-old male who was recently admitted with acute hypoxic respiratory failure secondary to Covid 19 pneumonia and is being closely monitored. Multiple medical consultations following. Patient remains on Airvo along with nonrebreather mask at 15 L and continues to be quite dyspneic and exerts very easily. Lasix is on hold and kidney function slowly improving. Nephrology is following. Urology recommended possible nephrostomy tube placement although will need to discuss this possible option once respiratory status improves. Patient continues to be extremely weak requiring assistance and experiences severe dyspnea with position changes. Patient is having some back pain and will order pain medications. Will repeat a.m. chest x-ray and a 2-D echo was ordered and pending at this time. 10/12/2020 Patient is seen and examined and follow-up currently remains on Airvo and NRB at 15 L. Patient is severely dyspneic off of any oxygen and has had unsuccessful attempts at weaning. Underwent CT yesterday showing emphysema and pulmonary interstitial fibrotic changes with honeycomb pattern noted in both lungs along with patchy areas of groundglass interstitial infiltrates in both peripheral lung camarena. Patient's 2-D echo shows severe left ventricular hypertrophy with systolic function mild to moderately impaired with an EF between 40 and 45% with a trace to mild mitral regurgitation along with mild tricuspid regurgitation present. Creatinine today is 3.0 and continues to hold diuretic at this time. Sodium is 135 and potassium is 4.4. Hemoglobin is 11.1, and white blood count is 16.5. Patient remains on IV steroids and will continue at this time. Will need to discuss with family about treatment plan moving forward. 10/13/2020 Patient is seen in follow-up today currently sitting up in the chair and is on nonrebreather at 15 L and continues to be severely dyspneic and oxygen saturation is 84-89% while in the room. Patient continues to become dyspneic during conversation as well. Patient is having buttocks discomfort due to being mostly immobile. Creatinine is stable at 3 current sodium is 135 with a potassium of 4.6. Multiple medical consultations following. Patient has been afebrile. Patient continues to have adequate urine output. Renal ultrasound was done showing persistent asymmetric right renal atrophy and moderate right- sided hydronephrosis with no left-sided hydronephrosis noted. Had a lengthy discussion with daughter Clarissa about treatment options and respiratory status and she mentioned possible hospice and is open to receive information from them. Case management was made aware. Patient will be setting up a phone conference with her father and sister this evening and will update nursing staff tomorrow. Patient's prognosis is poor and extremely guarded. Lovenox being adjusted and patient is maintained on IV steroids along with vitamin C and D supplements and zinc and will continue at this time. 10/14/2020 Patient is seen and evaluated in follow-up and continues to be closely monitored. Patient had a lengthy discussion with daughter Clarissa and states he does not want to be hospice at this time. Patient continues to be extremely dyspneic with minimal exertion and becomes hypoxic in the low 80s during conversation. Patient was currently on a nonrebreather and was placed on a partial rebreather with oxygen saturation of 83-85% during exam. Patient continues to remove oxygen supply and was found in the room on room air at 80%. Patient needs constant redirection and reinforcement on keeping oxygen mask and /or cannula on at all times. Patient's creatinine continues to improve and is currently 2.65. Blood sugars variable and will continue to monitor before meals and at bedtime closely and continue sliding scale and long-acting. Magnesium is 2.5 today. 10/15/2020 Patient is seen and evaluated today and is currently maintained on partial nonrebreather at 15 L and is being closely monitored. Oxygen saturations have been 92-95%. Patient continues to need encouragement and reinforcement to keep the oxygen applied to his face. Per nursing staff patient was found to have oxygen off and in his hand and saturation was 50%. Discussed with case management and social work about the possibility of returning to [place] and [facility] with [facility] once there. Patient is being transferred to a 24/7 unit at the facility. Clarissa the daughter is making arrangements for this. Patient will need to be maintaining adequate oxygenation at 10 L nasal cannula in order to return to [place]. Patient's blood sugars have been on the lower side today and will decrease long-acting slightly and also decrease pre-meal insulins to 5 units 3 times daily with meals and will continue sliding scale. Patient continues to have buttock and lower back pain and will resume Ultram 50 mg twice daily. Patient to continue working with PT/OT therapy. Encourage patient to sit up out of the bed more often and continue to keep oxygen on. Creatinine today is 2.8, potassium is 4.8, hemoglobin is 11.0. Patient continues to have urine output noted in the suprapubic catheter. Multiple medical consultations following. Patient continues on IV steroids and will continue with Lovenox, vitamin C and D, and zinc supplements. Review of systems: Constitutional: Reports fatigue and weakness along with back pain Cardiovascular: No reports of chest pain or palpitations Respiratory: Reports shortness of breath although states he feels has improved GI: No reports of nausea, vomiting, or diarrhea : No reports of dysuria or retention Neurovascular: Reports weakness with no reports of numbness All medications have been reviewed Active Medications Acetaminophen (Acetaminophen Tab 500 Mg Tab) 1,000 mg PO Q6H PRN PRN Reason: Fever and/ or Pain Albuterol Sulfate (Albuterol Hfa Inhaler) 2 puff INHALATION RT-Q4H [facility] Last Admin: 10/15/20 11:36 Dose: 2 puff Documented by: Alprazolam (Alprazolam 0.25 Mg Tab) 0.25 mg PO BID PRN PRN Reason: Anxiety Last Admin: 10/13/20 20:04 Dose: 0.25 mg Documented by: Amiodarone HCl (Amiodarone 200 Mg Tab) 200 mg PO DAILY [facility] Last Admin: 10/15/20 08:06 Dose: 200 mg Documented by: Ascorbic Acid (Ascorbic Acid 500 Mg Tab) 250 mg PO BID@0800,1700 [facility] Last Admin: 10/15/20 08:06 Dose: 250 mg Documented by: Aspirin (Aspirin 81 Mg) 81 mg PO DAILY [facility] Last Admin: 10/15/20 08:06 Dose: 81 mg Documented by: Baclofen (Baclofen 10 Mg Tab) 10 mg PO TID PRN PRN Reason: Muscle Pain Last Admin: 10/13/20 17:38 Dose: 10 mg Documented by: Benzocaine/Menthol (Benzocaine/Menthol Lozeng 1 Each Lozenge) 1 each MUCOUS MEM Q4HR PRN PRN Reason: Sore Throat Last Admin: 10/02/20 10:09 Dose: 1 each Documented by: Bisacodyl (Bisacodyl 10 Mg Supp) 10 mg RECTAL DAILY PRN PRN Reason: Constipation Budesonide/Formoterol Fumarate (Symbicort 160-4.5 Mcg Inhaler) 2 puff INHALATION RT-BID [facility] Last Admin: 10/15/20 07:56 Dose: 2 puff Documented by: Bupropion HCl (Bupropion Xl 150 Mg Tab.Er.24h) 150 mg PO DAILY [facility] Last Admin: 10/15/20 08:06 Dose: 150 mg Documented by: Calcium Carbonate/Glycine (Calcium Carbonate 500 Mg Chewable) 1,000 mg PO Q8H PRN PRN Reason: Indigestion Carvedilol (Carvedilol 3.125 Mg Tab) 3.125 mg PO BID@0800,1800 [facility] Last Admin: 10/15/20 08:06 Dose: 3.125 mg Documented by: Cholecalciferol (Cholecalciferol 1,000 Unit Tab) 2,000 unit PO DAILY [facility] Last Admin: 10/15/20 08:06 Dose: 2,000 unit Documented by: Enoxaparin Sodium (Enoxaparin 60 Mg/0.6 Ml Syringe) 55 mg SQ DAILY [facility] Last Admin: 10/15/20 08:06 Dose: 55 mg Documented by: Ferrous Sulfate (Ferrous Sulfate 325 Mg Tab) 325 mg PO HS@1800 [facility] Last Admin: 10/14/20 17:22 Dose: 325 mg Documented by: Guaifenesin/Dextromethorphan (Guaifenesin-Dm 100-10mg/5ml 10 Ml Cup) 5 ml PO Q4H PRN PRN Reason: Cough Hydralazine HCl (Hydralazine Hcl 25 Mg Tab) 25 mg PO TID [facility] Last Admin: 10/15/20 08:06 Dose: 25 mg Documented by: Insulin Aspart (Insulin Aspart (Novolog) 100 Unit/Ml Vial) 0 unit SQ ACHS [facility]; Protocol Last Admin: 10/15/20 12:04 Dose: 7 unit Documented by: Insulin Aspart (Insulin Aspart (Novolog) 100 Unit/Ml Vial) 5 unit SQ AC-TID [facility] Last Admin: 10/15/20 12:04 Dose: 5 unit Documented by: Insulin Detemir (Insulin Detemir (Levemir) 100 Unit/Ml Syr) 55 unit SQ [facility] Loperamide HCl (Loperamide 2 Mg Cap) 2 mg PO QID PRN PRN Reason: Diarrhea Last Admin: 09/26/20 00:31 Dose: 2 mg Documented by: Loratadine (Loratadine 10 Mg Tab) 10 mg PO [facility] Last Admin: 10/14/20 20:44 Dose: 10 mg Documented by: Magnesium Hydroxide (Magnesium Hydroxide 2,400 Mg/10 Ml Cup) 2,400 mg PO DAILY PRN PRN Reason: Constipation Melatonin (Melatonin 5 Mg Tablet) 10 mg PO [facility] Last Admin: 10/14/20 20:43 Dose: 10 mg Documented by: Methylprednisolone Sodium Succinate (Methylprednisolone Sod Succi 40 Mg/Ml 1 Ml Vial) 40 mg IV Q12HR [facility] Last Admin: 10/15/20 08:05 Dose: 40 mg Documented by: Multivitamins (Multivitamins, Thera 1 Each Tab) 1 each PO DAILY [facility] Last Admin: 10/15/20 08:06 Dose: 1 each Documented by: Naloxone HCl (Naloxone 0.4 Mg/Ml 1 Ml Vial) 0.2 mg IV Q2M PRN PRN Reason: Opioid Reversal Micatin Cream 1 applic TOPICAL BID [facility] Last Admin: 10/15/20 08:07 Dose: Not Given Documented by: Miconazole Nitrate [ Zeasorb Af] 71 Gm Powder 1 applic TOPICAL BID PRN PRN Reason: SKIN FOLD/GROIN AREA Ondansetron HCl (Ondansetron 4 Mg Tab) 4 mg PO Q8H PRN PRN Reason: Nausea And Vomiting Pantoprazole Sodium (Pantoprazole 40 Mg Tablet) 40 mg PO DAILY@0730 [facility] Last Admin: 10/15/20 08:05 Dose: 40 mg Documented by: Polyethylene Glycol (Polyethylene Glycol 3350 17 Gm Powd.Pack) 17 gm PO DAILY PRN PRN Reason: Constipation Last Admin: 10/07/20 12:32 Dose: 17 gm Documented by: Pramipexole Dihydrochloride (Pramipexole 0.125 Mg Tab) 0.125 mg PO [facility] Last Admin: 10/14/20 20:43 Dose: 0.125 mg Documented by: Sodium Bicarbonate (Sodium Bicarbonate Tab 650 Mg Tab) 650 mg PO QID [facility] Last Admin: 10/15/20 12:03 Dose: 650 mg Documented by: Tramadol HCl (Tramadol 50 Mg Tab) 50 mg PO BID PRN PRN Reason: Pain Last Admin: 10/15/20 12:03 Dose: 50 mg Documented by: Objective - Vital Signs Vital signs: Vital Signs Temp 97.5 F L 10/15/20 11:00 Pulse 78 01/08/21 11:00 Resp 20 10/15/20 11:00 BP 150/71 10/15/20 11:00 Pulse Ox 97 10/15/20 11:00 Intake & Output 10/14/20 10/15/20 10/15/20 18:59 06:59 18:59 Output Total 400 950 Balance -400 -950 Output: Urine 400 950 Other: Voiding Method Ileal Conduit (Right) Ileal Conduit (Right) Ileal Conduit (Right) # Voids 0 # Bowel Movements 0 - Exam GENERAL: The patient is alert and oriented x3, slightly anxious. Well developed, well nourished. Temp is 97.5, pulse is 78, respirations are 20, blood pressure is 150/71, oxygen saturations is 92% on 15 L partial nonrebreather HEENT: Pupils are round and equally reacting to light. EOMI. No scleral icterus. No conjunctival pallor. Normocephalic, atraumatic. No pharyngeal erythema. No thyromegaly. Oral mucosa is dry. CARDIOVASCULAR: S1 and S2 muffled PULMONARY: Diminished breath sounds at the bases with no wheezing or rhonchi ABDOMEN: Soft, obese, nontender, nondistended, normoactive bowel sounds. No palpable organomegaly. Suprapubic catheter noted MUSCULOSKELETAL: No joint swelling or deformity. EXTREMITIES: No cyanosis, clubbing, or pedal edema. NEUROLOGICAL: Gross neurological examination did not reveal any focal deficits. Diffusely weak SKIN: Pale, No rashes or lesions noted. - Labs CBC & Chem 7: 10/15/20 06:14 10/15/20 06:14 Labs: Abnormal Lab Results - Last 24 Hours (Table) 10/14/20 10/14/20 10/15/20 Range/Units 17:18 20:32 06:14 WBC 17.1 H (3.8-10.6) k/uL RBC 3.29 L (4.30-5.90) m/uL Hgb 11.0 L (13.0-17.5) gm/dL Hct 33.2 L (39.0-53.0) % MCV 101.1 H (80.0-100.0) fL Plt Count 80 L (150-450) k/uL Neutrophils # 16.7 H (1.3-7.7) k/uL Lymphocytes # 0.0 L (1.0-4.8) k/uL Chloride (96-109) mmol/L Carbon Dioxide (21.6-31.8) mmol/L BUN (9.0-27.0) mg/dL Creatinine (0.6-1.5) mg/dL Est GFR (CKD-EPI)AfAm (60.0-200.0) Est GFR (CKD-EPI)NonAf (60.0-200.0) BUN/Creatinine Ratio (12.00-20.00) Ratio Glucose (70-110) mg/dL POC Glucose (mg/dL) 108 H 168 H (75-99) mg/dL Calcium (8.7-10.3) mg/dL 10/15/20 10/15/20 10/15/20 Range/Units 06:14 07:06 11:07 WBC (3.8-10.6) k/uL RBC (4.30-5.90) m/uL Hgb (13.0-17.5) gm/dL Hct (39.0-53.0) % MCV (80.0-100.0) fL Plt Count (150-450) k/uL Neutrophils # (1.3-7.7) k/uL Lymphocytes # (1.0-4.8) k/uL Chloride 112 H (96-109) mmol/L Carbon Dioxide 19.3 L (21.6-31.8) mmol/L BUN 120.0 H* (9.0-27.0) mg/dL Creatinine 2.8 H (0.6-1.5) mg/dL Est GFR (CKD-EPI)AfAm 24.0 L (60.0-200.0) Est GFR (CKD-EPI)NonAf 20.7 L (60.0-200.0) BUN/Creatinine Ratio 42.86 H (12.00-20.00) Ratio Glucose 46 L* (70-110) mg/dL POC Glucose (mg/dL) 58 L 278 H (75-99) mg/dL Calcium 8.2 L (8.7-10.3) mg/dL Assessment and Plan Assessment: -Acute Covid 19 pneumonia bilateral interstitial viral pneumonia with acute hypoxic respiratory failure. -Chronic kidney disease stage V, baseline -Acute kidney failure with acute tubular necrosis -Right sided hydronephrosis and obstructive uropathy. Currently has suprapubic Gamez catheter -Volume overload secondary to renal failure -history of bladder cancer with ileostomy -Diarrhea secondary to Covid 19, resolved -Type 2 diabetes mellitus, uncontrolled with hyperglycemia -Coronary artery disease with previous stents -Hypertension -Hyperlipidemia -Gastroesophageal reflux disease -COPD without any significant exacerbation. -No code, no CPR, no vent Recommendations and discussion: Recommend to continue current medications, management, symptomatic treatment. Patient is maintained on 15 L partial nonrebreather. Discussed with nursing staff about weaning FiO2 as tolerated and attempting to wean patient to high flow nasal cannula with a goal of at least 10 L as patient will be able to return to [facility] with 24/ care and will agree to hospice and comfort once at [place]. Clarissa, daughter who is also his power of real estate associate attorney has been working on these arrangements. Patient also continues to need encouragement on keeping the mask on his face as he was found multiple times on room air less than 50%. Multiple medical consultations following. Patient is maintained on IV steroids along with Lovenox which has been adjusted, vitamin C and D supplements, and zinc supplements and will continue. To continue with sliding scale along with long-acting insulin. Pre-meal insulin has been adjusted as patient was having some low blood sugars. Ultram has been resumed as patient continues to have back and buttock pain. PT/OT following. Due to multiple complex medical issues, prognosis is poor and extremely guarded. Will repeat a.m. labs and continue to monitor closely. Further recommendations to follow. Case management and social work following.
[2020-10-15] MEDS: FERROUS SULFATE 325 MG TAB PO SCH (17:38)
[2020-10-15 17:39] LABS: Glucose,Whole Blood 63 mg/dL (75-99)
[2020-10-15 18:03] LABS: Glucose,Whole Blood 123 mg/dL (75-99)
[2020-10-15 21:43] LABS: Glucose,Whole Blood 100 mg/dL (75-99)
[2020-10-15] MEDS: MELATONIN 5 MG TABLET PO SCH (21:54)
[2020-10-15] MEDS: LORATADINE 10 MG TAB PO SCH (21:54)
[2020-10-15] MEDS: INSULIN DETEMIR (LEVEMIR) 100 UNIT/ML SYR SQ SCH (21:59)
[2020-10-15] MEDS: PRAMIPEXOLE 0.125 MG TAB PO SCH (22:38)
[2020-10-16] MEDS: ALBUTEROL HFA INHALER INHALATION SCH ×6 (01:50→19:38)
[2020-10-16 08:06] LABS: Glucose,Whole Blood 127 mg/dL (75-99)
[2020-10-16 08:15] LABS: African American GFR (CKD) 24 (>60 ml/min/1.73 sqM); Anion Gap 5 mmol/L; Calcium 8.4 mg/dL (8.4-10.2); Carbon Dioxide 24 mmol/L (22-30); Chloride 110 mmol/L (98-107); Glucose 114 mg/dL (74-99); Non-African American GFR(CKD) 21 (>60 ml/min/1.73 sqM); Sodium 139 mmol/L (137-145)
[2020-10-16] MEDS: SYMBICORT 160-4.5 MCG INHALER INHALATION SCH ×2 (08:30→19:38)
[2020-10-16 08:37] LABS: Blood Urea Nitrogen 110 mg/dL (9-20); Potassium 6.3 mmol/L (3.5-5.1)
[2020-10-16] MEDS: MULTIVITAMINS, THERA 1 EACH TAB PO SCH (08:58)
[2020-10-16] MEDS: SODIUM BICARBONATE TAB 650 MG TAB PO SCH ×4 (08:58→21:44)
[2020-10-16] MEDS: buPROPion XL 150 MG TAB.ER.24H PO SCH (08:58)
[2020-10-16] MEDS: ASPIRIN 81 MG PO SCH (08:58)
[2020-10-16] MEDS: AMIODARONE 200 MG TAB PO SCH (08:58)
[2020-10-16] MEDS: ASCORBIC ACID 500 MG TAB PO SCH ×2 (08:58→16:26)
[2020-10-16] MEDS: PANTOPRAZOLE 40 MG TABLET PO SCH (08:58)
[2020-10-16] MEDS: CHOLECALCIFEROL 1,000 UNIT TAB PO SCH (08:58)
[2020-10-16] MEDS: hydrALAZINE HCL 25 MG TAB PO SCH ×3 (08:59→21:45)
[2020-10-16] MEDS: ENOXAPARIN 60 MG/0.6 ML SYRINGE SQ SCH (08:59)
[2020-10-16] MEDS: methylPREDNISolone SOD SUCCI 40 MG/ML 1 ML VIAL IV SCH ×2 (08:59→21:43)
[2020-10-16] MEDS: INSULIN ASPART (NovoLOG) 100 UNIT/ML VIAL SQ SCH ×6 (09:00→21:43)
[2020-10-16] MEDS: carvediloL 3.125 MG TAB PO SCH ×2 (09:00→17:48)
[2020-10-16] MEDS: traMADol 50 MG TAB PO PRN ×2 (09:01→21:45)
[2020-10-16] MEDS ORDERED: DEXTROSE 50% SYRINGE 50 ML IVP STA (09:05)
[2020-10-16] MEDS ORDERED: INSULIN REGULAR 100 UNIT/ML VIAL IV ONE (09:05)
[2020-10-16] MEDS: MICATIN TOPICAL SCH ×2 (09:47→21:45)
--- NOTE | 2020-10-16 10:31 | P.PN ---
Subjective Progress Note Date: 10/16/20 This is a 80-year-old male who was recently admitted with acute hypoxic respiratory failure secondary to Covid 19 pneumonia and is being closely monitored. Multiple medical consultations following. Patient remains on Airvo along with nonrebreather mask at 15 L and continues to be quite dyspneic and exerts very easily. Lasix is on hold and kidney function slowly improving. Nephrology is following. Urology recommended possible nephrostomy tube placement although will need to discuss this possible option once respiratory status improves. Patient continues to be extremely weak requiring assistance and experiences severe dyspnea with position changes. Patient is having some back pain and will order pain medications. Will repeat a.m. chest x-ray and a 2-D echo was ordered and pending at this time. 10/12/2020 Patient is seen and examined and follow-up currently remains on Airvo and NRB at 15 L. Patient is severely dyspneic off of any oxygen and has had unsuccessful attempts at weaning. Underwent CT yesterday showing emphysema and pulmonary interstitial fibrotic changes with honeycomb pattern noted in both lungs along with patchy areas of groundglass interstitial infiltrates in both peripheral lung camarena. Patient's 2-D echo shows severe left ventricular hypertrophy with systolic function mild to moderately impaired with an EF between 40 and 45% with a trace to mild mitral regurgitation along with mild tricuspid regurgitation present. Creatinine today is 3.0 and continues to hold diuretic at this time. Sodium is 135 and potassium is 4.4. Hemoglobin is 11.1, and white blood count is 16.5. Patient remains on IV steroids and will continue at this time. Will need to discuss with family about treatment plan moving forward. 10/13/2020 Patient is seen in follow-up today currently sitting up in the chair and is on nonrebreather at 15 L and continues to be severely dyspneic and oxygen saturation is 84-89% while in the room. Patient continues to become dyspneic during conversation as well. Patient is having buttocks discomfort due to being mostly immobile. Creatinine is stable at 3 current sodium is 135 with a potassium of 4.6. Multiple medical consultations following. Patient has been afebrile. Patient continues to have adequate urine output. Renal ultrasound was done showing persistent asymmetric right renal atrophy and moderate right- sided hydronephrosis with no left-sided hydronephrosis noted. Had a lengthy discussion with daughter Clarissa about treatment options and respiratory status and she mentioned possible hospice and is open to receive information from them. Case management was made aware. Patient will be setting up a phone conference with her father and sister this evening and will update nursing staff tomorrow. Patient's prognosis is poor and extremely guarded. Lovenox being adjusted and patient is maintained on IV steroids along with vitamin C and D supplements and zinc and will continue at this time. 10/14/2020 Patient is seen and evaluated in follow-up and continues to be closely monitored. Patient had a lengthy discussion with daughter Clarissa and states he does not want to be hospice at this time. Patient continues to be extremely dyspneic with minimal exertion and becomes hypoxic in the low 80s during conversation. Patient was currently on a nonrebreather and was placed on a partial rebreather with oxygen saturation of 83-85% during exam. Patient continues to remove oxygen supply and was found in the room on room air at 80%. Patient needs constant redirection and reinforcement on keeping oxygen mask and /or cannula on at all times. Patient's creatinine continues to improve and is currently 2.65. Blood sugars variable and will continue to monitor before meals and at bedtime closely and continue sliding scale and long-acting. Magnesium is 2.5 today. 10/15/2020 Patient is seen and evaluated today and is currently maintained on partial nonrebreather at 15 L and is being closely monitored. Oxygen saturations have been 92-95%. Patient continues to need encouragement and reinforcement to keep the oxygen applied to his face. Per nursing staff patient was found to have oxygen off and in his hand and saturation was 50%. Discussed with case management and social work about the possibility of returning to [place] and [facility] once there. Patient is being transferred to a 24/7 unit at the facility. Clarissa the daughter is making arrangements for this. Patient will need to be maintaining adequate oxygenation at 10 L nasal cannula in order to return to [place]. Patient's blood sugars have been on the lower side today and will decrease long-acting slightly and also decrease pre-meal insulins to 5 units 3 times daily with meals and will continue sliding scale. Patient continues to have buttock and lower back pain and will resume Ultram 50 mg twice daily. Patient to continue working with PT/OT therapy. Encourage patient to sit up out of the bed more often and continue to keep oxygen on. Creatinine today is 2.8, potassium is 4.8, hemoglobin is 11.0. Patient continues to have urine output noted in the suprapubic catheter. Multiple medical consultations following. Patient continues on IV steroids and will continue with Lovenox, vitamin C and D, and zinc supplements. 10/16/2020 Patient is seen in follow-up today continues to be on a nonrebreather at 15 L as he continues to be severely dyspneic with any form of exertion. Attempts at high flow nasal cannula have been unsuccessful as patient's oxygen saturations continue to be under 80%. As with nursing staff about weaning FiO2 as tolerated. Patient's potassium was elevated this morning at 6.3 and treated with dextrose and insulin and will recheck labs. Creatinine is 2.76 today. Blood sugars have been on the lower side as patient's oral intake continues to be poor. Will discontinue pre-meal insulin and continue with sliding scale and further adjust long-acting as needed. She is maintained on IV steroids and will continue at this time. Patient continues to have pain in his lower back and buttock area and Ultram has been resumed. Will continue to monitor closely. Prognosis is extremely guarded. Will discuss with daughter Clarissa about treatment plan. Review of systems: Constitutional: Reports fatigue and weakness along with back pain Cardiovascular: No reports of chest pain or palpitations Respiratory: Reports shortness of breath and extreme exertion with any movement. GI: No reports of nausea, vomiting, or diarrhea : No reports of dysuria or retention Neurovascular: Reports weakness with no reports of numbness All medications have been reviewed Active Medications Acetaminophen (Acetaminophen Tab 500 Mg Tab) 1,000 mg PO Q6H PRN PRN Reason: Fever and/ or Pain Albuterol Sulfate (Albuterol Hfa Inhaler) 2 puff INHALATION RT-Q4H [facility] Last Admin: 10/16/20 08:30 Dose: 2 puff Documented by: Alprazolam (Alprazolam 0.25 Mg Tab) 0.25 mg PO BID PRN PRN Reason: Anxiety Last Admin: 10/13/20 20:04 Dose: 0.25 mg Documented by: Amiodarone HCl (Amiodarone 200 Mg Tab) 200 mg PO DAILY [facility] Last Admin: 10/16/20 08:58 Dose: 200 mg Documented by: Ascorbic Acid (Ascorbic Acid 500 Mg Tab) 250 mg PO BID@0800,1700 [facility] Last Admin: 10/16/20 08:58 Dose: 250 mg Documented by: Aspirin (Aspirin 81 Mg) 81 mg PO DAILY [facility] Last Admin: 10/16/20 08:58 Dose: 81 mg Documented by: Baclofen (Baclofen 10 Mg Tab) 10 mg PO TID PRN PRN Reason: Muscle Pain Last Admin: 10/13/20 17:38 Dose: 10 mg Documented by: Benzocaine/Menthol (Benzocaine/Menthol Lozeng 1 Each Lozenge) 1 each MUCOUS MEM Q4HR PRN PRN Reason: Sore Throat Last Admin: 10/02/20 10:09 Dose: 1 each Documented by: Bisacodyl (Bisacodyl 10 Mg Supp) 10 mg RECTAL DAILY PRN PRN Reason: Constipation Budesonide/Formoterol Fumarate (Symbicort 160-4.5 Mcg Inhaler) 2 puff INHALATION RT-BID [facility] Last Admin: 10/16/20 08:30 Dose: 2 puff Documented by: Bupropion HCl (Bupropion Xl 150 Mg Tab.Er.24h) 150 mg PO DAILY [facility] Last Admin: 10/16/20 08:58 Dose: 150 mg Documented by: Calcium Carbonate/Glycine (Calcium Carbonate 500 Mg Chewable) 1,000 mg PO Q8H PRN PRN Reason: Indigestion Carvedilol (Carvedilol 3.125 Mg Tab) 3.125 mg PO BID@0800,1800 [facility] Last Admin: 10/16/20 09:00 Dose: 3.125 mg Documented by: Cholecalciferol (Cholecalciferol 1,000 Unit Tab) 2,000 unit PO DAILY [facility] Last Admin: 10/16/20 08:58 Dose: 2,000 unit Documented by: Enoxaparin Sodium (Enoxaparin 60 Mg/0.6 Ml Syringe) 55 mg SQ DAILY [facility] Last Admin: 10/16/20 08:59 Dose: 55 mg Documented by: Ferrous Sulfate (Ferrous Sulfate 325 Mg Tab) 325 mg PO HS@1800 [facility] Last Admin: 10/15/20 17:38 Dose: 325 mg Documented by: Guaifenesin/Dextromethorphan (Guaifenesin-Dm 100-10mg/5ml 10 Ml Cup) 5 ml PO Q4H PRN PRN Reason: Cough Hydralazine HCl (Hydralazine Hcl 25 Mg Tab) 25 mg PO TID [facility] Last Admin: 10/16/20 08:59 Dose: 25 mg Documented by: Insulin Aspart (Insulin Aspart (Novolog) 100 Unit/Ml Vial) 0 unit SQ [facility]; Protocol Last Admin: 10/15/20 21:58 Dose: Not Given Documented by: Insulin Detemir (Insulin Detemir (Levemir) 100 Unit/Ml Syr) 55 unit SQ [facility] Last Admin: 10/15/20 21:59 Dose: Not Given Documented by: Loperamide HCl (Loperamide 2 Mg Cap) 2 mg PO QID PRN PRN Reason: Diarrhea Last Admin: 09/26/20 00:31 Dose: 2 mg Documented by: Loratadine (Loratadine 10 Mg Tab) 10 mg PO [facility] Last Admin: 10/15/20 21:54 Dose: 10 mg Documented by: Magnesium Hydroxide (Magnesium Hydroxide 2,400 Mg/10 Ml Cup) 2,400 mg PO DAILY PRN PRN Reason: Constipation Melatonin (Melatonin 5 Mg Tablet) 10 mg PO [facility] Last Admin: 10/15/20 21:54 Dose: 10 mg Documented by: Methylprednisolone Sodium Succinate (Methylprednisolone Sod Succi 40 Mg/Ml 1 Ml Vial) 40 mg IV Q12HR [facility] Last Admin: 10/16/20 08:59 Dose: 40 mg Documented by: Multivitamins (Multivitamins, Thera 1 Each Tab) 1 each PO DAILY [facility] Last Admin: 10/16/20 08:58 Dose: 1 each Documented by: Naloxone HCl (Naloxone 0.4 Mg/Ml 1 Ml Vial) 0.2 mg IV Q2M PRN PRN Reason: Opioid Reversal Micatin Cream 1 applic TOPICAL BID [facility] Last Admin: 10/16/20 09:47 Dose: Not Given Documented by: Miconazole Nitrate [ Zeasorb Af] 71 Gm Powder 1 applic TOPICAL BID PRN PRN Reason: SKIN FOLD/GROIN AREA Ondansetron HCl (Ondansetron 4 Mg Tab) 4 mg PO Q8H PRN PRN Reason: Nausea And Vomiting Pantoprazole Sodium (Pantoprazole 40 Mg Tablet) 40 mg PO DAILY@0730 [facility] Last Admin: 10/16/20 08:58 Dose: 40 mg Documented by: Polyethylene Glycol (Polyethylene Glycol 3350 17 Gm Powd.Pack) 17 gm PO DAILY PRN PRN Reason: Constipation Last Admin: 10/07/20 12:32 Dose: 17 gm Documented by: Pramipexole Dihydrochloride (Pramipexole 0.125 Mg Tab) 0.125 mg PO HS [facility] Last Admin: 10/15/20 22:38 Dose: 0.125 mg Documented by: Sodium Bicarbonate (Sodium Bicarbonate Tab 650 Mg Tab) 650 mg PO QID [facility] Last Admin: 10/16/20 08:58 Dose: 650 mg Documented by: Tramadol HCl (Tramadol 50 Mg Tab) 50 mg PO BID PRN PRN Reason: Pain Last Admin: 10/16/20 09:01 Dose: 50 mg Documented by: Objective - Vital Signs Vital signs: Vital Signs Temp 97.7 F 10/16/20 05:21 Pulse 74 10/16/20 05:21 Resp 20 10/16/20 05:21 BP 139/64 10/16/20 05:21 Pulse Ox 92 L 10/16/20 05:21 Intake & Output 10/15/20 10/16/20 10/16/20 18:59 06:59 18:59 Intake Total 680 Output Total 1000 700 Balance -320 -700 Intake: Oral 680 Output: Urine 1000 700 Uretheral (Gamez) 1000 350 Other: Voiding Method Ileal Conduit (Right) Ileal Conduit (Right) - Exam GENERAL: The patient is alert and oriented x3, slightly anxious. Well developed, well nourished. Temp is 97.7, pulse is 74, respirations are 20, blood pressure is 139/64, oxygen saturations is 92% on 15 L nonrebreather HEENT: Pupils are round and equally reacting to light. EOMI. No scleral icterus. No conjunctival pallor. Normocephalic, atraumatic. No pharyngeal erythema. No thyromegaly. Oral mucosa is dry. CARDIOVASCULAR: S1 and S2 muffled PULMONARY: Diminished breath sounds at the bases with no wheezing or rhonchi ABDOMEN: Soft, obese, nontender, nondistended, normoactive bowel sounds. No palpable organomegaly. Suprapubic catheter noted MUSCULOSKELETAL: No joint swelling or deformity. EXTREMITIES: No cyanosis, clubbing, or pedal edema. NEUROLOGICAL: Gross neurological examination did not reveal any focal deficits. Diffusely weak SKIN: Pale, No rashes or lesions noted. - Labs CBC & Chem 7: 10/15/20 06:14 10/16/20 07:35 Labs: Abnormal Lab Results - Last 24 Hours (Table) 10/15/20 10/15/20 10/15/20 Range/Units 06:14 11:07 17:34 Chloride 112 H (96-109) mmol/L Carbon Dioxide 19.3 L (21.6-31.8) mmol/L BUN 120.0 H* (9.0-27.0) mg/dL Creatinine 2.8 H (0.6-1.5) mg/dL Est GFR (CKD-EPI)AfAm 24.0 L (60.0-200.0) Est GFR (CKD-EPI)NonAf 20.7 L (60.0-200.0) BUN/Creatinine Ratio 42.86 H (12.00-20.00) Ratio Glucose 46 L* (70-110) mg/dL POC Glucose (mg/dL) 278 H 63 L (75-99) mg/dL Calcium 8.2 L (8.7-10.3) mg/dL 10/15/20 10/15/20 Range/Units 17:59 21:42 Chloride (96-109) mmol/L Carbon Dioxide (21.6-31.8) mmol/L BUN (9.0-27.0) mg/dL Creatinine (0.6-1.5) mg/dL Est GFR (CKD-EPI)AfAm (60.0-200.0) Est GFR (CKD-EPI)NonAf (60.0-200.0) BUN/Creatinine Ratio (12.00-20.00) Ratio Glucose (70-110) mg/dL POC Glucose (mg/dL) 123 H 100 H (75-99) mg/dL Calcium (8.7-10.3) mg/dL Assessment and Plan Assessment: -Acute Covid 19 pneumonia bilateral interstitial viral pneumonia with acute hypoxic respiratory failure. -Chronic kidney disease stage V, baseline -C anemia -Acute kidney failure with acute tubular necrosis -Right sided hydronephrosis and obstructive uropathy. Currently has suprapubic Gamez catheter -Volume overload secondary to renal failure -history of bladder cancer with ileostomy -Diarrhea secondary to Covid 19, resolved -Type 2 diabetes mellitus, uncontrolled with hyperglycemia -Coronary artery disease with previous stents -Hypertension -Hyperlipidemia -Gastroesophageal reflux disease -COPD without any significant exacerbation. -No code, no CPR, no vent Recommendations and discussion: Recommend to continue current medications, management, symptomatic treatment. Patient is maintained on 15 L nonrebreather. Severely dyspneic with any type of movement. Discussed with nursing staff about weaning FiO2 as tolerated and attempting to wean patient to high flow nasal cannula with a goal of at least 10 L as patient will be able to return to [facility] with 24/7 care and will agree to hospice and comfort once at [place]. Clarissa, daughter who is also his power of commercial attorney has been working on these arrangements. Patient also continues to need encouragement on keeping the mask on his face as he was found multiple times on room air less than 50%. Multiple medical consultations following. Patient is maintained on IV steroids along with Lovenox which has been adjusted, vitamin C and D supplements, and zinc supplements and will continue. To continue with sliding scale along with long-acting insulin. Pre- meal insulin has been discontinued. Potassium was found to be elevated at 6.3 and will give dextrose and insulin and repeat labs. PT/OT following although patient is unable to work with them due to severe dyspnea. Due to multiple complex medical issues, prognosis is poor and extremely guarded. Will repeat a.m. labs and continue to monitor closely. Further recommendations to follow. Case management and social work following.
[2020-10-16 11:35] LABS: Glucose,Whole Blood 248 mg/dL (75-99)
[2020-10-16] MEDS ORDERED: SODIUM POLYSTYRENE SULFONATE 15 GM/60 ML BOTTLE PO STA (14:44)
--- NOTE | 2020-10-16 14:51 | P.PN ---
Subjective Progress Note Date: 10/16/20 Follow-up for acute kidney injury. Objective - Vital Signs Vital signs: Vital Signs Temp 97.9 F 10/16/20 11:29 Pulse 85 10/16/20 11:29 Resp 16 10/16/20 11:29 BP 161/78 10/16/20 11:29 Pulse Ox 98 10/16/20 11:29 Intake & Output 10/15/20 10/16/20 10/16/20 18:59 06:59 18:59 Intake Total 680 Output Total 1000 700 Balance -320 -700 Intake: Oral 680 Output: Urine 1000 700 Uretheral (Gamez) 1000 350 Other: Voiding Method Ileal Conduit (Right) Ileal Conduit (Right) Ileal Conduit (Right) - Exam Refer to primary team exam - Labs CBC & Chem 7: 10/15/20 06:14 10/16/20 07:35 Labs: Abnormal Lab Results - Last 24 Hours (Table) 10/15/20 10/15/20 10/15/20 Range/Units 17:34 17:59 21:42 Potassium (3.5-5.1) mmol/L Chloride (98-107) mmol/L BUN (9-20) mg/dL Creatinine (0.66-1.25) mg/dL Glucose (74-99) mg/dL POC Glucose (mg/dL) 63 L 123 H 100 H (75-99) mg/dL 10/16/20 10/16/20 10/16/20 Range/Units 07:35 08:06 11:33 Potassium 6.3 H* (3.5-5.1) mmol/L Chloride 110 H (98-107) mmol/L BUN 110 H* (9-20) mg/dL Creatinine 2.76 H (0.66-1.25) mg/dL Glucose 114 H (74-99) mg/dL POC Glucose (mg/dL) 127 H 248 H (75-99) mg/dL Assessment and Plan Assessment: #1 acute kidney injury/progressive chronic kidney disease. Suspect septic ATN from UTI. Baseline creatinine 1.4 MG per DL in October 2018 #2 bladder/prostate cancer status post cystectomy with a urostomy. #3 Covid 19 #4 metabolic acidosis secondary to acute kidney injury #5 anemia with chronic kidney disease. #6 low normal blood pressures. #7 hyperkalemia secondary to obstruction Plan: #1 start 0.9% normal saline at 75 ML: Hour. #2 medical management for hyperkalemia. If not better needs cystoscopy by urology #3 nephrotoxic agents and hypotensive episodes.
[2020-10-16] MEDS: SODIUM CHLORIDE 0.9% 1,000 ML IV SCH (16:26)
[2020-10-16 17:34] LABS: Glucose,Whole Blood 188 mg/dL (75-99)
[2020-10-16] MEDS: FERROUS SULFATE 325 MG TAB PO SCH (17:48)
[2020-10-16 20:47] LABS: Glucose,Whole Blood 212 mg/dL (75-99)
[2020-10-16] MEDS: LORATADINE 10 MG TAB PO SCH (21:44)
[2020-10-16] MEDS: PRAMIPEXOLE 0.125 MG TAB PO SCH (21:44)
[2020-10-16] MEDS: MELATONIN 5 MG TABLET PO SCH (21:45)
[2020-10-16] MEDS: INSULIN DETEMIR (LEVEMIR) 100 UNIT/ML SYR SQ SCH (21:47)
[2020-10-16] MEDS: ALPRAZolam 0.25 MG TAB PO PRN (22:35)
[2020-10-17] MEDS: ALBUTEROL HFA INHALER INHALATION SCH ×6 (00:15→20:07)
[2020-10-17 04:41] VITALS: PULSE 75
[2020-10-17] MEDS: SODIUM CHLORIDE 0.9% 1,000 ML IV SCH ×2 (05:08→19:03)
[2020-10-17] MEDS: SYMBICORT 160-4.5 MCG INHALER INHALATION SCH ×2 (07:29→20:09)
[2020-10-17 07:36] LABS: Glucose,Whole Blood 130 mg/dL (75-99)
[2020-10-17] MEDS: ASPIRIN 81 MG PO SCH (09:16)
[2020-10-17] MEDS: CHOLECALCIFEROL 1,000 UNIT TAB PO SCH (09:16)
[2020-10-17] MEDS: AMIODARONE 200 MG TAB PO SCH (09:16)
[2020-10-17] MEDS: PANTOPRAZOLE 40 MG TABLET PO SCH (09:16)
[2020-10-17] MEDS: hydrALAZINE HCL 25 MG TAB PO SCH ×2 (09:16→16:42)
[2020-10-17] MEDS: SODIUM BICARBONATE TAB 650 MG TAB PO SCH ×3 (09:16→19:03)
[2020-10-17] MEDS: ENOXAPARIN 60 MG/0.6 ML SYRINGE SQ SCH (09:16)
[2020-10-17] MEDS: buPROPion XL 150 MG TAB.ER.24H PO SCH (09:16)
[2020-10-17] MEDS: ASCORBIC ACID 500 MG TAB PO SCH ×2 (09:16→19:04)
[2020-10-17] MEDS: MULTIVITAMINS, THERA 1 EACH TAB PO SCH (09:16)
[2020-10-17] MEDS: carvediloL 3.125 MG TAB PO SCH ×2 (09:16→19:03)
[2020-10-17] MEDS: methylPREDNISolone SOD SUCCI 40 MG/ML 1 ML VIAL IV SCH (09:17)
[2020-10-17] MEDS: MICATIN TOPICAL SCH (09:17)
[2020-10-17] MEDS: INSULIN ASPART (NovoLOG) 100 UNIT/ML VIAL SQ SCH ×3 (09:18→19:03)
[2020-10-17] MEDS: traMADol 50 MG TAB PO PRN (09:25)
[2020-10-17 11:08] LABS: Anion Gap 12.9 mmol/L (4.00-12.00); BUN/Creat Ratio 39.26 Ratio (12.00-20.00); Calcium 7.8 mg/dL (8.7-10.3); Carbon Dioxide 19.1 mmol/L (21.6-31.8); Non-African American GFR(CKD) 21.6 (60.0-200.0); Potassium 5.8 mmol/L (3.5-5.5)
[2020-10-17] MEDS: ALPRAZolam 0.25 MG TAB PO PRN (11:14)
[2020-10-17 11:29] LABS: Glucose,Whole Blood 115 mg/dL (75-99)
[2020-10-17 12:00] VITALS: BP 121/57; TEMP 97.6
[2020-10-17] MEDS ORDERED: INSULIN REGULAR 100 UNIT/ML VIAL IV ONE (12:26)
[2020-10-17] MEDS ORDERED: DEXTROSE 50% SYRINGE 50 ML IVP STA (12:26)
--- NOTE | 2020-10-17 12:44 | P.PN ---
Subjective Progress Note Date: 10/17/20 This is a 80-year-old male who was recently admitted with acute hypoxic respiratory failure secondary to Covid 19 pneumonia and is being closely monitored. Multiple medical consultations following. Patient remains on Airvo along with nonrebreather mask at 15 L and continues to be quite dyspneic and exerts very easily. Lasix is on hold and kidney function slowly improving. Nephrology is following. Urology recommended possible nephrostomy tube placement although will need to discuss this possible option once respiratory status improves. Patient continues to be extremely weak requiring assistance and experiences severe dyspnea with position changes. Patient is having some back pain and will order pain medications. Will repeat a.m. chest x-ray and a 2-D echo was ordered and pending at this time. 10/12/2020 Patient is seen and examined and follow-up currently remains on Airvo and NRB at 15 L. Patient is severely dyspneic off of any oxygen and has had unsuccessful attempts at weaning. Underwent CT yesterday showing emphysema and pulmonary interstitial fibrotic changes with honeycomb pattern noted in both lungs along with patchy areas of groundglass interstitial infiltrates in both peripheral lung camarena. Patient's 2-D echo shows severe left ventricular hypertrophy with systolic function mild to moderately impaired with an EF between 40 and 45% with a trace to mild mitral regurgitation along with mild tricuspid regurgitation present. Creatinine today is 3.0 and continues to hold diuretic at this time. Sodium is 135 and potassium is 4.4. Hemoglobin is 11.1, and white blood count is 16.5. Patient remains on IV steroids and will continue at this time. Will need to discuss with family about treatment plan moving forward. 10/13/2020 Patient is seen in follow-up today currently sitting up in the chair and is on nonrebreather at 15 L and continues to be severely dyspneic and oxygen saturation is 84-89% while in the room. Patient continues to become dyspneic during conversation as well. Patient is having buttocks discomfort due to being mostly immobile. Creatinine is stable at 3 current sodium is 135 with a potassium of 4.6. Multiple medical consultations following. Patient has been afebrile. Patient continues to have adequate urine output. Renal ultrasound was done showing persistent asymmetric right renal atrophy and moderate right- sided hydronephrosis with no left-sided hydronephrosis noted. Had a lengthy discussion with daughter Clarissa about treatment options and respiratory status and she mentioned possible hospice and is open to receive information from them. Case management was made aware. Patient will be setting up a phone conference with her father and sister this evening and will update nursing staff tomorrow. Patient's prognosis is poor and extremely guarded. Lovenox being adjusted and patient is maintained on IV steroids along with vitamin C and D supplements and zinc and will continue at this time. 10/14/2020 Patient is seen and evaluated in follow-up and continues to be closely monitored. Patient had a lengthy discussion with daughter Clarissa and states he does not want to be hospice at this time. Patient continues to be extremely dyspneic with minimal exertion and becomes hypoxic in the low 80s during conversation. Patient was currently on a nonrebreather and was placed on a partial rebreather with oxygen saturation of 83-85% during exam. Patient continues to remove oxygen supply and was found in the room on room air at 80%. Patient needs constant redirection and reinforcement on keeping oxygen mask and /or cannula on at all times. Patient's creatinine continues to improve and is currently 2.65. Blood sugars variable and will continue to monitor before meals and at bedtime closely and continue sliding scale and long-acting. Magnesium is 2.5 today. 10/15/2020 Patient is seen and evaluated today and is currently maintained on partial nonrebreather at 15 L and is being closely monitored. Oxygen saturations have been 92-95%. Patient continues to need encouragement and reinforcement to keep the oxygen applied to his face. Per nursing staff patient was found to have oxygen off and in his hand and saturation was 50%. Discussed with case management and social work about the possibility of returning to [place] and [facility] once there. Patient is being transferred to a 24/7 unit at the facility. Clarissa the daughter is making arrangements for this. Patient will need to be maintaining adequate oxygenation at 10 L nasal cannula in order to return to [place]. Patient's blood sugars have been on the lower side today and will decrease long-acting slightly and also decrease pre-meal insulins to 5 units 3 times daily with meals and will continue sliding scale. Patient continues to have buttock and lower back pain and will resume Ultram 50 mg twice daily. Patient to continue working with PT/OT therapy. Encourage patient to sit up out of the bed more often and continue to keep oxygen on. Creatinine today is 2.8, potassium is 4.8, hemoglobin is 11.0. Patient continues to have urine output noted in the suprapubic catheter. Multiple medical consultations following. Patient continues on IV steroids and will continue with Lovenox, vitamin C and D, and zinc supplements. 10/16/2020 Patient is seen in follow-up today continues to be on a nonrebreather at 15 L as he continues to be severely dyspneic with any form of exertion. Attempts at high flow nasal cannula have been unsuccessful as patient's oxygen saturations continue to be under 80%. As with nursing staff about weaning FiO2 as tolerated. Patient's potassium was elevated this morning at 6.3 and treated with dextrose and insulin and will recheck labs. Creatinine is 2.76 today. Blood sugars have been on the lower side as patient's oral intake continues to be poor. Will discontinue pre-meal insulin and continue with sliding scale and further adjust long-acting as needed. Patient is maintained on IV steroids and will continue at this time. Patient continues to have pain in his lower back and buttock area and Ultram has been resumed. Will continue to monitor closely. Prognosis is extremely guarded. Will discuss with daughter Clarissa about treatment plan. 10/17/2020 Patent is seen this morning currently lethargic although arousable. Patient potassium was elevated yesterday and was treated with kayexalate along with dextrose and insulin IV and still remains to be 5.8 today. Sodium is 140 and creatinine is stable at 2.7. Nephrology following and patient was started on IV normal saline at 75mL/hour. Patient continues to have urine output noted in the lui. Patient remains on 15L non-rebreather with multiple attempts to wean FI02 and patient does not tolerate well at all. Patient continues to require high amounts of oxygen. Blood sugars have come down as well and patients oral intake has decreased as well. Prognosis remains extremely poor and guarded. Review of systems: Constitutional: Reports fatigue and weakness Cardiovascular: No reports of chest pain or palpitations Respiratory: Reports worsening shortness of breath and extreme exertion with any movement. GI: No reports of nausea, vomiting, or diarrhea : No reports of dysuria or retention Neurovascular: Reports weakness with no reports of numbness All medications have been reviewed Active Medications Acetaminophen (Acetaminophen Tab 500 Mg Tab) 1,000 mg PO Q6H PRN PRN Reason: Fever and/ or Pain Albuterol Sulfate (Albuterol Hfa Inhaler) 2 puff INHALATION RT-Q4H [facility] Last Admin: 10/17/20 11:11 Dose: 2 puff Documented by: Alprazolam (Alprazolam 0.25 Mg Tab) 0.25 mg PO BID PRN PRN Reason: Anxiety Last Admin: 10/17/20 11:14 Dose: 0.25 mg Documented by: Amiodarone HCl (Amiodarone 200 Mg Tab) 200 mg PO DAILY [facility] Last Admin: 10/17/20 09:16 Dose: 200 mg Documented by: Ascorbic Acid (Ascorbic Acid 500 Mg Tab) 250 mg PO BID@0800,1700 [facility] Last Admin: 10/17/20 09:16 Dose: 250 mg Documented by: Aspirin (Aspirin 81 Mg) 81 mg PO DAILY [facility] Last Admin: 10/17/20 09:16 Dose: 81 mg Documented by: Baclofen (Baclofen 10 Mg Tab) 10 mg PO TID PRN PRN Reason: Muscle Pain Last Admin: 10/13/20 17:38 Dose: 10 mg Documented by: Benzocaine/Menthol (Benzocaine/Menthol Lozeng 1 Each Lozenge) 1 each MUCOUS MEM Q4HR PRN PRN Reason: Sore Throat Last Admin: 10/02/20 10:09 Dose: 1 each Documented by: Bisacodyl (Bisacodyl 10 Mg Supp) 10 mg RECTAL DAILY PRN PRN Reason: Constipation Last Admin: 10/16/20 13:58 Dose: 10 mg Documented by: Budesonide/Formoterol Fumarate (Symbicort 160-4.5 Mcg Inhaler) 2 puff INHALATION RT-BID [facility] Last Admin: 10/17/20 07:29 Dose: 2 puff Documented by: Bupropion HCl (Bupropion Xl 150 Mg Tab.Er.24h) 150 mg PO DAILY [facility] Last Admin: 10/17/20 09:16 Dose: 150 mg Documented by: Calcium Carbonate/Glycine (Calcium Carbonate 500 Mg Chewable) 1,000 mg PO Q8H PRN PRN Reason: Indigestion Carvedilol (Carvedilol 3.125 Mg Tab) 3.125 mg PO BID@0800,1800 [facility] Last Admin: 10/17/20 09:16 Dose: 3.125 mg Documented by: Cholecalciferol (Cholecalciferol 1,000 Unit Tab) 2,000 unit PO DAILY [facility] Last Admin: 10/17/20 09:16 Dose: 2,000 unit Documented by: Enoxaparin Sodium (Enoxaparin 60 Mg/0.6 Ml Syringe) 55 mg SQ DAILY [facility] Last Admin: 10/17/20 09:16 Dose: 55 mg Documented by: Ferrous Sulfate (Ferrous Sulfate 325 Mg Tab) 325 mg PO HS@1800 [facility] Last Admin: 10/16/20 17:48 Dose: 325 mg Documented by: Guaifenesin/Dextromethorphan (Guaifenesin-Dm 100-10mg/5ml 10 Ml Cup) 5 ml PO Q4H PRN PRN Reason: Cough Hydralazine HCl (Hydralazine Hcl 25 Mg Tab) 25 mg PO TID [facility] Last Admin: 10/17/20 09:16 Dose: 25 mg Documented by: Sodium Chloride (Saline 0.9%) 1,000 mls @ 75 mls/hr IV .[id number] [facility] Last Admin: 10/17/20 05:08 Dose: 75 mls/hr Documented by: Insulin Aspart (Insulin Aspart (Novolog) 100 Unit/Ml Vial) 0 unit SQ [facility]; Protocol Last Admin: 10/17/20 09:18 Dose: Not Given Documented by: Insulin Detemir (Insulin Detemir (Levemir) 100 Unit/Ml Syr) 55 unit SQ [facility] Last Admin: 10/16/20 21:47 Dose: 55 unit Documented by: Insulin Human Regular (Insulin Regular 100 Unit/Ml Vial) 10 unit IV ONCE ONE Stop: 10/17/20 12:27 Loperamide HCl (Loperamide 2 Mg Cap) 2 mg PO QID PRN PRN Reason: Diarrhea Last Admin: 09/26/20 00:31 Dose: 2 mg Documented by: Loratadine (Loratadine 10 Mg Tab) 10 mg PO [facility] Last Admin: 10/16/20 21:44 Dose: 10 mg Documented by: Magnesium Hydroxide (Magnesium Hydroxide 2,400 Mg/10 Ml Cup) 2,400 mg PO DAILY PRN PRN Reason: Constipation Melatonin (Melatonin 5 Mg Tablet) 10 mg PO [facility] Last Admin: 10/16/20 21:45 Dose: 10 mg Documented by: Methylprednisolone Sodium Succinate (Methylprednisolone Sod Succi 40 Mg/Ml 1 Ml Vial) 40 mg IV Q12HR [facility] Last Admin: 10/17/20 09:17 Dose: 40 mg Documented by: Multivitamins (Multivitamins, Thera 1 Each Tab) 1 each PO DAILY [facility] Last Admin: 10/17/20 09:16 Dose: 1 each Documented by: Naloxone HCl (Naloxone 0.4 Mg/Ml 1 Ml Vial) 0.2 mg IV Q2M PRN PRN Reason: Opioid Reversal Micatin Cream 1 applic TOPICAL BID [facility] Last Admin: 10/17/20 09:17 Dose: Not Given Documented by: Miconazole Nitrate [ Zeasorb Af] 71 Gm Powder 1 applic TOPICAL BID PRN PRN Reason: SKIN FOLD/GROIN AREA Ondansetron HCl (Ondansetron 4 Mg Tab) 4 mg PO Q8H PRN PRN Reason: Nausea And Vomiting Pantoprazole Sodium (Pantoprazole 40 Mg Tablet) 40 mg PO DAILY@0730 [facility] Last Admin: 10/17/20 09:16 Dose: 40 mg Documented by: Polyethylene Glycol (Polyethylene Glycol 3350 17 Gm Powd.Pack) 17 gm PO DAILY PRN PRN Reason: Constipation Last Admin: 10/07/20 12:32 Dose: 17 gm Documented by: Pramipexole Dihydrochloride (Pramipexole 0.125 Mg Tab) 0.125 mg PO [facility] Last Admin: 10/16/20 21:44 Dose: 0.125 mg Documented by: Sodium Bicarbonate (Sodium Bicarbonate Tab 650 Mg Tab) 650 mg PO QID [facility] Last Admin: 10/17/20 09:16 Dose: 650 mg Documented by: Tramadol HCl (Tramadol 50 Mg Tab) 50 mg PO BID PRN PRN Reason: Pain Last Admin: 10/17/20 09:25 Dose: 50 mg Documented by: Objective - Vital Signs Vital signs: Vital Signs Temp 97.7 F 10/17/20 04:40 Pulse 75 10/17/20 04:40 Resp 18 10/17/20 04:40 BP 155/72 10/17/20 04:40 Pulse Ox 92 L 10/17/20 04:40 Intake & Output 10/16/20 10/17/20 10/17/20 18:59 06:59 18:59 Output Total 500 2900 Balance -500 -2900 Output: Urine 500 2900 Uretheral (Lui) 1100 Other: Voiding Method Ileal Conduit (Right) Ileal Conduit (Right) - Exam GENERAL: The patient is alert and oriented x3, slightly anxious. Well developed, well nourished. Temp is 97.6, pulse is 75, respirations are 20, blood pressure is 121/57, oxygen saturations is 92% on 15 L nonrebreather HEENT: Pupils are round and equally reacting to light. EOMI. No scleral icterus. No conjunctival pallor. Normocephalic, atraumatic. No pharyngeal erythema. No thyromegaly. Oral mucosa is dry. CARDIOVASCULAR: S1 and S2 muffled PULMONARY: Diminished breath sounds at the bases with no wheezing with some scattered rhonchi noted ABDOMEN: Soft, obese, nontender, nondistended, normoactive bowel sounds. No palpable organomegaly. Suprapubic catheter noted MUSCULOSKELETAL: No joint swelling or deformity. EXTREMITIES: No cyanosis, clubbing, or pedal edema. NEUROLOGICAL: Gross neurological examination did not reveal any focal deficits. Diffusely weak SKIN: Pale, No rashes or lesions noted. - Labs CBC & Chem 7: 10/15/20 06:14 10/17/20 05:01 Labs: Abnormal Lab Results - Last 24 Hours (Table) 10/16/20 10/16/20 10/16/20 Range/Units 07:35 08:06 11:33 Potassium 6.3 H* (3.5-5.1) mmol/L Chloride 110 H (98-107) mmol/L BUN 110 H* (9-20) mg/dL Creatinine 2.76 H (0.66-1.25) mg/dL Glucose 114 H (74-99) mg/dL POC Glucose (mg/dL) 127 H 248 H (75-99) mg/dL 10/16/20 10/16/20 10/17/20 Range/Units 17:32 20:45 07:34 Potassium (3.5-5.1) mmol/L Chloride (98-107) mmol/L BUN (9-20) mg/dL Creatinine (0.66-1.25) mg/dL Glucose (74-99) mg/dL POC Glucose (mg/dL) 188 H 212 H 130 H (75-99) mg/dL Assessment and Plan Assessment: -Acute Covid 19 pneumonia bilateral interstitial viral pneumonia with acute hypoxic respiratory failure. -Chronic kidney disease stage V, baseline -hyperkalemia -Acute kidney failure with acute tubular necrosis -Right sided hydronephrosis and obstructive uropathy. Currently has suprapubic Lui catheter -Volume overload secondary to renal failure -history of bladder cancer with ileostomy -Diarrhea secondary to Covid 19, resolved -Type 2 diabetes mellitus, uncontrolled with hyperglycemia -Coronary artery disease with previous stents -Hypertension -Hyperlipidemia -Gastroesophageal reflux disease -COPD without any significant exacerbation. -No code, no CPR, no vent Recommendations and discussion: Recommend to continue current medications, management, symptomatic treatment. Patient is maintained on 15 L nonrebreather. Severely dyspneic with any type of movement. Discussed with nursing staff about weaning FiO2 as tolerated and attempting to wean patient to high flow nasal cannula with a goal of at least 10 L as patient will be able to return to [facility] with 24/7 care and will agree to hospice and comfort once at [place]. Patient has been unable to tolerate any form of weaning FI02. Repeat potassium remains elevated at 5.8. Kayexalate and dextrose with insulin given. Nephrology following and patient was placed on gentle IV hydration. Patient oral intake is extremely poor as well. PT/OT following although patient is unable to work with them due to severe dyspnea. Due to multiple complex medical issues, prognosis is poor and extremely guarded. Will repeat a.m. labs and continue to monitor closely. Will discuss treatment plan again with family in the morning. Further recommendations to follow. Case management and social work following.
[2020-10-17] MEDS ORDERED: SODIUM POLYSTYRENE SULFONATE 15 GM/60 ML BOTTLE PO STA (14:02)
--- NOTE | 2020-10-17 14:03 | P.PN ---
Subjective Progress Note Date: 10/17/20 Follow-up for acute kidney injury. Objective - Vital Signs Vital signs: Vital Signs Temp 97.6 F 10/17/20 11:00 Pulse 75 10/17/20 11:00 Resp 20 10/17/20 11:00 BP 121/57 10/17/20 11:00 Pulse Ox 92 L 10/17/20 11:00 Intake & Output 10/16/20 10/17/20 10/17/20 18:59 06:59 18:59 Output Total 500 2900 Balance -500 -2900 Weight 108.862 kg Output: Urine 500 2900 Uretheral (Gamez) 1100 Other: Voiding Method Ileal Conduit (Right) Ileal Conduit (Right) Ileal Conduit (Right) - Exam Refer to primary team exam - Labs CBC & Chem 7: 10/15/20 06:14 10/17/20 05:01 Labs: Abnormal Lab Results - Last 24 Hours (Table) 10/16/20 10/16/20 10/17/20 Range/Units 17:32 20:45 05:01 Potassium 5.8 H (3.5-5.5) mmol/L Carbon Dioxide 19.1 L (21.6-31.8) mmol/L Anion Gap 12.90 H (4.00-12.00) mmol/L BUN 106.0 H* (9.0-27.0) mg/dL Creatinine 2.7 H (0.6-1.5) mg/dL Est GFR (CKD-EPI)AfAm 25.0 L (60.0-200.0) Est GFR (CKD-EPI)NonAf 21.6 L (60.0-200.0) BUN/Creatinine Ratio 39.26 H (12.00-20.00) Ratio POC Glucose (mg/dL) 188 H 212 H (75-99) mg/dL Calcium 7.8 L (8.7-10.3) mg/dL 10/17/20 10/17/20 Range/Units 07:34 11:28 Potassium (3.5-5.5) mmol/L Carbon Dioxide (21.6-31.8) mmol/L Anion Gap (4.00-12.00) mmol/L BUN (9.0-27.0) mg/dL Creatinine (0.6-1.5) mg/dL Est GFR (CKD-EPI)AfAm (60.0-200.0) Est GFR (CKD-EPI)NonAf (60.0-200.0) BUN/Creatinine Ratio (12.00-20.00) Ratio POC Glucose (mg/dL) 130 H 115 H (75-99) mg/dL Calcium (8.7-10.3) mg/dL Assessment and Plan Assessment: #1 acute kidney injury/progressive chronic kidney disease. Suspect septic ATN from UTI. Baseline creatinine 1.4 MG per DL in October 2018 #2 bladder/prostate cancer status post cystectomy with a urostomy. #3 Covid 19 #4 metabolic acidosis secondary to acute kidney injury #5 anemia with chronic kidney disease. #6 low normal blood pressures. #7 hyperkalemia secondary to obstruction Plan: #1 stop IV fluids #2 medical management for hyperkalemia. If not better needs cystoscopy by urology #3 nephrotoxic agents and hypotensive episodes.
[2020-10-17] MEDS ORDERED: traMADol 50 MG TAB PO PRN (16:15)
[2020-10-17 17:00] LABS: Glucose,Whole Blood 136 mg/dL (75-99)
[2020-10-17] MEDS ORDERED: ONDANSETRON 4 MG/2 ML VIAL IVP PRN (18:47)
[2020-10-17] MEDS ORDERED: LORazepam 2 MG/ML INJ IV PRN (18:47)
[2020-10-17] MEDS ORDERED: SCOPOLAMINE 1.5MG/72HR PATCH TRANSDERM SCH (19:00)
[2020-10-17] MEDS: FERROUS SULFATE 325 MG TAB PO SCH (19:03)
[2020-10-17] MEDS ORDERED: MORPHINE SULFATE (100 MG/2 ML) 100 MG in SODIUM CHLORIDE 0.9% 100 ML IV SCH (19:30)
[2020-10-18] MEDS: ALBUTEROL HFA INHALER INHALATION SCH ×2 (00:51→04:39)
[2020-10-18 05:30] VITALS: RESP 12
--- NOTE | 2020-10-18 10:36 | P.DS ---
Providers Date of admission: 09/24/20 17:09 Expected date of discharge: 10/18/20 Attending physician: Jerad Saunders Consults: 09/24/20 17:09 Consult Physician Routine Consulting Provider: Hasmukh Aponte Consult Reason/Comments: covid 19 Do you want consulting provider notified?: Yes Consult Physician Routine Consulting Provider: Moose Hoover Consult Reason/Comments: heydi Do you want consulting provider notified?: Yes 09/27/20 07:14 Consult Physician Routine Consulting Provider: Noman Andino Consult Reason/Comments: hydronephrosis Do you want consulting provider notified?: Yes Primary care physician: Stated None Hospital Course: Final diagnosis -Acute Covid 19 pneumonia bilateral interstitial viral pneumonia with acute hypoxic respiratory failure. -Chronic kidney disease stage V, baseline -hyperkalemia -Acute kidney failure with acute tubular necrosis -Right sided hydronephrosis and obstructive uropathy. Currently has suprapubic Gamez catheter -Volume overload secondary to renal failure -history of bladder cancer with ileostomy -Diarrhea secondary to Covid 19, resolved -Type 2 diabetes mellitus, uncontrolled with hyperglycemia -Coronary artery disease with previous stents -Hypertension -Hyperlipidemia -Gastroesophageal reflux disease -COPD without any significant exacerbation. -No code, no CPR, no vent Discharge disposition Patient has on 10/18/2020 time of per nursing documentation is 05:45. Daughter Clarissa who is power of family law attorney was able to be at the bedside. Preliminary cause of Covid 19 pneumonia Hospital course This is a 72-year-old male who was recently admitted with acute hypoxic respiratory failure secondary to Covid 19 pneumonia and was being closely monitored. Multiple medical consultations following including pulmonary and nephrology. Patient with acute kidney failure as well and was seen and evaluated by urology as he had right-sided hydronephrosis and recommending possible nephrostomy tube although patient refused. Patient was seen in the past with the possibility of needing dialysis although patient continued to refuse this as well. Patient's prognosis was extremely poor and guarded. Patient continued to require high amounts of oxygen and continued to deteriorate. Discussions were had about possible hospice although patient refused initially. Patient status continued to deteriorate and family was notified and Clarissa was brought to the bedside and comfort care measures were placed. Please refer to previous dictations for further HPI. Patient Condition at Discharge: Poor Plan - Discharge Summary Discharge Rx Participant: Yes New Discharge Prescriptions: No Action Ferrous Sulfate [Feosol] 325 mg PO HS@1800 Omeprazole [PriLOSEC] 20 mg PO DAILY Insulin Glargine,Hum.rec.anlog [Lantus Solostar] 50 unit SQ HS Multivitamin [Men's Multi-Vitamin] 1 tab PO DAILY Pramipexole [Mirapex] 0.125 mg PO HS Baclofen [Lioresal] 10 mg PO TID PRN PRN Reason: Muscle Pain guaiFENesin-DM 100-10MG/5ML [Robitussin DM] 5 ml PO Q4H PRN PRN Reason: Cough Albuterol Sulfate [Ventolin HFA] 2 puff INHALATION RT-Q4H PRN PRN Reason: Shortness Of Breath polyethylene glycoL 3350 [Miralax] 17 gm PO DAILY PRN PRN Reason: Constipation Ondansetron HCl [Zofran] 4 mg PO Q8H PRN PRN Reason: Nausea And Vomiting Magnesium Hydroxide [Milk of Magnesia] 2,400 mg PO DAILY PRN PRN Reason: Constipation [place] Liquis Skin Protectant 1 applic TOPICAL DIRECTED PRN PRN Reason: eroded,denuded, macerated skin Mag Hydrox/Al Hydrox/Simeth [Maalox] 15 ml PO Q2H PRN PRN Reason: Indigestion Acetaminophen Tab [Tylenol Tab] 1,000 mg PO Q4H PRN PRN Reason: Fever And/ Or Pain Acetaminophen Tab [Tylenol] 650 mg PO Q4H PRN PRN Reason: Fever And/ Or Pain Loperamide HCl [Imodium A-D] 2 - 4 mg PO QID PRN PRN Reason: Diarrhea Insta Glucose Gel 77.4% 15 gm PO DAILY PRN PRN Reason: BG less than 50 Na Phos,M-B/Na Phos,Di-Ba [Fleet Adult] 133 ml RECTAL DAILY PRN PRN Reason: Constipation HYDROcodone/APAP 5-325MG [Carleton 5] 1 tab PO Q8H PRN PRN Reason: Pain Calcium Carbonate [Tums] 1,000 mg PO Q2H PRN PRN Reason: Indigestion Calazime Skin Protectant Paste 1 applic TOPICAL DAILY PRN PRN Reason: reddened areas Calazime Skin Protectant Paste 1 applic TOPICAL BID bisacodyL [Bisacodyl] 10 mg RECTAL DAILY PRN PRN Reason: Constipation Micatin Cream 1 applic TOPICAL BID Menthol [Biofreeze] 1 applic TOPICAL TID PRN PRN Reason: lower back pain Micatin Cream 1 applic TOPICAL DAILY PRN PRN Reason: buttocks/perianal area Acetaminophen Suppository [Tylenol Suppository] 650 mg RECTAL Q4H PRN PRN Reason: Fever And/ Or Pain Zinc Gluconate [Zinc] 50 mg PO HS Cholecalciferol [Vitamin D3 (25 Mcg = 1000 Iu)] 2,000 unit PO DAILY traMADol HCL 50 mg PO BID Ascorbic Acid [Vitamin C] 250 mg PO BID@0800,1700 Torsemide [Demadex] 40 mg PO DAILY Melatonin 10 mg PO HS hydrALAZINE HCL [Apresoline] 25 mg PO TID@0800,1400,2000 Isosorbide Mononitrate ER [Imdur] 30 mg PO DAILY Insulin Regular [humuLIN R] See Protocol SQ AC-TID Fluticasone/Salmeterol [Airduo Respiclick 232-14 Mcg] 1 puff INHALATION RT- BID Cranberry Fruit Extract [Cranberry] 500 mg PO DAILY Ubidecarenone [Co Q-10] 100 mg PO AC-SUPPER Cetirizine HCl 10 mg PO HS buPROPion XL [Wellbutrin Xl] 150 mg PO DAILY Carvedilol [Coreg] 12.5 mg PO BID@0800,1800 Aspirin EC [Ecotrin Low Dose] 81 mg PO DAILY Acetaminophen [Tylenol Arthritis] 1,300 mg PO Q12H Darbepoetin Gurdeep [Aranesp] 200 mcg SQ FR Amiodarone [Cordarone] 200 mg PO DAILY Miconazole Nitrate [Zeasorb AF] 1 applic TOPICAL BID PRN PRN Reason: SKIN FOLD/GROIN AREA Discharge Medication List Ferrous Sulfate [Feosol] 325 mg PO HS@1800 04/02/15 [History] Insulin Glargine,Hum.rec.anlog [Lantus Solostar] 50 unit SQ HS 04/02/15 [History] Multivitamin [Men's Multi-Vitamin] 1 tab PO DAILY 04/02/15 [History] Omeprazole [PriLOSEC] 20 mg PO DAILY 04/02/15 [History] Baclofen [Lioresal] 10 mg PO TID PRN 12/06/17 [History] Pramipexole [Mirapex] 0.125 mg PO HS 12/06/17 [History] Acetaminophen Suppository [Tylenol Suppository] 650 mg RECTAL Q4H PRN 09/24/20 [History] Acetaminophen Tab [Tylenol Tab] 1,000 mg PO Q4H PRN 09/24/20 [History] Acetaminophen Tab [Tylenol] 650 mg PO Q4H PRN 09/24/20 [History] Acetaminophen [Tylenol Arthritis] 1,300 mg PO Q12H 09/24/20 [History] Albuterol Sulfate [Ventolin HFA] 2 puff INHALATION RT-Q4H PRN 09/24/20 [History] Amiodarone [Cordarone] 200 mg PO DAILY 09/24/20 [History] Ascorbic Acid [Vitamin C] 250 mg PO BID@0800,1700 09/24/20 [History] Aspirin EC [Ecotrin Low Dose] 81 mg PO DAILY 09/24/20 [History] Calazime Skin Protectant Paste 1 applic TOPICAL BID 09/24/20 [History] Calazime Skin Protectant Paste 1 applic TOPICAL DAILY PRN 09/24/20 [History] Calcium Carbonate [Tums] 1,000 mg PO Q2H PRN 09/24/20 [History] Carvedilol [Coreg] 12.5 mg PO BID@0800,1800 09/24/20 [History] Cetirizine HCl 10 mg PO HS 09/24/20 [History] Cholecalciferol [Vitamin D3 (25 Mcg = 1000 Iu)] 2,000 unit PO DAILY 09/24/20 [History] Cranberry Fruit Extract [Cranberry] 500 mg PO DAILY 09/24/20 [History] Darbepoetin Gurdeep [Aranesp] 200 mcg SQ FR 09/24/20 [History] Fluticasone/Salmeterol [Airduo Respiclick 232-14 Mcg] 1 puff INHALATION RT-BID 09/24/20 [History] HYDROcodone/APAP 5-325MG [Carleton 5] 1 tab PO Q8H PRN 09/24/20 [History] Insta Glucose Gel 77.4% 15 gm PO DAILY PRN 09/24/20 [History] Insulin Regular [humuLIN R] See Protocol SQ AC-TID 09/24/20 [History] Isosorbide Mononitrate ER [Imdur] 30 mg PO DAILY 09/24/20 [History] Loperamide HCl [Imodium A-D] 2 - 4 mg PO QID PRN 09/24/20 [History] Mag Hydrox/Al Hydrox/Simeth [Maalox] 15 ml PO Q2H PRN 09/24/20 [History] Magnesium Hydroxide [Milk of Magnesia] 2,400 mg PO DAILY PRN 09/24/20 [History] [place] Liquis Skin Protectant 1 applic TOPICAL DIRECTED PRN 09/24/20 [History] Melatonin 10 mg PO HS 09/24/20 [History] Menthol [Biofreeze] 1 applic TOPICAL TID PRN 09/24/20 [History] Micatin Cream 1 applic TOPICAL BID 09/24/20 [History] Micatin Cream 1 applic TOPICAL DAILY PRN 09/24/20 [History] Miconazole Nitrate [Zeasorb AF] 1 applic TOPICAL BID PRN 09/24/20 [History] Na Phos,M-B/Na Phos,Di-Ba [Fleet Adult] 133 ml RECTAL DAILY PRN 09/24/20 [History] Ondansetron HCl [Zofran] 4 mg PO Q8H PRN 09/24/20 [History] Torsemide [Demadex] 40 mg PO DAILY 09/24/20 [History] Ubidecarenone [Co Q-10] 100 mg PO AC-SUPPER 09/24/20 [History] Zinc Gluconate [Zinc] 50 mg PO HS 09/24/20 [History] bisacodyL [Bisacodyl] 10 mg RECTAL DAILY PRN 09/24/20 [History] buPROPion XL [Wellbutrin Xl] 150 mg PO DAILY 09/24/20 [History] guaiFENesin-DM 100-10MG/5ML [Robitussin DM] 5 ml PO Q4H PRN 09/24/20 [History] hydrALAZINE HCL [Apresoline] 25 mg PO TID@0800,1400,2000 09/24/20 [History] polyethylene glycoL 3350 [Miralax] 17 gm PO DAILY PRN 09/24/20 [History] traMADol HCL 50 mg PO BID 12/18/20 [History] Follow up Appointment(s)/Referral(s): None,Stated [Primary Care Provider] - 1-2 days Residential Home[facility] [NON-STAFF] - Discharge Disposition: - Preliminary Cause of Preliminary Cause of : Covid 19 pneumonia
--- NOTE | 2020-10-21 10:14 | CDI ---
Documentation Clarification Form Date: 10/21/2020 10:11 AM CDS: Stephanie Tavares, NABIL, CCDS Admit Date: 09/24/2020 Patient Name: Tre Fernández Discharge/Expiration Date: 10/18/2020 08:36 AM ATTENTION: The Clinical Documentation Specialists (CDI) and [facility] Coding Staff appreciate your assistance in clarifying documentation. Please respond to the clarification below the line at the bottom and electronically sign. The CDI & [facility] Coding staff will review the response and follow-up if needed. Please note: Queries are made part of the Legal Health Record. If you have any questions, please contact the author of this message via ITS. Dear Dr. Robert Cm: "Suspect septic ATN from UTI. Bladder/prostate cancer status post cystectomy with a urostomy" is documented in the 09/25 Nephrology Consult and in subsequent Progress Notes on 09/26, 10/16 & 10/17/2020. Sepsis or related diagnosis is not further documented. History/Risk Factors: Bladder Cancer status post Cystoprostatectomy with lleal Conduit in 2018, Hypertension with CKD Stage V, DM II, Systolic CHF, CAD status post CABG & Pacemaker, Hyperlipidemia, GERD & COPD, Former Smoker. Clinical Indicators: 80-year-old male transferred from [facility] for SOB, COVID and VINEET. Tested positive for COVID one week ago, is currently a resident of an [facility]. Patient states he also fell last night. He did have a laceration on his left elbow that wasn't repaired at [facility]. Admit with COVID 19 and Kidney Failure. 09/24 VS: T 98.4, P 65, R 25-28 (SOB, labored), BP 110/50, PO 94 4Lnc - 90 RA 10/08 VS: T 97.5*, P 68, R 18 (SOB, cough, Shallow, Tachypnea); BP 124/64, PO 94 High Flow 15L 09/24 LAB: WBC (4.6), Neut (4.0), Lymph 0.2*, 09/24 UA: 1+ Protein, Small blood, Positive Nitrite, Large Esterase, WBC 18 10/08 LAB: WBC 13.0^, Neut 12.5*, Lymph 0.1*, D Dimer 1.29^, LDH 273^ 10/15 LAB: WBC 17.1^, Neut 16.7^, Lymph 0.0* 09/28 COVID Test: Positive No Lactic Acid, No Cultures Treatment 09/24: IV Rocephin, INH Ventolin, Lovenoz sq (changed to SQ Heparin) 09/25: po Hexadrol, IV Lasix. 09/28: PO Lasix 10/08: IV Lasix, Lovenox contd 10/11: IV Solumedrol In your professional opinion, please clarify if these findings signify one of the following conditions, whether the condition is POA, and cause, if known: Sepsis ruled out Sepsis ruled in o With Severe Sepsis, please specify associated organ failure: Other, please specify Unable to determine Present on Admission o Yes o No (Last Revision: January 2018) Sepsis due to COVID MTDD
--- NOTE | 2020-10-21 10:28 | CDI ---
Documentation Clarification Form Date: 10/21/2020 10:11 AM CDS: Stephanie Tavares, NABIL, CCDS Admit Date: 09/24/2020 Patient Name: Tre Fernández Discharge/Expiration Date: 10/18/2020 08:36 AM ATTENTION: The Clinical Documentation Specialists (CDI) and [facility] Coding Staff appreciate your assistance in clarifying documentation. Please respond to the clarification below the line at the bottom and electronically sign. The CDI & [facility] Coding staff will review the response and follow-up if needed. Please note: Queries are made part of the Legal Health Record. If you have any questions, please contact the author of this message via ITS. Dear Dr. Roebrt Cm: Systolic Heart Failure with an EF of 40-45% is documented beginning with the 10/12 Nephrology Progress Note and in subsequent Progress Notes without acuity. History/Risk Factors: Bladder Cancer status post Cystoprostatectomy with lleal Conduit in 2018, Hypertension with CKD Stage V, DM II, Systolic CHF, CAD status post CABG & Pacemaker, Hyperlipidemia, GERD & COPD, Former Smoker. Clinical Indicators: 80-year-old male transferred from [facility] for SOB, COVID and VINEET. Tested positive for COVID one week ago, is currently a resident of an [facility]. Patient states he also fell last night. He did have a laceration on his left elbow that wasn't repaired at [facility]. Admit with COVID 19 and Kidney Failure. 09/24 VS: T 98.4, P 65, R 25-28 (SOB, labored), BP 110/50, PO 94 4Lnc - 90 RA 09/24 LAB: WBC (4.6), Neut (4.0), Lymph 0.2*, Na 135*, CO2 16*, BUN 71^, Cr 4.94^, Glucose 104^, Calcium 7.8*, AST 68^, ALT 57^ 09/28 COVID Test: Positive 09/25 D Dimer 0.65, 09/27 0.63^, 10/01 2.00^, 10/02 1.31^, 10/03 1.35^, 10/08 1.29^ BNP done done 09/25 CXR: COPD, cardiomegaly and basilar atelectasis favored over early infiltrate. 09/27 CXR: Possible scarring or basilar atelectasis, correlate for pneumonia 10/01 CXR: Heterogeneous opacity in the bilateral lower lobes. Correlate with infectious process versus atelectasis.Unchanged heart size. No effusion. 10/07 CXR: Correlate for possible pneumonia, edema 10/10 CXR: Mild cardiomegaly and chronic parenchymal changes with peripheral and basilar multi focal acute infiltrates, possible COVID 19 infection. Pulmonary infection favored over CHF. 10/15 CXR: Cardiomegaly, COPD and pleural parenchymal changes stable correlate for CHF versus interstitial pneumonia Treatment 09/24: IV Rocephin, INH Ventolin, Lovenoz sq (changed to SQ Heparin) 09/25: po Hexadrol, IV Lasix. 09/27: po Lasix 40 mg, IV Na Bicarb 09/28: PO Lasix 10/08: IV Lasix, Lovenox continued 10/11: IV Solumedrol In your professional opinion, can you please clarify the documented CHF if known? Heart Failure ruled out Heart Failure ruled in: o Systolic Heart Failure: Acute Chronic Acute on Chronic Unable to Determine Other, please specify (Last Revision: January 2018) Heart Failure ruled in: o Systolic Heart Failure: Acute on Chronic MTDD
== END 2020-10-18 08:36 | disposition expired | DRG 871 ==
LOC: EC 15:51 → 6NMEDSUR 17:09
PROVIDERS: ADMIT Internal Medicine; ATTEND Internal Medicine
PROC: XW13325 Transfusion of Convalescent Plasma (Nonautologous) into Peripheral Vein, Percutaneous Approach, New Technology Group 5 (ICD-10-PCS; principal; 2020-10-02)
PROC: 05HC33Z Insertion of Infusion Device into Left Basilic Vein, Percutaneous Approach (ICD-10-PCS; 2020-10-04)
DX: A41.89 Other specified sepsis (principal); U07.1 COVID-19; J96.01 Acute respiratory failure with hypoxia; N17.0 Acute kidney failure with tubular necrosis; J12.82 Pneumonia due to coronavirus disease 2019; I50.23 Acute on chronic systolic (congestive) heart failure; N18.5 Chronic kidney disease, stage 5; E87.2 Acidosis; I13.2 Hypertensive heart and chronic kidney disease with heart failure and with stage 5 chronic kidney disease, or end stage renal disease; I42.9 Cardiomyopathy, unspecified; J98.11 Atelectasis; A08.39 Other viral enteritis; N13.6 Pyonephrosis; I50.20 Unspecified systolic (congestive) heart failure; S51.012A Laceration without foreign body of left elbow, initial encounter; Z66 Do not resuscitate; Z51.5 Encounter for palliative care; I27.20 Pulmonary hypertension, unspecified; Z79.4 Long term (current) use of insulin; I25.10 Atherosclerotic heart disease of native coronary artery without angina pectoris; K21.9 Gastro-esophageal reflux disease without esophagitis; M19.90 Unspecified osteoarthritis, unspecified site; E78.5 Hyperlipidemia, unspecified; F32.9 Major depressive disorder, single episode, unspecified; F41.9 Anxiety disorder, unspecified; D63.1 Anemia in chronic kidney disease; E11.22 Type 2 diabetes mellitus with diabetic chronic kidney disease; E11.65 Type 2 diabetes mellitus with hyperglycemia; I71.4 Abdominal aortic aneurysm, without rupture; T38.0X5A Adverse effect of glucocorticoids and synthetic analogues, initial encounter; E87.5 Hyperkalemia; K59.00 Constipation, unspecified; I08.3 Combined rheumatic disorders of mitral, aortic and tricuspid valves; E87.70 Fluid overload, unspecified; J43.9 Emphysema, unspecified; Z79.01 Long term (current) use of anticoagulants; Z79.82 Long term (current) use of aspirin; Z79.52 Long term (current) use of systemic steroids; Z87.891 Personal history of nicotine dependence; Z80.9 Family history of malignant neoplasm, unspecified; Z87.19 Personal history of other diseases of the digestive system; Z93.2 Ileostomy status; Z95.1 Presence of aortocoronary bypass graft; Z95.0 Presence of cardiac pacemaker; Z90.6 Acquired absence of other parts of urinary tract; Z74.01 Bed confinement status; Z79.899 Other long term (current) drug therapy; Z88.5 Allergy status to narcotic agent; Z88.0 Allergy status to penicillin; Z88.8 Allergy status to other drugs, medicaments and biological substances; Z86.010 Personal history of colon polyps; Z95.5 Presence of coronary angioplasty implant and graft; Z98.890 Other specified postprocedural states; Z98.42 Cataract extraction status, left eye; Z98.41 Cataract extraction status, right eye; Z87.440 Personal history of urinary (tract) infections; Z85.51 Personal history of malignant neoplasm of bladder
CPT/HCPCS: 36410; 36600; 71045; 71250; 74176; 76770; 76937; 80048; 80053; 81001; 82728; 83036; 83615; 83625; 83735; 84100; 84145; 85025; 85027; 85379; 86140; 86850; 86870; 86880; 86900; 86901; 87635; 93005; 93306; 94640; 94760; 96374; 99285